=== PATIENT | male | born 1965 | race Caucasian/White ===

== ENCOUNTER 2022-01-16 12:55 | Emergency (ER) | payer MEDICARE, MEDICAID, SELFPAY ==
[2022-01-16 14:01] VITALS: BP 106/68; PULSE 74; RESP 18; TEMP 36.4; O2SAT 94
--- NOTE | 2022-01-23 18:08 | ED.SKABFB ---
HPI - Skin/Abscess/Foreign Bdy General Chief complaint: Skin/Abscess/Foreign Body Stated complaint: Feeding tube sight is red and possibly infected Time Seen by Provider: 01/16/22 14:11 History of Present Illness HPI narrative: 57-year-old man accompanied by his sister who has recently noticed that there is more erythema around his G-tube site. [facility] a [facility]. They have been cleansing daily and placing split gauze around the G-tube. No apparent complaints of pain. No purulent drainage. Sister's worried that he might be getting a skin infection. Related Data Home Medications Medication Instructions Recorded Confirmed acetaminophen 500 mg/15 mL oral mg 01/16/22 liquid (Mapap (acetaminophen)) carbamazepine 100 mg/5 mL oral mg 01/16/22 suspension cefuroxime axetil 500 mg tablet mg 01/16/22 cholecalciferol (vitamin D3) 10 01/16/22 mcg/mL (400 unit/mL) oral drops citalopram 10 mg/5 mL oral solution mg 01/16/22 ferrous sulfate 220 mg (44 mg mg 01/16/22 iron)/5 mL oral elixir fluticasone propionate 50 intranasal 01/16/22 mcg/actuation nasal spray,suspension lamotrigine 100 mg tablet mg 01/16/22 lansoprazole 30 mg delayed mg 01/16/22 release,disintegrating tablet loratadine 5 mg/5 mL oral solution 01/16/22 lorazepam 1 mg tablet mg 01/16/22 lorazepam 2 mg/mL oral concentrate mg 01/16/22 (Lorazepam Intensol) polyethylene glycol 3350 17 g 01/16/22 gram/dose oral powder (Gavilax) rufinamide 40 mg/mL oral suspension mg 01/16/22 senna leaf extract 176 mg/5 mL 01/16/22 oral syrup (senna) sodium chloride 1,000 mg soluble mg 01/16/22 tablet Allergies Allergy/AdvReac Type Severity Reaction Status Date / Time alendronate sodium Allergy Verified 01/16/22 13:57 erythromycin base Allergy Verified 01/16/22 13:57 Macrolide Antibiotics Allergy Verified 01/16/22 13:57 piperacillin [From Zosyn] Allergy Verified 01/16/22 13:57 tazobactam [From Zosyn] Allergy Verified 01/16/22 13:57 falbamate Allergy Uncoded 01/16/22 13:57 Review of Systems Status of ROS: Reports: unobtainable due to mental status PFSH PFSH Social History Smoking Status: Never smoker Do you use any of these nicotine containing products: None Second hand tobacco smoke exposure: No How often do you have a drink containing alcohol: never How often do you have six or more drinks on one occasion: Never AUDIT-C Alcohol total score: 0 Non-prescribed substance use: denies use service: No Exam Narrative: Exam Narrative: Well nourished. NAD. Skin is warm and dry. G-tube site does have mid 2 in patch of erythema with some subtle skin erosion. Minimal calor. No significant induration. Abdomen is soft and appears to be nontender to palpation. Normoactive bowel sounds. Extremities are well perfused. Is breathing easily. Const: Documenting provider has reviewed patient's vital signs: yes Course Vital Signs Vital signs: Initial Vital Signs Temperature 97.5 F L 01/16/22 14:01 Temperature Source Temporal Artery Scan 01/16/22 14:01 Pulse Rate 74 01/16/22 14:01 Respiratory Rate 18 01/16/22 14:01 Blood Pressure 106/68 01/16/22 14:01 Blood Pressure Mean 80 01/16/22 14:01 Blood Pressure Position Sitting 01/16/22 14:01 Pulse Oximetry 94 01/16/22 14:01 Oxygen Delivery Method 01/16/22 14:01 Vital Signs Temperature 97.5 F L 01/16/22 14:01 Pulse Rate 74 01/16/22 14:01 Respiratory Rate 18 01/16/22 14:01 Blood Pressure 106/68 01/16/22 14:01 Pulse Oximetry 94 01/16/22 14:01 Oxygen Delivery Method 01/16/22 14:01 Temperature 97.5 F L 01/16/22 14:01 Pulse Rate 74 01/16/22 14:01 Respiratory Rate 18 01/16/22 14:01 Blood Pressure 106/68 01/16/22 14:01 Pulse Oximetry 94 01/16/22 14:01 Oxygen Delivery Method 01/16/22 14:01 MDM - Skin/Abscess/Foreign Bdy MDM Narrative Medical decision making narrative: I did ask for consult from staff at our wound care clinic. They were gracious enough to offer recommendations. Delineated on discharge paperwork. I do not believe there is a cellulitis at this time. Handwritten prescriptions were necessary and provided. Medical Records Attestation: I reviewed the patient's medical records. Discharge Plan Discharge Clinical Impression: Irritation around percutaneous endoscopic gastrostomy (PEG) tube site Patient Disposition: Home w/ Parent or Adult Condition: Stable Additional Instructions: Use water and a gentle soap to cleanse daily -- soak gauze in this solution and place on stoma for 10 minutes then gently rub away, do not scrub hard. Do not have to remove all the prior dressing. Pat dry. Rub on [place] barrier cream. Then rub on [place] honey (or bacitracin cream as alternative). Then sprinkle on stoma powder followed by patting on [place] cream. Then sprinkle on another layer of stoma powder and cover with split gauze as you already have been doing. Re-evaluate in 10 days. Watch for marked increase in spreading redness, pain, purulent drainage, fever. Prescriptions: No Action loratadine 5 mg/5 mL solution Label Comments: GIVE 10ML VIA PEG TUBE ONCE DAILY citalopram 10 mg/5 mL solution Label Comments: ADMINISTER 10ML(20MG) ONCE A DAY INTO G-TUBE, NOT AT THE SAME TIME THE CARBAMAZEPINE SUSPENSION carbamazepine 100 mg/5 mL suspension Label Comments: ADMINISTER 200MG(10ML) PER G-TUBE IN MORNING, 200MG(10ML) AT NOON, 200MG(10ML) EVENING AND 400MG(20ML) AT BEDTIME cefuroxime axetil 500 mg tablet Label Comments: TAKE ONE TABLET (500MG) VIA G-TUBE TWICE A DAY WITH MEALS polyethylene glycol 3350 [Gavilax] 17 gram/dose powder acetaminophen [Mapap (acetaminophen)] 500 mg/15 mL liquid fluticasone propionate 50 mcg/actuation spray,suspension INTRANASAL Label Comments: INHALE 2 SPRAYS IN THE NOSTRIL(S) ONCE DAILY. lamotrigine 100 mg tablet Label Comments: CRUSH AND GIVE 1 TABLET VIA G-TUBE 3 TIMES DAILY (AM, NOON, AFTERNOON) AND 2 TABLETS IN THE EVENING lansoprazole 30 mg tablet,disintegrat, delay rel Label Comments: DISSOLVE 1 TABLET IN SMALL AMOUNT OF WATER AND GIVE VIA G-TUBE 30 MINUTES BEFORE MORNING MEAL AND 30 MINUTES BEFORE 5PM MEAL. sodium chloride 1,000 mg tablet,soluble Label Comments: TAKE 1 TABLET (1 G) VIA G-TUBE 3 TIMES DAILY cholecalciferol (vitamin D3) 10 mcg/mL (400 unit/mL) drops rufinamide 40 mg/mL suspension Label Comments: ADMINISTER 30 ML IN AM, 30 ML AT NOON, 30 ML IN EVENING AND 30 ML AT BEDTIME. ferrous sulfate 220 mg (44 mg iron)/5 mL elixir lorazepam 1 mg tablet Label Comments: TAKE DIRECTED PER SEIZURE PROTOCOL - CRUSH AND PLACE IN MOUTH lorazepam [Lorazepam Intensol] 2 mg/mL concentrate Label Comments: ADMINISTER 0.5 ML (1 MG) NEEDED FOR SEIZURE LASTING LONGER THAN 90 SECONDS OR FOR MORE THAN 3 SEIZURES IN LESS THAN 6 HOURS. senna leaf extract [senna] 176 mg/5 mL syrup Label Comments: ADMINISTER 5ML VIA G-TUBE ONCE DAILY IF NEEDED FOR CONSTIPATION (IF NO BOWEL MOVEMENT 3 DAYS) Follow Up/Referrals: Darryl Kenny MD [Primary Care Provider] - Stand Alone Forms: [facility] Info [facility]
== END 2022-01-16 15:53 | disposition home or self-care (01) ==
PROVIDERS: Emergency Provider Family Medicine; PCP Family Medicine
DX: K94.20 Gastrostomy complication, unspecified (principal)
CPT/HCPCS: 99283

== ENCOUNTER 2022-02-17 14:54 | Outpatient (CLI) | payer MEDICARE, MEDICAID, SELFPAY | END 2022-02-17 14:55 | disposition home or self-care (01) | PROVIDERS: PCP Family Medicine; Visit Provider Nurse Practitioner Family | DX: L24.B1 Irritant contact dermatitis related to digestive stoma or fistula (principal); Z93.1 Gastrostomy status; G40.812 Lennox-Gastaut syndrome, not intractable, without status epilepticus | CPT/HCPCS: 99214 ==

== ENCOUNTER 2022-03-03 14:02 | Outpatient (CLI) | payer MEDICARE, MEDICAID, SELFPAY | END 2022-03-03 14:03 | disposition home or self-care (01) | LOC: WOUND 14:02 | PROVIDERS: PCP Family Medicine; Visit Provider Nurse Practitioner Family | DX: L24.B1 Irritant contact dermatitis related to digestive stoma or fistula (principal); G40.812 Lennox-Gastaut syndrome, not intractable, without status epilepticus; Z93.1 Gastrostomy status; R10.9 Unspecified abdominal pain | CPT/HCPCS: 99213 ==

== ENCOUNTER 2022-03-14 11:05 | Outpatient (CLI) | payer MEDICARE, MEDICAID, SELFPAY ==
--- NOTE | 2022-03-14 11:00 | CRLHL7_ITS ---
For Patients: As a result of the Century Cures Act, medical imaging exams and procedure reports are released immediately into your electronic medical record. You may view this report before your referring provider. If you have questions, please contact your health care provider. Indication: abdominal pain, stoma site compromise, peristomal leakage Technique: Postcontrast CT abdomen and pelvis. 81 cc Isovue 370 intravenous contrast. 120 cc water/Gastrografin water-soluble contrast administered through the PEG tube. Please note that all CT scans at this facility use dose modulation, iterative reconstruction, and/or weight-based dosing when appropriate to reduce radiation dose to as low as reasonably achievable. Comparison: 02/27/2020 Findings: Chronic tree-in-bud opacities within the visualized lung bases representing sequela of chronic aspiration pneumonitis. Positive water-soluble contrast located within the stomach which was administered through the PEG tube. There is no extravasation of contrast. No free intraperitoneal air or subcutaneous air. No abscess. Positive contrast opacifies the stomach and extends to the GE junction where there is a hiatal hernia measuring 4 cm, unchanged. There are simple intrahepatic cysts measuring up to 2.5 cm. The pancreas is normal. Normal spleen. Adrenal glands normal. Kidneys within normal limits. Contrast extends into the duodenum and jejunum. No obstruction to the flow of contrast. The bladder appears similar with mild bladder wall thickening and mild trabeculation. Slight densities located dependently within the bladder. There are densities within a loop of bowel in the right lower quadrant representing sequela of prior administration of positive contrast. Moderate stool in the colon is present. Mild gaseous distention of transverse colon loops. No adenopathy. Mild chronic compression T11. Gallbladder normal. Impression: Intact PEG tube. No evidence of leakage, abscess or inflammatory change. No gastric outlet or small bowel obstruction. 4 cm hiatal hernia is again noted. Gaseous distention of the transverse colon with increased rectal stool suggesting fecal impaction resulting in adynamic ileus. Chronic aspiration pneumonitis within the visualized lungs. Stable intrahepatic simple cysts. Please note that all CT scans at this facility use dose modulation, iterative reconstruction, and/or weight-based dosing when appropriate to reduce radiation dose to as low as reasonably achievable. Dictated by Abhijeet Oliver MD @ 03/14/2022 12:56:34 PM (Electronically Signed)
== END 2022-03-14 11:06 | disposition home or self-care (01) ==
LOC: CT 11:06
PROVIDERS: PCP Family Medicine; Visit Provider Nurse Practitioner Family
DX: R10.9 Unspecified abdominal pain (principal); J69.0 Pneumonitis due to inhalation of food and vomit; K76.89 Other specified diseases of liver; K44.9 Diaphragmatic hernia without obstruction or gangrene
CPT/HCPCS: 74177; Q9963; Q9967

== ENCOUNTER 2022-03-17 10:40 | Emergency (ER) | payer MEDICARE, MEDICAID, SELFPAY ==
[2022-03-17 10:47] VITALS: BP 106/71; PULSE 77; RESP 20; TEMP 36.8; O2SAT 93; BMI 24.3
--- NOTE | 2022-03-17 11:17 | ED_ITS ---
HPI - General Adult General Chief complaint: Unspecified Complaint, Adult Stated complaint: feeding tube came out Time Seen by Provider: 03/17/22 11:09 Source: family Mode of arrival: wheelchair Limitations: language barrier History of Present Illness HPI narrative: 57-year-old male with a history of Aspiration pneumonia, cognitive dysfunction, constipation, dysphagia, GERD, hyperlipidemia, Marcos-Gastaut syndrome, osteoporosis, seizure disorder - with a Gtube chronically in place presents today for dislodgement of his G-tube. Family was able to give him his medications this morning and when they went back to check on him his G-tube was no longer in place. No other concerns. Related Data Home Medications Medication Instructions Recorded Confirmed acetaminophen 500 mg/15 mL oral mg 01/16/22 liquid (Mapap (acetaminophen)) carbamazepine 100 mg/5 mL oral mg 01/16/22 suspension cefuroxime axetil 500 mg tablet mg 01/16/22 cholecalciferol (vitamin D3) 10 01/16/22 mcg/mL (400 unit/mL) oral drops citalopram 10 mg/5 mL oral solution mg 01/16/22 ferrous sulfate 220 mg (44 mg mg 01/16/22 iron)/5 mL oral elixir fluticasone propionate 50 intranasal 01/16/22 mcg/actuation nasal spray,suspension lamotrigine 100 mg tablet mg 01/16/22 lansoprazole 30 mg delayed mg 01/16/22 release,disintegrating tablet loratadine 5 mg/5 mL oral solution 01/16/22 lorazepam 1 mg tablet mg 01/16/22 lorazepam 2 mg/mL oral concentrate mg 01/16/22 (Lorazepam Intensol) polyethylene glycol 3350 17 g 01/16/22 gram/dose oral powder (Gavilax) rufinamide 40 mg/mL oral suspension mg 01/16/22 senna leaf extract 176 mg/5 mL 01/16/22 oral syrup (senna) sodium chloride 1,000 mg soluble mg 01/16/22 tablet Allergies Allergy/AdvReac Type Severity Reaction Status Date / Time alendronate sodium Allergy Verified 01/16/22 13:57 erythromycin base Allergy Verified 01/16/22 13:57 Macrolide Antibiotics Allergy Verified 01/16/22 13:57 piperacillin [From Zosyn] Allergy Verified 01/16/22 13:57 tazobactam [From Zosyn] Allergy Verified 01/16/22 13:57 falbamate Allergy Uncoded 01/16/22 13:57 Review of Systems Status of ROS: Reports: unobtainable due to medical condition PFSH [facility] Social History Smoking Status: Never smoker Do you use any of these nicotine containing products: None Second hand tobacco smoke exposure: No How often do you have a drink containing alcohol: never How often do you have six or more drinks on one occasion: Never AUDIT-C Alcohol total score: 0 Non-prescribed substance use: denies use service: No Exam Narrative: Exam Narrative: Abdomen is soft and nondistended with normal bowel sounds. Ostomy is open with some clear drainage. Const: Vital Signs, click to edit/add: Vital Signs - 24 hr 03/17/22 10:47 Temperature 98.2 F Pulse Rate [Pulse Oximeter] 77 Respiratory Rate 20 Blood Pressure [Ri ght Upper Arm] 106/71 Pulse Oximetry 93 Oxygen Delivery Me thod Room Air Course Course Hospital Course: Surgery was consulted and they came and replaced the G-tube. Gastric contents in the new tube, tube flushed without difficulty. Vital Signs Vital signs: Initial Vital Signs Temperature 98.2 F 03/17/22 10:47 Temperature Source Oral 03/17/22 10:47 Pulse Rate 77 03/17/22 10:47 Pulse Rhythm 03/17/22 10:47 Respiratory Rate 20 03/17/22 10:47 Blood Pressure 106/71 03/17/22 10:47 Blood Pressure Mean 82 03/17/22 10:47 Blood Pressure Position Sitting 03/17/22 10:47 Pulse Oximetry 93 03/17/22 10:47 Oxygen Delivery Method 03/17/22 10:47 Vital Signs Temperature 98.2 F 03/17/22 10:47 Pulse Rate 77 03/17/22 10:47 Respiratory Rate 20 03/17/22 10:47 Blood Pressure 106/71 03/17/22 10:47 Pulse Oximetry 93 03/17/22 10:47 Oxygen Delivery Method 03/17/22 10:47 Temperature 98.2 F 03/17/22 10:47 Pulse Rate 77 03/17/22 10:47 Respiratory Rate 20 03/17/22 10:47 Blood Pressure 106/71 03/17/22 10:47 Pulse Oximetry 93 03/17/22 10:47 Oxygen Delivery Method 03/17/22 10:47 Medical Decision Making MDM Narrative Medical decision making narrative: Dislodged G-tube. Replaced per surgery. Discharge Plan Discharge Clinical Impression: Dislodged gastrostomy tube Patient Disposition: Home w/ Parent or Adult Condition: Improved Additional Instructions: Follow-up as needed. Return if there is any pain with feeding or concerning symptoms. Prescriptions: No Action loratadine 5 mg/5 mL solution Label Comments: GIVE 10ML VIA PEG TUBE ONCE DAILY citalopram 10 mg/5 mL solution Label Comments: ADMINISTER 10ML(20MG) ONCE A DAY INTO G-TUBE, NOT AT THE SAME TIME THE CARBAMAZEPINE SUSPENSION carbamazepine 100 mg/5 mL suspension Label Comments: ADMINISTER 200MG(10ML) PER G-TUBE IN MORNING, 200MG(10ML) AT NOON, 200MG(10ML) EVENING AND 400MG(20ML) AT BEDTIME cefuroxime axetil 500 mg tablet Label Comments: TAKE ONE TABLET (500MG) VIA G-TUBE TWICE A DAY WITH MEALS polyethylene glycol 3350 [Gavilax] 17 gram/dose powder acetaminophen [Mapap (acetaminophen)] 500 mg/15 mL liquid fluticasone propionate 50 mcg/actuation spray,suspension INTRANASAL Label Comments: INHALE 2 SPRAYS IN THE NOSTRIL(S) ONCE DAILY. lamotrigine 100 mg tablet Label Comments: CRUSH AND GIVE 1 TABLET VIA G-TUBE 3 TIMES DAILY (AM, NOON, AFTERNOON) AND 2 TABLETS IN THE EVENING lansoprazole 30 mg tablet,disintegrat, delay rel Label Comments: DISSOLVE 1 TABLET IN SMALL AMOUNT OF WATER AND GIVE VIA G-TUBE 30 MINUTES BEFORE MORNING MEAL AND 30 MINUTES BEFORE 5PM MEAL. sodium chloride 1,000 mg tablet,soluble Label Comments: TAKE 1 TABLET (1 G) VIA G-TUBE 3 TIMES DAILY cholecalciferol (vitamin D3) 10 mcg/mL (400 unit/mL) drops rufinamide 40 mg/mL suspension Label Comments: ADMINISTER 30 ML IN AM, 30 ML AT NOON, 30 ML IN EVENING AND 30 ML AT BEDTIME. ferrous sulfate 220 mg (44 mg iron)/5 mL elixir lorazepam 1 mg tablet Label Comments: TAKE DIRECTED PER SEIZURE PROTOCOL - CRUSH AND PLACE IN MOUTH lorazepam [Lorazepam Intensol] 2 mg/mL concentrate Label Comments: ADMINISTER 0.5 ML (1 MG) NEEDED FOR SEIZURE LASTING LONGER THAN 90 SECONDS OR FOR MORE THAN 3 SEIZURES IN LESS THAN 6 HOURS. senna leaf extract [senna] 176 mg/5 mL syrup Label Comments: ADMINISTER 5ML VIA G-TUBE ONCE DAILY IF NEEDED FOR CONSTIPATION (IF NO BOWEL MOVEMENT 3 DAYS) Follow Up/Referrals: Darryl Kenny MD [Primary Care Provider] - Stand Alone Forms: [employer] Info Instructions
--- NOTE | 2022-03-17 13:11 | P.GSCN_ITS ---
History of Present Illness Consult details Date Seen: 03/17/22 Consult date: 03/17/22 Narrative: 57-year-old male from [facility] was brought to the emergency room with dislodged G-tube. Patient is obtaining tube feeds and medications through a gastrostomy tube. Today in the morning after giving morning medications, the staff noted that the G-tube was laying on the side next to the patient. This happened around 10:00 a.m. in the morning. Patient was then brought to the emergency room. General surgery was consulted to help with G-tube placement. Patient's gastrostomy tube was placed a long time ago. He was recently seen in [facility] for leakage around the tube. The thought was to replace the tube with a new 1 in the near future. [facility] Medical History (Updated 03/17/22 @ 13:17 by Catherine Butler MD) Cognitive impairment History of gastrostomy tube placement Social History (Updated 03/17/22 @ 13:17 by Catherine Butler MD) Narrative: Lives at [facility]. Smoking Status: Never smoker Do you use any of these nicotine containing products: None Second hand tobacco smoke exposure: No How often do you have a drink containing alcohol: never How often do you have six or more drinks on one occasion: Never AUDIT-C Alcohol total score: 0 Non-prescribed substance use: denies use service: No Meds Home Medications and Allergies Home Medications Medication Instructions Recorded Confirmed Type acetaminophen 500 mg/15 mL oral mg 01/16/22 History liquid (Mapap (acetaminophen)) carbamazepine 100 mg/5 mL oral mg 01/16/22 History suspension cefuroxime axetil 500 mg tablet mg 01/16/22 History cholecalciferol (vitamin D3) 10 01/16/22 History mcg/mL (400 unit/mL) oral drops citalopram 10 mg/5 mL oral solution mg 01/16/22 History ferrous sulfate 220 mg (44 mg mg 01/16/22 History iron)/5 mL oral elixir fluticasone propionate 50 intranasal 01/16/22 History mcg/actuation nasal spray,suspension lamotrigine 100 mg tablet mg 01/16/22 History lansoprazole 30 mg delayed mg 01/16/22 History release,disintegrating tablet loratadine 5 mg/5 mL oral solution 01/16/22 History lorazepam 1 mg tablet mg 01/16/22 History lorazepam 2 mg/mL oral concentrate mg 01/16/22 History (Lorazepam Intensol) polyethylene glycol 3350 17 g 01/16/22 History gram/dose oral powder (Gavilax) rufinamide 40 mg/mL oral suspension mg 01/16/22 History senna leaf extract 176 mg/5 mL 01/16/22 History oral syrup (senna) sodium chloride 1,000 mg soluble mg 01/16/22 History tablet Allergies Allergy/AdvReac Type Severity Reaction Status Date / Time alendronate sodium Allergy Verified 01/16/22 13:57 erythromycin base Allergy Verified 01/16/22 13:57 Macrolide Antibiotics Allergy Verified 01/16/22 13:57 piperacillin [From Zosyn] Allergy Verified 01/16/22 13:57 tazobactam [From Zosyn] Allergy Verified 01/16/22 13:57 falbamate Allergy Uncoded 01/16/22 13:57 Exam Narrative: Exam Narrative: General appearance: Alert, cooperative, and in no distress Pulmonary: Chest symmetric, breathing nonlabored Gastrointestinal Abdominal: soft, not distended, in the left upper quadrant there is a retracted skin opening where the G-tube was previously. There is skin erythema around the opening concerning for chemical injury from gastric contents. Psychiatric: Alert, cooperative, the speech is difficult to understand 22 [place] gastrostomy tube placement The skin opening in the left upper quadrant of the abdomen was fairly small. I probed the tract with a Q-tip first and a 22 [place] gastrostomy tube was then placed into the abdomen. The balloon was inflated with 9 mL of sterile water. Gastric contents were noted in the GE tubing. The tubing was flushed with 50 mL of sterile water with no difficulties. Const: Vital Signs, click to edit/add: Vital Signs - 24 hr 03/17/22 10:47 Temperature 98.2 F Pulse Rate [Pulse Oximeter] 77 Respiratory Rate 20 Blood Pressure [Ri ght Upper Arm] 106/71 Pulse Oximetry 93 Oxygen Delivery Me thod Room Air Results Labs Labs: All other labs normal. Assessment and Plan Assessment and plan (1) Dislodged gastrostomy tube: Status: Acute Plan 57-year-old male with cognitive impairment presents with dislodged G-tube s/p placement of 22 [place] gastrostomy tube today. I discussed with the patient's caregiver (director of the [facility]) to watch for fevers and abdominal pain in the next 24-48 hours. That would be concerning for dislodged G-tube. Patient should follow-up with the Wound Clinic for placement of the tube with [place] tube. (We had limited supply of G tubes in stock and did not have MICy tubes).
== END 2022-03-17 13:17 | disposition home or self-care (01) ==
PROVIDERS: Emergency Provider Family Medicine; PCP Family Medicine
DX: T85.528A Displacement of other gastrointestinal prosthetic devices, implants and grafts, initial encounter (principal)
CPT/HCPCS: 99283; 99284

== ENCOUNTER 2022-05-19 13:26 | Outpatient (CLI) | payer MEDICARE, MEDICAID, SELFPAY | END 2022-05-19 13:27 | disposition home or self-care (01) | LOC: WOUND 13:27 | PROVIDERS: PCP Family Medicine; Visit Provider Nurse Practitioner Family | DX: Z93.1 Gastrostomy status (principal); Z74.1 Need for assistance with personal care | CPT/HCPCS: 99213 ==

== ENCOUNTER 2022-05-27 14:53 | Inpatient (IN) | payer MEDICARE, MEDICAID, SELFPAY ==
[2022-05-27] VITALS (23 sets, daily range): BP systolic 118–125; BP diastolic 67–76; PULSE 77–116; RESP 26–40; TEMP 36.7–37.5; O2SAT 90–98; BMI 24.6
--- NOTE | 2022-05-27 15:27 | CRLHL7_ITS ---
For Patients: As a result of the Cures Act, medical imaging exams and procedure reports are released immediately into your electronic medical record. You may view this report before your referring provider. If you have questions, please contact your health care provider. HISTORY: Aspiration. TECHNIQUE: One view of the chest. COMPARISON: 06/07/2021. FINDINGS: Moderate bordering on large left-sided pleural effusion with underlying left mid to lower lung zone atelectasis or infiltrate. No significant right-sided pleural effusion. No pneumothorax. Cardiac size is stable. IMPRESSION: Moderate bordering on large left-sided pleural effusion with underlying left lung atelectasis or infiltrate. Dictated by Wyatt Rodriges MD @ 05/27/2022 4:17:29 PM Dictated by: Wyatt Rodriges MD @ 05/27/2022 16:17:34 (Electronically Signed)
--- NOTE | 2022-05-27 15:31 | ED.GENADULT ---
HPI - General Adult General Time Seen by Provider: 15:31 Date Seen: 05/27/22 Chief complaint: Shortness of Breath/Dyspnea Stated complaint: Pneumonia, low O2, raised heartrate Time Seen by Provider: 05/27/22 14:57 Source: patient Mode of arrival: wheelchair Limitations: other History of Present Illness HPI narrative: Patient is a 57-year-old male who presents with his sister who is also his caregiver. He was diagnosed with aspiration pneumonia yesterday in the [facility] started on liquid clindamycin through his G-tube. 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 The patient was noted to have vomiting over the last several days and the sister is not convinced that he is able to keep the clindamycin in. He has an O2 sat in the upper 80s at home and it has been 93 year on room air he is not appear to have any pain, he has had some auditory wheezing. They did not do COVID testing yesterday in the clinic. They did do a chest x-ray. Patient continues to have some episodes of vomiting, and has seemed to have more wheezing today and with the concerning low O2 sat presented to the ER. They see the [facility] for primary care Related Data Home Medications Medication Instructions Recorded Confirmed acetaminophen 500 mg/15 mL oral mg 01/16/22 liquid (Mapap (acetaminophen)) carbamazepine 100 mg/5 mL oral mg 01/16/22 suspension cefuroxime axetil 500 mg tablet mg 01/16/22 cholecalciferol (vitamin D3) 10 01/16/22 mcg/mL (400 unit/mL) oral drops citalopram 10 mg/5 mL oral solution mg 01/16/22 ferrous sulfate 220 mg (44 mg mg 01/16/22 iron)/5 mL oral elixir fluticasone propionate 50 intranasal 01/16/22 mcg/actuation nasal spray,suspension lamotrigine 100 mg tablet mg 01/16/22 lansoprazole 30 mg delayed mg 01/16/22 release,disintegrating tablet loratadine 5 mg/5 mL oral solution 01/16/22 lorazepam 1 mg tablet mg 01/16/22 lorazepam 2 mg/mL oral concentrate mg 01/16/22 (Lorazepam Intensol) polyethylene glycol 3350 17 g 01/16/22 gram/dose oral powder (Gavilax) rufinamide 40 mg/mL oral suspension mg 01/16/22 senna leaf extract 176 mg/5 mL 01/16/22 oral syrup (senna) sodium chloride 1,000 mg soluble mg 01/16/22 tablet Allergies Allergy/AdvReac Type Severity Reaction Status Date / Time alendronate sodium Allergy Verified 01/16/22 13:57 erythromycin base Allergy Verified 01/16/22 13:57 felbamate Allergy Verified 05/27/22 15:33 Macrolide Antibiotics Allergy Verified 01/16/22 13:57 piperacillin [From Zosyn] Allergy Verified 01/16/22 13:57 tazobactam [From Zosyn] Allergy Verified 01/16/22 13:57 Review of Systems Narrative: Per the sister the patient is negative for cardiopulmonary GI neurologic skin other mentioned above PFSH PFS Medical History Cognitive impairment ?R41.89 - Other symptoms and signs involving cognitive functions and awareness (ICD-10) History of gastrostomy tube placement Social History Narrative: Lives at [facility]. Smoking Status: Never smoker Do you use any of these nicotine containing products: None Second hand tobacco smoke exposure: No How often do you have a drink containing alcohol: never How often do you have six or more drinks on one occasion: Never AUDIT-C Alcohol total score: 0 Non-prescribed substance use: denies use service: No Exam Narrative: Exam Narrative: Objective: Patient's vital signs show an elevated rest rate at 40, O2 sat 93%, was 88% at home. Alert Lung exam shows some diminished air exchange at the bases bilaterally Heart rhythm regular 2/6 systolic murmur Abdomen benign soft Extremities without significant edema good peripheral perfusion noted. Const: Vital Signs, click to edit/add: Vital Signs - 24 hr 05/27/22 15:10 05/27/22 17:01 05/27/22 17:10 Temperature 98.1 F Pulse Rate Pulse Rate [Right Pulse Oximeter] 116 H Respiratory Rate 40 H Blood Pressure Blood Pressure [Le ft Upper Arm] 125/75 Pulse Oximetry 93 96 96 Oxygen Delivery Me thod Room Air Nasal Cannula Oxygen Flow Rate 2 05/27/22 17:06 04/22/23 17:55 05/27/22 17:15 Temperature Pulse Rate 112 H 113 H Pulse Rate [Right Pulse Oximeter] Respiratory Rate Blood Pressure Blood Pressure [Le ft Upper Arm] Pulse Oximetry 95 94 Oxygen Delivery Me thod Nasal Cannula Oxygen Flow Rate 05/27/22 17:30 05/27/22 17:45 05/27/22 18:00 Temperature Pulse Rate 113 H 111 H 113 H Pulse Rate [Right Pulse Oximeter] Respiratory Rate Blood Pressure Blood Pressure [Le ft Upper Arm] Pulse Oximetry 95 94 93 Oxygen Delivery Me thod Oxygen Flow Rate 05/27/22 18:15 05/27/22 18:30 05/27/22 18:45 Temperature Pulse Rate 114 H 110 H 116 H Pulse Rate [Right Pulse Oximeter] Respiratory Rate Blood Pressure Blood Pressure [Le ft Upper Arm] Pulse Oximetry 93 94 91 Oxygen Delivery Me thod Oxygen Flow Rate 05/27/22 19:00 05/27/22 19:15 05/27/22 19:20 Temperature Pulse Rate 113 H 114 H 113 H Pulse Rate [Right Pulse Oximeter] Respiratory Rate Blood Pressure 121/76 Blood Pressure [Le ft Upper Arm] Pulse Oximetry 93 92 92 Oxygen Delivery Me thod Oxygen Flow Rate Course Vital Signs Vital signs: Initial Vital Signs Temperature 98.1 F 05/27/22 15:10 Temperature Source Temporal Artery Scan 05/27/22 15:10 Pulse Rate 116 H 05/27/22 15:10 Pulse Rhythm Regular 05/27/22 15:10 Respiratory Rate 40 H 05/27/22 15:10 Blood Pressure 125/75 05/27/22 15:10 Blood Pressure Mean 91 05/27/22 15:10 Blood Pressure Position Sitting 05/27/22 15:10 Pulse Oximetry 93 05/27/22 15:10 Oxygen Delivery Method Room Air 05/27/22 15:10 Vital Signs Temperature 98.1 F 05/27/22 15:10 Pulse Rate 116 H 05/27/22 15:10 Respiratory Rate 40 H 05/27/22 15:10 Blood Pressure 125/75 05/27/22 15:10 Pulse Oximetry 93 05/27/22 15:10 Oxygen Delivery Method Room Air 05/27/22 15:10 Temperature 98.1 F 05/27/22 15:10 Pulse Rate 113 H 05/27/22 19:20 Respiratory Rate 40 H 04/22/23 15:10 Blood Pressure 121/76 05/27/22 19:20 Pulse Oximetry 92 05/27/22 19:20 Oxygen Delivery Method Nasal Cannula 05/27/22 17:55 Oxygen Flow Rate 2 05/27/22 17:10 Medical Decision Making MDM Narrative Medical decision making narrative: 57-year-old male with cognitive impairment, Marcos-gastau syndrome, with cognitive impairment with probable aspiration pneumonia. With increased wheezing low O2 sat in the upper 80% range and increased respiratory rate. With the patient's vomiting certainly could be assume he is not getting all the clindamycin. Will recommend starting an IV will give him IV clindamycin, IV steroids, DuoNeb. Some IV fluid. Will check laboratory studies. Patient likely will need admission to the hospital for IV treatment of pneumonia with oximetry monitoring an assessment will notify hospitalist of findings and disposition. Addendum: The patient on his plain x-ray has a left pleural effusion possibly parapneumonic effusion. Patient will get a CT scan unenhanced of the chest. 4:52 p.m.: The patient has a CT scan of the chest that shows a large left pleural effusion, some compression left lower lobe in mid lung lobe. Might be right lower lobe pneumonia versus atelectasis as well. There is a nodule noted as well. Patient's white count is elevated 14,690. Patient is negative for COVID/influenza/RSV. Patient may need at some point drainage of the effusion with surgical consultation. At this point I think admission and IV antibiotics to be appropriate would give clindamycin may add ertapenem as well. Addendum 7:47 p.m. the patient had a thoracentesis with our general surgeon and felt much better, will be admitted to the hospital for antibiotic treatment and oxygenation and IV access. Lab Data Labs: Lab Results 05/27/22 05/27/22 05/27/22 Range/Units 15:38 16:22 17:45 WBC 14.69 H (4.50-11.00) K/uL RBC 3.46 L (4.30-5.90) m/uL Hgb 11.5 L (13.5-17.5) gm/dL Hct 35.1 L (37.0-53.0) % MCV 101 H (80-100) fL MCH 33 (26-34) pg MCHC 33 (32-36) gm/dL RDW Coeff of Johann 13.0 (11.5-15.5) % Plt Count 366 (140-440) K/uL Neut % (Auto) 79.4 H (42.0-72.0) % Lymph % (Auto) 4.6 L (20-44) % [place] % (Auto) 15.0 H (0.0-11.0) % Eos % (Auto) 0.0 (0.0-7.0) % Baso % (Auto) 0.5 (0.0-3.0) % Neut # (Auto) 11.70 H (1.7-7.0) K/uL Lymph # (Auto) 0.70 L (0.90-2.90) K/uL [place] # (Auto) 2.20 H (0.00-0.90) K/UL Eos # (Auto) 0.00 (0.00-0.50) K/uL Baso # (Auto) 0.10 (0.00-0.30) K/uL ABG pH 7.39 (7.35-7.45) ABG pCO2 45 (35-45) mmHG ABG pO2 25.0 L* (80-105) mmHG ABG HCO3 27 (21-28) mmol/L ABG Total CO2 25 (21-30) mmol/l ABG O2 Saturation 38 L (92-100) % ABG Base Excess 1.7 (-3.0-3.0) mmol/L Carboxyhemoglobin 1.4 (0.0-5.0) % Sodium 128 L (135-149) mmol/L Potassium 5.1 (3.6-5.1) mmol/L Chloride 97 (96-114) mmol/L Carbon Dioxide 24 (20-32) mmol/L BUN 15 (7-30) mg/dL Creatinine 0.3 L (0.5-1.5) mg/dL Estimated Creat Clear 259.67 Estimated GFR 138 ml/min Glucose 127 H (60-115) mg/dL Calcium 8.3 L (8.4-10.6) mg/dL Total Bilirubin 0.7 (0.1-1.5) mg/dL Direct Bilirubin 0.6 H (0.0-0.5) mg/dL AST 69 H (12-35) U/L ALT 53 H (4-50) U/L Alkaline Phosphatase 83 (40-150) U/L Troponin I < 0.01 L (0.01-0.04) ng/mL C-Reactive Protein 22.1 H (0.5-1.0) mg/dL NT-Pro-B Natriuret Pep 262 pg/mL Total Protein 7.4 (6.0-8.3) g/dL Albumin 3.7 (3.3-5.0) g/dL Amylase 62 (18-89) U/L SARS-CoV-2 (PCR) Negative SARS-CoV-2 (Negative) Influenza Type A (PCR) Negative PCR FLU A (Negative) Influenza Type B (PCR) Negative PCR FLU B (Negative) RSV (PCR) Negative PCR RSV (Negative) Discharge Plan Discharge Clinical Impression: Cognitive impairment, Marcos-Gastaut syndrome, Pneumonia, Pleural effusion on left Patient Disposition: Admitted As Inpatient
--- NOTE | 2022-05-27 15:45 | CRLHL7_ITS ---
For Patients: As a result of the Century Cures Act, medical imaging exams and procedure reports are released immediately into your electronic medical record. You may view this report before your referring provider. If you have questions, please contact your health care provider. INDICATION: Left pleural effusion TECHNIQUE: CT chest without contrast. COMPARISON: Chest x-ray earlier same day 05/27/2022 CT chest 05/14/2015 FINDINGS: Evaluation is somewhat limited due to respiratory motion as well as artifact from the abandoned left-sided cardiac device. The heart is normal in size. No suspicious mediastinal or hilar adenopathy. Moderate bilateral gynecomastia. There is slight left to right shift of the mediastinum due to a large left pleural effusion. There is complete compressive atelectasis of the left lower lobe. There is mild compressive atelectasis of the left upper lobe. There are interstitial and ground-glass opacity within the right lung base, which could represent pneumonia, underlying fibrotic change is also a possibility. Nodular ground-glass opacity within the medial right upper lobe measures 1.4 cm. Small hiatal hernia. Left hepatic cysts. Stable compression of the superior endplate of T11. Mild compression of superior endplate of T9 is new. IMPRESSION: 1. Large left pleural effusion which is resulting in complete compressive atelectasis of the left lower lobe and mild compressive atelectasis of the left upper lobe. There is also slight left to right shift of the mediastinum. 2. Evaluation of the lungs is limited due to respiratory motion, however there is interstitial and airspace opacity at the right lung base which may represent pneumonia, however underlying background fibrotic changes also a consideration. 3. Ground-glass nodular opacity measuring 1.4 cm within the medial right upper lobe, may also be infectious or inflammatory. Recommend follow-up in approximately 6 months. Dictated by Christi Smalls MD @ 05/27/2022 4:44:52 PM Please note that all CT scans at this facility use dose modulation, iterative reconstruction, and/or weight-based dosing when appropriate to reduce radiation dose to as low as reasonably achievable. Dictated by: Christi Smalls MD @ 05/27/2022 16:45:24 (Electronically Signed)
[2022-05-27] MEDS: IPRAT-ALBUT 0.5-2.5 MG/3 ML NEB 1 NEB IH (16:29)
[2022-05-27] MEDS: 0.9 % SODIUM CHLORIDE 500 ML 500 ML IV (16:29)
[2022-05-27 16:32] LABS: Basophils Percent Auto 0.5 % (0.0-3.0); Hematocrit 35.1 % (37.0-53.0); Hemoglobin* 11.5 gm/dL (13.5-17.5); Immature Granulocytes Pct Auto 0.5 %; Lymphocytes Percent Auto 4.6 % (20-44); Mean Corpuscular HGB Conc 33 gm/dL (32-36); Mean Corpuscular Hemoglobin 33 pg (26-34); Mean Corpuscular Volume 101 fL (80-100); Neutrophils Percent Auto 79.4 % (42.0-72.0); Platelet Count* 366 K/uL (140-440); Red Blood Count 3.46 m/uL (4.30-5.90); White Blood Count* 14.69 K/uL (4.50-11.00)
[2022-05-27] MEDS: ONDANSETRON 2 MG/ML inj 4 MG IVP (16:32)
[2022-05-27] MEDS: METHYLPREDNISOLONE SOD SUCC 62.5 MG/ML (125) 125 MG IVP (16:35)
[2022-05-27 16:37] LABS: PCR FLU A Negative PCR FLU A (Negative); PCR FLU B Negative PCR FLU B (Negative); PCR RSV Negative PCR RSV (Negative); SARS PCR* Negative SARS-CoV-2 (Negative)
[2022-05-27 16:39] LABS: Slide Review Reflex No
[2022-05-27 16:45] LABS: Albumin* 3.7 g/dL (3.3-5.0); Chloride* 97 mmol/L (96-114); Sodium* 128 mmol/L (135-149)
[2022-05-27 16:46] LABS: Potassium* 5.1 mmol/L (3.6-5.1)
[2022-05-27 16:47] LABS: Amylase* 62 U/L (18-89)
[2022-05-27 16:48] LABS: Alanine Aminotransferase* 53 U/L (4-50); Alkaline Phosphatase* 83 U/L (40-150); Aspartate Amino Transferase* 69 U/L (12-35); Bilirubin Direct* 0.6 mg/dL (0.0-0.5); Bilirubin Total* 0.7 mg/dL (0.1-1.5); Blood Urea Nitrogen* 15 mg/dL (7-30); Carbon Dioxide* 24 mmol/L (20-32); Creatinine* 0.3 mg/dL (0.5-1.5); Estimated Glomerular Filt Rate 138 ml/min; Glucose* 127 mg/dL (60-115); Total Protein* 7.4 g/dL (6.0-8.3)
[2022-05-27 16:49] LABS: Calcium* 8.3 mg/dL (8.4-10.6)
[2022-05-27 16:59] LABS: NT Pro B Type NatriureticPept* 262 pg/mL
[2022-05-27 17:05] LABS: C Reactive Protein* 22.1 mg/dL (0.5-1.0); Troponin I* < 0.01 ng/mL (0.01-0.04)
[2022-05-27] MEDS: ERTAPENEM 1 GM in 0.9 % SODIUM CHLORIDE Mini-bag 100 ML IVPB (17:34)
[2022-05-27 17:47] LABS: ABG PCO2 45 mmHG (35-45); Base Excess ABG 1.7 mmol/L (-3.0-3.0); Carboxyhemoglobin* 1.4 % (0.0-5.0); HCO3 ABG 27 mmol/L (21-28); Oxygen Saturation ABG 38 % (92-100); TCO2 ABG 25 mmol/l (21-30); pH ABG 7.39 (7.35-7.45)
--- NOTE | 2022-05-27 17:47 | CRLHL7_ITS ---
For Patients: As a result of the Century Cures Act, medical imaging exams and procedure reports are released immediately into your electronic medical record. You may view this report before your referring provider. If you have questions, please contact your health care provider. Indication: Post thoracentesis. Pleural effusion. Technique: Chest 1 view. Comparison: 05/27/2022. Findings/Impression: Cardiovascular and mediastinum: Heart size is within normal limits. Lungs and pleural space: Slightly improved but persistent large left side pleural effusion. Stable prominence of the central lung interstitium. No pneumothorax. Bones and soft tissues: No acute findings. Dictated by Feliciano Kay MD @ 05/27/2022 7:25:42 PM (Electronically Signed)
--- NOTE | 2022-05-27 19:06 | P.GSCN_ITS ---
History of Present Illness Consult details Date Seen: 05/27/22 Consult date: 05/27/22 Narrative: Patient is a 49-year-old male, with history of cerebral palsy and cognitive impairment, who presented to the emergency department with his sister for increasing shortness of breath. He was diagnosed through his primary care provider yesterday with aspiration pneumonia and started on liquid clindamycin through his G-tube. At home his oxygenation was in the upper 80s any peer to be more short of breath, prompting them to come in. On workup in the emergency department repeat chest x-ray did show a worsening left-sided pleural effusion. A CT chest was done, which again demonstrated a large pleural effusion with complete compressive atelectasis of the left lower lobe in mild compressive atelectasis of the left upper load. There is also slight [id number] shift of the mediastinum, although this can be seen on previous images. Review of Systems Status of ROS: Reports: 6 or more systems reviewed and unremarkable except as noted in History and below [facility] Medical History Cognitive impairment ?R41.89 - Other symptoms and signs involving cognitive functions and awareness (ICD-10) History of gastrostomy tube placement Social History Narrative: [facility]. Smoking Status: Never smoker Do you use any of these nicotine containing products: None Second hand tobacco smoke exposure: No How often do you have a drink containing alcohol: never How often do you have six or more drinks on one occasion: Never AUDIT-C Alcohol total score: 0 Non-prescribed substance use: denies use service: No Meds Home Medications and Allergies Home Medications Medication Instructions Recorded Confirmed Type acetaminophen 500 mg/15 mL oral mg 01/16/22 History liquid (Mapap (acetaminophen)) carbamazepine 100 mg/5 mL oral mg 01/16/22 History suspension cefuroxime axetil 500 mg tablet mg 01/16/22 History cholecalciferol (vitamin D3) 10 01/16/22 History mcg/mL (400 unit/mL) oral drops citalopram 10 mg/5 mL oral solution mg 01/16/22 History ferrous sulfate 220 mg (44 mg mg 01/16/22 History iron)/5 mL oral elixir fluticasone propionate 50 intranasal 01/16/22 History mcg/actuation nasal spray,suspension lamotrigine 100 mg tablet mg 01/16/22 History lansoprazole 30 mg delayed mg 01/16/22 History release,disintegrating tablet loratadine 5 mg/5 mL oral solution 01/16/22 History lorazepam 1 mg tablet mg 01/16/22 History lorazepam 2 mg/mL oral concentrate mg 01/16/22 History (Lorazepam Intensol) polyethylene glycol 3350 17 g 01/16/22 History gram/dose oral powder (Gavilax) rufinamide 40 mg/mL oral suspension mg 01/16/22 History senna leaf extract 176 mg/5 mL 01/16/22 History oral syrup (senna) sodium chloride 1,000 mg soluble mg 01/16/22 History tablet Allergies Allergy/AdvReac Type Severity Reaction Status Date / Time alendronate sodium Allergy Verified 01/16/22 13:57 erythromycin base Allergy Verified 01/16/22 13:57 felbamate Allergy Verified 05/27/22 15:33 Macrolide Antibiotics Allergy Verified 01/16/22 13:57 piperacillin [From Zosyn] Allergy Verified 01/16/22 13:57 tazobactam [From Zosyn] Allergy Verified 01/16/22 13:57 Exam Narrative: Exam Narrative: General: Alert and oriented, mild distress Respiratory: Tachypnea, use of accessory muscles and grunting. Maintained on nasal cannula. Decreased breath sounds throughout left side of chest CV: Mild tachycardia, regular rhythm Const: Vital Signs, click to edit/add: Vital Signs - 24 hr 05/27/22 15:10 05/27/22 17:01 05/27/22 17:10 Temperature 98.1 F Pulse Rate Pulse Rate [Right Pulse Oximeter] 116 H Respiratory Rate 40 H Blood Pressure [Le ft Upper Arm] 125/75 Pulse Oximetry 93 96 96 Oxygen Delivery Me thod Room Air Nasal Cannula Oxygen Flow Rate 2 05/27/22 17:06 05/27/22 17:55 05/27/22 17:15 Temperature Pulse Rate 112 H 113 H Pulse Rate [Right Pulse Oximeter] Respiratory Rate Blood Pressure [Le ft Upper Arm] Pulse Oximetry 95 94 Oxygen Delivery Me thod Nasal Cannula Oxygen Flow Rate 05/27/22 17:30 05/27/22 17:45 05/27/22 18:00 Temperature Pulse Rate 113 H 111 H 113 H Pulse Rate [Right Pulse Oximeter] Respiratory Rate Blood Pressure [Le ft Upper Arm] Pulse Oximetry 95 94 93 Oxygen Delivery Me thod Oxygen Flow Rate Results Labs Labs: Abnormal lab results 05/27/22 05/27/22 Range/Units 16:22 17:45 WBC 14.69 H (4.50-11.00) K/uL RBC 3.46 L (4.30-5.90) m/uL Hgb 11.5 L (13.5-17.5) gm/dL Hct 35.1 L (37.0-53.0) % MCV 101 H (80-100) fL Neut % (Auto) 79.4 H (42.0-72.0) % Lymph % (Auto) 4.6 L (20-44) % [place] % (Auto) 15.0 H (0.0-11.0) % Neut # (Auto) 11.70 H (1.7-7.0) K/uL Lymph # (Auto) 0.70 L (0.90-2.90) K/uL [place] # (Auto) 2.20 H (0.00-0.90) K/UL ABG pO2 25.0 L* (80-105) mmHG ABG O2 Saturation 38 L (92-100) % Sodium 128 L (135-149) mmol/L Creatinine 0.3 L (0.5-1.5) mg/dL Glucose 127 H (60-115) mg/dL Calcium 8.3 L (8.4-10.6) mg/dL Direct Bilirubin 0.6 H (0.0-0.5) mg/dL AST 69 H (12-35) U/L ALT 53 H (4-50) U/L Troponin I < 0.01 L (0.01-0.04) ng/mL C-Reactive Protein 22.1 H (0.5-1.0) mg/dL Diabetes panel 05/27/22 Range/Units 16:22 Sodium 128 L (135-149) mmol/L Potassium 5.1 (3.6-5.1) mmol/L Chloride 97 (96-114) mmol/L Carbon Dioxide 24 (20-32) mmol/L BUN 15 (7-30) mg/dL Creatinine 0.3 L (0.5-1.5) mg/dL Glucose 127 H (60-115) mg/dL Calcium 8.3 L (8.4-10.6) mg/dL AST 69 H (12-35) U/L ALT 53 H (4-50) U/L Alkaline Phosphatase 83 (40-150) U/L Total Protein 7.4 (6.0-8.3) g/dL Albumin 3.7 (3.3-5.0) g/dL Calcium panel 05/27/22 Range/Units 16:22 Calcium 8.3 L (8.4-10.6) mg/dL Albumin 3.7 (3.3-5.0) g/dL Pituitary panel 05/27/22 Range/Units 16:22 Sodium 128 L (135-149) mmol/L Potassium 5.1 (3.6-5.1) mmol/L Chloride 97 (96-114) mmol/L Carbon Dioxide 24 (20-32) mmol/L BUN 15 (7-30) mg/dL Creatinine 0.3 L (0.5-1.5) mg/dL Glucose 127 H (60-115) mg/dL Calcium 8.3 L (8.4-10.6) mg/dL Adrenal panel 05/27/22 Range/Units 16:22 Sodium 128 L (135-149) mmol/L Potassium 5.1 (3.6-5.1) mmol/L Chloride 97 (96-114) mmol/L Carbon Dioxide 24 (20-32) mmol/L BUN 15 (7-30) mg/dL Creatinine 0.3 L (0.5-1.5) mg/dL Glucose 127 H (60-115) mg/dL Calcium 8.3 L (8.4-10.6) mg/dL Total Bilirubin 0.7 (0.1-1.5) mg/dL AST 69 H (12-35) U/L ALT 53 H (4-50) U/L Alkaline Phosphatase 83 (40-150) U/L Total Protein 7.4 (6.0-8.3) g/dL Albumin 3.7 (3.3-5.0) g/dL All other labs normal. Imaging Chest x-ray: report reviewed and image reviewed CT scan - chest: report reviewed and image reviewed Assessment and Plan Assessment and plan (1) Pleural effusion on left: Status: Acute Plan Patient is a 57-year-old male with a new large left-sided pleural effusion, secondary to his aspiration pneumonia. Risks and benefits of thoracentesis at bedside were discussed at length with his sister, who is his guardian. Risks included, but were not limited to: Bleeding, infection, risk of damage surrounding structures, possible need for a chest tube, the possibility of needing transfer to a large hospital if a complication occurs and risk of recurrent accumulation of fluid. All questions and concerns were addressed with patient's guardian agreeing to proceed. Patient underwent the procedure with removal of 1150 mL fluid, it was not purulence in appearance. The fluid was sent for analysis, Gram stain and culture. Patient tolerated the procedure well without immediate complication. Postprocedure chest x-ray demonstrated no evidence of pneumothorax. General Surgery Procedures Thoracentesis Time Out Performed: Yes Imaging guidance used ?: Yes Indication: Pleural effusion Procedure: therapeutic thoracentesis and diagnostic thoracentesis Location: left Local anesthetic used: lidocaine Amount of anesthesia used (mL): 4 Bedside ultrasound used: yes, fluid confirmed and location marked Preparation: sterile prep and drape and 11 blade used to make pablito in skin Amount of fluid obtained (mL): 1,150 Fluid: other (Clear yellow with slight bilious tinged) Post Procedure Exam: awake, alert, normal BP, normal HR and other (Improved O2 on nasal cannula) Patient Tolerated Procedure: well Complications: none
--- NOTE | 2022-05-27 19:24 | ED.NURSE ---
Surgeon performed thoracentesis draining over 1 liter of fluid from left chest cavity. Patient had less grunting and shortness of breath afterward. Vitals are at baseline.
[2022-05-27 19:57] LABS: BF Clarity* Slightly Cloudy; BF Color Blood Tinged; BF Total Volume* 200; Body Fluid Total Protein* 4.5 gm/dL; Glucose Body Fluid* 119 mg/dL
[2022-05-27 19:58] LABS: Amylase Body Fluid* < 30 U/L; Cholesterol Body Fluid* 95 mg/dL; LDH Body Fluid* 471 U/L; pH Body Fluid* 8.5
[2022-05-27 20:18] LABS: Mononuclear WBC Body Fluid* 48 %; Polynuclear WBC Body Fluid* 52 %; RBC, Body Fluid* 15000 Cells/uL; WBC, Body Fluid* 3292 Cells/uL
--- NOTE | 2022-05-27 21:46 | PM.IMHP1 ---
Hospitalist- H&P: HPI History of Present Illness Time Seen by Provider: 20:00 Date Seen: 05/27/22 Chief complaint: Pneumonia, low O2, raised heartrate Narrative: Lew Vogt is a 57 year old man who presents accompanied by his guardian, his sister, for assessment of low oxygen saturations, rapid respirations. 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 He has a long standing history of recurrent aspiration pneumonia. Has the presence of a gastrostomy to which is utilized to administer his medications and for feeding. For the past 5-10 days he has had episodes of vomiting or regurgitation sometimes in association with administration of medications or feeding. His sister describes it as gagging and coughing and hacking. He was seen yesterday by his primary care physician and deemed to have aspiration pneumonia, including with assessment with a chest x-ray that was obtained. Was started on liquid clindamycin via his G-tube. There is no mention of fever, rigors, diaphoresis. On the other hand the patient's breathing was noticeably worse today such that he is tachypneic and hypoxic. Respiratory rates have ranged from 30-40 breaths per minute. Room air oxygen saturations have ranged from the mid 80s to 90 today. Usually his room air oxygen saturations are 90+. No recent exposure to COVID that his sister is aware of. No influenza or RSV either. No other illnesses that the sister knows of in the [facility] at [facility] where he resides. Review of Systems Status of ROS: Reports: 10 or more systems reviewed and unremarkable except as noted in History and below Narrative: Sisters concerned that something is wrong. He is breathing rapidly and he is hypoxic. Neither of these are usual. Additionally, patient states he is concerned about his heart. Last time he had the similar presentation he had a large right pleural effusion. This was in May of 2017. At that time he had a CT guided thoracentesis and chest tube placed on the right. That is also when he had his gastrostomy tube placed. Since then he has not had any recurrence of the pleural effusion. The present symptoms that he describes now to his sister are reminiscent of the symptoms he had in 2018. Dependent for most of his activities of daily living. Wheelchair bound. Uses incontinent products. Transferred with lift chair and whole year. Sleeps on hospital bed. Utilizes shower chair, gait belt, helmet, and other supportive efforts. All of his cares and medications are provided to him by his caregivers. Diet consists of enteral nutrition, iso-force 1.5, 250 mL containers, 1 container 4 times daily per gravity via G-tube. No recent trauma, injury, travel. No recent acute illness. [facility] Medical History (Updated 05/27/22 @ 22:22 by Kermit Vallejo MD) Anorexia ?R63.0 - Anorexia (ICD-10) Chronic constipation ?K59.09 - Other constipation (ICD-10) Chronic gastroesophageal reflux disease ?K21.9 - Gastro-esophageal reflux disease without esophagitis (ICD-10) Cognitive impairment ?R41.89 - Other symptoms and signs involving cognitive functions and awareness (ICD-10) Gastrostomy tube in place ?Z93.1 - Gastrostomy status (ICD-10) History of gastrostomy tube placement History of upper gastrointestinal bleeding ?Z87.19 - Personal history of other diseases of the digestive system (ICD-10) 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 - Marcos-Gastaut syndrome, not intractable, without status epilepticus (ICD-10) Osteoporosis ?M81.0 - Age-related osteoporosis without current pathological fracture (ICD-10) Recurrent aspiration pneumonia ?J69.0 - Pneumonitis due to inhalation of food and vomit (ICD-10) Seizure disorder ?G40.909 - Epilepsy, unspecified, not intractable, without status epilepticus (ICD-10) Sensorineural hearing loss (SNHL) of both ears ?H90.3 - Sensorineural hearing loss, bilateral (ICD-10) Spastic cerebral palsy ?G80.1 - Spastic diplegic cerebral palsy (ICD-10) 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 His sister is his guardian. Smoking Status: Never smoker Do you use any of these nicotine containing products: None Second hand tobacco smoke exposure: No How often do you have a drink containing alcohol: never How often do you have six or more drinks on one occasion: Never AUDIT-C Alcohol total score: 0 Non-prescribed substance use: denies use service: No Meds Home Medications and Allergies Home Medications Medication Instructions Recorded Confirmed Type acetaminophen 500 mg/15 mL oral mg 01/16/22 History liquid (Mapap (acetaminophen)) carbamazepine 100 mg/5 mL oral mg 01/16/22 History suspension cefuroxime axetil 500 mg tablet mg 01/16/22 History cholecalciferol (vitamin D3) 10 01/16/22 History mcg/mL (400 unit/mL) oral drops citalopram 10 mg/5 mL oral solution mg 01/16/22 History ferrous sulfate 220 mg (44 mg mg 01/16/22 History iron)/5 mL oral elixir fluticasone propionate 50 intranasal 01/16/22 History mcg/actuation nasal spray,suspension lamotrigine 100 mg tablet mg 01/16/22 History lansoprazole 30 mg delayed mg 01/16/22 History release,disintegrating tablet loratadine 5 mg/5 mL oral solution 01/16/22 History lorazepam 1 mg tablet mg 01/16/22 History lorazepam 2 mg/mL oral concentrate mg 01/16/22 History (Lorazepam Intensol) polyethylene glycol 3350 17 g 01/16/22 History gram/dose oral powder (Gavilax) rufinamide 40 mg/mL oral suspension mg 01/16/22 History senna leaf extract 176 mg/5 mL 01/16/22 History oral syrup (senna) sodium chloride 1,000 mg soluble mg 01/16/22 History tablet Allergies Allergy/AdvReac Type Severity Reaction Status Date / Time alendronate sodium Allergy Verified 01/16/22 13:57 erythromycin base Allergy Verified 01/16/22 13:57 felbamate Allergy Verified 05/27/22 15:33 Macrolide Antibiotics Allergy Verified 01/16/22 13:57 piperacillin [From Zosyn] Allergy Verified 01/16/22 13:57 tazobactam [From Zosyn] Allergy Verified 01/16/22 13:57 Exam Narrative: Exam Narrative: When I 1st assessed the patient he is in obvious respiratory distress. He is tachypneic with resting respirations of 40 and room air oxygen saturation around 90%. He is grunting. Using accessory muscles of respiration. Heart rate is 110's to 120, sinus tachycardia. Needs to sit up in order to breathe. Only able to speak 1 word at a time due to dyspnea. I reviewed the patient's condition with the patient, his sister, and Dr. Tres Butcher, emergency department physician. Given the patient's large left pleural effusion and his current respiratory status, I recommend urgent consultation with our general surgeon for a diagnostic and therapeutic needle thoracentesis. This is undertaken successfully per our general surgeon, Dr. Fouzia Street. Subsequent to the patient's successful ultrasound-guided left needle thoracentesis, the patient's respiratory rate improves to 28-30, saturation in mid 90s, and heart rate is down to 100, much improved. He appears much more comfortable. Grunting is much less. Able to speak in sentences now without having to stop to breathe after ever single word. Alert and oriented to self and sister. Friendly. Not very talkative. External auditory canals are clear, tympanic membranes are normal. Midline nasal septum. Dentition in fair repair. Dry buccal mucosa. Neck is supple. Midline trachea. No adenopathy. He has decreased breath sounds in the left lung with transmitted rhonchi and scattered wheezing. Rales in the right base. No CVA tenderness. Regular heart rate, tachycardic. No murmur. Abdomen with active bowel sounds. G-tube in place. G-tube insertion site clean and dry. Abdomen is soft. Moves all 4 extremities. Trace edema pretibially bilaterally. Palpable pulses upper and lower extremities. Const: Vital Signs, click to edit/add: Vital Signs - 24 hr 05/27/22 15:10 05/27/22 17:01 05/27/22 17:10 Temperature 98.1 F Pulse Rate Pulse Rate [Right Pulse Oximeter] 116 H Respiratory Rate 40 H Blood Pressure Blood Pressure [Le ft Upper Arm] 125/75 Pulse Oximetry 93 96 96 Oxygen Delivery Me thod Room Air Nasal Cannula Oxygen Flow Rate 2 05/27/22 17:06 05/27/22 17:55 05/27/22 17:15 Temperature Pulse Rate 112 H 113 H Pulse Rate [Right Pulse Oximeter] Respiratory Rate Blood Pressure Blood Pressure [Le ft Upper Arm] Pulse Oximetry 95 94 Oxygen Delivery Me thod Nasal Cannula Oxygen Flow Rate 05/27/22 17:30 05/27/22 17:45 05/27/22 18:00 Temperature Pulse Rate 113 H 111 H 113 H Pulse Rate [Right Pulse Oximeter] Respiratory Rate Blood Pressure Blood Pressure [Le ft Upper Arm] Pulse Oximetry 95 94 93 Oxygen Delivery Me thod Oxygen Flow Rate 05/27/22 18:15 05/27/22 18:30 05/27/22 18:45 Temperature Pulse Rate 114 H 110 H 116 H Pulse Rate [Right Pulse Oximeter] Respiratory Rate Blood Pressure Blood Pressure [Le ft Upper Arm] Pulse Oximetry 93 94 91 Oxygen Delivery Me thod Oxygen Flow Rate 05/27/22 19:00 05/27/22 19:15 05/27/22 19:20 Temperature Pulse Rate 113 H 114 H 113 H Pulse Rate [Right Pulse Oximeter] Respiratory Rate Blood Pressure 121/76 Blood Pressure [Le ft Upper Arm] Pulse Oximetry 93 92 92 Oxygen Delivery Me thod Oxygen Flow Rate 05/27/22 19:21 05/27/22 19:30 05/27/22 19:45 Temperature Pulse Rate 114 H 112 H 105 H Pulse Rate [Right Pulse Oximeter] Respiratory Rate Blood Pressure Blood Pressure [Le ft Upper Arm] Pulse Oximetry 93 94 93 Oxygen Delivery Me thod Oxygen Flow Rate 05/27/22 20:00 05/27/22 20:15 05/27/22 20:30 Temperature Pulse Rate 106 H 99 101 H Pulse Rate [Right Pulse Oximeter] Respiratory Rate Blood Pressure Blood Pressure [Le ft Upper Arm] Pulse Oximetry 93 94 94 Oxygen Delivery Me thod Oxygen Flow Rate Documenting provider has reviewed patient's vital signs: yes Hospitalist - H&P: Result Labs Labs: Short CBC 05/27/22 Range/Units 16:22 WBC 14.69 H (4.50-11.00) K/uL Hgb 11.5 L (13.5-17.5) gm/dL Hct 35.1 L (37.0-53.0) % Plt Count 366 (140-440) K/uL BMP 05/27/22 16:22 Sodium 128 L Potassium 5.1 Chloride 97 Carbon Dioxide 24 BUN 15 Creatinine 0.3 L Glucose 127 H Calcium 8.3 L Cardiac Enzymes 05/27/22 Range/Units 16:22 Troponin I < 0.01 L (0.01-0.04) ng/mL Liver Function 05/27/22 Range/Units 16:22 Total Bilirubin 0.7 (0.1-1.5) mg/dL Direct Bilirubin 0.6 H (0.0-0.5) mg/dL AST 69 H (12-35) U/L ALT 53 H (4-50) U/L Alkaline Phosphatase 83 (40-150) U/L Albumin 3.7 (3.3-5.0) g/dL Imaging Chest x-ray: Attestation: I have reviewed the pertinent imaging results. Radiologist's impression: Large left pleural effusion with right-sided infiltrate verses fibrosis. Post thoracentesis x-ray demonstrates no pneumothorax with reduction of large left pleural effusion. CT scan - chest: Attestation: I have reviewed the pertinent imaging results. Radiologist's impression: 1. Large left pleural effusion which is resulting in complete compressive atelectasis of the left lower lobe and mild compressive atelectasis of the left upper lobe. There is also slight left to right shift of the mediastinum. 2. Evaluation of the lungs is limited due to respiratory motion, however there is interstitial and airspace opacity at the right lung base which may represent pneumonia, however underlying background fibrotic changes also a consideration. 3. Ground-glass nodular opacity measuring 1.4 cm within the medial right upper lobe, may also be infectious or inflammatory. Recommend follow-up in approximately 6 months. Assessment and Plan Assessment and plan (1) Acute and chronic respiratory failure: Status: Acute (2) Aspiration pneumonia: Status: Acute (3) Pleural effusion on left: Problem comment: Etiology not yet determined. Consider parapneumonic effusion, cardiac, other etiology. Status: Acute (4) Chronic gastroesophageal reflux disease: Status: Acute (5) History of gastrostomy tube placement: Status: Acute (6) Cognitive impairment: Problem comment: Moderate intellectual disabilities and totally dependent for all support Status: Acute (7) Crawford-Gastaut syndrome: Status: Acute (8) Seizure disorder: Status: Acute (9) Wheelchair dependent: Status: Acute Plan 1. Reviewed with patient and his sister, his guardian. Recommended admission to the hospital. They are agreeable. 2. Status post diagnostic and therapeutic ultrasound-guided left pleural fluid needle thoracentesis. Await results. 3. Treat the aspiration pneumonia with clindamycin IV for now. 4. Will need to initiate a probiotic. Will ask pharmacy to do so tomorrow morning. 5. Need to further consider why he has been having gagging and regurgitation and possibly aspirating this. Consider worsening of gastroesophageal reflux disease, displaced feeding tube, malfunctioning feeding tube, distal bowel obstruction. Will order a CT scan of the abdomen and pelvis for tomorrow to make some anatomical assessment of this. Consider functional assessment as well with fluoroscopic assessment of the feeding tube. Consider esophagogastroduodenoscopy. 6. I had a robin discussion with his sister, who again it rates desire for DNR DNI resuscitation status. On the other hand, she wants to do what we can do to help her brother be comfortable and happy, thus she desires to proceed with some of these assessments on individualized basis at this time. 7. Pharmacy to assist with review of his usual medications. 8. social human services assistants to assist with discharge disposition planning. 9. Will ask our dietitian to make review his feeding needs and make certain we are meeting his feeding and hydration requirements. 10. Monitor his labs. 11. Patient and sister are agreeable to above stated plans and recommendations.
[2022-05-27] MEDS: ACETAMINOPHEN 160 MG/5 ML CUP 1000 MG PO (22:45)
[2022-05-28 02:36] VITALS: BP 101/63; RESP 26; TEMP 36.8; O2SAT 93
[2022-05-28 06:19] LABS: HCO3 VBG 36 mmol/L (21-28); Lactate* 0.8 mmol/L (0.5-1.9); PCO2 VBG 58 mmHG (40-50); PO2 VBG 66.8 mmHG (25-47); pH VBG 7.403 (7.32-7.43)
[2022-05-28 06:20] LABS: Basophils Absolute Auto 0.04 K/uL (0.00-0.30); Basophils Percent Auto 0.4 % (0.0-3.0); Hematocrit 28.8 % (37.0-53.0); Hemoglobin* 9.5 gm/dL (13.5-17.5); Immature Granulocytes Abs Auto 0.07 K/uL (0.00-0.30); Immature Granulocytes Pct Auto 0.7 %; Lymphocytes Percent Auto 11.4 % (20-44); Mean Corpuscular HGB Conc 33 gm/dL (32-36); Mean Corpuscular Hemoglobin 33 pg (26-34); Mean Corpuscular Volume 101 fL (80-100); Monocytes Percent Auto 17.5 % (0.0-11.0); Neutrophils Absolute Auto 7.15 K/uL (1.7-7.0); Platelet Count* 490 K/uL (140-440); Red Blood Count 2.85 m/uL (4.30-5.90)
[2022-05-28 06:24] LABS: Slide Review Reflex No
[2022-05-28 06:44] LABS: Albumin* 2.9 g/dL (3.3-5.0); Chloride* 96 mmol/L (96-114)
[2022-05-28 06:45] LABS: Potassium* 3.9 mmol/L (3.6-5.1); Sodium* 129 mmol/L (135-149)
[2022-05-28 06:47] LABS: Alanine Aminotransferase* 51 U/L (4-50); Alkaline Phosphatase* 77 U/L (40-150); Aspartate Amino Transferase* 42 U/L (12-35); Bilirubin Direct* 0.2 mg/dL (0.0-0.5); Bilirubin Total* 0.2 mg/dL (0.1-1.5); Blood Urea Nitrogen* 9 mg/dL (7-30); Carbon Dioxide* 28 mmol/L (20-32); Creatinine* 0.3 mg/dL (0.5-1.5); Estimated Glomerular Filt Rate 138 ml/min; Total Protein* 5.9 g/dL (6.0-8.3)
[2022-05-28 06:48] LABS: Calcium* 7.9 mg/dL (8.4-10.6); Glucose* 92 mg/dL (60-115); Magnesium* 2.3 mg/dL (1.5-2.6); Phosphorus* 4.1 mg/dL (2.5-4.5)
[2022-05-28 07:04] LABS: Procalcitonin* 0.12 ng/mL (<0.50)
[2022-05-28 07:12] LABS: C Reactive Protein* 19.9 mg/dL (0.5-1.0); NT Pro B Type NatriureticPept* 162 pg/mL; Troponin I* < 0.01 ng/mL (0.01-0.04)
[2022-05-28 07:14] VITALS: BP 92/55; PULSE 87; RESP 26; TEMP 36; O2SAT 94
--- NOTE | 2022-05-28 07:14 | CRLHL7_ITS ---
For Patients: As a result of the Century Cures Act, medical imaging exams and procedure reports are released immediately into your electronic medical record. You may view this report before your referring provider. If you have questions, please contact your health care provider. INDICATION: Follow-up effusion COMPARISON: May 27, 2022 TECHNIQUE: Single-view study FINDINGS: TUBES AND LINES: The generator of a presumed pacemaker is seen on the left but it is not appear to be associated with any electrodes. HEART AND MEDIASTINUM: The heart size is normal. The mediastinal contour appears normal for patient age. LUNGS AND PLEURAL SPACES: Moderate to large left effusion similar to the prior study. Associated airspace disease/volume loss on the left and right basilar airspace disease.Overall, similar to the prior study. OSSEOUS STRUCTURES: Age-appropriate appearance. No acute focal finding. IMPRESSION: Moderately large left effusion unchanged Dictated by Rafael Ellsworth MD @ 05/28/2022 7:59:54 AM (Electronically Signed)
[2022-05-28 07:15] VITALS: PULSE 87; RESP 26; O2SAT 95
[2022-05-28] MEDS: carBAMazepine 200 MG TABLET PO (07:42)
--- NOTE | 2022-05-28 07:51 | PC.NURSE ---
Pt is alert and oriented x3.? Afebrile. Pt denies pain, chest pain, and N/V. Pt is unable to rate pain but is able to state that he has pain and where the pain is, in back and hand, pain managed with PRN Tylenol. Pt?s base lung sounds are slightly diminished with expiratory rhonchi. Pt has SOB at rest and with exertion. Pt?s G-tube is patent and intact. Pt is tolerating?tube feedings, and up A2 with pivot to commode. Pt did not void overnight and had not voided in the emergency room prior, bladder scan was done, 630 ml was scanned, pt was asked to void, pt said no, straight cath was performed, 800 ml came out. Pt slept throughout most of night.?
--- NOTE | 2022-05-28 09:00 | CRLHL7_ITS ---
For Patients: As a result of the Century Cures Act, medical imaging exams and procedure reports are released immediately into your electronic medical record. You may view this report before your referring provider. If you have questions, please contact your health care provider. INDICATION: Vomiting and aspiration with tube feeds. COMPARISON: Portions which chest CT from May 27, 2022 and abdomen and pelvis study from March 14 2022. TECHNIQUE: CT examination of the abdomen and pelvis was performed without intravenous contrast. Thin section axial images were obtained from the lung bases through the pubic symphysis. Oral contrast was administered. This is stated to be Gastrografin administered via the G-tube. Please note that all CT scans at this facility use dose modulation, iterative reconstruction, and/or weight-based dosing when appropriate to reduce radiation dose to as low as reasonably achievable. FINDINGS: LUNG BASES: Bibasilar airspace disease. Large left effusion. Hyperdense material in the left lung consistent with aspirated material. Part of this was present March 14, 2022. The current finding is similar to the amount of contrast present May 27, 2022 which predated the current Gastrografin administration. Heart size normal and the lung bases. Hiatal hernia and active reflux during the course of the study LIVER/BILIARY SYSTEM:Poorly evaluated without contrast and due to motion. Hepatic cysts. No other obvious abnormality. No biliary ductal dilatation.Correlate evaluated gallbladder ADRENALS: Normal non-contrast appearance KIDNEYS, URETERS and BLADDER:No evidence of obstructive uropathy. SPLEEN:Normal non-contrast appearance. PANCREAS: Normal non-contrast appearance. RETROPERITONEUM and MESENTERY: There is no mass, adenopathy or aortic aneurysm. Atherosclerotic vascular calcification GASTROINTESTINAL SYSTEM: A gastrostomy tube is noted. There is contrast within the stomach which appears to have readily passed into the small bowel. However, there are obvious findings of reflux and hiatal hernia. PELVIS: No mass, adenopathy or free fluid. OSSEOUS STRUCTURES and ABDOMINAL WALL: There is an age-appropriate appearance of the osseous structures.No significant abdominal wall defect. OTHER: No free fluid or free air. IMPRESSION: 1. There is aspirated radiodense material within the left lower lobe. This is similar to the May 27, 2022 study showing that the material in the left lung was not due to today`s Gastrografin administration into the G-tube 2. Significant left effusion. Left lower lobe volume loss associated with the effusion and the aspiration. 3. Oral contrast was given via the gastrostomy tube which readily passes into the small bowel. However, there is also a hiatal hernia with clearly visible signs of reflux. 4. Consider revising the feeding tube to terminate post pyloric 5. Other incidental findings as discussed above Please note that all CT scans at this facility use dose modulation, iterative reconstruction, and/or weight-based dosing when appropriate to reduce radiation dose to as low as reasonably achievable. Dictated by Rafael Ellsworth MD @ 05/28/2022 10:12:43 AM (Electronically Signed)
[2022-05-28] MEDS: 0.9 % SODIUM CHLORIDE 500 ML 500 ML IV (09:30)
[2022-05-28] MEDS: FLUTICASONE PROPIONATE NASAL 2 SPRAY NOSTRIL-B (09:54)
[2022-05-28] MEDS: lamoTRIgine 100 MG TABLET G-TUBE ×2 (09:54→12:35)
[2022-05-28] MEDS: SODIUM CHLORIDE 0.9 % (FLUSH) 10 ML SYRINGE 5 ML IVF (09:55)
--- NOTE | 2022-05-28 10:18 | REH.PT ---
Orders received, Per RN pt is not appropriate for PT eval today. PT to follow up when pt is appropriate.
--- NOTE | 2022-05-28 11:08 | PM.IMPN1 ---
Progress Note: A&P Assessment and plan (1) Acute respiratory failure with hypoxia: Problem details: -respiratory rate 26, blood pressure 101/63. 3 L nasal cannula -likely from aspiration pneumonia related to a hiatal hernia found on CT this morning. Status: Acute (2) Aspiration pneumonia: Problem details: -left-sided large pleural effusion, IV clindamycin Status: Acute (3) Pleural effusion on left: Problem details: Likely parapneumonic from aspiration Status: Acute (4) Chronic gastroesophageal reflux disease: Problem details: Worsening recently with hiatal hernia Status: Acute (5) History of gastrostomy tube placement: Problem details: GJ tube had been placed several years surgically, replaced with a Kolton button secondary to chronic clogging Status: Acute (6) Cognitive impairment: Problem details: Moderate intellectual disabilities and totally dependent for all support Status: Acute (7) [place]-Gastaut syndrome: Problem details: Complex seizure history requiring multiple medications dosed throughout the day. Status: Acute (8) Wheelchair dependent: Status: Acute Subjective Date Seen: 05/28/22 Interval history: Daily Progress Note - Hospital Medicine Day #: 2 Day 2. Of antibiotics. 05/27 he received IV ertapenem 1 g x 1 dose. We then started clindamycin 600 mg IV, this has been given 3x CC: aspiration pneumonia; hiatal hernia; acute hypoxic respiratory failure OVERNIGHT UPDATES FROM STAFF & MED, LAB, IMAGING UPDATES Overnight Lew has remained quiet, stable. His oxygen requirement is up to 3 L by nasal cannula and his respiratory rate and accessory muscle use continued to slowly worsen. His blood pressures have been soft since midnight. Ranging 90s systolic over 101 systolic to 60s diastolic. Chest x-ray shows this morning a similar appearing large left pleural effusion that was only subtly improved with over 1100 mL of fluid removed via thoracentesis last night in the ED. CT abdomen pelvis this morning shows a large hiatal hernia with refluxing obvious. Objective: Sleeping. Arousable. Vitals: see above Lungs: Minimal air movement in the left lung. Mild rhonchi on the right. Cardiac: S1S2. Disposition/Potential discharge - Likely to return to previous living situation. Total time is 35 minutes with greater than 50% spent in counseling and coordination of care. Exam Const: Vital Signs, click to edit/add: Vital Signs - 24 hr 05/27/22 15:10 05/27/22 17:01 05/27/22 17:10 Temperature 98.1 F Pulse Rate Pulse Rate [Right Pulse Oximeter] 116 H Respiratory Rate 40 H Blood Pressure Blood Pressure [Le ft Arm] Blood Pressure [Le ft Upper Arm] 125/75 Pulse Oximetry 93 96 96 Oxygen Delivery Me thod Room Air Nasal Cannula Oxygen Flow Rate 2 05/27/22 17:06 05/27/22 17:55 05/27/22 17:15 Temperature Pulse Rate 112 H 113 H Pulse Rate [Right Pulse Oximeter] Respiratory Rate Blood Pressure Blood Pressure [Le ft Arm] Blood Pressure [Le ft Upper Arm] Pulse Oximetry 95 94 Oxygen Delivery Me thod Nasal Cannula Oxygen Flow Rate 05/27/22 17:30 05/27/22 17:45 05/27/22 18:00 Temperature Pulse Rate 113 H 111 H 113 H Pulse Rate [Right Pulse Oximeter] Respiratory Rate Blood Pressure Blood Pressure [Le ft Arm] Blood Pressure [Le ft Upper Arm] Pulse Oximetry 95 94 93 Oxygen Delivery Me thod Oxygen Flow Rate 05/27/22 18:15 05/27/22 18:30 05/27/22 18:45 Temperature Pulse Rate 114 H 110 H 116 H Pulse Rate [Right Pulse Oximeter] Respiratory Rate Blood Pressure Blood Pressure [Le ft Arm] Blood Pressure [Le ft Upper Arm] Pulse Oximetry 93 94 91 Oxygen Delivery Me thod Oxygen Flow Rate 05/27/22 19:00 05/27/22 19:15 05/27/22 19:20 Temperature Pulse Rate 113 H 114 H 113 H Pulse Rate [Right Pulse Oximeter] Respiratory Rate Blood Pressure 121/76 Blood Pressure [Le ft Arm] Blood Pressure [Le ft Upper Arm] Pulse Oximetry 93 92 92 Oxygen Delivery Me thod Oxygen Flow Rate 05/27/22 19:21 05/27/22 19:30 05/27/22 19:45 Temperature Pulse Rate 114 H 112 H 105 H Pulse Rate [Right Pulse Oximeter] Respiratory Rate Blood Pressure Blood Pressure [Le ft Arm] Blood Pressure [Le ft Upper Arm] Pulse Oximetry 93 94 93 Oxygen Delivery Me thod Oxygen Flow Rate 05/27/22 20:00 05/27/22 20:15 05/27/22 20:30 Temperature Pulse Rate 106 H 99 101 H Pulse Rate [Right Pulse Oximeter] Respiratory Rate Blood Pressure Blood Pressure [Le ft Arm] Blood Pressure [Le ft Upper Arm] Pulse Oximetry 93 94 94 Oxygen Delivery Me thod Oxygen Flow Rate 05/27/22 21:15 05/27/22 21:15 05/27/22 21:40 Temperature 99.5 F Pulse Rate Pulse Rate [Right Pulse Oximeter] Respiratory Rate 28 H 26 H Blood Pressure Blood Pressure [Le ft Arm] Blood Pressure [Le ft Upper Arm] Pulse Oximetry 90 96 98 Oxygen Delivery Me thod Room Air Nasal Cannula Oxygen Flow Rate 2 05/27/22 23:00 05/27/22 23:00 05/27/22 23:00 Temperature 99.5 F Pulse Rate Pulse Rate [Right Pulse Oximeter] Respiratory Rate 26 H 26 H 26 H Blood Pressure Blood Pressure [Le ft Arm] 118/67 Blood Pressure [Le ft Upper Arm] Pulse Oximetry 98 97 Oxygen Delivery Me thod Nasal Cannula Nasal Cannula Oxygen Flow Rate 2 2 05/27/22 21:40 05/28/22 02:36 Temperature 98.2 F Pulse Rate 77 Pulse Rate [Right Pulse Oximeter] Respiratory Rate 26 H Blood Pressure Blood Pressure [Le ft Arm] 101/63 Blood Pressure [Le ft Upper Arm] Pulse Oximetry 93 Oxygen Delivery Me thod Nasal Cannula Oxygen Flow Rate 3 Labs Labs: Laboratory Results - last 24 hr 05/27/22 05/27/22 05/27/22 15:38 16:22 17:45 WBC 14.69 H RBC 3.46 L Hgb 11.5 L Hct 35.1 L MCV 101 H MCH 33 MCHC 33 RDW Coeff of Johann 13.0 Plt Count 366 Neut % (Auto) 79.4 H Lymph % (Auto) 4.6 L [place] % (Auto) 15.0 H Eos % (Auto) 0.0 Baso % (Auto) 0.5 Neut # (Auto) 11.70 H Lymph # (Auto) 0.70 L [place] # (Auto) 2.20 H Eos # (Auto) 0.00 Baso # (Auto) 0.10 ABG pH 7.39 ABG pCO2 45 ABG pO2 25.0 L* ABG HCO3 27 ABG Total CO2 25 ABG O2 Saturation 38 L ABG Base Excess 1.7 VBG pH VBG pCO2 VBG pO2 VBG HCO3 Carboxyhemoglobin 1.4 Sodium 128 L Potassium 5.1 Chloride 97 Carbon Dioxide 24 BUN 15 Creatinine 0.3 L Estimated Creat Clear 259.67 Estimated GFR 138 Glucose 127 H Lactate Calcium 8.3 L Phosphorus Magnesium Total Bilirubin 0.7 Direct Bilirubin 0.6 H AST 69 H ALT 53 H Alkaline Phosphatase 83 Troponin I < 0.01 L C-Reactive Protein 22.1 H NT-Pro-B Natriuret Pep 262 Total Protein 7.4 Albumin 3.7 Amylase 62 Procalcitonin Fluid Volume Fluid Color Fluid Appearance Fluid pH Fluid WBC Fluid RBC Fluid Polynuclear WBCs Fluid Mononuclear WBCs Fluid Glucose Fluid Total Protein Fluid LDH Fluid Amylase Fluid Cholesterol SARS-CoV-2 (PCR) Negative SARS-CoV-2 Influenza Type A (PCR) Negative PCR FLU A Influenza Type B (PCR) Negative PCR FLU B RSV (PCR) Negative PCR RSV 05/27/22 05/28/22 19:05 05:37 WBC 10.20 RBC 2.85 L Hgb 9.5 L Hct 28.8 L MCV 101 H MCH 33 MCHC 33 RDW Coeff of Johann 13.0 Plt Count 490 H Neut % (Auto) 70.0 Lymph % (Auto) 11.4 L [place] % (Auto) 17.5 H Eos % (Auto) 0.0 Baso % (Auto) 0.4 Neut # (Auto) 7.15 H Lymph # (Auto) 1.20 [place] # (Auto) 1.80 H Eos # (Auto) 0.00 Baso # (Auto) 0.04 ABG pH ABG pCO2 ABG pO2 ABG HCO3 ABG Total CO2 ABG O2 Saturation ABG Base Excess VBG pH 7.403 VBG pCO2 58 H VBG pO2 66.8 H VBG HCO3 36 H Carboxyhemoglobin Sodium 129 L Potassium 3.9 Chloride 96 Carbon Dioxide 28 BUN 9 Creatinine 0.3 L Estimated Creat Clear 259.67 Estimated GFR 138 Glucose 92 Lactate 0.8 Calcium 7.9 L Phosphorus 4.1 Magnesium 2.3 Total Bilirubin 0.2 Direct Bilirubin 0.2 AST 42 H ALT 51 H Alkaline Phosphatase 77 Troponin I < 0.01 L C-Reactive Protein 19.9 H NT-Pro-B Natriuret Pep 162 Total Protein 5.9 L Albumin 2.9 L Amylase Procalcitonin 0.12 Fluid Volume 200 Fluid Color Blood Tinged A Fluid Appearance Slightly Cloudy A Fluid pH 8.5 Fluid WBC 3292 Fluid RBC 15071 Fluid Polynuclear WBCs 52 Fluid Mononuclear WBCs 48 Fluid Glucose 119 Fluid Total Protein 4.5 Fluid LDH 471 Fluid Amylase < 30 Fluid Cholesterol 95 SARS-CoV-2 (PCR) Influenza Type A (PCR) Influenza Type B (PCR) RSV (PCR)
[2022-05-28 11:39] VITALS: BP 105/66; PULSE 96; RESP 26; TEMP 36.8; O2SAT 97
--- NOTE | 2022-05-28 14:18 | PM.DS1 ---
DS: Providers Provider Date Seen: 05/28/22 Date of admission: 05/27/22 21:40 Primary care physician: Darryl Kenny MD Admitting Clinician: Kermit Vallejo MD Consults: 05/27/22 21:40 Consult to Nutrition [CONS] Routine Comment: Reason for consult:: Miscellaneous Consult to Respiratory Therapy [CONS] Routine Comment: Reason(s) for RT Consult:: Consult Consult to Industrial Spraypainter [CONS] Routine Comment: Reason for Consult:: Discharge Planning Needs Attending Physician on discharge: Kermit Vallejo MD Date of Discharge: 05/28/22 DS: Diagnosis Discharge Diagnosis (1) Acute respiratory failure with hypoxia: Status: Acute Problem details: -respiratory rate 26, blood pressure 101/63. 3 L nasal cannula -likely from aspiration pneumonia related to a hiatal hernia found on CT this morning. (2) Wheelchair dependent: Status: Acute (3) Aspiration pneumonia: Status: Acute Problem details: -left-sided large pleural effusion, IV clindamycin (4) [place]-Gastaut syndrome: Status: Acute Problem details: Complex seizure history requiring multiple medications dosed throughout the day. (5) Pleural effusion on left: Status: Acute Problem details: Likely parapneumonic from aspiration (6) History of gastrostomy tube placement: Status: Acute Problem details: GJ tube had been placed several years surgically, replaced with a Kolton button secondary to chronic clogging (7) Cognitive impairment: Status: Acute Problem details: Moderate intellectual disabilities and totally dependent for all support DS: Summary Hospital Course Hospital Course: HOSPITALIST TRANSFER SUMMARY ATTENDING PHYSICIAN: Delisa Aguayo MD REASON FOR TRANSFER GI and Pulmonary Services needed BRIEF HOSPITAL COURSE: Braxton was here for approximately 20 hours. While he was stable throughout his stay he did show increasing respiratory effort this afternoon and he soft blood pressures. I repeated a chest x-ray which showed continued left large pleural effusion. CT abdomen pelvis ordered this morning by my partner showed that his Kolton button was functioning appropriately but there was a large hiatal hernia with obvious reflux happening during the exam. I discussed the case with our general surgeon. We felt the best course of action was to transfer him to a tertiary care center given his multiple needs. I spoke with [facility] Saldivar and he felt the pulmonary service and GI service as well as the Neurology service given his longstanding epilepsy would be happy to take him and optimize his care which may include a smaller catheter chest tube, pleurodesis and/or extension of his button to a GJ feeding tube. He left by non emergent transfer to [facility] on the afternoon of 05/28/2022 SERVICES NOT AVAILABLE HERE THAT THIS PATIENT NEEDS: Pulmonary, GI, neurology, potentially IR ACCEPTING PHYSICIAN/SERVICE/LOCATION: [facility] MEDICATIONS AT TIME OF TRANSFER: See Mar DRIPS/LINES: IV fluids, IV clindamycin VITAL SIGN, MEDICATION, LAB/MICRO, IMAGING SUMMARY (full details available in account tabs or by records request) See note from earlier this morning REVIEW OF SYSTEMS Unchanged. PHYSICAL EXAM: CONSTITUTIONAL: VITAL SIGNS: see record. Exam unchanged from earlier with notable exceptions: DISPOSITION: Transfer to [facility] Time spent on discharge >30 minutes. This includes speaking with accepting physician; family/patient and coordinating meds/drips for transfer Status at Discharge Functional status at discharge: wheelchair bound Overall status at discharge: patient is back to baseline Time Spent with Patient Time attestation: Total time spent providing and/or coordinating discharge services: Exam Const: Vital Signs, click to edit/add: Vital Signs - 24 hr 05/27/22 15:10 05/27/22 17:01 05/27/22 17:10 Temperature 98.1 F Pulse Rate Pulse Rate [Apical ] Pulse Rate [Right Pulse Oximeter] 116 H Respiratory Rate 40 H Blood Pressure Blood Pressure [Le ft Arm] Blood Pressure [Le ft Upper Arm] 125/75 Pulse Oximetry 93 96 96 Oxygen Delivery Me thod Room Air Nasal Cannula Oxygen Flow Rate 2 05/27/22 17:06 05/27/22 17:55 05/27/22 17:15 Temperature Pulse Rate 112 H 113 H Pulse Rate [Apical ] Pulse Rate [Right Pulse Oximeter] Respiratory Rate Blood Pressure Blood Pressure [Le ft Arm] Blood Pressure [Le ft Upper Arm] Pulse Oximetry 95 94 Oxygen Delivery Me thod Nasal Cannula Oxygen Flow Rate 05/27/22 17:30 05/27/22 17:45 05/27/22 18:00 Temperature Pulse Rate 113 H 111 H 113 H Pulse Rate [Apical ] Pulse Rate [Right Pulse Oximeter] Respiratory Rate Blood Pressure Blood Pressure [Le ft Arm] Blood Pressure [Le ft Upper Arm] Pulse Oximetry 95 94 93 Oxygen Delivery Me thod Oxygen Flow Rate 05/27/22 18:15 05/27/22 18:30 05/27/22 18:45 Temperature Pulse Rate 114 H 110 H 116 H Pulse Rate [Apical ] Pulse Rate [Right Pulse Oximeter] Respiratory Rate Blood Pressure Blood Pressure [Le ft Arm] Blood Pressure [Le ft Upper Arm] Pulse Oximetry 93 94 91 Oxygen Delivery Me thod Oxygen Flow Rate 05/27/22 19:00 05/27/22 19:15 05/27/22 19:20 Temperature Pulse Rate 113 H 114 H 113 H Pulse Rate [Apical ] Pulse Rate [Right Pulse Oximeter] Respiratory Rate Blood Pressure 121/76 Blood Pressure [Le ft Arm] Blood Pressure [Le ft Upper Arm] Pulse Oximetry 93 92 92 Oxygen Delivery Me thod Oxygen Flow Rate 05/27/22 19:21 05/27/22 19:30 05/27/22 19:45 Temperature Pulse Rate 114 H 112 H 105 H Pulse Rate [Apical ] Pulse Rate [Right Pulse Oximeter] Respiratory Rate Blood Pressure Blood Pressure [Le ft Arm] Blood Pressure [Le ft Upper Arm] Pulse Oximetry 93 94 93 Oxygen Delivery Me thod Oxygen Flow Rate 05/27/22 20:00 05/27/22 20:15 05/27/22 20:30 Temperature Pulse Rate 106 H 99 101 H Pulse Rate [Apical ] Pulse Rate [Right Pulse Oximeter] Respiratory Rate Blood Pressure Blood Pressure [Le ft Arm] Blood Pressure [Le ft Upper Arm] Pulse Oximetry 93 94 94 Oxygen Delivery Me thod Oxygen Flow Rate 05/27/22 21:15 05/27/22 21:15 05/27/22 21:40 Temperature 99.5 F Pulse Rate Pulse Rate [Apical ] Pulse Rate [Right Pulse Oximeter] Respiratory Rate 28 H 26 H Blood Pressure Blood Pressure [Le ft Arm] Blood Pressure [Le ft Upper Arm] Pulse Oximetry 90 96 98 Oxygen Delivery Me thod Room Air Nasal Cannula Oxygen Flow Rate 2 05/27/22 23:00 05/27/22 23:00 05/27/22 23:00 Temperature 99.5 F Pulse Rate Pulse Rate [Apical ] Pulse Rate [Right Pulse Oximeter] Respiratory Rate 26 H 26 H 26 H Blood Pressure Blood Pressure [Le ft Arm] 118/67 Blood Pressure [Le ft Upper Arm] Pulse Oximetry 98 97 Oxygen Delivery Me thod Nasal Cannula Nasal Cannula Oxygen Flow Rate 2 2 05/27/22 21:40 05/28/22 02:36 05/28/22 07:14 Temperature 98.2 F 96.8 F L Pulse Rate 77 Pulse Rate [Apical ] 87 Pulse Rate [Right Pulse Oximeter] Respiratory Rate 26 H 26 H Blood Pressure Blood Pressure [Le ft Arm] 101/63 92/55 L Blood Pressure [Le ft Upper Arm] Pulse Oximetry 93 94 Oxygen Delivery Me thod Nasal Cannula Nasal Cannula Oxygen Flow Rate 3 3 05/28/22 11:39 Temperature 98.3 F Pulse Rate Pulse Rate [Apical ] 96 Pulse Rate [Right Pulse Oximeter] Respiratory Rate 26 H Blood Pressure Blood Pressure [Le ft Arm] 105/66 Blood Pressure [Le ft Upper Arm] Pulse Oximetry 97 Oxygen Delivery Me thod Nasal Cannula Oxygen Flow Rate 2 DS: Data Data Completed and Pending Labs on day of discharge: Labs from last 24 hours 05/28/22 05/27/22 05/27/22 05:37 19:05 17:45 WBC 10.20 RBC 2.85 L Hgb 9.5 L Hct 28.8 L MCV 101 H MCH 33 MCHC 33 RDW Coeff of Johann 13.0 Plt Count 490 H Neut % (Auto) 70.0 Lymph % (Auto) 11.4 L [place] % (Auto) 17.5 H Eos % (Auto) 0.0 Baso % (Auto) 0.4 Neut # (Auto) 7.15 H Lymph # (Auto) 1.20 [place] # (Auto) 1.80 H Eos # (Auto) 0.00 Baso # (Auto) 0.04 ABG pH 7.39 ABG pCO2 45 ABG pO2 25.0 L* ABG HCO3 27 ABG Total CO2 25 ABG O2 Saturation 38 L ABG Base Excess 1.7 VBG pH 7.403 VBG pCO2 58 H VBG pO2 66.8 H VBG HCO3 36 H Carboxyhemoglobin 1.4 Sodium 129 L Potassium 3.9 Chloride 96 Carbon Dioxide 28 BUN 9 Creatinine 0.3 L Estimated Creat Clear 259.67 Estimated GFR 138 Glucose 92 Lactate 0.8 Calcium 7.9 L Phosphorus 4.1 Magnesium 2.3 Total Bilirubin 0.2 Direct Bilirubin 0.2 AST 42 H ALT 51 H Alkaline Phosphatase 77 Troponin I < 0.01 L C-Reactive Protein 19.9 H NT-Pro-B Natriuret Pep 162 Total Protein 5.9 L Albumin 2.9 L Amylase Procalcitonin 0.12 Fluid Volume 200 Fluid Color Blood Tinged A Fluid Appearance Slightly Cloudy A Fluid pH 8.5 Fluid WBC 3292 Fluid RBC 76676 Fluid Polynuclear WBCs 52 Fluid Mononuclear WBCs 48 Fluid Glucose 119 Fluid Total Protein 4.5 Fluid LDH 471 Fluid Amylase < 30 Fluid Cholesterol 95 SARS-CoV-2 (PCR) Influenza Type A (PCR) Influenza Type B (PCR) RSV (PCR) Cytology Interpretat Pending 05/27/22 05/27/22 16:22 15:38 WBC 14.69 H RBC 3.46 L Hgb 11.5 L Hct 35.1 L MCV 101 H MCH 33 MCHC 33 RDW Coeff of Johann 13.0 Plt Count 366 Neut % (Auto) 79.4 H Lymph % (Auto) 4.6 L [place] % (Auto) 15.0 H Eos % (Auto) 0.0 Baso % (Auto) 0.5 Neut # (Auto) 11.70 H Lymph # (Auto) 0.70 L [place] # (Auto) 2.20 H Eos # (Auto) 0.00 Baso # (Auto) 0.10 ABG pH ABG pCO2 ABG pO2 ABG HCO3 ABG Total CO2 ABG O2 Saturation ABG Base Excess VBG pH VBG pCO2 VBG pO2 VBG HCO3 Carboxyhemoglobin Sodium 128 L Potassium 5.1 Chloride 97 Carbon Dioxide 24 BUN 15 Creatinine 0.3 L Estimated Creat Clear 259.67 Estimated GFR 138 Glucose 127 H Lactate Calcium 8.3 L Phosphorus Magnesium Total Bilirubin 0.7 Direct Bilirubin 0.6 H AST 69 H ALT 53 H Alkaline Phosphatase 83 Troponin I < 0.01 L C-Reactive Protein 22.1 H NT-Pro-B Natriuret Pep 262 Total Protein 7.4 Albumin 3.7 Amylase 62 Procalcitonin Fluid Volume Fluid Color Fluid Appearance Fluid pH Fluid WBC Fluid RBC Fluid Polynuclear WBCs Fluid Mononuclear WBCs Fluid Glucose Fluid Total Protein Fluid LDH Fluid Amylase Fluid Cholesterol SARS-CoV-2 (PCR) Negative SARS-CoV-2 Influenza Type A (PCR) Negative PCR FLU A Influenza Type B (PCR) Negative PCR FLU B RSV (PCR) Negative PCR RSV Cytology Interpretat Discharge Plan Discharge Disposition: [facility] Date of Admission: 05/27/22 21:40 Attending Physician on Admission: Kermit Vallejo Primary Care Provider: Kenny,Darryl L Discharge Medications: No Action loratadine 5 mg/5 mL solution 10 ml feeding tube HS Patient Comments: GIVE 10ML VIA PEG TUBE ONCE DAILY citalopram 10 mg/5 mL solution 20 mg feeding tube DAILY Patient Comments: ADMINISTER 10ML(20MG) ONCE A DAY INTO G-TUBE, NOT AT THE SAME TIME THE CARBAMAZEPINE SUSPENSION carbamazepine 100 mg/5 mL suspension 200 - 400 mg feeding tube QID Patient Comments: ADMINISTER 200MG(10ML) PER G-TUBE IN MORNING, 200MG(10ML) AT NOON, 200MG(10ML) EVENING AND 400MG(20ML) AT BEDTIME polyethylene glycol 3350 [Gavilax] 17 gram/dose powder 17 g feeding tube DAILY PRN acetaminophen [Mapap (acetaminophen)] 500 mg/15 mL liquid 1,000 mg feeding tube Q6H PRN fluticasone propionate 50 mcg/actuation spray,suspension 2 spray INTRANASAL DAILY Patient Comments: INHALE 2 SPRAYS IN THE NOSTRIL(S) ONCE DAILY. lamotrigine 100 mg tablet 100 - 200 mg feeding tube QID Patient Comments: CRUSH AND GIVE 1 TABLET VIA G-TUBE 3 TIMES DAILY (AM, NOON, AFTERNOON) AND 2 TABLETS IN THE EVENING lansoprazole 30 mg tablet,disintegrat, delay rel 30 mg feeding tube BID@0 Patient Comments: DISSOLVE 1 TABLET IN SMALL AMOUNT OF WATER AND GIVE VIA G-TUBE 30 MINUTES BEFORE MORNING MEAL AND 30 MINUTES BEFORE 5PM MEAL. sodium chloride 1,000 mg tablet,soluble 1,000 mg feeding tube TID Patient Comments: TAKE 1 TABLET (1 G) VIA G-TUBE 3 TIMES DAILY cholecalciferol (vitamin D3) 10 mcg/mL (400 unit/mL) drops 50 mcg feeding tube DAILY@1729 rufinamide 40 mg/mL suspension 1,200 mg feeding tube QID Patient Comments: ADMINISTER 30 ML IN AM, 30 ML AT NOON, 30 ML IN EVENING AND 30 ML AT BEDTIME. ferrous sulfate 220 mg (44 mg iron)/5 mL elixir 220 mg feeding tube DAILY@1729 lorazepam 1 mg tablet 1 mg buccal PRN Patient Comments: TAKE DIRECTED PER SEIZURE PROTOCOL - CRUSH AND PLACE IN MOUTH lorazepam [Lorazepam Intensol] 2 mg/mL concentrate 1 mg buccal PRN Patient Comments: ADMINISTER 0.5 ML (1 MG) NEEDED FOR SEIZURE LASTING LONGER THAN 90 SECONDS OR FOR MORE THAN 3 SEIZURES IN LESS THAN 6 HOURS. clindamycin palmitate HCl [Clindamycin Pediatric] 75 mg/5 mL recon soln 20 ml feeding tube 3XD Follow Up Appointments: [facility] [Outside] (Patient transfer to the [facility]) Darryl Kenny MD [Primary Care Provider] - Hospital Course: HOSPITALIST TRANSFER SUMMARY ATTENDING PHYSICIAN: Delisa Aguayo MD REASON FOR TRANSFER GI and Pulmonary Services needed BRIEF HOSPITAL COURSE: Braxton was here for approximately 20 hours. While he was stable throughout his stay he did show increasing respiratory effort this afternoon and he soft blood pressures. I repeated a chest x-ray which showed continued left large pleural effusion. CT abdomen pelvis ordered this morning by my partner showed that his Kolton button was functioning appropriately but there was a large hiatal hernia with obvious reflux happening during the exam. I discussed the case with our general surgeon. We felt the best course of action was to transfer him to a tertiary care center given his multiple needs. I spoke with [facility] PAT Saldivar and he felt the pulmonary service and GI service as well as the Neurology service given his longstanding epilepsy would be happy to take him and optimize his care which may include a smaller catheter chest tube, pleurodesis and/or extension of his button to a GJ feeding tube. He left by non emergent transfer to [facility], on the afternoon of 05/28/2022 SERVICES NOT AVAILABLE HERE THAT THIS PATIENT NEEDS: Pulmonary, GI, neurology, potentially IR ACCEPTING PHYSICIAN/SERVICE/LOCATION: [facility] MEDICATIONS AT TIME OF TRANSFER: See Mar DRIPS/LINES: IV fluids, IV clindamycin VITAL SIGN, MEDICATION, LAB/MICRO, IMAGING SUMMARY (full details available in account tabs or by records request) See note from earlier this morning REVIEW OF SYSTEMS Unchanged. PHYSICAL EXAM: CONSTITUTIONAL: VITAL SIGNS: see record. Exam unchanged from earlier with notable exceptions: DISPOSITION: Transfer to [facility] Time spent on discharge >30 minutes. This includes speaking with accepting physician; family/patient and coordinating meds/drips for transfer Oxygen: Yes Oxygen Delivery Method: Nasal Cannula Oxygen Flow Rate: 3L Urinary Catheter: Yes
--- NOTE | 2022-05-28 14:42 | PC.NURSE ---
BLOOD PRESSURE 92/55 THIS AM AND MD UPDATED. BOLUS ORDERED TO BE ADMINISTERED. SL IN RIGHT THUMB INFILTRATED AND TOOK MULTIPLE ATTEMPTS FOR NEW SALINE LOCK PLACEMENT. #22 PLACED TO LEFT WRIST. BOLUS ADMINISTERED AND RECHECK OF BP 100'S/70'S. HEART RATE 80'S AND REGULAR. RR 26. MD INSTRUCTED TO HOLD G-TUBE FEEDINGS BUT OKAYED FOR SEIZURE MEDS TO BE ADMINISTERED SCHEDULED PER G-TUBE. SWENSON PLACED. PATIENT T&R IN BED. BANDAID TO LEFT BACK FROM THORACENTESIS AND CDI. PATIENT REMAINS ON 2L O2 PER NC AND SATS 94-96%. PATIENT DENIES PAIN. REPORT GIVEN TO RN AT [facility] AND PATIENT TRANSFERRED [facility]. PATIENT'S SISTER HIMANSHU TOOK PATIENT'S WHEELCHAIR, BELONGINGS AND MEDS FROM [facility] TO [facility].
== END 2022-05-28 13:55 | disposition short-term general hospital (02) | DRG 177 ==
LOC: ED 17:06 → MEDSURG 20:53
PROVIDERS: Surgery; Admitting Provider Internal Medicine; Emergency Provider Family Medicine; PCP Family Medicine; Visit Provider Internal Medicine
DX: J69.0 Pneumonitis due to inhalation of food and vomit (principal); J96.01 Acute respiratory failure with hypoxia; G40.812 Lennox-Gastaut syndrome, not intractable, without status epilepticus; J91.8 Pleural effusion in other conditions classified elsewhere; G80.1 Spastic diplegic cerebral palsy; Z93.1 Gastrostomy status; F71 Moderate intellectual disabilities; K21.9 Gastro-esophageal reflux disease without esophagitis; Z99.3 Dependence on wheelchair; K44.9 Diaphragmatic hernia without obstruction or gangrene
CPT/HCPCS: 32555; 36415; 36600; 51702; 51798; 71045; 71250; 74176; 80048; 80076; 82150; 82803; 82945; 83605; 83615; 83735; 83880; 83986; 84100; 84145; 84157; 84311; 84484; 85025; 86140; 87015; 87070; 87102; 87116; 87205; 87631; 88112; 88305; 89051; 94640; 94761; 99284; 99285; A9270; J1335; J2405; J2930; J7120; S0077

== ENCOUNTER 2022-05-28 13:43 | Outpatient (CLI) | payer MEDICARE, MEDICAID, SELFPAY | END 2022-05-28 13:44 | disposition home or self-care (01) | LOC: AMB 05-31 10:59 | PROVIDERS: PCP Family Medicine; Visit Provider Family Medicine | DX: J69.0 Pneumonitis due to inhalation of food and vomit (principal) | CPT/HCPCS: A0425; A0426; A0428 ==

== ENCOUNTER 2022-06-04 20:04 | Emergency (ER) | payer MEDICARE, MEDICAID, SELFPAY ==
[2022-06-04] VITALS (16 sets, daily range): BP systolic 112–135; BP diastolic 61–76; PULSE 82–91; RESP 16; TEMP 35.9; O2SAT 96–99; BMI 23.6
--- NOTE | 2022-06-04 20:47 | ED_ITS ---
HPI - General Adult General Chief complaint: Hypotension Stated complaint: Low BP measurements were 82/79 and 57/58 Time Seen by Provider: 06/04/22 20:46 History of Present Illness HPI narrative: Patient is a resident at [facility] who comes to the ER today with c /o weakness with transferring ( pivot/stand) and was lowered to the ground with staff/ family present. Patient was noted to have lower BP's (82/ 75, 79/58) after this episode and was brought to the ER to be checked out. Patient was discharged from [facility] on Sunday for pleural effusion requiring drainage, aspiration pnx, and placement of a new GJ tube. Patient has been on augmentin and has c/o diarrhea. 57-year-old man presenting to the emergency department accompanied by his sister who is a primary caregiver. Is reportedly at baseline behaving normally and seems to indicate he feels well. Complicating history is as noted above. Sister is very much involved and believes that they are meeting their fluid intake requirements in this new feeding schedule. Sister thinks his mouth is dry but otherwise doing well. Has been having diarrhea since hospitalization and on Augmentin. No apparent complaints of pain. There was no seizure-like event as indicated above. His legs just seem to give out from under him when he was being helped from the toilet having had a bowel movement for my understanding. No fever. No increased shortness of breath. Related Data Home Medications Medication Instructions Recorded Confirmed acetaminophen 500 mg/15 mL oral 1,000 mg feeding tube Q6H PRN 01/16/22 05/28/22 liquid (Mapap (acetaminophen)) carbamazepine 100 mg/5 mL oral 200 - 400 mg feeding tube QID 01/16/22 05/28/22 suspension cholecalciferol (vitamin D3) 10 50 mcg feeding tube DAILY@1730 01/16/22 05/28/22 mcg/mL (400 unit/mL) oral drops citalopram 10 mg/5 mL oral solution 20 mg feeding tube DAILY 01/16/22 05/28/22 ferrous sulfate 220 mg (44 mg 220 mg feeding tube DAILY@1730 01/16/22 05/28/22 iron)/5 mL oral elixir fluticasone propionate 50 2 spray intranasal DAILY 01/16/22 05/28/22 mcg/actuation nasal spray,suspension lamotrigine 100 mg tablet 100 - 200 mg feeding tube QID 01/16/22 05/28/22 lansoprazole 30 mg delayed 30 mg feeding tube BID@07,1630 01/16/22 05/28/22 release,disintegrating tablet loratadine 5 mg/5 mL oral solution 10 ml feeding tube HS 01/16/22 05/28/22 lorazepam 1 mg tablet 1 mg buccal PRN 01/16/22 05/28/22 lorazepam 2 mg/mL oral concentrate 1 mg buccal PRN 01/16/22 05/28/22 (Lorazepam Intensol) polyethylene glycol 3350 17 17 g feeding tube DAILY PRN 01/16/22 05/28/22 gram/dose oral powder (Gavilax) rufinamide 40 mg/mL oral suspension 1,200 mg feeding tube QID 01/16/22 05/28/22 sodium chloride 1,000 mg soluble 1,000 mg feeding tube TID 01/16/22 05/28/22 tablet clindamycin palmitate HCl 75 mg/5 20 ml feeding tube 3XD 05/28/22 05/28/22 mL oral solution (Clindamycin Pediatric) Allergies Allergy/AdvReac Type Severity Reaction Status Date / Time alendronate sodium Allergy Verified 01/16/22 13:57 erythromycin base Allergy Verified 01/16/22 13:57 felbamate Allergy Verified 05/27/22 15:33 Macrolide Antibiotics Allergy Verified 01/16/22 13:57 piperacillin [From Zosyn] Allergy Verified 01/16/22 13:57 tazobactam [From Zosyn] Allergy Verified 01/16/22 13:57 Review of Systems Status of ROS: Reports: 6 or more systems reviewed and unremarkable except as noted in History and below [facility] Medical History Anorexia ?R63.0 - Anorexia (ICD-10) Chronic constipation ?K59.09 - Other constipation (ICD-10) Chronic gastroesophageal reflux disease ?K21.9 - Gastro-esophageal reflux disease without esophagitis (ICD-10) Cognitive impairment ?R41.89 - Other symptoms and signs involving cognitive functions and awareness (ICD-10) Gastrostomy tube in place ?Z93.1 - Gastrostomy status (ICD-10) History of gastrostomy tube placement History of upper gastrointestinal bleeding ?Z87.19 - Personal history of other diseases of the digestive system (ICD-10) 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 - Winchester-Gastaut syndrome, not intractable, without status epilepticus (ICD-10) Osteoporosis ?M81.0 - Age-related osteoporosis without current pathological fracture (ICD- 10) Recurrent aspiration pneumonia ?J69.0 - Pneumonitis due to inhalation of food and vomit (ICD-10) Seizure disorder ?G40.909 - Epilepsy, unspecified, not intractable, without status epilepticus (ICD-10) Sensorineural hearing loss (SNHL) of both ears ?H90.3 - Sensorineural hearing loss, bilateral (ICD-10) 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 His sister is his guardian. Smoking Status: Never smoker Do you use any of these nicotine containing products: None Second hand tobacco smoke exposure: No How often do you have a drink containing alcohol: never How often do you have six or more drinks on one occasion: Never AUDIT-C Alcohol total score: 0 Non-prescribed substance use: denies use Caffeine: No service: No Exam Narrative: Exam Narrative: Appears of good energy. Breathing easily. Skin is warm and dry. No evidence of trauma. Head is atraumatic. Neck is supple. Oropharynx is moist. Lips are maybe a little dry. Lungs with crepitus most notable in the right lung lower and little bit in the base of the left. No wheeze. Good air movement. Is not tachypneic nor labored in breathing. Abdomen is protuberant soft and nontender. GJ tube in place in the upper abdomen do trace inflammation but nothing cellulitic surrounding. Normoactive bowel sounds. Extremities are well perfused. No edema. Cranial nerves 2-12 to be intact. Does have limited contracted movement of his hands. Gestures in attempted conversation. Vocalizes but difficult to understand. Const: Vital Signs, click to edit/add: Vital Signs - 24 hr 06/04/22 20:18 06/04/22 20:21 06/04/22 20:22 Temperature 96.6 F L Pulse Rate 85 88 Pulse Rate [Left P ulse Oximeter] 86 Respiratory Rate 16 Blood Pressure 119/69 Blood Pressure [Ri ght Upper Arm] 135/72 Pulse Oximetry 97 97 98 Oxygen Delivery Me thod Room Air 06/04/22 20:30 06/04/22 20:31 06/04/22 20:32 Temperature Pulse Rate 84 83 83 Pulse Rate [Left P ulse Oximeter] Respiratory Rate Blood Pressure 116/68 Blood Pressure [Ri ght Upper Arm] Pulse Oximetry 96 96 96 Oxygen Delivery Me thod 06/04/22 20:45 06/04/22 21:02 06/04/22 21:32 Temperature Pulse Rate 82 Pulse Rate [Left P ulse Oximeter] Respiratory Rate Blood Pressure 123/66 129/76 Blood Pressure [Ri ght Upper Arm] Pulse Oximetry 96 Oxygen Delivery Me thod 06/04/22 21:59 06/04/22 22:00 06/04/22 22:02 Temperature Pulse Rate 82 86 85 Pulse Rate [Left P ulse Oximeter] Respiratory Rate Blood Pressure 116/61 Blood Pressure [Ri ght Upper Arm] Pulse Oximetry 96 99 97 Oxygen Delivery Me thod 06/04/22 22:15 06/04/22 22:30 06/04/22 22:31 Temperature Pulse Rate 91 90 89 Pulse Rate [Left P ulse Oximeter] Respiratory Rate Blood Pressure 112/62 Blood Pressure [Ri ght Upper Arm] Pulse Oximetry 97 99 96 Oxygen Delivery Me thod 06/04/22 22:45 Temperature Pulse Rate 88 Pulse Rate [Left P ulse Oximeter] Respiratory Rate Blood Pressure Blood Pressure [Ri ght Upper Arm] Pulse Oximetry 96 Oxygen Delivery Me thod Course Vital Signs Vital signs: Initial Vital Signs Temperature 96.6 F L 06/04/22 20:18 Temperature Source Temporal Artery Scan 06/04/22 20:18 Pulse Rate 86 06/04/22 20:18 Pulse Rhythm Regular 06/04/22 20:18 Respiratory Rate 16 06/04/22 20:18 Blood Pressure 135/72 06/04/22 20:18 Blood Pressure Mean 93 06/04/22 20:18 Blood Pressure Position Semi-Fowlers 06/04/22 20:18 Pulse Oximetry 97 06/04/22 20:18 Oxygen Delivery Method Room Air 06/04/22 20:18 Vital Signs Temperature 96.6 F L 06/04/22 20:18 Pulse Rate 86 06/04/22 20:18 Respiratory Rate 16 06/04/22 20:18 Blood Pressure 135/72 06/04/22 20:18 Pulse Oximetry 97 06/04/22 20:18 Oxygen Delivery Method Room Air 06/04/22 20:18 Temperature 96.6 F L 06/04/22 20:18 Pulse Rate 88 06/04/22 22:45 Respiratory Rate 16 06/04/22 20:18 Blood Pressure 112/62 06/04/22 22:31 Pulse Oximetry 96 06/04/22 22:45 Oxygen Delivery Method Room Air 06/04/22 20:18 Medical Decision Making MDM Narrative Medical decision making narrative: Does seem to be of good energy here. I suspect more of an orthostatic or vasovagal event given circumstances. Sister suspects that nothing more significant going on. She thinks he is at baseline and well generally. Arrhythmia suppose is possibility as well. Nothing else of persistence seems apparent. We decided to do some screening labs does to verify compare with recent labs. I reviewed records from [place]. White count is normal. CRP is mildly elevated 2.9 though it thing not unexpected given recent events. EKG as noted below. Monitored in the ER without event. See patient discharge plan Lab Data Lab results reviewed: Yes I reviewed the patient's lab results Labs: Lab Results 06/04/22 Range/Units 21:55 WBC 9.80 (4.50-11.00) K/uL RBC 3.24 L (4.30-5.90) m/uL Hgb 10.6 L (13.5-17.5) gm/dL Hct 32.4 L (37.0-53.0) % MCV 100 (80-100) fL MCH 33 (26-34) pg MCHC 33 (32-36) gm/dL RDW Coeff of Johann 13.6 (11.5-15.5) % Plt Count 526 H (140-440) K/uL Neut % (Auto) 82.1 H (42.0-72.0) % Lymph % (Auto) 8.1 L (20-44) % [place] % (Auto) 7.1 (0.0-11.0) % Eos % (Auto) 0.0 (0.0-7.0) % Baso % (Auto) 0.7 (0.0-3.0) % Neut # (Auto) 8.00 H (1.7-7.0) K/uL Lymph # (Auto) 0.80 L (0.90-2.90) K/uL [place] # (Auto) 0.70 (0.00-0.90) K/UL Eos # (Auto) 0.00 (0.00-0.50) K/uL Baso # (Auto) 0.07 (0.00-0.30) K/uL C-Reactive Protein 2.9 H (0.5-1.0) mg/dL ECG Data Attestation: I personally reviewed and interpreted this ECG as follows: (Normal sinus rhythm rate 80 without ischemic changes. Generally low amplitude. Baseline irritability) Discharge Plan Discharge Clinical Impression: Transient hypotension Patient Disposition: Home w/ Parent or Adult Condition: Stable Additional Instructions: I think what may have occurred here was more of an orthostatic hypotension or vasovagal event. I do not see any evidence of arrhythmia. Your white count and inflammatory markers are improved. Take care to remain well hydrated in this transition to different feedings. Follow-up next week in clinic as planned rechecking labs at that time. Prescriptions: No Action loratadine 5 mg/5 mL solution 10 ml feeding tube HS Patient Comments: GIVE 10ML VIA PEG TUBE ONCE DAILY citalopram 10 mg/5 mL solution 20 mg feeding tube DAILY Patient Comments: ADMINISTER 10ML(20MG) ONCE A DAY INTO G-TUBE, NOT AT THE SAME TIME THE CARBAMAZEPINE SUSPENSION carbamazepine 100 mg/5 mL suspension 200 - 400 mg feeding tube QID Patient Comments: ADMINISTER 200MG(10ML) PER G-TUBE IN MORNING, 200MG(10ML) AT NOON, 200MG(10ML) EVENING AND 400MG(20ML) AT BEDTIME polyethylene glycol 3350 [Gavilax] 17 gram/dose powder 17 g feeding tube DAILY PRN acetaminophen [Mapap (acetaminophen)] 500 mg/15 mL liquid 1,000 mg feeding tube Q6H PRN fluticasone propionate 50 mcg/actuation spray,suspension 2 spray INTRANASAL DAILY Patient Comments: INHALE 2 SPRAYS IN THE NOSTRIL(S) ONCE DAILY. lamotrigine 100 mg tablet 100 - 200 mg feeding tube QID Patient Comments: CRUSH AND GIVE 1 TABLET VIA G-TUBE 3 TIMES DAILY (AM, NOON, AFTERNOON) AND 2 TABLETS IN THE EVENING lansoprazole 30 mg tablet,disintegrat, delay rel 30 mg feeding tube BID@07,1630 Patient Comments: DISSOLVE 1 TABLET IN SMALL AMOUNT OF WATER AND GIVE VIA G-TUBE 30 MINUTES BEFORE MORNING MEAL AND 30 MINUTES BEFORE 5PM MEAL. sodium chloride 1,000 mg tablet,soluble 1,000 mg feeding tube TID Patient Comments: TAKE 1 TABLET (1 G) VIA G-TUBE 3 TIMES DAILY cholecalciferol (vitamin D3) 10 mcg/mL (400 unit/mL) drops 50 mcg feeding tube DAILY@1730 rufinamide 40 mg/mL suspension 1,200 mg feeding tube QID Patient Comments: ADMINISTER 30 ML IN AM, 30 ML AT NOON, 30 ML IN EVENING AND 30 ML AT BEDTIME. ferrous sulfate 220 mg (44 mg iron)/5 mL elixir 220 mg feeding tube DAILY@1730 lorazepam 1 mg tablet 1 mg buccal PRN Patient Comments: TAKE DIRECTED PER SEIZURE PROTOCOL - CRUSH AND PLACE IN MOUTH lorazepam [Lorazepam Intensol] 2 mg/mL concentrate 1 mg buccal PRN Patient Comments: ADMINISTER 0.5 ML (1 MG) NEEDED FOR SEIZURE LASTING LONGER THAN 90 SECONDS OR FOR MORE THAN 3 SEIZURES IN LESS THAN 6 HOURS. clindamycin palmitate HCl [Clindamycin Pediatric] 75 mg/5 mL recon soln 20 ml feeding tube 3XD Follow Up/Referrals: Darryl Kenny MD [Primary Care Provider] - Stand Alone Forms: [employer] Info Instructions
--- NOTE | 2022-06-04 21:20 | ED.NURSE ---
EKG completed. Lab in to draw patient. Sister administering home medications.
[2022-06-04 22:03] LABS: Basophils Absolute Auto 0.07 K/uL (0.00-0.30); Basophils Percent Auto 0.7 % (0.0-3.0); Hematocrit 32.4 % (37.0-53.0); Hemoglobin* 10.6 gm/dL (13.5-17.5); Lymphocytes Percent Auto 8.1 % (20-44); Mean Corpuscular HGB Conc 33 gm/dL (32-36); Mean Corpuscular Hemoglobin 33 pg (26-34); Mean Corpuscular Volume 100 fL (80-100); Monocytes Percent Auto 7.1 % (0.0-11.0); Neutrophils Percent Auto 82.1 % (42.0-72.0); Platelet Count* 526 K/uL (140-440); RDW Coefficient of Variation % 13.6 % (11.5-15.5); Red Blood Count 3.24 m/uL (4.30-5.90)
[2022-06-04 22:04] LABS: Slide Review Reflex No
[2022-06-04 22:23] LABS: C Reactive Protein* 2.9 mg/dL (0.5-1.0)
== END 2022-06-04 22:58 | disposition home or self-care (01) ==
PROVIDERS: Emergency Provider Family Medicine; PCP Family Medicine
DX: I95.89 Other hypotension (principal)
CPT/HCPCS: 36415; 85025; 86140; 93005; 99284

== ENCOUNTER 2023-01-09 14:00 | Outpatient (RCR) | payer MEDICARE, MEDICAID, SELFPAY ==
--- NOTE | 2023-01-01 15:48 | URNOTE ---
No prior auth required for [facility] ([id number]). Pt has medicare primary and services are based on medical necessity and follow medicare guidelines.
[2023-01-02 10:57] VITALS: BP 101/58; PULSE 75; RESP 16; TEMP 36.4; O2SAT 96
[2023-01-02] MEDS: ferumoxytoL 510 MG in 0.9 % SODIUM CHLORIDE 250 ml 250 ML 1068 MG IVPB (11:30)
[2023-01-02] MEDS: 0.9 % SODIUM CHLORIDE 250 ml IV (12:43)
[2023-01-09 14:21] VITALS: BP 113/66; PULSE 79; RESP 16; TEMP 36.2; O2SAT 98
[2023-01-09] MEDS: ferumoxytoL 510 MG in 0.9 % SODIUM CHLORIDE 250 ml 250 ML 1068 MG IVPB (14:45)
[2023-01-09] MEDS: 0.9 % SODIUM CHLORIDE 250 ml IV (14:45)
[2023-01-09] MEDS: SODIUM CHLORIDE 0.9 % (FLUSH) 10 ML SYRINGE IVF (14:46)
== END 2023-07-01 23:59 | disposition home or self-care (01) ==
LOC: CCIC 14:00
PROVIDERS: PCP Family Medicine; Referring Provider Family Medicine; Visit Provider Clinical Nurse Specialist
DX: K22.10 Ulcer of esophagus without bleeding (principal); D50.0 Iron deficiency anemia secondary to blood loss (chronic)
CPT/HCPCS: 96365; J7050; Q0138

== ENCOUNTER 2023-02-21 17:01 | Emergency (ER) | payer MEDICARE, MEDICAID, SELFPAY ==
[2023-02-21] VITALS (40 sets, daily range): BP systolic 95–121; BP diastolic 49–77; PULSE 79–98; RESP 16; TEMP 36.6–37.1; O2SAT 84–100; BMI 22.9
--- NOTE | 2023-02-21 17:23 | ED.GENADULT ---
HPI - General Adult General Chief complaint: Unspecified Complaint, Adult Stated complaint: hemoglobin low Time Seen by Provider: 02/21/23 17:05 History of Present Illness HPI narrative: Patient was seen at [facility] clinic for lab check following two separate iron infusions due to low ferratin levels . His hgb there was 6.2 and he was sent to ED for further management 58-year-old man presenting to the emergency department concern of anemia. Anemia been present for quite some time. Sister who is primary care provider accompanies him here. Has received 2 iron infusions last of which was 01/09/2023 and following up in clinic today to recheck hemoglobin. Paperwork provided shows a hemoglobin of 10, 5 months ago and then today at 6.2. Called by primary care provider and instructed to present to the emergency department. Sister notes him to be otherwise asymptomatic. Last time he was very anemic he was just really lethargic apparently. She believes he has received transfusion in the past. Source of anemia this suspected to be some degree of chronic gastritis or esophagitis. Was scoped last year. History also of hiatal hernia. He has chronically dark stools. 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 To see Gastroenterology locally Dr. Morales in 1 week. Last admitted to this facility with acute respiratory failure with pneumonia. Most recently seen by myself with transient hypotension Related Data Home Medications Medication Instructions Recorded Confirmed acetaminophen 500 mg/15 mL oral 1,000 mg feeding tube Q6H PRN 01/16/22 01/02/23 liquid (Mapap (acetaminophen)) carbamazepine 100 mg/5 mL oral 200 - 400 mg feeding tube QID 01/16/22 01/02/23 suspension cholecalciferol (vitamin D3) 10 50 mcg feeding tube DAILY@1730 01/16/22 01/02/23 mcg/mL (400 unit/mL) oral drops citalopram 10 mg/5 mL oral solution 20 mg feeding tube DAILY 01/16/22 01/02/23 ferrous sulfate 220 mg (44 mg 220 mg feeding tube DAILY@1730 01/16/22 01/02/23 iron)/5 mL oral elixir fluticasone propionate 50 2 spray intranasal DAILY 01/16/22 01/02/23 mcg/actuation nasal spray,suspension lamotrigine 100 mg tablet 100 - 200 mg feeding tube QID 01/16/22 01/02/23 loratadine 5 mg/5 mL oral solution 10 ml feeding tube HS 01/16/22 01/02/23 lorazepam 2 mg/mL oral concentrate 1 mg buccal PRN 01/16/22 01/02/23 (Lorazepam Intensol) polyethylene glycol 3350 17 17 g feeding tube DAILY PRN 01/16/22 01/02/23 gram/dose oral powder (Gavilax) rufinamide 40 mg/mL oral suspension 1,200 mg feeding tube QID 01/16/22 01/02/23 sodium chloride 1,000 mg soluble 1,000 mg feeding tube BID 01/16/22 01/02/23 tablet clindamycin palmitate HCl 75 mg/5 20 ml feeding tube 3XD 05/28/22 01/02/23 mL oral solution (Clindamycin Pediatric) First Omeprazole 2mg/ml 150 mL 10 ml PO BID #150 mL 01/02/23 01/02/23 suspension famotidine 40 mg/5 mL (8 mg/mL) 2.5 ml BID 02/21/23 oral suspension Allergies Allergy/AdvReac Type Severity Reaction Status Date / Time alendronate sodium Allergy Verified 01/02/23 11:37 erythromycin base Allergy Verified 01/02/23 11:37 felbamate Allergy Verified 01/02/23 11:37 Macrolide Antibiotics Allergy Verified 01/02/23 11:37 piperacillin [From Zosyn] Allergy Verified 01/02/23 11:37 tazobactam [From Zosyn] Allergy Verified 01/02/23 11:37 Review of Systems Status of ROS: Reports: unobtainable due to medical condition (Questions mostly directed to sister. 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R63.0 - Anorexia (ICD-10) Chronic gastroesophageal reflux disease ?K21.9 - Gastro-esophageal reflux disease without esophagitis (ICD-10) Osteoporosis ?M81.0 - Age-related osteoporosis without current pathological fracture (ICD-10) Seizure disorder ?G40.909 - Epilepsy, unspecified, not intractable, without status epilepticus (ICD-10) 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 His sister is his guardian. Smoking Status: Never smoker Do you use any of these nicotine containing products: None Second hand tobacco smoke exposure: No How often do you have a drink containing alcohol: never How often do you have six or more drinks on one occasion: Never AUDIT-C Alcohol total score: 0 Non-prescribed substance use: denies use Caffeine: No service: No Exam Narrative: Exam Narrative: Pleasant. NAD. Breathing easily. Skin looks generally sallow but sister says this is chronic. Mucous membranes are clearly quite pale. Oropharynx is moist. He introduces himself in a halting manner. Some degree of contractures evident consistent with cerebral palsy diagnosis. Lungs auscultation challenged by discoordinated respiratory effort but appears to have some bibasilar crepitus. Heart in regular rate and rhythm. Abdomen is soft appears to be nontender. G-tube in place. Sisters preparing feeding. There are no inflammatory changes appreciated. Well-perfused peripherally. Fully alert I think. Distracted by television otherwise. Const: Vital Signs, click to edit/add: Vital Signs - 24 hr 02/21/23 17:18 02/21/23 18:34 02/21/23 18:35 Temperature 97.8 F Pulse Rate 83 88 Pulse Rate [Pulse Oximeter] 79 Respiratory Rate 16 Blood Pressure 110/57 L Blood Pressure [Ri ght Upper Arm] 120/57 L Pulse Oximetry 100 99 98 Oxygen Delivery Me thod Room Air Documenting provider has reviewed patient's vital signs: yes Course Vital Signs Vital signs: Initial Vital Signs Temperature 97.8 F 02/21/23 17:18 Temperature Source Temporal Artery Scan 02/21/23 17:18 Pulse Rate 79 02/21/23 17:18 Respiratory Rate 16 02/21/23 17:18 Blood Pressure 120/57 L 02/21/23 17:18 Blood Pressure Mean 78 02/21/23 17:18 Pulse Oximetry 100 02/21/23 17:18 Oxygen Delivery Method Room Air 02/21/23 17:18 Vital Signs Temperature 97.8 F 02/21/23 17:18 Pulse Rate 79 02/21/23 17:18 Respiratory Rate 16 02/21/23 17:18 Blood Pressure 120/57 L 02/21/23 17:18 Pulse Oximetry 100 02/21/23 17:18 Oxygen Delivery Method Room Air 02/21/23 17:18 Temperature 98.8 F 02/21/23 22:27 Pulse Rate 97 02/21/23 22:32 Respiratory Rate 16 02/21/23 22:27 Blood Pressure 121/57 L 02/21/23 22:32 Pulse Oximetry 95 02/21/23 22:32 Oxygen Delivery Method Room Air 02/21/23 17:18 Medical Decision Making MDM Narrative Medical decision making narrative: There is no beta blockade or CCB in medication list. This would appear to be anemia of longstanding duration. Will recheck. Anticipating type and cross for 2 units. I do not believe there are any more beds in this facility. May have to stay in the emergency department for transfusions. Continue to monitor closely on cardiac surgeon and oximetry. Labs are reviewed. Confirmed hemoglobin is quite low at 5.7. Ordered for 2 units. O-positive. Was able to reside in the emergency department monitored over the course of these 2 units infuse. On another reassessment appears to have tolerated all this well. Did receive G-tube feeding during time in the ER. Has close follow-up with Gastroenterology. Lab Data Lab results reviewed: Yes I reviewed the patient's lab results Labs: Lab Results 02/21/23 02/21/23 02/21/23 Range/Units 18:14 18:14 18:14 WBC 4.92 (4.50-11.00) K/uL RBC 2.09 L (4.30-5.90) m/uL Hgb 5.7 L* (13.5-17.5) gm/dL Hct 20.4 L (37.0-53.0) % MCV 98 (80-100) fL MCH 27 (26-34) pg MCHC 28 L (32-36) gm/dL RDW Coeff of Johann 20.1 H (11.5-15.5) % Plt Count 454 H (140-440) K/uL Neut % (Auto) 55.7 (42.0-72.0) % Lymph % (Auto) 29.7 (20-44) % [place] % (Auto) 13.4 H (0.0-11.0) % Eos % (Auto) 0.0 (0.0-7.0) % Baso % (Auto) 1.2 (0.0-3.0) % Neut # (Auto) 2.74 (1.7-7.0) K/uL Lymph # (Auto) 1.46 (0.90-2.90) K/uL [place] # (Auto) 0.70 (0.00-0.90) K/UL Eos # (Auto) 0.00 (0.00-0.50) K/uL Baso # (Auto) 0.06 (0.00-0.30) K/uL Abs Immat Gran (auto) 0.00 (0.00-0.30) K/uL Imm/Tot Granulo (auto) 0.0 % Diff Slide Review Acceptable Review (Acceptable) INR 0.93 (0.91-1.10) APTT 36 H (23-33) Seconds Sodium 131 L (135-149) mmol/L Potassium 4.0 (3.6-5.1) mmol/L Chloride 98 (96-114) mmol/L Carbon Dioxide 27 (20-32) mmol/L Anion Gap 6 L (7-15) mEq/L BUN 14 (7-30) mg/dL Creatinine 0.4 L (0.5-1.5) mg/dL Estimated Creat Clear 185.91 Estimated GFR 126 ml/min Glucose 103 (60-115) mg/dL Calcium 8.3 L (8.4-10.6) mg/dL Total Bilirubin < 0.1 L Cancelled (0.1-1.5) mg/dL Direct Bilirubin 0.0 Cancelled (0.0-0.5) mg/dL AST 22 (12-35) U/L ALT (4-50) U/L Alkaline Phosphatase (40-150) U/L Total Protein (6.0-8.3) g/dL Albumin (3.3-5.0) g/dL Blood Type Antibody Screen Crossmatch (AHG) 02/21/23 02/21/23 02/21/23 Range/Units 18:14 18:14 18:14 WBC (4.50-11.00) K/uL RBC (4.30-5.90) m/uL Hgb (13.5-17.5) gm/dL Hct (37.0-53.0) % MCV (80-100) fL MCH (26-34) pg MCHC (32-36) gm/dL RDW Coeff of Johann (11.5-15.5) % Plt Count (140-440) K/uL Neut % (Auto) (42.0-72.0) % Lymph % (Auto) (20-44) % [place] % (Auto) (0.0-11.0) % Eos % (Auto) (0.0-7.0) % Baso % (Auto) (0.0-3.0) % Neut # (Auto) (1.7-7.0) K/uL Lymph # (Auto) (0.90-2.90) K/uL [place] # (Auto) (0.00-0.90) K/UL Eos # (Auto) (0.00-0.50) K/uL Baso # (Auto) (0.00-0.30) K/uL Abs Immat Gran (auto) (0.00-0.30) K/uL Imm/Tot Granulo (auto) % Diff Slide Review (Acceptable) INR (0.91-1.10) APTT (23-33) Seconds Sodium (135-149) mmol/L Potassium (3.6-5.1) mmol/L Chloride (96-114) mmol/L Carbon Dioxide (20-32) mmol/L Anion Gap (7-15) mEq/L BUN (7-30) mg/dL Creatinine (0.5-1.5) mg/dL Estimated Creat Clear Estimated GFR ml/min Glucose (60-115) mg/dL Calcium (8.4-10.6) mg/dL Total Bilirubin (0.1-1.5) mg/dL Direct Bilirubin (0.0-0.5) mg/dL AST Cancelled (12-35) U/L ALT 17 Cancelled (4-50) U/L Alkaline Phosphatase 112 Cancelled (40-150) U/L Total Protein 6.9 (6.0-8.3) g/dL Albumin (3.3-5.0) g/dL Blood Type Antibody Screen Crossmatch (AHG) 02/21/23 02/21/23 Range/Units 18:14 18:14 WBC (4.50-11.00) K/uL RBC (4.30-5.90) m/uL Hgb (13.5-17.5) gm/dL Hct (37.0-53.0) % MCV (80-100) fL MCH (26-34) pg MCHC (32-36) gm/dL RDW Coeff of Johann (11.5-15.5) % Plt Count (140-440) K/uL Neut % (Auto) (42.0-72.0) % Lymph % (Auto) (20-44) % [place] % (Auto) (0.0-11.0) % Eos % (Auto) (0.0-7.0) % Baso % (Auto) (0.0-3.0) % Neut # (Auto) (1.7-7.0) K/uL Lymph # (Auto) (0.90-2.90) K/uL [place] # (Auto) (0.00-0.90) K/UL Eos # (Auto) (0.00-0.50) K/uL Baso # (Auto) (0.00-0.30) K/uL Abs Immat Gran (auto) (0.00-0.30) K/uL Imm/Tot Granulo (auto) % Diff Slide Review (Acceptable) INR (0.91-1.10) APTT (23-33) Seconds Sodium (135-149) mmol/L Potassium (3.6-5.1) mmol/L Chloride (96-114) mmol/L Carbon Dioxide (20-32) mmol/L Anion Gap (7-15) mEq/L BUN (7-30) mg/dL Creatinine (0.5-1.5) mg/dL Estimated Creat Clear Estimated GFR ml/min Glucose (60-115) mg/dL Calcium (8.4-10.6) mg/dL Total Bilirubin (0.1-1.5) mg/dL Direct Bilirubin (0.0-0.5) mg/dL AST (12-35) U/L ALT (4-50) U/L Alkaline Phosphatase (40-150) U/L Total Protein Cancelled (6.0-8.3) g/dL Albumin 3.8 Cancelled (3.3-5.0) g/dL Blood Type O Positive Antibody Screen NEGATIVE Crossmatch (AHG) See Detail Discharge Plan Discharge Clinical Impression: GI bleed, Anemia Patient Disposition: Home w/ Parent or Adult Condition: Stable Additional Instructions: As long as no significant bleeding, worsening lightheadedness, increasing shortness of breath or fever, I would follow-up at your appointment middle of next week to recheck hemoglobin/hematocrit. Prescriptions: No Action famotidine 40 mg/5 mL (8 mg/mL) suspension 2.5 ml BID loratadine 5 mg/5 mL solution 10 ml feeding tube HS Patient Comments: GIVE 10ML VIA PEG TUBE ONCE DAILY citalopram 10 mg/5 mL solution 20 mg feeding tube DAILY Patient Comments: ADMINISTER 10ML(20MG) ONCE A DAY INTO G-TUBE, NOT AT THE SAME TIME THE CARBAMAZEPINE SUSPENSION carbamazepine 100 mg/5 mL suspension 200 - 400 mg feeding tube QID Patient Comments: ADMINISTER 200MG(10ML) PER G-TUBE IN MORNING, 200MG(10ML) AT NOON, 200MG(10ML) EVENING AND 400MG(20ML) AT BEDTIME polyethylene glycol 3350 [Gavilax] 17 gram/dose powder 17 g feeding tube DAILY PRN acetaminophen [Mapap (acetaminophen)] 500 mg/15 mL liquid 1,000 mg feeding tube Q6H PRN fluticasone propionate 50 mcg/actuation spray,suspension 2 spray INTRANASAL DAILY Patient Comments: INHALE 2 SPRAYS IN THE NOSTRIL(S) ONCE DAILY. lamotrigine 100 mg tablet 100 - 200 mg feeding tube QID Patient Comments: CRUSH AND GIVE 1 TABLET VIA G-TUBE 3 TIMES DAILY (AM, NOON, AFTERNOON) AND 2 TABLETS IN THE EVENING sodium chloride 1,000 mg tablet,soluble 1,000 mg feeding tube BID Patient Comments: TAKE 1 TABLET (1 G) VIA G-TUBE 3 TIMES DAILY cholecalciferol (vitamin D3) 10 mcg/mL (400 unit/mL) drops 50 mcg feeding tube DAILY@1730 rufinamide 40 mg/mL suspension 1,200 mg feeding tube QID Patient Comments: ADMINISTER 30 ML IN AM, 30 ML AT NOON, 30 ML IN EVENING AND 30 ML AT BEDTIME. ferrous sulfate 220 mg (44 mg iron)/5 mL elixir 220 mg feeding tube DAILY@1730 lorazepam [Lorazepam Intensol] 2 mg/mL concentrate 1 mg buccal PRN Patient Comments: ADMINISTER 0.5 ML (1 MG) NEEDED FOR SEIZURE LASTING LONGER THAN 90 SECONDS OR FOR MORE THAN 3 SEIZURES IN LESS THAN 6 HOURS. clindamycin palmitate HCl [Clindamycin Pediatric] 75 mg/5 mL recon soln 20 ml feeding tube 3XD First Omeprazole 2mg/ml 150 mL suspension 10 ml PO BID Qty: 150 Follow Up/Referrals: Darryl Kenny MD [Primary Care Provider] - Stand Alone Forms: [facility] Info Instructions
--- OUTSIDE RECORDS SUMMARY | 2023-02-21 17:48 | XMS_ITS | Encounter Summary ---
Author Name Unknown Organization [facility] Address [address] [place] [id number] Care Team Providers Care Pot Room Supervisor Name Role Phone None Reported, Pcp Primary Care Provider Unavail able Reason for Referral * Outpatient (Routine) - Authorized Specialty Diagnoses / Procedures Referred By Contac t Referred To Contact Radiology Diagnoses Dietary Counseling And Surveillance For Enteral Nutrition Procedures IR Gastrojejunal Tube Exchange Floyd Robert APRN, C.NKamar., M.S. [address] [place] [phone] [facility] Referral ID Status Reason Start Date Expiration Date V isits Requested Visits Authorized [id number] Authorized 02/20/2023 02/20/2024 1 1 C IRON WORKER * Outpatient (Routine) - Authorized Specialty Diagnoses / Procedures Referred By Parvin t Referred To Contact Endocrinology Diagnoses Dietary Counseling And Surveillance For Enteral Nutrition Floyd Robert APRN, C.NJoseP., M.S. [address] [place] [phone] [facility] Referral ID Status Reason Start Date Expiration Date V isits Requested Visits Authorized [id number] Authorized 02/20/2023 02/20/2024 1 1 Scheduling Instructions Triage only--no HEN appts needed C IRON WORKER Encounter Details Date Type Department Care Team (Late st Contact Info) Description 02/19/2023 Orders Only Division of Endocrinology in [place], [place] [address] [place] [phone] Emerald Escobar RBonnie [address] [place] [phone] Dietary Counseling And Surveillance For Enteral Nutrition (Primary Dx) Social History Tobacco Use Types Packs/Day Years Used Date Smoking Tobacco: Never Smokeless Tobacco: Never Alcohol Use Standard Drinks/Week Comments Never 0 (1 standard drink = 0.6 oz pur e alcohol) Overall Financial Resource Strain (CARDIA) Answe r Date Recorded How hard is it for you to pa y for the very basics like food, housing, medical care, and heating? Not hard at all 10/11/2022 Exercise Vital Sign Answer Date Recorde d On average, how many days pe r week do you engage in moderate to strenuous exercise (like a brisk walk)? 0 days 10/11/2022 On average, how many minutes do you engage in exercise at this level? 0 min 10/11/2022 Hunger Vital Sign Answer Date Recorded Within the past 12 months, y ou worried that your food would run out before you got the money to buy more. Never true 10/12/19 Within the past 12 months, t he food you bought just didn't last and you didn't have money to get more. Never true 10/11/2022 PRAPARE - Transportation Answer Date Re corded In the past 12 months, has l ack of transportation kept you from medical appointments or from getting medications? No 07/2022 In the past 12 months, has l ack of transportation kept you from meetings, work, or from getting things needed for daily living? No 10/11/2022 Nutrition Answer Date Recorded Nutrition: EVOO Fat Source Unknown 10/11 On average, how many serving s of fruits and vegetables do you eat per day (serving size is equal to 1 cup or approximately the size of a tennis ball)? 0-2 10/11/2022 Dental Answer Date Recorded Dental: Regular Dentist Yes 10/12/19 Employment Answer Date Recorded Employment status Permanently disabled Housing Stability Answer Date Recorded What is your living situation today? [facility] live 10/11/2022 Sex and Gender Information Value Date Recorded Sex Assigned at Male 10/09/2022 11:47 PM CDT Gender Identity Male 10/09/2022 11:47 PM CDT Sexual Orientation Straight 10/09/2022 11 :47 PM CDT documented as of this encounter Plan of Treatment Upcoming Encounters Date Type Department Care Team (Late st Contact Info) Description 03/01/2023 11:15 AM C IRON WORKER Appointment Department of Radiology in [place], [place] [address] [place] [phone] Floyd Robert, EMMANUEL, C.N.P., M.S. [address] [place] [phone] Scheduled Orders Name Type Priority Associated Diagnoses Orde r Schedule IR Gastrojejunal Tube Exchange Imaging RAD - Routine (most inpatients and all outpatients) Dietary Counseling And Surveillance For Enteral Nutrition Expected: 02/19/2023 (Approximate), Expires: 05/20/2024 Scheduled Referrals Name Type Priority Associated Diagnoses Orde r Schedule Endocrinology - Home enteral medical nutrition therapy consult (clinic) Outpatient Referral Routine Dietary Counseling And Surveillance For Enteral Nutrition Expected: 02/19/2023 (Approximate), Expires: 05/20/2024 documented as of this encounter Visit Diagnoses Diagnosis Dietary Counseling And Surveillance For Enteral Nutrition- Primary documented in this encounter Care Teams Pot Room Supervisor Relationship Specialty Start Date End Date None Reported, Pcp PCP - General Family Medicine 05/28/22 documented as of this encounter
--- OUTSIDE RECORDS SUMMARY | 2023-02-21 17:48 | XMS_ITS | Encounter Summary ---
Author Name Unknown Organization [facility] Address [address] [place] [id number] Care Team Providers Care Consultant Intern Name Role Phone None Reported, Pcp Primary Care Provider Unavail able Reason for Referral * Outpatient (Routine) - Closed Specialty Diagnoses / Procedures Referred By Parvin bishop Referred To Contact Radiology Diagnoses Dietary Counseling And Surveillance For Enteral Nutrition Procedures IR Gastrojejunal Tube Exchange Kat Colbert APRN, C.N.P. [address] [place] [phone] [facility] Referral ID Status Reason Start Date Expiration Date Visits Re quested Visits Authorized [id number] Closed 09/26/2022 09/26/2023 1 1 Reason for Visit * Outpatient (Routine) - Closed Specialty Diagnoses / Procedures Referred By Parvin bishop Referred To Contact Radiology Diagnoses Dietary Counseling And Surveillance For Enteral Nutrition Procedures IR Gastrojejunal Tube Exchange Kat Colbert APRN, C.N.P. [address] [place] [phone] [facility] Referral ID Status Reason Start Date Expiration Date Visits Re quested Visits Authorized [id number] Closed 09/26/2022 09/26/2023 1 1 Encounter Details Date Type Department Care Team (Late st Contact Info) Description 10/13/2022 9:34 AM CDT - 10/13/2022 11:16 AM CDT Hospital Encounter Department of Radiology in [place], [place] [address] [place] [phone] Kat Colbert APRN, C.N.P. 200 [place] [phone] Rasta Wynn M.D. 200 [place] [phone] Manuel De Jesus M.D. 200 [place] [phone] Dietary Counseling And Surveillance For Enteral Nutrition Discharge Disposition: Home or Self Care Social History Tobacco Use Types Packs/Day Years [...] money to buy more. Never true 10/12/19 23 Within the past 12 months, t he [...] Answer Date Recorded Employment status Permanently disabled 3 Housing Stability Answer Date Recorded What is your living situation today? I have a [facility] place to live 10/11/2022 Sex and Gender Information Value Date Recorded Sex Assigned at Male 10/09/2022 11:47 PM CDT Gender Identity Male 10/09/2022 11:47 PM CDT Sexual Orientation Straight 10/09/2022 11 :47 PM CDT documented as of this encounter Last Filed Vital Signs Vital Sign Reading Time Taken Comments Blood Pressure 107/54 10/13/2022 11:08 AM CDT Pulse 77 10/13/2022 11:08 AM CDT Temperature 36.5 ??C (97.7 ??F) 10/13/2022 11:08 AM C DT Respiratory Rate 16 10/13/2022 11:08 AM CDT Oxygen Saturation 99% 10/13/2022 11:08 AM CDT Inhaled Oxygen Concentration - - Weight - - Height - - Body Mass Index - - documented in this encounter Medications at Time of Discharge Medication Sig Dispensed Refills Start Date End Date acetaminophen (TYLENOL) 500 mg/15 mL liquid Administer 1,000 mg via gastric tube every 6 (six) hours as needed for pain. 0 bisacodyL (DULCOLAX) 10 mg suppository Insert 10 mg into the rectum daily as needed for constipation (give weekly as needed for constipation). 0 carBAMazepine (TEGretol) 200 mg/10 mL suspension Administer 200-400 mg via gastric tube 4 (four) times a day. Administer 200 mg (10 mL) via gastric tube in the morning (07:30), noon, evening (17:00). Take 400 mg (20 mL) at bedtime (20:30). 0 12/15/2019 cholecalciferol (VITAMIN D3) 10 mcg/mL (400 Unit/mL) drops Administer 5 mL via gastric tube daily. 0 05/12/2022 citalopram (CeleXA) 10 mg/5 mL solution Administer 20 mg via gastric tube daily. 10 mL (20 mg) 0 ferrous sulfate 220 mg (44 mg iron)/5 mL solution Administer 5 mL via gastric tube daily with dinner. 17:00 0 01/16/2022 fluticasone propionate (FLONASE) 50 mcg/actuation nasal spray Administer 2 sprays into each nostril daily. 0 hydrocortisone (PROCTOCORT) 1 % rectal cream Insert 1 Application into the rectum 2 (two) times a day as needed (swelling or bleeding of external hermorrhoid). 0 lamoTRIgine (LaMICtaL) 100 mg tablet Administer 100-200 mg via gastric tube 4 (four) times a day. Take 100 mg (1 tablet) by gastric tube in the AM (08:00), noon, and at dinner (17:00). Take 200 mg (2 tablets) at bedtime (21:00). 0 05/28/2017 loperamide (IMODIUM A-D) 2 mg capsule Take 1 capsule (2 mg total) by mouth 4 (four) times a day as needed for diarrhea. 20 capsule 0 06/02/2022 loratadine (CLARITIN) 5 mg/5 mL solution Administer 10 mL via gastric tube daily. 0 01/03/2022 LORazepam (ATIVAN) 2 mg/mL concentrated solution Apply 1 mg to cheek as needed for seizures (for seizures lasting mor gonzalo 90 seconds or for more than 3 seizures in 6 hours). Follow Seizure Plan of Care 0 polyethylene glycol (MIRALAX) 17 gram powder packet Take 17 g by mouth 3 (three) times a week. May give additional doses as needed for constipation. Dissolve each 17 g dose in 240 mLs (8 ounces) of beverage. 0 05/29/2022 pseudoephedrine (SUDAFED) 60 mg tablet Administer 60 mg via gastric tube every 6 (six) hours as needed for congestion. Crush and mix with water 0 rufinamide (BANZEL) 40 mg/mL suspension Administer 1,200 mg via gastric tube 4 (four) times a day. Administer 30 ml in AM, 30 ml at noon, 30 ml in evening and 30 ml at bedtime (08:00, noon, 17:00, 21:00). 0 09/16/2021 sennosides 8.8 mg/5 mL syrup Administer 5 mL via gastric tube daily as needed (if no BM for 3 days for constipation). 0 sodium chloride 1 gram tablet Administer 1 g via gastric tube 3 (three) times a day. 0 02/07/2022 terbinafine (LamISIL) 1 % cream Apply 1 Application topically daily as needed. Apply to reddened skin around stoma after cleansing. 0 documented as of this encounter Procedure Notes * Manuel De Jesus M.D. - 10/13/2022 11:06 AM CDT POST-PROCEDURE NOTE PATIENT DISPOSITION Dismiss patient. POST-PROCEDURE DIAGNOSIS GJ tube exchange PROCEDURE PERFORMED AND DESCRIPTION: Exchange of a 22 Norwegian percutaneous gastrojejunostomy tube. The tube is ready for use. Exchange tube in 3-5 months. Contact the [facility] clinic at [phone] to schedule the tube exchange ENTERAL TUBE ENCOUNTER Exchange: ON cycle (within prescribed time-frame, e.g. 3-6 months) REASON FOR ENCOUNTER Routine TUBE TYPE Gastrojejunostomy TUBE BRAND ENFit LOW PROFILE Yes SIZE OF TUBE 22 Fr PATIENT PRESENTING LOCATION Outpatient PROCEDURE DETAILS See Radiology Report. SPECIMENS REMOVED None FINDINGS As expected. PRIMARY PROCEDURALIST Mary Wynn mD ASSISTANTS Abimael De Jesus MD COMPLICATION None. IMPLANTS None ANESTHESIA None FLUIDS See MAR. ESTIMATED BLOOD LOSS None. CURRENT MEDICATIONS No medication changes. FOLLOW-UP LETTER Not applicable. MAY RETURN TO WORK As tolerated. PATIENT INSTRUCTIONS Patient may be dismissed from the radiology department when dismissal criteria met. documented in this encounter Plan of Treatment Upcoming Encounters Date Type Department Care Team (Late st Contact Info) Description 03/01/2023 11:15 AM LEAF STICKER Appointment Department of Radiology in [place], [place] [address] [place] [phone] Floyd Robert APRN, C.N.P., M.S. [address] [place] [phone] documented as of this encounter Procedures Procedure Name Priority Date/Time Associated Diagnosis Comments IR GASTROJEJUNAL TUBE EXCHANGE RAD - Routine (most inpatients and all outpatients) 10/13/2022 10:56 AM CDT Dietary Counseling And Surveillance For Enteral Nutrition GLUCOSE POCT, B Routine 10/13/2022 10:18 AM CDT documented in this encounter Results * IR Gastrojejunal Tube Exchange (10/13/2022 10:56 AM CDT) Anatomical Region Laterality Modality Abdomen, Vascular Interventi onal RST LOS, Vascular Interventional ARZ LOS, Vascular Interventional FLA LOS N/A X-Ray Angiography 10/13/2022 10:5 8 AM CDT Impressions 10/13/2022 2:27 PM CDT Exchange of a 22 Norwegian low profile percutaneous gastrojejunostomy tube. Stomal length increased to 2.7 cm, which seems to fit better. The tube is ready for use. Exchange tube in 3-5 months. Contact the HEN clinic at [phone] to schedule the tube exchange. 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 Currently, the patient has a 22 Norwegian by 2.3 x 45 cm low profile GJ tube. Concern from HEN service that stomal length is too short. Request for increasing the stomal length. Encounter Type: ??Exchange. Encounter Timing: ??On cycle. Encounter Reason: ??Routine. Suspected Cause of Occlusion: ??NA. Presenting Location: ??Outpatient. TECHNIQUE: ??The patient was positioned supine on the fluoroscopy table. The patient and gastrojejunostomy tube were prepared and draped in the usual sterile fashion. Intelligence Operations Specialist image demonstrates a percutaneous gastrojejunostomy tube. Contrast injection through the jejunal and gastric ports demonstrated satisfactory position within the jejunum. The tube was exchanged over a wire for a new gastrojejunostomy tube (specifications below). Final contrast injection through the tube confirmed satisfactory function and position. A total of 10 cc of dilute contrast was administered into the retention balloon. No immediate complication. Tube Type: ??Gastrojejunostomy. Tube Brand: ??ENFit. Tube Size: ??22 Norwegian. Low Profile: ??Yes. Tube Length: Stomal 2.7 cm; Total 45 cm. PREPROCEDURE: ??Patient seen and evaluated. Allergies, pertinent medications, and history reviewed. Discussed risks, benefits, alternatives for procedure, and obtained informed consent. Patient understands information and questions answered. Immediately prior to starting the procedure, in the presence of the assisting personnel, procedural pause was conducted to verify correct patient identity and verification of procedure to be performed, and as applicable, correct side and site, correct patient position, availability of implants, special equipment, or special requirements, and all image and specimen identification data. The roles and responsibilities of care team members, residents, and fellows were discussed. Procedure Note Rasta Wynn M.D. - 10/13/2022 EXAM: IR GASTROJEJUNAL TUBE EXCHANGE CLINICAL HISTORY: 57 y.o.male with a medical history of intellectualdisability, cerebral palsy, and Marcos-Gastaut syndrome with severe epilepsy status post vagal nervestimulator present here for a GJ tube exchange. Currently, the patient has a 22 Norwegian by 2.3 x 45 cmlow profile GJ tube. Concern from HEN service that stomal length is too short. Request forincreasing the stomal length. Encounter Type: Exchange. Encounter Timing: On cycle. Encounter Reason: Routine. Suspected Cause of Occlusion: NA. Presenting Location: Outpatient. TECHNIQUE: The patient was positioned supine on the fluoroscopy table.The patient and gastrojejunostomy tube were prepared and draped in the usual sterilefashion. Intelligence Operations Specialist image demonstrates a percutaneous gastrojejunostomy tube. Contrast injectionthrough the jejunal and gastric ports demonstrated satisfactory position within the jejunum. Thetube was exchanged over a wire for a new gastrojejunostomy tube (specifications below). Finalcontrast injection through the tube confirmed satisfactory function and position. A total of 10 cc of dilute contrast was administered into the retentionballoon. No immediate complication. Tube Type: Gastrojejunostomy. Tube Brand: ENFit. Tube Size: 22 Norwegian. Low Profile: Yes. Tube Length: Stomal 2.7 cm; Total 45 cm. PREPROCEDURE: Patient seen and evaluated. Allergies, pertinentmedications, and history reviewed. Discussed risks, benefits, alternatives for procedure, and obtainedinformed consent. Patient understands information and questions answered. Immediately prior tostarting the procedure, in the presence of the assisting personnel, procedural pause was conducted toverify correct patient identity and verification of procedure to be performed, and as applicable,correct side and site, correct patient position, availability of implants, special equipment, orspecial requirements, and all image and specimen identification data. The roles and responsibilitiesof care team members, residents, and fellows were discussed. IMPRESSION: Exchange of a 22 Norwegian low profile percutaneous gastrojejunostomy tube.Stomal length increased to 2.7 cm, which seems to fit better. The tube is ready for use.Exchange tube in 3-5 months. Contact the [facility] at [phone] to schedule the tubeexchange. EP Soren Motta APRNNDaniel IMG IR PROCEDURES * Glucose, POCT (10/13/2022 10:18 AM CDT) Glucose, POCT, B 95 70 - 140 mg/dL 10/13/2022 10:30 AM CDT PCLX Blood 10/13/2022 10:1 8 AM CDT 10/13/2022 10:30 AM CDT Unknown Provider LAB POCT ORDERABLES- MANUAL POC [facility] [address] [place] [address], [facility] PCLX [facility] POC [address] [place] [address] documented in this encounter Visit Diagnoses Diagnosis Dietary Counseling And Surveillance For Enteral Nutrition documented in this encounter Administered Medications Inactive Administered Medications - up to 3 most recent administrations Medication Order MAR Action Action Date Dose Rate Site iohexoL 300 mg iodine/mL solution (OMNIPAQUE) As needed, Starting on Sun10/13/22 at 1056, Intra-Op Given 10/13/2022 10:56 AM CDT 30 mL sodium chloride 0.9 % injection 3 mL 3 mL, intravenous, As needed, line care, Starting on Sun10/13/22 at 0950, Pre-Op, Prior to and following infusion and between multiple consecutive infusions documented in this encounter Active and Recently Administered Medications Times are shown in CDT. PRN Medication Order 10/11/2022 10/12/2022 10/13/2022 iohexoL 300 mg iodine/mL solution (OMNIPAQUE) (COMPLETED) As needed, Starting on Sun10/13/22 at 1056, Intra-Op 1056 (Given - Provid er: Rasta Wynn M.D.) sodium chloride 0.9 % injection 3 mL 3 mL, intravenous, As needed, line care, Starting on Sun10/13/22 at 0950, Pre-Op, Prior to and following infusion and between multiple consecutive infusions documented in this encounter Care Teams Consultant Intern Relationship Specialty Start Date End Date None Reported, Pcp PCP - General Family Medicine 05/28/22 documented as of this encounter
--- OUTSIDE RECORDS SUMMARY | 2023-02-21 17:48 | XMS_ITS | Encounter Summary ---
Author Name Unknown Organization [facility] Address [address] [place] [address] Care Team Providers Care Ship Scraper Name Role Phone None Reported, Pcp Primary Care Provider Unavail able Encounter Details Date Type Department Care Team (Latest Contact Info) Description 02/19/2023 Clinical Communication Division of Endocrinology in [place], [place] [address] [place] [phone] Provider, Unknown Social History Tobacco Use Types Packs/Day Years [...] your living situation today? I have a [facility] place to live 10/11/2022 Sex and Gender Information Value Date Recorded Sex Assigned at Male 10/09/2022 11:47 PM CDT Gender Identity Male 10/09/2022 11:47 PM CDT Sexual Orientation Straight 10/09/2022 11 :47 PM CDT documented as of this encounter Plan of Treatment Upcoming Encounters Date Type Department Care Team (Late st Contact Info) Description 03/01/2023 11:15 AM GAS METER CHECKER Appointment Department of Radiology in [place], [place] [address] [place] [phone] Floyd Robert, EMMANUEL, C.N.P., M.S. [address] [place] [phone] documented as of this encounter Visit Diagnoses Not on filedocumented in this encounter Care Teams Ship Scraper Relationship Specialty Start Date End Date None Reported, Pcp PCP - General Family Medicine 05/28/22 documented as of this encounter
--- OUTSIDE RECORDS SUMMARY | 2023-02-21 17:48 | XMS_ITS | Encounter Summary ---
Author Name Unknown Organization [facility] Address [address] [place] [address] Care Team Providers Care Accounting Administrator Name Role Phone None Reported, Pcp Primary Care Provider Unavail able Reason for Visit * Reason Comments Scheduling Encounter Details Date Type Department Care Team (Late st Contact Info) Description 02/20/2023 Documentation Division of General Internal Medicine in [place], [place] [address] [place] [phone] Emerald Escobar, RJoseN. [address] [place] [phone] Scheduling Social History Tobacco Use Types Packs/Day Years [...] your [facility] situation today? [facility] 10/11/2022 Sex and Gender Information Value Date Recorded Sex Assigned at Male 10/09/2022 11:47 PM CDT Gender Identity Male 10/09/2022 11:47 PM CDT Sexual Orientation Straight 10/09/2022 11 :47 PM CDT documented as of this encounter Progress Notes * Emerald Escobar, R.N. - 02/20/2023 10:54 AM CST Order in for GJ tube replacement in IR. Patient has a history of intellectual disability, cerebral palsy, [place]-Gastaut syndrome with severe epilepsy, prior right-sided loculated empyema requiring chest tube in the setting of aspiration status post G tube (2017), gastroesophageal reflux with priorsevere reflux esophagitis, hiatal hernia, osteoporosis. He currently has a 8270-22-2.3 GJ tube lastreplaced in IR on 10/13/2022. Procedure and sedation per IR, procedure should be scheduled at [facility] as he has a special order tube.Patient is not currently on any anticoagulants. No HEN appointments needed at this time. Last HEN annual appointments done October 2022. Requesting next available appointment. *Per IR supply his replacement GJ low profile tube (8270-22-2.3) is on the shelf with his name on it. ING PROGRAM CHAIR documented in this encounter Plan of Treatment Upcoming Encounters Date Type Department Care Team (Late st Contact Info) Description 03/01/2023 11:15 AM NURSING PROGRAM CHAIR Appointment Department of Radiology in [place], [place] [address] [place] [phone] Floyd Robert, EMMANUEL, C.N.P., M.S. [address] [place] [phone] documented as of this encounter Visit Diagnoses Not on filedocumented in this encounter Care Teams Accounting Administrator Relationship Specialty Start Date End Date None Reported, Pcp PCP - General Family Medicine 05/28/22 documented as of this encounter
--- OUTSIDE RECORDS SUMMARY | 2023-02-21 17:48 | XMS_ITS ---
Author Name Unknown Organization [facility] Address [address] [place] [address] Care Team Providers Care Sweatband Decorating Machine Operator Name Role Phone Unavailable Unavailable Unavailable Surgery Details Not on file Complications Check Surgery Details section. Procedure Estimated Blood Loss Check Surgery Details section. Procedure Findings Check Surgery Details section. Procedure Specimens Taken Check Surgery Details section.
--- OUTSIDE RECORDS SUMMARY | 2023-02-21 17:48 | XMS_ITS | Encounter Summary ---
Author Name Unknown Organization [facility] Address [address] [place] [phone] Care Team Providers Care Binding Cutter Synthetic Cloth Name Role Phone None Reported, Pcp Primary Care Provider Unavail able Reason for Visit * Outpatient (Routine) - Closed Specialty Diagnoses / Procedures Referred By Parvin t Referred To Contact Endocrinology Diagnoses Dietary Counseling And Surveillance For Enteral Nutrition Kat Colbert APRN, C.N.P. [address] [place] [phone] [facility] Referral ID Status Reason Start Date Expiration Date Visits Re quested Visits Authorized [id number] Closed 09/26/2022 09/26/2023 1 1 Encounter Details Date Type Department Care Team (Latest Contact Info) Description 10/12/2022 2:00 PM CDT Comprehensive Visit Division of Endocrinology in [place], [place] [address] [place] [phone] Kat Colbert APRN, C.N.P. [address] [place] [phone] Floyd Robert APRN, C.N.P., M.S. 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 I have a [facility] place to live 10/11/2022 Sex and Gender Information Value Date Recorded Sex Assigned at Male 10/09/2022 11:47 PM CDT Gender Identity Male 10/09/2022 11:47 PM CDT Sexual Orientation Straight 10/09/2022 11 :47 PM CDT documented as of this encounter Consult Notes * Floyd Robert APRN, C.N.P., M.S. - 10/12/2022 2:00 PM CDT SUBJECTIVE REFERRAL: Kat Clobert APRN, C.N.P. CHIEF COMPLAINT / REASON FOR VISIT Establish care in [facility] HISTORY OF PRESENT ILLNESS Mr. Lew Vogt is a 57 y.o. 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 Use hospitalized in May 2022 at [facility] for aspiration pneumonia with a large left peripneumonic pleural effusion which was treated andafter consultation with the inpatient nutrition team his gastrostomy tube was exchanged for gastro jejunostomy tube in the setting of significant aspiration risk. Mr. Vogt presents with his sister who is his legal guardian. Manisha provides today's history given Braxton's cognitive status. Currently, Manisha reports that he is living at a correction. The routine is administration of tube feeds via pump into the jejunal port. Throughout the day they administer medications via gastric port. They also administer medications with a small amount of formula as his medications required jennifer taken with food. They administer several syringes of water given his medication burden. Most of h is medications are liquid although there is 1 tablet which is a seizure medication. They have not had any issues with tube clogging at this time. However, she is concerned with his cough and reflux while using the gastric port for medications, some formula, and water. Currently no concerns with his bowels. He is having a soft bowel movement on a regular basis, typically daily. Hydration does not seem to be concerned. He has a history of urinary retention. No concerns with urinary infection or other concerning lower urinary tract symptoms. She does note that he has chronically low sodium which is primary care provider monitors. Oral intake is very limited. They do not encouraged oral intake but if he requests it they will lethim have a few bites. At most he might have a bite of food a few times per month. He currently has a low-profile 22 Guyanese 2.3 cm gastro jejunostomy tube. After meeting with the Home Enteral Nutrition nurse there was some concern that this might be a little bit tight. She notes that they cleaned it with a few different topical cleansers per her local wound clinic. Refer to documentation by [facility] dietitian and [facility] nurse for further detail and specifics regarding current hydration, nutritional intake, weight trends, and feeding tube. The pertinent tests and imaging were reviewed. OBJECTIVE PHYSICAL EXAMINATION General: In no acute distress. Accompanied by sister. Skin: Warm and dry. ENT: Moist mucous membranes. Abdomen: Soft, non-distended. Gastrojejunostomy tube site with small amount of circumferential erythema likely related to pressure, low-profile tube does appear snug and is in a skin fold, no evidence of infection, no evidence of granulation tissue. Extremities: Bilateral lower extremities without edema. Musculoskeletal: Significantly diminished strength bilateral upper and lower extremities. No overt temporal, clavicular, and scapular muscle wasting appreciated. Minimal body muscle mass and appropriate body fat mass. Mental: Alert. Able to verbalize hello and goodbye. 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 Vogt and his sister present for evaluation of enteral nutrition regimen and feeding tube assessment. After hospitalization at [facility] in May 2022, Mr. oVgt's sister notes difficulty with finding someone to manage his feeding tube and enteral nutrition. She is hopeful to transition back to local providers in the [facility] system in the future if possible. For now, we will provide recommendations and support for enteral nutrition supplies and feeding tube. Nutritionally, Mr. Vogt weight trends have been a little bit all over the place. We are questioning some of the accuracy of his previous weights. There is no way to weigh him at home due to his limited mobility. On exam, he does have diminished overall muscle mass but ample body fat mass. Overall he does appear well hydrated and well nourished. His overall lean body mass is low given nonweightbearing status. I would agree with Home Enteral Nutrition dietitian with the goal of weight maintenance at this time. Given his significant aspiration risk, I would agree with transition of all medications, hydration,and nutrition to be administered via jejunal port if possible. I did review with his sister that itmay be appropriate to administer his PPI and iron supplement via gastric port due to optimal absorption. I encouraged her to reach out to his neurologist regarding any adjustments that would be needed to his seizure medications with transition from gastric jejunal administration. We will also have our pharmacist review medication list and provide recommendations for gastric versus jejunal administration. On exam today, his low-profile tube does appear tight. This is a 2.3 cm stoma length. I would like the IR team to measure his stoma tomorrow with his tube replacement and would recommend at least a 2.5 cm stoma length. While lying flat the feeding tube appears to fit nicely however when sitting in his chair (which he does most of the day) it appears tight thus we would want a little bit of a longer tube. His sister's in agreement with this. Reviewed that we would want to see him annually for updating his enteral orders and for [id number] visits. If they establish care locally that would be certainly appropriate. We would be happy to see him sooner if questions or concerns arise. I personally spent a total of 30 minutes in [id number] and face to face time performing a review of the record, visit with the patient, and coordination of care as described above. documented in this encounter Plan of Treatment Upcoming Encounters Date Type Department Care Team (Late st Contact Info) Description 03/01/2023 11:15 AM CHECKROOM ATTENDANT Appointment Department of Radiology in [place], [place] [address] [place] [phone] Floyd Robert APRN, C.N.P., M.S. [address] [place] [phone] documented as of this encounter Visit Diagnoses Diagnosis Dietary Counseling And Surveillance For Enteral Nutrition- Primary Gastrojejunostomy Percutaneous Status Post Dysphagia Hernia Hiatal [place] Gastaut Syndrome Not Intractable Without Status Epilepticus (HCC) Osteoporosis documented in this encounter Care Teams Binding Cutter Synthetic Cloth Relationship Specialty Start Date End Date None Reported, Pcp PCP - General Family Medicine 05/28/22 documented as of this encounter
--- OUTSIDE RECORDS SUMMARY | 2023-02-21 17:48 | XMS_ITS | Clinical Summary ---
Author Name Unknown Organization [facility] Address [address] [place] [address] Care Team Providers Care Hat Band Attacher Name Role Phone None Reported, Pcp Primary Care Provider Unavail able Source Comments Patient records contain information from all sites at [facility]. For routine questions regarding patient records, call [phone] during business hours, M-F 8:00 AM - 5:00 PM Central Time. Record requests for emergency care only can be directed to [phone] at any time.[facility] Allergies Active Allergy Reactions Criticality Noted Date Comments Alendronic Acid Other (see comments) 06/08/2008 PN: LW Reaction: intolerant of taking correctly Intolerant of taking correctly PN: LW Reaction: intolerant of taking correctly Felbamate Rash Low 03/20/2007 PN: LW Reaction: Rash, Generalized PN: LW Reaction: Rash, Generalized Macrolide Antibiotics Other (see comments) 09/2003 PN: Unknown PN: Unknown Piperacillin-Tazobacta m Rash 07/27/2016 Has been receiving it since 05/13/17 without any reaction noted as of 05/15/17. Medications Medication Sig Dispensed Refills Start Date End Date Status carBAMazepine (TEGretol) 200 mg/10 mL suspension Administer 200-400 mg via gastric tube 4 (four) times a day. Administer 200 mg (10 mL) via gastric tube in the morning (07:30), noon, evening (17:00). Take 400 mg (20 mL) at bedtime (20:30). 0 12/15/2019 Active rufinamide (BANZEL) 40 mg/mL suspension Administer 1,200 mg via gastric tube 4 (four) times a day. Administer 30 ml in AM, 30 ml at noon, 30 ml in evening and 30 ml at bedtime (08:00, noon, 17:00, 21:00). 0 09/16/2021 Active lamoTRIgine (LaMICtaL) 100 mg tablet Administer 100-200 mg via gastric tube 4 (four) times a day. Take 100 mg (1 tablet) by gastric tube in the AM (08:00), noon, and at dinner (17:00). Take 200 mg (2 tablets) at bedtime (21:00). 0 05/28/2017 Active sodium chloride 1 gram tablet Administer 1 g via gastric tube 3 (three) times a day. 0 02/07/2022 Active cholecalciferol (VITAMIN D3) 10 mcg/mL (400 Unit/mL) drops Administer 5 mL via gastric tube daily. 0 05/12/2022 Active ferrous sulfate 220 mg (44 mg iron)/5 mL solution Administer 5 mL via gastric tube daily with dinner. 17:00 0 01/16/2022 Active loratadine (CLARITIN) 5 mg/5 mL solution Administer 10 mL via gastric tube daily. 0 01/03/2022 Active fluticasone propionate (FLONASE) 50 mcg/actuation nasal spray Administer 2 sprays into each nostril daily. 0 Active acetaminophen (TYLENOL) 500 mg/15 mL liquid Administer 1,000 mg via gastric tube every 6 (six) hours as needed for pain. 0 Active polyethylene glycol (MIRALAX) 17 gram powder packet Take 17 g by mouth 3 (three) times a week. May give additional doses as needed for constipation. Dissolve each 17 g dose in 240 mLs (8 ounces) of beverage. 0 05/29/2022 Active citalopram (CeleXA) 10 mg/5 mL solution Administer 20 mg via gastric tube daily. 10 mL (20 mg) 0 Active terbinafine (LamISIL) 1 % cream Apply 1 Application topically daily as needed. Apply to reddened skin around stoma after cleansing. 0 Active LORazepam (ATIVAN) 2 mg/mL concentrated solution Apply 1 mg to cheek as needed for seizures (for seizures lasting mor gonzalo 90 seconds or for more than 3 seizures in 6 hours). Follow Seizure Plan of Care 0 Active sennosides 8.8 mg/5 mL syrup Administer 5 mL via gastric tube daily as needed (if no BM for 3 days for constipation). 0 Active pseudoephedrine (SUDAFED) 60 mg tablet Administer 60 mg via gastric tube every 6 (six) hours as needed for congestion. Crush and mix with water 0 Active bisacodyL (DULCOLAX) 10 mg suppository Insert 10 mg into the rectum daily as needed for constipation (give weekly as needed for constipation). 0 Active hydrocortisone (PROCTOCORT) 1 % rectal cream Insert 1 Application into the rectum 2 (two) times a day as needed (swelling or bleeding of external hermorrhoid). 0 Active loperamide (IMODIUM A-D) 2 mg capsule Take 1 capsule (2 mg total) by mouth 4 (four) times a day as needed for diarrhea. 20 capsule 0 06/02/2022 Active Active Problems Problem Noted Date Diagnosed Date Gastrojejunostomy Percutaneous Status Post 10/12 Dietary Counseling And Surveillance For Enteral Nutrition 10/12/2022 Dysphagia 10/12/2022 Hernia Hiatal 10/12/2022 [place] Gastaut Syndrome Not Intractable Without Status Epilepticus 10/12/2022 Osteoporosis 10/12/2022 Effusion Pleural 05/28/2022 Encounters Date Type Department Care Team Description 02/20/2023 Documentation Division of General Internal Medicine in [place], [place] [address] [place] [phone] Emerald Escobar, R.N. Scheduling 02/19/2023 Orders Only Division of Endocrinology in [place], [place] [address] [place] [phone] Emerald Escobar, R.N. Dietary Counseling And Surveillance For Enteral Nutrition (Primary Dx) 02/19/2023 Clinical Communication Division of Endocrinology in [place], [place] [address] [place] [address] Provider, Unknown from Last 3 Months Social History Tobacco Use Types Packs/Day Years Used Date Smoking Tobacco: Never Smokeless Tobacco: Never Tobacco Cessation:Counseling Given: Not Answered Alcohol Use Standard Drinks/Week Comments Never 0 [...] your living situation today? I have a [facility] place to live 10/11/2022 Sex and Gender Information Value Date Recorded Sex Assigned at Male 10/09/2022 11:47 PM CDT Gender Identity Male 10/09/2022 11:47 PM CDT Sexual Orientation Straight 10/09/2022 11 :47 PM CDT Last Filed Vital Signs Vital Sign Reading Time Taken Comments Blood Pressure 107/54 10/13/2022 11:08 AM CDT Pulse 77 10/13/2022 11:08 AM CDT Temperature 36.5 ??C (97.7 ??F) 10/13/2022 1 1:08 AM CDT Respiratory Rate 16 10/13/2022 11:0 8 AM CDT Oxygen Saturation 99% 10/13/2022 11: 08 AM CDT Inhaled Oxygen Concentration - - Weight 64.4 kg (141 lb 15.6 oz) 023 10:05 AM CDT Height 172.7 cm (5' 7.99) 05/29/2022 1:00 PM CD T Body Mass Index 21.59 05/29/2022 1:00 PM CDT Plan of Treatment Upcoming Encounters Date Type Department Care Team (Late st Contact Info) Description 03/01/2023 11:15 AM RELISH MAKER Appointment Department of Radiology in [place], [place] [address] [place] [phone] Floyd Robert APRN, C.N.P., M.S. [address] [place] [phone] Health Maintenance Due Date Last Done Comments CT Colonography 1964 Cologuard 1965 Colonoscopy 1965 Colorectal Cancer Screening 1964 FIT 1964 Hepatitis B Vaccines (1 of 3 - 3-dose series) 1964 Hepatitis C Screening 1965 Visit: Medicare Annual Wellness 1964 Zoster Vaccines (1 of 2) 02/02/2014 Depression Screening (Annual PHQ-2) 02/05/2023 DTaP,Tdap,and Td Vaccines (8 - Td or Tdap) 06/22/2023 06/21/2013, 02/12/2012, 01/14/2004, Additional history exists Lipid (Cholesterol) Screening 04/07/2025 04/07/2020, 03/08/2018 Fasting Glucose for Diabetes Screening 10/13/2025 10/13/2022, 07/31/2022, 06/01/2022, Additional history exists Pneumococcal vaccine (0-64 years) Aged Out 03/13/2008, 03/13/2008 No longer eligibl e based on patient's age to complete this topic COVID-19 Vaccine Completed 12/07/2022, , 06/22/2021, Additional history exists Influenza Vaccine Completed 12/07/2022, , 12/17/2020, Additional history exists Medical Devices Implanted Type Area Traffic Sign Erection Supervisor Device Identifier Shelf Expiration Date Model / Serial / Lot Vagal Nerve Stimulator Vagal Nerve Stimulator Chest Wall Advance Directives For more information, please contact: [phone] Latest Code Status on File Code Status Date Activated Date Inactivated Comments DNR/DNI 05/28/2022 3:36 PM 06/02/2022 6:54 PM Care Teams Hat Band Attacher Relationship Specialty Start Date End Date None Reported, Pcp PCP - General Family Medicine 05/28/22
--- OUTSIDE RECORDS SUMMARY | 2023-02-21 17:48 | XMS_ITS | Encounter Summary ---
Author Name Unknown Organization [facility] Address [address] [place] [address] Care Team Providers Care Assistant Art Director Name Role Phone None Reported, Pcp Primary Care Provider Unavail able Reason for Visit * Outpatient (Routine) - Closed Specialty Diagnoses / Procedures Referred By Parvin t Referred To Contact Endocrinology Diagnoses Dietary Counseling And Surveillance For Enteral Nutrition Kat Colbert APRN, C.N.P. [address] [place] [phone] [facility] Referral ID Status Reason Start Date Expiration Date Visits Re quested Visits Authorized [id number] Closed 09/26/2022 09/26/2023 1 1 Encounter Details Date Type Department Care Team (Latest Contact Info) Description 10/13/2022 8:00 AM CDT Comprehensive Visit Division of Endocrinology in [place], [place] [address] [place] [phone] Kat Colbert APRN, C.N.P. [address] [place] [phone] Canceled (Clinic: Earlier Appointment) Social History Tobacco Use Types Packs/Day Years [...] your living situation today? I have a [facility] place to live 10/11/2022 Sex and Gender Information Value Date Recorded Sex Assigned at Male 10/09/2022 11:47 PM CDT Gender Identity Male 10/09/2022 11:47 PM CDT Sexual Orientation Straight 10/09/2022 11 :47 PM CDT documented as of this encounter Plan of Treatment Upcoming Encounters Date Type Department Care Team (Late st Contact Info) Description 03/01/2023 11:15 AM CLEANING LABORER Appointment Department of Radiology in [place], [place] [address] [place] [phone] Floyd Robert APRN, C.N.P., M.S. [address] [place] [address] documented as of this encounter Visit Diagnoses Not on filedocumented in this encounter Care Teams Assistant Art Director Relationship Specialty Start Date End Date None Reported, Pcp PCP - General Family Medicine 05/28/22 documented as of this encounter
--- OUTSIDE RECORDS SUMMARY | 2023-02-21 17:48 | XMS_ITS | Encounter Summary ---
Author Name Unknown Organization [facility] Address [address] [place] [address] Care Team Providers Care Log Yard Derrick Operator Name Role Phone None Reported, Pcp Primary Care Provider Unavail able Encounter Details Date Type Department Care Team (Late st Contact Info) Description 10/13/2022 Abstract [place], [place] [address] [place] [phone] Provider, Historical Social History Tobacco Use Types Packs/Day Years [...] your living situation today? I have a [facility] place to live 10/11/2022 Sex and Gender Information Value Date Recorded Sex Assigned at Male 10/09/2022 11:47 PM CDT Gender Identity Male 10/09/2022 11:47 PM CDT Sexual Orientation Straight 10/09/2022 11 :47 PM CDT documented as of this encounter Plan of Treatment Upcoming Encounters Date Type Department Care Team (Late st Contact Info) Description 03/01/2023 11:15 AM SENIOR WEB SERVICES DEVELOPER Appointment Department of Radiology in [place] [id number] [place] [phone] Floyd Robert, EMMANUEL, C.N.P., M.S. [address] [place] [address] documented as of this encounter Visit Diagnoses Not on filedocumented in this encounter Care Teams Log Yard Derrick Operator Relationship Specialty Start Date End Date None Reported, Pcp PCP - General Family Medicine 05/28/22 documented as of this encounter
--- OUTSIDE RECORDS SUMMARY | 2023-02-21 17:48 | XMS_ITS | Encounter Summary ---
Author Name Unknown Organization [facility] Address [address] [place] [address] Care Team Providers Care Theology Teacher Name Role Phone None Reported, Pcp Primary Care Provider Unavail able Encounter Details Date Type Department Care Team (Late st Contact Info) Description 10/13/2022 Documentation Division of General Internal Medicine in [place], [place] [address] [place] [phone] Irais Muniz, Pharm.D., R.Ph. Social History Tobacco Use Types Packs/Day Years [...] your living situation today? I have a [facility] place to live 10/11/2022 Sex and Gender Information Value Date Recorded Sex Assigned at Male 10/09/2022 11:47 PM CDT Gender Identity Male 10/09/2022 11:47 PM CDT Sexual Orientation Straight 10/09/2022 11 :47 PM CDT documented as of this encounter Progress Notes * Irais Muniz, Kira.D., R.Ph. - 10/13/2022 1:59 PM CDT At the request of Home Enteral Nutrition, I reviewed Mr. Vogt's outpatient medication list for interactions and issues related to jejunal administration. Current Outpatient Medications Medication Sig Recommendation acetaminophen (TYLENOL) 500 mg/15 mL liquid Administer 1,000 mg via gastric tube every 6 (six) hours as needed for pain. Ok for jejunal administration. bisacodyL (DULCOLAX) 10 mg suppository Insert 10 mg into the rectum daily as needed for constipation (give weekly as needed for constipation). Not for tube administration. carBAMazepine (TEGretol) 200 mg/10 mL suspension Administer 200-400 mg via gastric tube 4 (four) times a day. Administer 200 mg (10 mL) via gastric tube in the morning (07:30), noon, evening (17:00).Take 400 mg (20 mL) at bedtime (20:30). Ok for jejunal administration, however increased monitoringwould be recommended with this change. cholecalciferol (VITAMIN D3) 10 mcg/mL (400 Unit/mL) drops Administer 5 mL via gastric tube daily. Ok for jejunal administration. citalopram (CeleXA) 10 mg/5 mL solution Administer 20 mg via gastric tube daily. 10 mL (20 mg) Ok for jejunal administration. ferrous sulfate 220 mg (44 mg iron)/5 mL solution Administer 5 mL via gastric tube daily with dinner. 17:00 Ok for jejunal administration, however bioavailability may be reduced. fluticasone propionate (FLONASE) 50 mcg/actuation nasal spray Administer 2 sprays into each nostrildaily. Not for tube administration. hydrocortisone (PROCTOCORT) 1 % rectal cream Insert 1 Application into the rectum 2 (two) times a day as needed (swelling or bleeding of external hermorrhoid). Not for tube administration. lamoTRIgine (LaMICtaL) 100 mg tablet Administer 100-200 mg via gastric tube 4 (four) times a day. Take 100 mg (1 tablet) by gastric tube in the AM (08:00), noon, and at dinner (17:00). Take 200 mg (2tablets) at bedtime (21:00). Ok to crush. loperamide (IMODIUM A-D) 2 mg capsule Take 1 capsule (2 mg total) by mouth 4 (four) times a day as needed for diarrhea. Ok for jejunal administration. loratadine (CLARITIN) 5 mg/5 mL solution Administer 10 mL via gastric tube daily. Ok for jejunal administration. LORazepam (ATIVAN) 2 mg/mL concentrated solution Apply 1 mg to cheek as needed for seizures (for seizures lasting mor gonzalo 90 seconds or for more than 3 seizures in 6 hours). Follow Seizure Plan of Care Not for tube administration. polyethylene glycol (MIRALAX) 17 gram powder packet Take 17 g by mouth 3 (three) times a week. May give additional doses as needed for constipation. Dissolve each 17 g dose in 240 mLs (8 ounces) of beverage. Ok for tube administration when mixed asdirected. pseudoephedrine (SUDAFED) 60 mg tablet Administer 60 mg via gastric tube every 6 (six) hours as needed for congestion. Crush and mix with water Ok to crush. rufinamide (BANZEL) 40 mg/mL suspension Administer 1,200 mg via gastric tube 4 (four) times a day. Administer 30 ml in AM, 30 ml at noon, 30 ml in evening and 30 ml at bedtime (08:00, noon, 17:00, 21:00). Ok for tube administration though the effect of jejunal administration is unclear. sennosides 8.8 mg/5 mL syrup Administer 5 mL via gastric tube daily as needed (if no BM for 3 days for constipation). Ok for tube administration. sodium chloride 1 gram tablet Administer 1 g via gastric tube 3 (three) times a day. Ok to crush. terbinafine (LamISIL) 1 % cream Apply 1 Application topically daily as needed. Apply to reddened skin around stoma after cleansing. Not for tube administration. In most cases, direct data on medication administration via feeding tubes is not available. Therefore recommendations in many cases, for example ok to crush are provided based on general principlesof administering medications via feeding tube. Because bioavailability may vary with oral and feeding tube administration, close monitoring of drug effects and/or levels is necessary with a change inroute of administration such as this. documented in this encounter Plan of Treatment Upcoming Encounters Date Type Department Care Team (Late st Contact Info) Description 03/01/2023 11:15 AM BRANCH SERVICE SPECIALIST Appointment Department of Radiology in [place] [id number] [place] [phone] Floyd Robert, EMMANUEL, C.N.P., M.S. [address] [place] [phone] documented as of this encounter Visit Diagnoses Not on filedocumented in this encounter Care Teams Theology Teacher Relationship Specialty Start Date End Date None Reported, Pcp PCP - General Family Medicine 05/28/22 documented as of this encounter
--- OUTSIDE RECORDS SUMMARY | 2023-02-21 17:48 | XMS_ITS | Encounter Summary ---
Author Name Unknown Organization [facility] Address [address] [place] [address] Care Team Providers Care Internet Media Planner Name Role Phone None Reported, Pcp Primary Care Provider Unavail able Reason for Visit * Reason Onset Date Comments Feeding Tube 11/20/2022 [facility] En[facility]al Order Form Encounter Details Date Type Department Care Team (Latest Contact Info) Description 11/20/2022 Clinical Communication Division of Endocrinology in [place], [place] [address] [place] [phone] Floyd Robert APRN, C.N.P., M.S. [address] [place] [phone] Feeding Tube ([facility] Enteral Order Form) Social History Tobacco Use Types Packs/Day Years [...] your living situation today? I have a [facility] place to live 10/11/2022 Sex and Gender Information Value Date Recorded Sex Assigned at Male 10/09/2022 11:47 PM CDT Gender Identity Male 10/09/2022 11:47 PM CDT Sexual Orientation Straight 10/09/2022 11 :47 PM CDT documented as of this encounter Plan of Treatment Upcoming Encounters Date Type Department Care Team (Late st Contact Info) Description 03/01/2023 11:15 AM MULTI CRAFT MAINTENANCE TECHNICIAN Appointment Department of Radiology in [place], [place] [address] [place] [phone] Floyd Robert, EMMANUEL, C.N.P., M.S. [address] [place] [phone] documented as of this encounter Visit Diagnoses Not on filedocumented in this encounter Care Teams Internet Media Planner Relationship Specialty Start Date End Date None Reported, Pcp PCP - General Family Medicine 05/28/22 documented as of this encounter
--- OUTSIDE RECORDS SUMMARY | 2023-02-21 17:48 | XMS_ITS | Referral Summary ---
Author Name Unknown Organization [facility] Address [address] [place] [address] Care Team Providers Care Seed Analyst Name Role Phone None Reported, Pcp Primary Care Provider Unavail able Source Comments Patient records contain information from all sites at [facility]. For routine questions regarding patient records, call [phone] during business hours, M-F 8:00 AM - 5:00 PM Central Time. Record requests for emergency care only can be directed to [phone] at any time.[facility] Encounters Date Type Department Care Team Description 02/20/2023 Documentation Division of General Internal Medicine in [place], [place] [address] [place] [phone] Emerald Escobar, R.N. Scheduling 02/19/2023 Orders Only Division of Endocrinology in [place], [place] [address] [place] [phone] Emerald Escobar, R.N. 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 I have a [facility] place to live 10/11/2022 Sex and [...] st Contact Info) Description 03/01/2023 11:15 AM COMPENSATION ASSOCIATE Appointment Department of Radiology in [place], [place] [address] [place] [phone] Floyd Robert APRN, C.N.P., M.S. [address] [place] [phone] Medical Devices Implanted Type Area Insights Analyst Device Identifier Shelf Expiration Date Model / Serial / Lot Vagal Nerve Stimulator Vagal Nerve Stimulator Chest Wall Advance Directives For more information, please contact: [phone] Latest Code Status on File Code Status Date Activated Date Inactivated Comments DNR/DNI 05/28/2022 3:36 PM 06/02/2022 6:54 PM Care Teams Seed Analyst Relationship Specialty Start Date End Date None Reported, Pcp PCP - General Family Medicine 05/28/22
--- OUTSIDE RECORDS SUMMARY | 2023-02-21 17:49 | XMS_ITS | Encounter Summary ---
Author Name Unknown Organization [facility] Address [address] [place] [phone] Care Team Providers Care Machine Molder Squeeze Name Role Phone None Reported, Pcp Primary Care Provider Unavail able Reason for Visit * Outpatient (Routine) - Closed Specialty Diagnoses / Procedures Referred By Parvin t Referred To Contact Nutrition Diagnoses Dietary Counseling And Surveillance For Enteral Nutrition Kat Colbert APRN, C.N.P. [address] [place] [phone] [facility] Referral ID Status Reason Start Date Expiration Date Visits Re quested Visits Authorized [id number] Closed 09/26/2022 09/26/2023 1 1 Encounter Details Date Type Department Care Team (Latest Contact Info) Description 10/12/2022 9:00 AM CDT Clinical Support Department of Nutrition and Diabetes Education in [place], [place] [address] [place] [phone] Kat Colbert APRN, C.N.P. [address] [place] [phone] Key Olsen, ARINAN, LD [address] [place] [phone] Gastrostomy Status (HCC) (Primary Dx); Dietary Counseling And Surveillance For Enteral Nutrition; Dysphagia; Pneumonitis Due To Inhalation Of Food And Vomit (HCC); Gastrojejunostomy Percutaneous Status Post Social History Tobacco Use Types Packs/Day Years [...] your living situation today? I have a [facility] place to live 10/11/2022 Sex and Gender Information Value Date Recorded Sex Assigned at Male 10/09/2022 11:47 PM CDT Gender Identity Male 10/09/2022 11:47 PM CDT Sexual Orientation Straight 10/09/2022 11 :47 PM CDT documented as of this encounter Patient Instructions * Patient Instructions* Key Olsen RDN, LD - 10/12/2022 9:00 AM CDT Continue 4 cans Nutren 1.5 but give all via j-port at 100ml/hr. Give all medications and water flushes via j-port, except Omeprazole to minimize volume in stomach.Water flush volume to remain the same. Weight goal is 60-65kg (132-143 pounds), formula may need to be changed if outside this range. 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 Now has been fed jejunally since 05/2022. Met with patient and sister Cheyenne (his guardian) . ASSESSMENT Relevant Social and Family History Lives at [facility] . At night he has non-medical staff on so feedings are done during day. Pertinent Labs H/o hyponatremia Nutrition Focused Physical Findings No physical signs of malnutrition. Mouth/Espohagus/Throat: coughs, drools Nausea/Vomiting: none Bowels: no longer needs MiraLAX with jejunal feeding, having soft BM on his own Stoma Status: HEN RN to see Hydration: fair, difficult to assess as he holds his bladder and don't want to add extra water due to hyponatremia Tube Information 22 [place] Gastrostomy-jejunostomy tube placed 05/31/22 (had g-tube in the past and was changed to GJdue to aspiration pneumonia) -history of TGJ previously but due to issues with the tube clogging they converted to a G-tube. Food/Nutrient Related History Oral: if he asks they do not deny him oral intake but he may eat a scoop of mashed potatoes or 1 bite of cake 1 time per month. Enteral: 4 Nutren 1.5 daily, 3 cans Nutren 1.5 at 100ml/hr via j-port during the day. 1 can given via g-port 60ml 4 times daily with meds. He also gets 840ml water flushes with meds via g-port. Weight History 01/24/19 67.7 kg 08/13/20 68.8 kg -formula was decreased at this time due to weight gain up to 74.5 kg 05/30/22: 73.4 kg-this may not have been accurate 09/2022: 66 kg stated 10/12/22: 64.4 kg-BMI: 21.8 kg Ht Readings from Last 1 Encounters: 05/29/22 172.7 cm Patient has adequate adipose tissue but weight seems to be slowly trending down. Estimation of Nutritional Needs Calorie: 1420 calories/day ([place] Basal) Protein: 60-70 grams Fluid: 1932mL Assessment Summary At this time I think his calorie intake is appropriate but I don't want him losing much more. I also don't want him to gain unneeded weight. As we age calorie needs decrease and he is not active. Of more importance I am worried about all of the fluid he is still getting into his g-port. Ideally allformula, water and meds (except for GERD) would be given via j-port to minimize aspiration risk. Sister does state he coughs more with meds and water via g-port. NUTRITION DIAGNOSIS Inadequate oral intake (NI-2.1) related to dysphagia as evidenced by need for enteral feeding. Nutrition Prescription/Recommendation Formula Type: Nutren 1.5 Administration Method: Continuous pump Infusion Schedule: 100ml/hr x 10 hours during day Water Flushes: continue 840ml daily but his estimated needs are an additional 1140ml/day. I don't want to increase the water given he is not showing signs of dehydration and has h/o hyponatremia and gets 2-3g sodium tables daily Additional Multivitamin: not needed if getting 4 cans At goal, this will provide a total of: 1500 calories/day, 68 g protein/day, and 1000 mL of fluid/day Water flushes will provide extra fluid. Oral Program For therapeutic purposes only INTERVENTION Reviewed intake, weight goals and formula. Also reviewed use of g-port vs j-port. Care Coordination Authorization on file to speak with DME/Infusion Company: yes DME/Infusion Company that will provide needed supplies for home: [employer], , . Orders in 1 month. Will send renewal once he sees our [facility]. Indication for Ongoing Enteral Nutrition dysphagia Anticipated duration of tube feedings is 12 months. This is the sole source of nutrition. Rationale for pump: jejunal tube MONITORING AND EVALUATION Nutrition parameter to monitor: Weight Desired Outcome: maintain 60-65kg (132-143 pounds) Patient Goal(s): 1. All formula, water and meds (except for GERD) via j-port Follow-up Plan Sister prefers to set up follow-up and tube changes at [facility] as his neurology care is there. I did explain that our team would need to see yearly to order tube exchanges and review enteral orders. She plans to establish other care before this would be needed. Time spent with patient (minutes): 60 documented in this encounter Plan of Treatment Upcoming Encounters Date Type Department Care Team (Late st Contact Info) Description 03/01/2023 11:15 AM SMOKE EATER Appointment Department of Radiology in [place], [place] [address] [place] [phone] Floyd Robert, EMMANUEL, C.N.P., M.S. [address] [place] [phone] documented as of this encounter Visit Diagnoses Diagnosis Gastrostomy Status (HCC)- Primary Dietary Counseling And Surveillance For Enteral Nutrition Dysphagia Pneumonitis Due To Inhalation Of Food And Vomit (HCC) Gastrojejunostomy Percutaneous Status Post documented in this encounter Care Teams Machine Molder Squeeze Relationship Specialty Start Date End Date None Reported, Pcp PCP - General Family Medicine 05/28/22 documented as of this encounter
--- OUTSIDE RECORDS SUMMARY | 2023-02-21 17:49 | XMS_ITS | Encounter Summary ---
Author Name Unknown Organization [facility] Address [address] [place] [id number] Care Team Providers Care Systems Project Manager Name Role Phone None Reported, Pcp Primary Care Provider Unavail able Encounter Details Date Type Department Care Team (Latest Contact Info) Description 05/28/2022 3:30 PM CDT - 06/02/2022 4:43 PM CDT Hospital Encounter [facility], [facility], Sixth Floor [address] [place] [phone] Jf Arredondo M.D. [address] [place] [phone] Umang Gibson M.D. [address] [place] [phone] Jonnathan Roger Jr., M.D. [address] [place] [address] [phone] Effusion Pleural (Primary Dx); Gastrostomy Status (HCC); Dysphagia; Pneumonitis Due To Inhalation Of Food And Vomit (HCC) Discharge Disposition: Home or Self Care Social History Tobacco Use Types Packs/Day Years Used Date Smoking Tobacco: Never Smokeless Tobacco: Never Alcohol Use Standard Drinks/Week Comments Never 0 (1 standard drink = 0.6 oz pur e alcohol) Nutrition Answer Date Recorded Nutrition: EVOO Fat Source Unknown 05/28 Nutrition: Servings of Fruits/Vegetables per Day Not on file 05/28/2022 Dental Answer Date Recorded Dental: Regular Dentist Unknown 05/29/19 Sex and Gender Information Value Date Recorded Sex Assigned at Male 10/09/2022 11:47 PM CDT Gender Identity Male 10/09/2022 11:47 PM CDT Sexual Orientation Straight 10/09/2022 11 :47 PM CDT documented as of this encounter Last Filed Vital Signs Vital Sign Reading Time Taken Comments Blood Pressure 119/53 06/02/2022 12:46 PM CDT Pulse 83 06/02/2022 12:46 PM CDT Temperature 37.3 ??C (99.1 ??F) 06/02/2022 1 2:46 PM CDT Respiratory Rate 18 06/02/2022 12:4 6 PM CDT Oxygen Saturation 95% 06/02/2022 12: 46 PM CDT Inhaled Oxygen Concentration - - Weight 73.4 kg (161 lb 13.1 oz) 05/30/2022 8:00 PM CDT Height 172.7 cm (5' 7.99) 05/29/2022 1:00 PM CD T Body Mass Index 24.61 05/29/2022 1:00 PM CDT documented in this encounter Discharge Summaries * Salina Sanchez M.D. - 06/02/2022 11:43 AM CDT DISCHARGE SUMMARY BRIEF OVERVIEW Hospital: [facility] Discharge Provider: Umang Gibson M.D. Primary Team: [facility] Pulmonary Medicine [facility] Primary Care Providers: None Reported, Pcp (General) No address on file Primary Care Provider Phone Number: None Primary Care Provider Fax Number: None Admission Date: 05/28/2022 Discharge Date: 06/02/2022 PRINCIPAL DIAGNOSIS Effusion Pleural SECONDARY DIAGNOSES Principal Problem: Effusion Pleural Resolved Problems: * No resolved hospital problems. * DISCHARGE DISPOSITION Home or Self Care [1] ACTIVE ISSUES REQUIRING FOLLOW UP For patient: - Complete a total of 2 week course of antibiotic. Start Augmentin (10 ml twice daily) tomorrow through 06/11/2022 - Recommended replacement for feeding tube with internal balloon is every 3-5 months. Contact the [facility] clinic at [phone] to schedule the tube exchange - Continue other home medications as prescribed NUTRITION Follow-up with PCP or current provider who manages tube feeds for local nutrition/dietitian referral or coordination of care with the [facility] nutrition providers. Oral diet: No oral intake. Tube feeds as sole source of nutrition. Feeding tube information: Transgastric Jejunal 22 [facility] GJ (Transgastric Jejunal) *Do Not Rotate* 2.3cm stomal length. 45 cm tube length Who placed the tube: [facility] Date of tube placement: May 31, 2022 To maintain enteral access the patient's feeding tube should be replaced at regular intervals. Tube feeding program: Formula: Nutren 1.5 Chase (Nestle), Substitute Formula: Osmolite 1.5 (Jones) Feeding method: Continuous pump controlled Feeding schedule/goal: Continuous - goal rate 40 mL/hour over 24 hours. (4 cans per day Water flushes: 120 mL 8 times per day As you tolerate it, transition to a condensed feeding program to allow freedom from the pump. If intolerance develops, resume the last tolerated rate. All rates provide your goal formula volume. Step 1: 50 mL/hr x 20 hours Step 2: 65 mL/hr x 16 hours Step 3: 70 mL/hr x 14.5 Step 4: 80 mL/hr x 12 hours Step 5: 100 mL/hr x 10 hours Vitamin/mineral supplementation: Formula at goal volume provides 100% or greater of Recommended Daily Intake for vitamins and minerals. Additional supplementation not needed. This program provides 1500 calories and 68 grams protein per day. Monitor your weight 1-2 time(s) per week. Anthropometrics: Weight: 73.4 kg Height: 172.7 cm ELW: 70 Kg BMI (Calculated): 24.6 kg/m?? Estimated Needs: Total Calorie Needs: 3373-2796 calories/day Method to Estimate Energy Needs: Ojeda-Benton (Basal to Basal + 10%) Weight Used for Equation Calculations: 44.8 kg (previous estimated weight) Total Protein Needs: 45 - 67 grams/day Method to Estimate Protein Needs (g/kg): 1 - 1.5 gm/kg Weight Used to Calculate Protein Needs (Kg): 44.8 kg Your Durable Medical Equipment (DME)/Infusion company for tube feeding supplies is: [employer]. Please contact this DME with questions about delivery or re- ordering your supplies and formula. Updated orders were sent to the DME. OUTPATIENT FOLLOW UP Scheduled Appointments 06/04/2022 7:00 AM [facility] Rad[facility] For appointment details refer to your Patient Appointment Guide. TEST RESULTS PENDING AT DISCHARGE Pending Labs None DETAILS OF HOSPITAL STAY REASON FOR ADMISSION Effusion Pleural HOSPITAL COURSE Lew Vogt is a 57 y.o. 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 Braxton was transferred from an outside hospital on 05/29/22 with aspiration pneumonia with a large left sided parapneumonic pleural effusion. He initially presented with approximately 1-2 weeks of intermittent gagging, vomiting, and coughing sometimes after administration of medications or feeding. Zully developed a cough and increased work of breathing with grunting respirations. He was found to have hypoxia with a dense left lower lobe infiltrate concerning for aspiration pneumonia and a moderate left pleural effusion. At the outside hospital, he was treated with intravenous clindamycin, steroids, and DuoNebs. He underwent thoracentesis (05/26/22) with 1150 mL yellow cloudy fluid removed that was neutrophil predominant and exudative by LDH and protein criteria. Subsequent to thoracentesis, his respiratory effort improved and he appeared more comfortable. The following day however, his chest X-ray showed reaccumulation of his effusion and his symptoms had accordingly increased. While inpatient, he underwent a CT abdomen pelvis with enteric contrast via PEG which confirmed appropriateplacement. He did have a large hiatal hernia and obvious reflux of contrast material. Ultimately the decision was made to transfer him to [facility] for further evaluation and management of his recurrent pleural effusion. Upon arrival to [facility], he was afebrile, hemodynamically stable, but with tachypnea and grunting respirations. He required 2 L/min supplemental oxygen. He was started on ceftriaxone and metronidazole for empiric coverage. A pleural catheter was placed (05/27/22); repeat pleural fluid analysis was again consistent with a neutrophil-predominant, exudative effusion with reassuring pH. Gram stain negative and bacterial cultures remained negative to date. He required instillation of intrapleural thrombolytics to break up loculations and facilitate drainage. His respiratory effort improved significantly with drainage of his effusion and treatment of pneumonia. He did not supplemental oxygen at discharge. His chest tube was removed on 06/01. To prevent recurrent aspiration, our inpatient nutrition support colleagues evaluated his enteral feeding device. It was recommended that he undergo upgrade of her percutaneous gastrostomy to alow profile transgastric jejunostomy tube, which he underwent successfully on 05/31. He was reinitiated on tube feeds. He is discharged in stable conditon back to his long-term on 06/02. He will complete 2 week total course of antibiotic with Augmentin. CONSULTS ORDERED DURING THIS ADMISSION IP CONSULT TO INTERVENTIONAL PULMONOLOGY IP CONSULT TO NUTRITION SUPPORT IP CONSULT TO HOME ENTERAL SERVICE IP CONSULT TO DIETITIAN IP CONSULT TO CARE MANAGEMENT IP CONSULT TO DIETITIAN IP CONSULT TO CARE MANAGEMENT CONDITION AT DISCHARGE stable Discharge instructions were provided to the patient and caregiver(s). Total time spent in discharge services today: 40 minutes. Associated attestation - Umang Gibson M.D. - 06/02/2022 9:03 PM CDT I saw the patient on the day of discharge and agree with the discharge plans and disposition. documented in this encounter Discharge Instructions * Discharge Instructions* Mariela Borrero - 05/29/2022 7:14 AM CDT You were discharged from the [facility] Pulmonary Medicine Hospital Service. Please identify this service name if you call with questions after hospitalization. * Discharge Instr - Diet* Zainab Serrano RDN, LD - 05/31/2022 2:04 PM CDT NUTRITION Oral diet: No oral intake. Tube feeds as sole source of nutrition. Feeding tube information: Transgastric Jejunal 22 [place] [facility] GJ (Transgastric Jejunal) *Do Not Rotate* 2.3cm stomal length. 45Cm tube length Who placed the tube: [facility] Date of tube placement: May 31, 2022 To maintain enteral access the patient's feeding tube should be replaced at regular intervals. Recommended replacement for feeding tube with internal balloon is every 3-5 months. Tube feeding program: Formula: Nutren 1.5 Chase (Nestle), Substitute Formula: Osmolite 1.5 (Jones) Feeding method: Continuous pump controlled Feeding schedule/goal: Continuous - goal rate 40 mL/hour over 24 hours. (4 cans per day Water flushes: 120 mL 8 times per day As you tolerate it, transition to a condensed feeding program to allow freedom from the pump. If intolerance develops, resume the last tolerated rate. All rates provide your goal formula volume. Step 1: 50 mL/hr x 20 hours Step 2: 65 mL/hr x 16 hours Step 3: 70 mL/hr x 14.5 Step 4: 80 mL/hr x 12 hours Step 5: 100 mL/hr x 10 hours Vitamin/mineral supplementation: Formula at goal volume provides 100% or greater of Recommended Daily Intake for vitamins and minerals. Additional supplementation not needed. This program provides 1500 calories and 68 grams protein per day. Monitor your weight 1-2 time(s) per week. Anthropometrics: Weight: 73.4 kg Height: 172.7 cm ELW: 70 Kg BMI (Calculated): 24.6 kg/m?? Estimated Needs: Total Calorie Needs: 8981-4422 calories/day Method to Estimate Energy Needs: Ojeda-Benton (Basal to Basal + 10%) Weight Used for Equation Calculations: 44.8 kg (previous estimated weight) Total Protein Needs: 45 - 67 grams/day Method to Estimate Protein Needs (g/kg): 1 - 1.5 gm/kg Weight Used to Calculate Protein Needs (Kg): 44.8 kg Your Durable Medical Equipment (DME)/Infusion company for tube feeding supplies is: [employer]. Please contact this DME with questions about delivery or re- ordering your supplies and formula. * Attachments The following attachments cannot be sent through Care Everywhere. * Amoxicillin/Clavulanate Potassium (By mouth) ([place]izen [place]) * Loperamide (By mouth) ([place]izen [place]) documented in this encounter Medications at Time [...] reddened skin around stoma after cleansing. 0 amoxicillin-pot clavulanate (AUGMENTIN) 400-57 mg/5 mL suspension Administer 10 mL (800 mg total) via gastric tube every 12 (twelve) hours for 10 days. Shake Well. 200 mL 0 06/02/2022 06/12/2022 lansoprazole (PREVACID SOLUTAB) 30 mg disintegrating tablet 30 mg 2 (two) times a day before breakfast and dinner. Dissolve 1 tablet in small amount of water and give via G-tube 30 minutes before morning and evening meal (07:00, 17:00) 0 01/10/2019 10/12/2022 documented as of this encounter Progress Notes * Guillermina Snow, RJoseN. - 06/02/2022 1:13 PM CDT SUBJECTIVE Referral Data photo lab manager following for discharge planning needs. family declined additional resources. Anticipated Needs Functional Status: Other (comment) (patient is a total assist at his long-term) Assistive Devices: Wheelchair - power Anticipated Modifications to the Patient's Home: None Transportation Needs: Support from family, Facility van Does the patient need discharge transport arranged?: No Phone Number for Ride/Caregiver: sister Marissa to transport back to long-term Anticipated Discharge Destination: Home or Self Care ([facility]) OBJECTIVE Patient is hospitalized on [address] in room 250. ASSESSMENT / PLAN Assessment The Person(s) Present During Interview: guardiLivier appear to have insight into the patient'sneeds at this time and are planning appropriately for discharge needs. They report agreement with the below plan with no further questions at this time. photo lab manager received confirmation from Bandar at [facility] ([phone] ext [phone]) that tube feeding pump and supplies will be delivered to patient's home today 06/02 between 3:00 PM-4:00 PM. This information was relayed to patient's sister Manisha. She will provide the Lew transport home today. Plan 1) Destination: [facility] Facility: [facility] Attn:Jared Contact: Jared Sierrazhen Patient was receiving the following care: Nurse administer meds Patient can return on weekend. Patient needs to be back by 10pm . Additional equipment needed for return: No Patient cannot return if NA. COVID screening needed before patient can return: no Return transportation to be provided by family. NURSING to arrange transportation and transport oxygen if needed. Was patient receiving other services (ie: home health, infusions, oxygen, etc): No How was the patient's facility stay being paid for? Insurance Any concerns with payment? No Return transportation to be provided by family. NURSING to arrange transportation and transport oxygen if needed. Manisha will provide return transportation NURSING: - Call report on morning of dismissal. - Complete documentation in the Discharge Navigator including Nursing Report Info and Facility/NextLevel of Care Info - Send copy of After Visit Summary with patient at discharge. PRIMARY SERVICE: - Provide written prescriptions for all narcotics. CASE MANAGEMENT: -Reviewed patient's insurance coverage for the services noted above. The Guardian Manisha appear(s) to have an understanding of this. -Will continue to follow and assist if needs arise. 2) This patient will need the following equipment: nutrition supplies Durable Medical Equipment - Admitted Since 05/28/2022 Service Provider Selected Services Address Phone Fax Patient Preferred [facility] Durable Medical Equipment [phone], [facility] [phone] -- Contact: Intake NURSING: - Fax prescription and After Visit Summary to DME provider. Has been faxed - Coordinate with DME provider for delivery, education and/or management of DME. PRIMARY SERVICE: - Complete and sign prescription at least 24 hours prior to dismissal. - Provide letter of medical necessity if needed. - Document that the need for the DME recommended was discussed with the patient/family, as well as the reason for the DME in the AVS. CASE MANAGEMENT: -Will continue to follow for ongoing discharge planning needs. Guillermina Snow R.N. 06/02/2022 * Salina Sanchez M.D. - 06/02/2022 11:38 AM CDT [facility] Pulmonary Medicine [facility] PROGRESS NOTE SUBJECTIVE - Afebrile, hemodynamically stable - initially going to discharge tomorrow but waiting for home enteral nutrition equipment delivery I have reviewed the current medication list. OBJECTIVE VITAL SIGNS Temperature: [36.1 ??C-37.2 ??C] 37.2 ??C Resp Rate: [18-20] 18 Blood Pressure: (93-122)/(47-65) 117/54 SpO2: [95 %-100 %] 97 % Flow Rate (L/min): [0 L/min] 0 L/min Pulse Rate: [76-86] 76 PHYSICAL EXAM General: Resting on bed; does not appear to be in pain MSK: Thoracic kyphosis Neurologic: Alert. Spastic dysarthria. Follows simple commands, answer simple questions, and short phrases. Cardiovascular: Warm and well-perfused. Normal rate, regular rhythm. Respiratory: Respiration even and non-labored. On RA Abdominal: Abdomen is soft, non-distended, and non-tender. Psychiatric: Grossly normal thought process and content. DIAGNOSTICS I have personally reviewed the laboratory data and imaging since admission, and in/outs for past 72hours. Outside thoracentesis (05/26/22): 1150 mL fluid removed that was clear yellow. 15,000 RBCs, 3,292 WBCs, 52% PMNs, glucose 119 mg/dL, total protein 4.5 g/dL, LDH 471 U/L, amylase < 30 U/L, cholesterol 95 mg/dL. Pleural fluid studies prior to pleural catheter placement (05/29/22): Grossly bloody, pH 7.42, negative gram stain, pending culture*, TNC 2178, neutrophils 58%, lymphocytes 30%, 12% monocytes, LDH 319, protein 4.3, triglycerides 32, glucose 85 ASSESSMENT / PLAN Mr. Vogt is a 57 y.o. male with intellectual disability, cerebral palsy, Marcos-Gastaut syndrome with severe epilepsy despite prior corpus callosum section and vagal nerve stimulator placement, prior right-sided loculated empyema requiring chest tube in the setting of aspiration status post G tube (2017), gastroesophageal reflux with prior severe reflux esophagitis, hiatal hernia, osteoporosis. His respiratory effort improved significantly with drainage of his effusion and treatment of pneumonia. He did not supplemental oxygen at discharge. His chest tube was removed on 06/01. Patient was anticipated to discharge yesterday but unfortunately home enteral nutrition could not be arranged in time. As such, anticipate discharge when HEN is set up. # Acute hypoxia # Suspected aspiration pneumonia # Large left uncomplicated parapneumonic pleural effusion - recurrent despite thoracentesis at OSH (05/26/22) # Prior right-sided loculated empyema requiring chest tube (2017) - Antimicrobial therapy (no recent hospitalizations or antibiotics): - Status post brief treatment with clindamycin and ertapenem at OSH - Continue Ceftriaxone 2 g IV and metronidazole - duration TBD pending pleural fluid studies - Reviewed antibiotic selection for seizure threshold lowering - Pleural effusion - Status post thoracentesis at OSH (05/26/22) 1150 cc fluid removed, neutrophil predominant and exudative by LDH and protein criteria. - Pleural catheter (05/27/22) and removal (06/01/2022): Brisk output noted immediately after placement. Repeat pleural fluid analysis with neutrophil- predominant, exudative fluid with reassuring pH. Gram stain negative and bacterial cultures in process. - Supplemental oxygen PRN # Intellectual disability # Cerebral palsy - At baseline he uses a wheelchair for mobility and is dependent in most of his activities of dailyliving. He is transferred with a lift chair and Ilene. He sleeps on a hospital bed. He uses incontinence products. All of his cares and medications are provided to him by his caregivers. - He is able to answer simple questions and articulate some needs, although it is sometimes difficult for the unfamiliar listener to understand his speech due to spastic dysarthria. His sister rafi if he is in pain he will say ow and usually indicate the issue. 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 - Followed closely by local neurologist in [place] - Seizure precautions in place - Continue home antiepileptic regimen - baseline trough levels obtained per neurology recommendations - Carbamazepine 200 mg at 730, 1130, 1700 - Carbamazepine 400 mg at 2030 - Lamotrigine 100 mg at 800, 1200, 1730 - Lamotrigine 200 mg at 2100 - Rufinamide 1,200 mg at 800, 1200, 1730, and 2100 - If seizure lasting less than 90 seconds - No lorazepam needed; it is common for him to have a few minor < 90 second seizures per day - If seizure lasting 90 seconds up to 5 minutes - Notify service - Administer home lorazepam 1 mg concentrated solution buccal or lorazepam 1 mg IV - If seizure lasting > 5 minutes OR home rescue medication does not abort seizure - Call PORTFOLIO ARCHITECT and STAT neurology consult - Implement status epilepticus protocol including Lorazepam 4 mg IV STAT for 1 dose. If no responsein 5 minutes, give a second dose up to total dose of 0.1 mg/kg (maximum total dose 8 mg) as needed # Chronic aspiration # Status post gastrostomy tube # Gastroesophageal reflux with prior severe reflux esophagitis # Hiatal hernia # Alfredo reflux of enteral contrast on outside study - Evaluated by nutrition support team; recommended upgrade of current gastrostomy tube to a low profile transgastric jejunostomy tube with IR - NPO until tube upgrade with IV fluids PRN - If he requests honey thickened liquid, which he rarely does, would engage speech pathology first - Continue home lansoprazole 30 mg BID # Hyponatremia - chronic - Admit sodium 130 mmol/L, baseline upper 120s-low 130s mmol/L # Anemia - macrocytic - Admit hemoglobin 9.6 g/dL (05/29/22) - had been 12.3 g/dL at OSH (05/26/22) - No apparent bleeding signs aside from some blood via pleural catheter - Folate, ferritin, B12 adequate # Osteoporosis - Continue home vitamin D # Chronic constipation - Continue home Miralax 17 g TIW Diet: NPO Tubes/lines: PIV VTE prophylaxis: enoxaparin Disposition: TBD - anticipate return to long-term Surrogate Decision Maker: Manisha herrera Stable to discharge criteria (not met): Vital signs, Tests/procedures/consults, and Acute care monitoring needs Plan discussed with [facility] Plant Operations Coordinator, Umang Mcdaniel M.D., who was present during payton portions of the evaluation today. [place] page [place] [facility] [place] [phone] with any questions. * Rebeca Vegas M.D. - 06/01/2022 8:51 PM CDT [facility] Progress Note Patient was anticipated to discharge today but unfortunately home enteral nutrition could not be arranged in time. As such, anticipate discharge tomorrow. He remains afebrile, hemodynamically stable, and saturating well on room air. ASSESSMENT / PLAN Mr. Vogt is a 57 y.o. 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 Admitted 05/29/22 with aspiration pneumonia with a large pleural effusion concerning for empyema. A pleural catheter was placed 05/28/22 and removed on 05/07, and he is on intravenous antibiotics. # Acute hypoxia # Suspected aspiration pneumonia # Large left uncomplicated parapneumonic pleural effusion - recurrent despite thoracentesis at OSH (05/26/22) # Prior right-sided loculated empyema requiring chest tube (2017) - Antimicrobial therapy (no recent hospitalizations or antibiotics): - Status post brief treatment with clindamycin and ertapenem at OSH - Continue Ceftriaxone 2 g IV and metronidazole. At discharge, start Augmentin (10 ml twice daily) through 06/11/2022 - Reviewed antibiotic selection for seizure threshold lowering - Pleural effusion - Status post thoracentesis at OSH (05/26/22): 1150 cc fluid removed, neutrophil predominant and exudative by LDH and protein criteria. - Pleural catheter (05/27/22): Brisk output noted immediately after placement. Repeat pleural fluid analysis with neutrophil-predominant, exudative fluid with reassuring pH. Gram stain negative and bacterial cultures in process. - Instillation of intrapleural lytics (05/29/22) for loculations seen on ultrasound - Chest tube removed 06/01 - Supplemental oxygen PRN # Intellectual disability # Cerebral palsy - At baseline he uses a wheelchair for mobility and is dependent in most of his activities of dailyliving. He is transferred with a lift chair and Ilene. He sleeps on a hospital bed. He uses incontinence products. All of his cares and medications are provided to him by his caregivers. - He is able to answer simple questions and articulate some needs, although it is sometimes difficult for the unfamiliar listener to understand his speech due to spastic dysarthria. His sister statesthat if he is in pain he will say ow and usually indicate the issue. 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 - Followed closely by local neurologist in [place] - Seizure precautions in place - Continue home antiepileptic regimen - baseline trough levels obtained per neurology recommendations - Carbamazepine 200 mg at 730, 1130, 1700 - Carbamazepine 400 mg at 2030 - Lamotrigine 100 mg at 800, 1200, 1730 - Lamotrigine 200 mg at 2100 - Rufinamide 1,200 mg at 800, 1200, 1730, and 2100 - If seizure lasting less than 90 seconds - No lorazepam needed; it is common for him to have a few minor < 90 second seizures per day - If seizure lasting 90 seconds up to 5 minutes - Notify service - Administer home lorazepam 1 mg concentrated solution buccal or lorazepam 1 mg IV - If seizure lasting > 5 minutes OR home rescue medication does not abort seizure - Call PORTFOLIO ARCHITECT and STAT neurology consult - Implement status epilepticus protocol including Lorazepam 4 mg IV STAT for 1 dose. If no responsein 5 minutes, give a second dose up to total dose of 0.1 mg/kg (maximum total dose 8 mg) as needed # Chronic aspiration # Status post gastrostomy tube # Gastroesophageal reflux with prior severe reflux esophagitis # Hiatal hernia # Alfredo reflux of enteral contrast on outside study - To prevent recurrent aspiration, our inpatient nutrition support colleagues evaluated his enteralfeeding device. It was recommended that he undergo upgrade of her percutaneous gastrostomy to alow profile transgastric jejunostomy tube, which he underwent successfully on 05/31. He was reinitiated on tube feeds. - Continue home lansoprazole 30 mg BID # Hyponatremia - chronic - Admit sodium 130 mmol/L, baseline upper 120s-low 130s mmol/L # Anemia - macrocytic - Admit hemoglobin 9.6 g/dL (05/29/22) - had been 12.3 g/dL at OSH (05/26/22) - No apparent bleeding signs aside from some blood via pleural catheter - Folate, ferritin, B12 adequate # Osteoporosis - Continue home vitamin D # Chronic constipation - Continue home Miralax 17 g TIW Diet: NPO, tube feeds Tubes/lines: PIV VTE prophylaxis: enoxaparin Disposition: Discharge tomorrow - anticipate return to long-term Surrogate Decision Maker: Manisha herrera Stable to discharge criteria (not met): Receipt of home enteral nutrition supplies * Deedee Pierre M.D. - 06/01/2022 1:22 PM CDT IP PROGRESS NOTE PATIENT SUMMARY: 57 year old male with cerebral palsy, epilepsy, and PEG tube dependence admitted for further evaluation of a large hiatal hernia near his PEG tube site and aspiration pneumonia with left pleural effusion. He underwent outside thoracentesis on 05/27 (1L was removed - 15 000 RBC, 52% neutrophils, glucose 119, total protein 4.5, LDH 471, amylase < 30, cholesterol 95). We placed a left 14 Fr pigtail catheter on 05/28 with initial studies c/w neutrophilic exudate - TNC 2178 58% neutrophils, LDH 319, protein 4.2, TG 32, glucose 85, pH 7.42, gram stain and cx neg. INTERVAL EVENTS: on room air, well appearing. 130cc output in the last 24 hours. LIMITED LUNG ULTRASOUND: trace left pleural effusion. No septations. Images in QREADS. ASSESSMENT: #1 Aspiration pneumonia w complicated left parapneumonic effusion #2 S/P 14 Fr locking loop pigtail 05/28 for #1 #3 S/P 2 doses lytics 05/29-05/30 PLAN: chest tube removed at bedside. No pleural clinic follow-up necessary. Noted plans for discharge today. Deedee Pierre M.D. Pulmonary Critical Care Fellow Associated attestation - Cristopher Moreno M.D. - 06/01/2022 2:18 PM CDT I have independently interviewed and examined Mr. Vogt . I have reviewed available objective studies and consultations. I discussed the plan of care with primary service, and have reviewed and agree with the findings, assessment, and plan as outlined in the note of Dr. Pierre of the Interventional Pulmonary service dated 01 June 2022. Over the last 24 hours output from the left thoracostomy tube has decreased to less than 100 cc when flushing is considered. The patient is oxygenating 98% on room air. Chest x-ray demonstrates little change and does suggest a small residual left pleural effusion. Pleural fluid studies from the 28 of May demonstrated normal glucose and pH with negative cytology and negative Gram stain and cultures. I performed bedside thoracic ultrasound. This demonstrates just a tiny residual left pleural effusion. The effusion is free-flowing. Thoracostomy tube flushes easily. Images have been captured storedand downloaded to [facility]. We have removed the left thoracostomy tube at the bedside. Tubes Left 14 [place] Islander locking loop thoracostomy tube (01 June 2022) I/R/P #1 Left uncomplicated parapneumonic effusion: Output from the thoracostomy tube now has drifted to less than 100 cc in 24 hour period. The patient did receive 2 doses of intrapleural thrombolysis andwith that we have been able to near completely evacuate the left pleural space. Pleural fluid chemistries are largely unconcerning and culture and Gram stain have not demonstrated growth. The left thoracostomy tube has been removed at the bedside. We will sign off[place] [phone] if we can be of additional assistance. #2 Aspiration pneumonitis #3 History of seizure disorder with cognitive delay and recurrent episodes of emesis * Guillermina Snow, Kimberly. - 06/01/2022 12:27 PM CDT SUBJECTIVE Referral Data photo lab manager following for discharge planning needs. family declined additional resources. Anticipated Needs Functional Status: Other (comment) (patient is a total assist at his long-term) Assistive Devices: Wheelchair - power Anticipated Modifications to the Patient's Home: None Transportation Needs: Support from family, Facility van Does the patient need discharge transport arranged?: No Phone Number for Ride/Caregiver: sister Marissa to transport back to long-term Anticipated Discharge Destination: Home or Self Care ([facility]) OBJECTIVE Patient is hospitalized on [address] in room 250. ASSESSMENT / PLAN Assessment The Person(s) Present During Interview: guardianChristine appear to have insight into the patient'sneeds at this time and are planning appropriately for discharge needs. They report agreement with the below plan with no further questions at this time. Plan 1) [facility]Jared Contact: Jared Angel Patient was receiving the following care: Nurse administer meds Patient can return on weekend. Patient needs to be back by 10pm . Additional equipment needed for return: No Patient cannot return if NA. COVID screening needed before patient can return: no Return transportation to be provided by family. NURSING to arrange transportation and transport oxygen if needed. Was patient receiving other services (ie: home health, infusions, oxygen, etc): No How was the patient's facility stay being paid for? Insurance Any concerns with payment? No Return transportation to be provided by family. NURSING to arrange transportation and transport oxygen if needed. Manisha will provide return transportation NURSING: - Call report on morning of dismissal. - Complete documentation in the Discharge Navigator including Nursing Report Info and Facility/NextLevel of Care Info - Send copy of After Visit Summary with patient at discharge. PRIMARY SERVICE: - Provide written prescriptions for all narcotics. CASE MANAGEMENT: -Reviewed patient's insurance coverage for the services noted above. The Guardian Manisha appear(s) to have an understanding of this. -Will continue to follow and assist if needs arise. 2) This patient will need the following equipment: nutrition supplies Durable Medical Equipment - Admitted Since 05/28/2022 Service Provider Selected Services Address Phone Fax Patient Preferred [employer] [facility] [id number] [id number] -- Contact: Intake NURSING: - Fax prescription and After Visit Summary to DME provider. - Coordinate with DME provider for delivery, education and/or management of DME. PRIMARY SERVICE: - Complete and sign prescription at least 24 hours prior to dismissal. - Provide letter of medical necessity if needed. - Document that the need for the DME recommended was discussed with the patient/family, as well as the reason for the DME in the AVS. CASE MANAGEMENT: -Will continue to follow for ongoing discharge planning needs. Guillermina Snow R.N. 06/01/2022 * Antonia Carreon Pharm.D., R.Ph. 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 Pleural effusion now resolved on imaging, monitoring CT output to remove. Was on clindamycin at OSH, switched to ceftriaxone and metronidazole here on05/28. Planning 2 weeks of treatment. 05/26 pleural fluid culture NGTD Epilepsy: Continues carbamazepine, lamotrigine, rufinamide. All trough levels WNL: 05/30 carbamazepine total level 5.4 mcg/mL (within goal); rufinamide 30.8 mcg/mL (high end of goal 5-30) and lamotrigine level 4.8 mcg/mL (within goal). FEN: NSS consulted, s/p G-J tube exchange. Tube feeds resumed 05/31. Antonia Carreon Pharm.D., R.Ph. [phone] * Deedee Pierre M.D. - 05/31/2022 6:07 PM CDT IP PROGRESS NOTE PATIENT SUMMARY: 57 year old male with cerebral palsy, epilepsy, and PEG tube dependence admitted for further evaluation of a large hiatal hernia near his PEG tube site and aspiration pneumonia with left pleural effusion. He underwent outside thoracentesis on 05/27 (1L was removed - 15 000 RBC, 52% neutrophils, glucose 119, total protein 4.5, LDH 471, amylase < 30, cholesterol 95). We placed a left 14 Fr pigtail catheter on 05/28 with initial studies c/w neutrophilic exudate - TNC 2178 58% neutrophils, LDH 319, protein 4.2, TG 32, glucose 85, pH 7.42, gram stain and cx neg. INTERVAL EVENTS: on room air and breathing looks comfortable. CXR much improved with resolution of left pleural effusion. 1400cc output in the last 24 hours. Tube did not flush easily but resistance was able to be overcome. Seen after his PEG tube exchange. LIMITED LUNG ULTRASOUND: trace left pleural effusion. No septations. Images in QREADS. ASSESSMENT: #1 Aspiration pneumonia w complicated left parapneumonic effusion #2 S/P 14 Fr locking loop pigtail 05/28 for #1 #3 S/P 2 doses lytics 05/29-05/30 PLAN: Clinically improving after pigtail placement, continues on CTX and metronidazole. He has responded nicely to lytics and there is no significant residual effusion seen on ultrasound today. No further doses of lytics indicated. We anticipate pulling the pigtail when outputs are <100 cc over 24 hours (excluding flushes). Continue suction -20 at the atrium, daily AM CXR, and flushing with 10cc sterile saline TID. We will continue [place]. [place] [phone] for further questions. Patient seen and discussed with Dr. Moreno. Deedee Pierre M.D. Pulmonary Critical Care Fellow * Cristopher Moreno M.D. - 05/31/2022 6:05 PM CDT I have independently interviewed and examined Mr. Vogt . I have reviewed available objective studies consultations. I discussed this plan of care with the primary service as well as with Dr. Pierre of the Interventional Pulmonary service. Please refer to her note from today for additional details. Yesterday it seemed that the left thoracostomy tube was blocked. With flushing we were able to overcome that and there was 1400 cc of record output last 24 hours. Chest x-ray also demonstrates near complete evacuation of the left pleural effusion. White blood cell count is 10.6 and now normalized. The patient is oxygenating 92% on room air. He remains on ceftriaxone and metronidazole. Pleural fluid cultures from the 28 of May have not demonstrated growth. I performed bedside thoracic ultrasound. This demonstrates just a tiny residual left free-flowing pleural effusion. The thoracostomy tube does flush with some resistance however that is easily overcome. Images have been captured stored and downloaded to [facility]. Tubes Left 14 [place] Island[place] locking loop thoracostomy tube (28 May 2022) I/R/P #1 Left uncomplicated parapneumonic effusion: With flushing we have been able to reestablish patency to the left thoracostomy tube and is now draining freely. Ultrasound suggest that we have completely evacuated the left pleural space and that is supported by chest x-ray findings. Given the volume of output from the thoracostomy tube in last 24 hours we are unable to remove the thoracostomy tube today however I would keep it to suction at -20 cm water and 3 times daily with sterile saline. We will plan to remove the thoracostomy tube once output is less than 100 cc in a 24 hour period. The patient has received 2 doses of intrapleural thrombolysis with DNase and I do not believe that additional intrapleural thrombolysis is needed. We will continue to follow. #2 Aspiration pneumonitis #3 History of seizure disorder with cognitive delay and recurrent episodes of emesis * Kenia Cardenas, YELENA, LD - 05/31/2022 1:59 PM CDT Nutrition Support Service Patient evaluated by Nutrition Support Service with Dr. Rafael Bertrand Nutrition Support Service consulted for complex nutrition management. Tube exchanged today for TGJ and plan to start enteral feeds. SUBJECTIVE Mr. Vogt is a 57 y.o. 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 gastroesophageal reflux with prior severe reflux esophagitis, hiatal hernia, osteoporosis. G-tube for aspiration since [id number]. Current Nutrition (since admission): NPO so far this admission. Discussed the feeding differences with family when converting back to a post-pyloric tube. Nutrition history: history of TGJ previously but due to issues with the tube clogging they converted to a G-tube. Feeds were going well until the past few weeks when the patient was having emesis. Pthistorically has had issues with urinary retention so family has been increasing fluids and feel the 1200 ml/day has been going well. DME is [facility]. Tube feeds are the patients sole source of nutrition. Enteral Nutrition Prior to Admit Formula: Nutren 1.5 Tube patency flush: Other (Comment) Enteral Access: 20French 2.3cm KOLTON G-Tube, replaced 05/15 by local MD Method of Administration: Intermittent Feeding Schedule: 250 QID Free water: 120ml before and after feeds (8 flushes/day) 30ml with meds (4x/day) total of 1200mL/day Enteral Nutrition Provides: 1500 calories, 68g protein. Other (Comment): Tube feeding regimen decreased to 4 cans a few months ago as patient was gaining weight OBJECTIVE Current nutrition orders: Current Diet No oral nutrition, no tube feeding starting at 05/28 1728 Nutrition Focused Physical Assessment and Malnutrition Assessment Average estimated Intake: No Change Weight Loss: No Change (per family report) Body Fat: Normal Muscle Mass: Normal ANTHROPOMETRICS: Height: 172.7 cm Admission Weight: 73.4 kg (05/28/2022) Current Weight: 73.4 kg Ola Body Weight (Calculated) : 68.1 kg BMI (Calculated): 24.6 kg/m?? Weight change since admission: 0 kg Wt Hx: 03/31/22 73.5 kg (162 lb 12.8 oz) -weighed on wheelchair, wheelchair wt 28.7 kg (corrected wt of 44.8 kg 09/16/21 74.4 kg (164 lb) 08/13/20 68.8 kg (151 lb 9.6 oz) 01/24/19 67.7 kg (149 lb 4.8 oz) 05/10/18 67.7 kg (149 lb 4.8 oz) ESTIMATED NEEDS: Total Calorie Needs: 9629-3490 calories/day Method to Estimate Energy Needs: Ojeda-Benton (Basal to Basal + 10%) Weight Used for Equation Calculations: 44.8 kg (previous estimated weight) Total Protein Needs: 45 - 67 grams/day Method to Estimate Protein Needs (g/kg): 1 - 1.5 gm/kg Weight Used to Calculate Protein Needs (Kg): 44.8 kg NUTRITION DIAGNOSIS: Altered GI function related to hiatal hernia as evidenced by need for modification in tube feeding support regimen NUTRITION PLAN/MONITORING/EVALUATION: Interventions: Enteral nutrition, Collaboration and referral of nutrition care Monitoring: Enteral, Fluid Balance, Pertinent Labs, Nausea/Vomiting/Diarrhea ASSESSMENT / PLAN Patient meets ASPEN/AND criteria for No data recorded RECOMMENDATIONS: Tube feeding recommendations: Nutren 1.5, start at 20 mL/hr and advance 10 mL q 12 hours to goal of 40 mL/hr continuous. Free water flushes 120 ml 8 x per day (this is the patients home regimen) Provides 1440 kcal, 65 g protein, and meets 96% of the Reference Daily Intake of vitamins and minerals per day. 3. HEN updated tube feeding supplies. Nutrition Support Service ([facility]) will continue to follow. Page [phone] with questions. * Guillermina Snow, R.N. - 05/31/2022 10:03 AM CDT SUBJECTIVE Referral Data photo lab manager following for discharge planning. Guardian Manisha declined additional resources. Anticipated Needs Functional Status: Other (comment) (patient is a total assist at his long-term) Assistive Devices: Wheelchair - power Anticipated Modifications to the Patient's Home: None Transportation Needs: Support from family, Facility van Does the patient need discharge transport arranged?: No Phone Number for Ride/Caregiver: sister Marissa to transport back to long-term Anticipated Discharge Destination: Home or Self Care ([facility]) OBJECTIVE Patient is hospitalized on [address] in room 250. ASSESSMENT / PLAN Assessment The Person(s) Present During Interview: guardiQianaristine appear to have insight into the patient'sneeds at this time and are planning appropriately for discharge needs. They report agreement with the below plan with no further questions at this time. Plan Destination: [facility] Facility: [facility] Attn:Jared Contact: Jared Angel Patient was receiving the following care: Nurse administer meds Patient can return on weekend. Patient needs to be back by 10pm . Additional equipment needed for return: No Patient cannot return if NA. COVID screening needed before patient can return: no Return transportation to be provided by family. NURSING to arrange transportation and transport oxygen if needed. Was patient receiving other services (ie: home health, infusions, oxygen, etc): No How was the patient's facility stay being paid for? Insurance Any concerns with payment? No Return transportation to be provided by family. NURSING to arrange transportation and transport oxygen if needed. Manisha will provide return transportation NURSING: - Call report on morning of dismissal. - Complete documentation in the Discharge Navigator including Nursing Report Info and Facility/NextLevel of Care Info - Send copy of After Visit Summary with patient at discharge. PRIMARY SERVICE: - Provide written prescriptions for all narcotics. CASE MANAGEMENT: -Reviewed patient's insurance coverage for the services noted above. The Guardian Manisha appear(s) to have an understanding of this. -Will continue to follow and assist if needs arise. Guillermina Snow R.N. 05/31/2022 * Latoya Crane M.D. - 05/31/2022 6:57 AM CDT [facility] PROGRESS NOTE SUBJECTIVE - Afebrile, hemodynamically stable - Breathing more comfortably - Weaned to room air 05/29 - Chest tube with 1.4 mL output on -20 suction - Responds no when asked about pain, sister has not noted any signs of distress I have reviewed the current medication list. OBJECTIVE VITAL SIGNS Temperature: [36.4 ??C-36.7 ??C] 36.4 ??C Resp Rate: [15-24] 18 Blood Pressure: (94-126)/(46-63) 115/54 SpO2: [93 %-100 %] 97 % Flow Rate (L/min): [0 L/min] 0 L/min Weight: [73.4 kg] 73.4 kg BMI (Calculated): [24.6 kg/m??] 24.6 kg/m?? Pulse Rate: [72-98] 81 PHYSICAL EXAM General: Resting on bed; does not appear to be in pain MSK: Thoracic kyphosis Neurologic: Alert. Spastic dysarthria. Follows simple commands, answer simple questions, and short phrases. Bilateral spasticity L > R Cardiovascular: Warm and well-perfused. Normal rate, regular rhythm. No significant lower extremityedema. Respiratory: Pleural catheter in place Abdominal: Abdomen is soft, non-distended, and non-tender. No guarding, rebound, or rigidity. Normal bowel sounds. Psychiatric: Grossly normal thought process and content. DIAGNOSTICS I have personally reviewed the laboratory data and imaging since admission, and in/outs for past 72hours. Outside thoracentesis (05/26/22): 1150 mL fluid removed that was clear yellow. 15,000 RBCs, 3,292 WBCs, 52% PMNs, glucose 119 mg/dL, total protein 4.5 g/dL, LDH 471 U/L, amylase < 30 U/L, cholesterol 95 mg/dL. Pleural fluid studies prior to pleural catheter placement (05/29/22): Grossly bloody, pH 7.42, negative gram stain, pending culture*, TNC 2178, neutrophils 58%, lymphocytes 30%, 12% monocytes, LDH 319, protein 4.3, triglycerides 32, glucose 85 ASSESSMENT / PLAN Mr. Vogt is a 57 y.o. 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 Admitted 05/29/22 with aspiration pneumonia with a large pleural effusion concerning for empyema. A pleural catheter was placed 05/28/22 and he is on intravenous antibiotics. # Acute hypoxia # Suspected aspiration pneumonia # Large left uncomplicated parapneumonic pleural effusion - recurrent despite thoracentesis at OSH (05/26/22) # Prior right-sided loculated empyema requiring chest tube (2018) - Antimicrobial therapy (no recent hospitalizations or antibiotics): - Status post brief treatment with clindamycin and ertapenem at OSH - Continue Ceftriaxone 2 g IV and metronidazole - duration TBD pending pleural fluid studies - Reviewed antibiotic selection for seizure threshold lowering - Pleural effusion - Status post thoracentesis at OSH (05/26/22): 1150 cc fluid removed, neutrophil predominant and exudative by LDH and protein criteria. - Pleural catheter (05/27/22): Brisk output noted immediately after placement. Repeat pleural fluid analysis with neutrophil-predominant, exudative fluid with reassuring pH. Gram stain negative and bacterial cultures in process. - Instillation of intrapleural lytics (05/29/22) for loculations seen on ultrasound - Maintain catheter on -20 cm H2O suction, flush with 10 cc TID, and obtain daily CXR - Supplemental oxygen PRN # Intellectual disability # Cerebral palsy - At baseline he uses a wheelchair for mobility and is dependent in most of his activities of dailyliving. He is transferred with a lift chair and Ilene. He sleeps on a hospital bed. He uses incontinence products. All of his cares and medications are provided to him by his caregivers. - He is able to answer simple questions and articulate some needs, although it is sometimes difficult for the unfamiliar listener to understand his speech due to spastic dysarthria. His sister statesthat if he is in pain he will say ow and usually indicate the issue. 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 - Followed closely by local neurologist in [place] - Seizure precautions in place - Continue home antiepileptic regimen - baseline trough levels obtained per neurology recommendations - Carbamazepine 200 mg at 730, 1130, 1700 - Carbamazepine 400 mg at 2030 - Lamotrigine 100 mg at 800, 1200, 1730 - Lamotrigine 200 mg at 2100 - Rufinamide 1,200 mg at 800, 1200, 1730, and 2100 - If seizure lasting less than 90 seconds - No lorazepam needed; it is common for him to have a few minor < 90 second seizures per day - If seizure lasting 90 seconds up to 5 minutes - Notify service - Administer home lorazepam 1 mg concentrated solution buccal or lorazepam 1 mg IV - If seizure lasting > 5 minutes OR home rescue medication does not abort seizure - Call PORTFOLIO ARCHITECT and STAT neurology consult - Implement status epilepticus protocol including Lorazepam 4 mg IV STAT for 1 dose. If no responsein 5 minutes, give a second dose up to total dose of 0.1 mg/kg (maximum total dose 8 mg) as needed # Chronic aspiration # Status post gastrostomy tube # Gastroesophageal reflux with prior severe reflux esophagitis # Hiatal hernia # Alfredo reflux of enteral contrast on outside study - Evaluated by nutrition support team; recommended upgrade of current gastrostomy tube to a low profile transgastric jejunostomy tube with IR - NPO until tube upgrade with IV fluids PRN - If he requests honey thickened liquid, which he rarely does, would engage speech pathology first - Continue home lansoprazole 30 mg BID # Hyponatremia - chronic - Admit sodium 130 mmol/L, baseline upper 120s-low 130s mmol/L # Anemia - macrocytic - Admit hemoglobin 9.6 g/dL (05/29/22) - had been 12.3 g/dL at OSH (05/26/22) - No apparent bleeding signs aside from some blood via pleural catheter - Folate, ferritin, B12 adequate # Osteoporosis - Continue home vitamin D # Chronic constipation - Continue home Miralax 17 g TIW Diet: NPO Tubes/lines: PIV VTE prophylaxis: enoxaparin Disposition: TBD - anticipate return to long-term Surrogate Decision Maker: Manisha herrera Stable to discharge criteria (not met): Vital signs, Tests/procedures/consults, and Acute care monitoring needs Plan discussed with [facility] Plant Operations Coordinator, Umang Mcdaniel M.D., who was present during payton portions of the evaluation today. Please page [place] [facility] [place] [phone] with any questions. Associated attestation - Umang Gibson M.D. - 05/31/2022 7:12 PM CDT He is admitted with aspiration pneumonia with large left sided parapneumonic effusion. He has chestdrain in place and has received two doses of intraplerual DNAase/thrombolytic. There has been substantial improvement in the parapneumonic effusion over the last day with CXR this morning suggesting near complete evacuation of the pleural space and we appreciate the assistance of our IP colleagues in his care. Today, we will are planning to exchange his percutaneous feeding tube to a low profile transgastricjejunostomy tube. We have discussed interventions to reduce his tendency to aspiratate to reduce risk of future pneumonia episodes. The rest per Dr. rCane. This is a supervisory note for Dr. Crane. I have discussed the case with her and I agree with her history, physical exam, assessment, and plan as documented in her note of today's date. I have also personally interviewed and examined the patient today. Umang Gibson M.D. ([id number]) * Abby Perez M.D. - 05/30/2022 12:36 PM CDT Images from the original note were not included. IP PROGRESS NOTE PATIENT SUMMARY: 57 year old male with cerebral palsy, epilepsy, and PEG tube dependence admitted for further evaluation of a large hiatal hernia near his PEG tube site and aspiration pneumonia with left pleural effusion. He underwent outside thoracentesis on 05/27 (1L was removed - 15 000 RBC, 52% neutrophils, glucose 119, total protein 4.5, LDH 471, amylase < 30, cholesterol 95). We placed a left 14 Fr pigtail catheter on 05/28 with 970cc serous fluid out immediately w initial gram stain being negative. INTERVAL EVENTS: Patient is doing well this morning. He denies any pain from the chest tube site. At bedside the pigtail flushed easily and we removed about 110cc of serosanguinous output. LIMITED LUNG ULTRASOUND: moderate left pleural effusion without septations. Images in QREADS. ASSESSMENT: Aspiration pneumonitis c/b left parapneumonic effusion s/p 14 Fr locking loop pigtail 05/28 Hx of seizure disorder Hx of recurrent emesis w/aspiration It's likely that the fluid we are seeing is stemming from the lytics we administered yesterday and we should see improvement if not resolution of the pleural effusion tomorrow. At this point, we do not think lytics are warranted given that we no longer see the septations we saw yesterday and the character of the fluid is simple. PLAN: - Please continue leaving pigtail to -20 suction - Please flush pigtail with 10 cc of sterile saline TID - Please obtain CXR in the morning We will continue to follow. [place] [phone] for further questions. Patient seen and discussed with Dr. Moreno. Abby Mckenzie M.D. Pulmonary Critical Care Fellow * Cristopher Moreno M.D. - 05/30/2022 12:20 PM CDT I have independently interviewed and examined Mr. Vogt . I reviewed available objective studiesconsultations. I discussed this plan of care with the primary service as well as with Dr. Blank Mckenzie of the Interventional Pulmonary service. Please refer to her note from today for additional details. As of this morning Mr. Vogt is receiving his 2nd of 2 doses of intrapleural thrombolysis. Chestx-ray demonstrates increase in left pleural effusion however that is in the setting of thrombolytics dwelling in the pleural space and that may well explain the radiographic finding. He remains on ceftriaxone and metronidazole and there is 230 cc of record output from his left thoracostomy tube in last 24 hours. White blood cell count is stable at 12.5. Hemoglobin is 11.2 up from 9.6 yesterday however down slightly from 12.3 the day prior. Output from the thoracostomy tube is serosanguineous and not frankly bloody. The patient is oxygenating 93% on room air. Pleural fluid studies are pertinent for a pH 7.42 and a glucose of 85.. Pleural fluid Gram stain is negative and cultures have not demonstrated growth. I performed bedside thoracic ultrasound. This demonstrates an increase in the left pleural effusionthat is now at least moderate in size although the previously identified septations have been completely evacuated. At the bedside we are able to easily flush the thoracostomy tube and have further evacuated approximately 100 cc of serosanguineous fluid just with piston syringe. I suspect the findings on chest x-ray and ultrasound reflect the indwelling character of the intrapleural thrombolysis.Images have been captured stored and downloaded to [facility]. Tubes Left 14 [place] locking loop thoracostomy tube (28 May 2022) I/R/P #1 Left uncomplicated parapneumonic effusion: By chest x-ray and ultrasound there is increased effusion today however both studies were performed with the thoracostomy tube clamped and intrapleural thrombolysis indwelling. The thoracostomy tube clearly is functioning well and I would keep the thoracostomy tube to -20 cm water pressure and continue to flush 3 times daily with sterile saline. I do not believe based on my ultrasound findings that additional intrapleural thrombolysis is necessary. We will plan to keep the left thoracostomy tube in place until output is less than 100 cc in 24 hourperiod. We will continue to follow. #2 Aspiration pneumonitis #3 History of seizure disorder with cognitive delay and recurrent episodes of emesis * Antonia Carreon PharmLedy, R.Ph. - 05/30/2022 9:11 AM CDT Pharmacist Progress Note Reason for admission: dyspnea PMH: intellectual disability, cerebral palsy, Marcos-Gastaut syndrome with severe epilepsy, prior right-sided loculated empyema requiring chest tube in the setting of recurrent aspiration now s/p G-tube (2017), GERD, hiatal hernia, osteoporosis OBJECTIVE Home medications per [facility] - from long-term Held: bisacodyl, hydrocortisone rectal cream, pseudoephedrine PRN, senna, terbinafine VTE Prophylaxis: Lovenox ASSESSMENT / PLAN Pleural effusion, aspiration: S/p thoracentesis 05/26 prior to admission; pigtail cathter placed by IP on 05/26 and received 2 doses of lytic therapy. Was on clindamycin at OSH, switched to ceftriaxoneand metronidazole here on 05/28. 05/26 pleural fluid culture NGTD Epilepsy: Continues carbamazepine, lamotrigine, rufinamide. Neurology recommended checking trough levels: 05/30 carbamazepine total trough level 5.4 (within goal); rufinamide and lamotrigine levels pending. FEN: NPO and holding tube feeds for now due to aspiration concerns. NSS consulted and recommended G-J tube exchange. Antonia Carreon Pharm.D., R.Ph. [phone] * Latoya Crane M.D. - 05/30/2022 6:54 AM CDT [facility] PROGRESS NOTE SUBJECTIVE - Afebrile, hemodynamically stable - Breathing more comfortably through still tachypneic - Weaned to room air 05/29 - Chest tube with 230 mL output on -20 suction; received intrapleural lytics yesterday due to septations on ultrasound - Responds no when asked about pain, sister has not noted any signs of distress I have reviewed the current medication list. OBJECTIVE VITAL SIGNS Temperature: [36.2 ??C-37.3 ??C] 37.3 ??C Heart Rate: [73] 73 Resp Rate: [14-22] 16 Blood Pressure: (102-142)/(51-69) 142/69 SpO2: [93 %-96 %] 93 % Flow Rate (L/min): [0 L/min] 0 L/min Height: [172.7 cm] 172.7 cm Pulse Rate: [75-99] 99 PHYSICAL EXAM General: Resting on bed; does not appear to be in pain MSK: Thoracic kyphosis Neurologic: Alert. Spastic dysarthria. Follows simple commands, answer simple questions, and short phrases. Bilateral spasticity L > R Cardiovascular: Warm and well-perfused. Normal rate, regular rhythm. No significant lower extremityedema. Respiratory: Pleural catheter in place Abdominal: Abdomen is soft, non-distended, and non-tender. No guarding, rebound, or rigidity. Normal bowel sounds. Psychiatric: Grossly normal thought process and content. DIAGNOSTICS I have personally reviewed the laboratory data and imaging since admission, and in/outs for past 72hours. Outside thoracentesis (05/26/22): 1150 mL fluid removed that was clear yellow. 15,000 RBCs, 3,292 WBCs, 52% PMNs, glucose 119 mg/dL, total protein 4.5 g/dL, LDH 471 U/L, amylase < 30 U/L, cholesterol 95 mg/dL. Pleural fluid studies prior to pleural catheter placement (05/29/22): Grossly bloody, pH 7.42, negative gram stain, pending culture*, TNC 2178, neutrophils 58%, lymphocytes 30%, 12% monocytes, LDH 319, protein 4.3, triglycerides 32, glucose 85 ASSESSMENT / PLAN Mr. Vogt is a 57 y.o. male with intellectual disability, cerebral palsy, Marcos-Gastaut syndrome with severe epilepsy despite prior corpus callosum section and vagal nerve stimulator placement, prior right-sided loculated empyema requiring chest tube in the setting of aspiration status post G tube (2018), gastroesophageal reflux with prior severe reflux esophagitis, hiatal hernia, osteoporosis. Admitted 05/29/22 with aspiration pneumonia with a large pleural effusion concerning for empyema. A pleural catheter was placed 05/28/22 and he is on intravenous antibiotics. # Acute hypoxia # Suspected aspiration pneumonia # Left pleural effusion - large, exudative, parapneumonic - recurrent despite thoracentesis at OSH (05/26/22) # Prior right-sided loculated empyema requiring chest tube (2018) - Antimicrobial therapy (no recent hospitalizations or antibiotics): - Status post brief treatment with clindamycin and ertapenem at OSH - Continue Ceftriaxone 2 g IV and metronidazole - duration TBD pending pleural fluid studies - Reviewed antibiotic selection for seizure threshold lowering - Pleural effusion - Status post thoracentesis at OSH (05/26/22): 1150 cc fluid removed, neutrophil predominant and exudative by LDH and protein criteria. - Pleural catheter (05/27/22): Brisk output noted immediately after placement. Repeat pleural fluid analysis with neutrophil-predominant, exudative fluid with reassuring pH. Gram stain negative and bacterial cultures in process. - Instillation of intrapleural lytics (05/29/22) for loculations seen on ultrasound - Maintain catheter on -20 cm H2O suction, flush with 10 cc TID, and obtain daily CXR - Supplemental oxygen PRN # Intellectual disability # Cerebral palsy - At baseline he uses a wheelchair for mobility and is dependent in most of his activities of dailyliving. He is transferred with a lift chair and Ilene. He sleeps on a hospital bed. He uses incontinence products. All of his cares and medications are provided to him by his caregivers. - He is able to answer simple questions and articulate some needs, although it is sometimes difficult for the unfamiliar listener to understand his speech due to spastic dysarthria. His sister statesthat if he is in pain he will say ow and usually indicate the issue. # Marcos-Gastaut syndrome with severe epilepsy - Followed closely by local neurologist in [place] - Seizure precautions in place - Continue home antiepileptic regimen - baseline trough levels obtained per neurology recommendations - Carbamazepine 200 mg at 730, 1130, 1700 - Carbamazepine 400 mg at 2030 - Lamotrigine 100 mg at 800, 1200, 1730 - Lamotrigine 200 mg at 2100 - Rufinamide 1,200 mg at 800, 1200, 1730, and 2100 - If seizure lasting less than 90 seconds - No lorazepam needed; it is common for him to have a few minor < 90 second seizures per day - If seizure lasting 90 seconds up to 5 minutes - Notify service - Administer home lorazepam 1 mg concentrated solution buccal or lorazepam 1 mg IV - If seizure lasting > 5 minutes OR home rescue medication does not abort seizure - Call PORTFOLIO ARCHITECT and STAT neurology consult - Implement status epilepticus protocol including Lorazepam 4 mg IV STAT for 1 dose. If no responsein 5 minutes, give a second dose up to total dose of 0.1 mg/kg (maximum total dose 8 mg) as needed # Chronic aspiration # Status post gastrostomy tube # Gastroesophageal reflux with prior severe reflux esophagitis # Hiatal hernia # Alfredo reflux of enteral contrast on outside study - Evaluated by nutrition support team; recommended upgrade of current gastrostomy tube to a low profile transgastric jejunostomy tube with IR - NPO until tube upgrade with IV fluids PRN - If he requests honey thickened liquid, which he rarely does, would engage speech pathology first - Continue home lansoprazole 30 mg BID # Hyponatremia - chronic - Admit sodium 130 mmol/L, baseline upper 120s-low 130s mmol/L # Anemia - macrocytic - Admit hemoglobin 9.6 g/dL (05/29/22) - had been 12.3 g/dL at OSH (05/26/22) - No apparent bleeding signs - Folate and ferritin wnl - Follow up pernicious anemia cascade # Osteoporosis - Continue home vitamin D # Chronic constipation - Continue home Miralax 17 g TIW Diet: NPO Tubes/lines: PIV VTE prophylaxis: enoxaparin Disposition: TBD - anticipate return to long-term Surrogate Decision Maker: Manisha herrera Stable to discharge criteria (not met): Vital signs, Tests/procedures/consults, and Acute care monitoring needs Plan discussed with [facility] Plant Operations Coordinator, Umang Mcdaniel M.D., who was present during payton portions of the evaluation today. Please page [place] [facility] [place] [phone] with any questions. Associated attestation - Umang Gibson M.D. - 05/30/2022 7:47 PM CDT Today is hospital day #2. We are continuing antibacterial and chest drain evacuation of left pleural space. We appreciate the assistance of our interventional pleural and neurology and nutrition colleagues in his care. The rest per Dr. Crane. This is a supervisory note for Dr. Crane. I have discussed the case with her and I agree with her history, physical exam, assessment, and plan as documented in her note of today's date. I have also personally interviewed and examined the patient today. Umang Gibson M.D. ([id number]) * Kenia Cardenas, YELENA, LD - 05/29/2022 3:46 PM CDT Nutrition Support Service Patient evaluated by Nutrition Support Service with Dr. Rafael Bertrand Nutrition Support Service consulted for complex nutrition management. SUBJECTIVE Mr. Vogt is a 57 y.o. 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 gastroesophageal reflux with prior severe reflux esophagitis, hiatal hernia, osteoporosis. G-tube for aspiration since [id number]. Current Nutrition (since admission): NPO so far this admission. Discussed the feeding differences with family when converting back to a post-pyloric tube. Nutrition history: history of TGJ previously but due to issues with the tube clogging they converted to a G-tube. Feeds were going well until the past few weeks when the patient was having emesis. Pthistorically has had issues with urinary retention so family has been increasing fluids and feel the 1200 ml/day has been going well. DME is [facility] care. Tube feeds are the patients sole source of nutrition. Enteral Nutrition Prior to Admit Formula: Nutren 1.5 Tube patency flush: Other (Comment) Enteral Access: 20French 2.3cm KOLTON G-Tube, replaced 05/15 by local MD Method of Administration: Intermittent Feeding Schedule: 250 QID Free water: 120ml before and after feeds (8 flushes/day) 30ml with meds (4x/day) total of 1200mL/day Enteral Nutrition Provides: 1500 calories, 68g protein. Other (Comment): Tube feeding regimen decreased to 4 cans a few months ago as patient was gaining weight OBJECTIVE Current nutrition orders: Current Diet No oral nutrition, no tube feeding starting at 05/28 1728 Nutrition Focused Physical Assessment and Malnutrition Assessment Average estimated Intake: No Change Weight Loss: No Change (per family report) Body Fat: Normal Muscle Mass: Normal ANTHROPOMETRICS: Height: 172.7 cm (05/28/2022) Current Weight: Ola Body Weight (Calculated) : 68.1 kg Wt Hx: 03/31/22 73.5 kg (162 lb 12.8 oz) -weighed on wheelchair, wheelchair wt 28.7 kg (corrected wt of 44.8 kg 09/16/21 74.4 kg (164 lb) 08/13/20 68.8 kg (151 lb 9.6 oz) 01/24/19 67.7 kg (149 lb 4.8 oz) 05/10/18 67.7 kg (149 lb 4.8 oz) ESTIMATED NEEDS: Total Calorie Needs: 2211-6999 calories/day Method to Estimate Energy Needs: [place]jeda-B[place] (Basal to Basal + 10%) Weight Used for Equation Calculations: 44.8 kg (previous estimated weight) Total Protein Needs: 45 - 67 grams/day Method to Estimate Protein Needs (g/kg): 1 - 1.5 gm/kg Weight Used to Calculate Protein Needs (Kg): 44.8 kg NUTRITION DIAGNOSIS: Altered GI function related to hiatal hernia as evidenced by need for modification in tube feeding support regimen NUTRITION PLAN/MONITORING/EVALUATION: Interventions: Enteral nutrition, Collaboration and referral of nutrition care Monitoring: Enteral, Fluid Balance, Pertinent Labs, Nausea/Vomiting/Diarrhea ASSESSMENT / PLAN Patient meets ASPEN/AND criteria for No data recorded RECOMMENDATIONS: Please see Dr. Bertrand's note for final recommendations and plan of care. Tube feeding recommendations: Nutren 1.5, start at 20 mL/hr and advance 10 mL q 8 hours to goal of 40 mL/hr continuous. Free water flushes 120 ml 8 x per day Provides 1440 kcal, 65 g protein, and meets 96% of the Reference Daily Intake of vitamins and minerals per day. 3. HEN consulted for updated tube feeding supplies. Nutrition Support Service ([facility]) will continue to follow. Page [phone] with questions. * Amaury Velazquez M.D., M.S. - 05/29/2022 11:52 AM CDT Neurology [facility] note This is a [facility] neurology consult note. The patient was not see in person or examined by me. Historywas obtained through chart review and speaking with the primary service. Briefly, Mr. Gonzales is a 57-year-old M with PMHx significant for Marcos- Gastaut syndrome with severe epilepsy s/p corpus callosum resection and vagal nerve stimulator who is on numerous seizure medications. I did not see the patient in person given that there is no emergencies in the primary service wanted to touch base regarding patient's seizure action plan and antibiotic regimen in the setting of aspiration pneumonia. Review our colleague, Dr. Butterfield's note and agree with her seizure action plan - listed below foryour convenience: - Continue home antiseizure medication regimen - Carbamazepine 200 mg at 730, 1130, 1700 - Carbamazepine 400 mg at 2030 - Lamotrigine 100 mg at 800, 1200, 1730 - Lamotrigine 200 mg at 2100 - Rufinamide 1,200 mg at 800, 1200, 1730, and 2100 - If seizure lasting less than 90 seconds - No lorazepam needed; it is common for him to have a few minor < 90 second seizures per day - If seizure lasting 90 seconds up to 5 minutes - Notify service - Administer home lorazepam 1 mg concentrated solution buccal or lorazepam 1 mg IV - If seizure lasting > 5 minutes or if seizures are not aborted despite giving rescue: - Call PORTFOLIO ARCHITECT and STAT neurology consult - Implement status epilepticus protocol including Lorazepam 4 mg IV STAT for 1 dose. If no responsein 5 minutes, give a second dose up to total dose of 0.1 mg/kg (maximum total dose 8 mg) as needed At this time seizures are likely provoked in the setting of recent aspiration PNA. Recommendations: - Would recommend obtaining baseline ASM trough levels (to be collected 30 minutes prior to dosing for her ASMs. - If concerned for prolonged seizures, follow seizure action plan above and notify us. This case was discussed with Dr. Naranjo. Please page [phone] with any questions regarding our recommendations. Amaury Velazquez M.D. Neurology Resident PGY-4 [facility] * Deedee Pierre M.D. - 05/29/2022 11:26 AM CDT IP PROGRESS NOTE PATIENT SUMMARY: 57 year old male with cerebral palsy, epilepsy, and PEG tube dependence admitted for further evaluation of a large hiatal hernia near his PEG tube site and aspiration pneumonia with left pleural effusion. He underwent outside thoracentesis on 05/27 (1L was removed - 15 000 RBC, 52% neutrophils, glucose 119, total protein 4.5, LDH 471, amylase < 30, cholesterol 95). We placed a left 14 Fr pigtail catheter on 05/28 with 970cc serous fluid out immediately w initial gram stain being negative. INTERVAL EVENTS: states he feels better and that his breathing is better. Pigtail had some resistance with flushing which we were able to overcome. It was also kinked where a second flexitrak was attached. We removed this and the kink resolved. CXR shows improved aeration in LLL. Remains on ceftriaxone and metronidazole. LIMITED LUNG ULTRASOUND: moderate residual left pleural effusion with septations. Images in QREADS. ASSESSMENT: #1 Aspiration pneumonia complicated by left parapneumonic effusion #2 S/P 14 Fr locking loop pigtail 05/28 for #1 PLAN: Clinically improving after pigtail placement. We ordered 2 doses of lytics today to fully evacuate the residual loculated pleural effusion. Please continue leaving pigtail to -20 suction between lytic administration and order daily AM CXR. Antibiotics per primary team. We will continue to follow[place] [phone] for further questions. Patient seen and discussed with Dr. Moreno. Deedee Pierre M.D. Pulmonary Critical Care Fellow Associated attestation - Cristopher Moreno M.D. - 05/29/2022 3:43 PM CDT I have independently interviewed and examined Mr. Vogt . I have reviewed available objective studies and consultations. I discussed the plan of care with the primary service, and have reviewed and agree with the findings, assessment, and plan as outlined in the note of Dr. Pierre of the Interventional Pulmonary service dated 29 May 2022. Briefly Mr. Vogt is a 57-year-old male hospital day 1 who comes to us from a long-term. He is a history of a seizure disorder with concomitant cognitive delay and recurrent episodes of emesis. He is admitted with aspiration pneumonitis and left parapneumonic pleural effusion that appears uncomplicated with a pH 7.42 and a glucose of 85. LDH is 319 with a total protein of 4.3 and triglycerides are 32. G stain is negative and cultures have not demonstrated growth. The patient has been started on ceftriaxone and metronidazole. Of a left 14 [place] locking loop thoracostomy tube yesterday with 970 cc of output. He is feeling much improved today. Chest x-ray suggests redistribution rather than resolution of the left effusion. I performed bedside thoracic ultrasound. This continues to demonstrate a left moderate pleural effusion with a few thin septations. The thoracostomy tube flushes with difficulty and it does not appear that has been flushed by nursing staff. Images have been captured stored and downloaded to [facility]. Tubes Left 14 [place] locking loop thoracostomy tube (28 May 2022) I/R/P #1 Left uncomplicated parapneumonic effusion: By ultrasound there is at least moderate persistent pleural effusion on the left in part possibly related to lack of adequate flushing. The thoracostomy tube does flush with difficulty however we have been able to reestablish patency. By ultrasound however I do appreciate a few thin septations today and so we will initiate intrapleural thrombolysis with 2 doses administered. I believe that will be sufficient to optimally evacuate the left pleural space. In the meantime please keep the thoracostomy tube to -20 cm water pressure and flush per protocol. We will continue to follow. #2 Aspiration pneumonitis #3 History of seizure disorder with cognitive delay and recurrent episodes of emesis * Antonia Carreon Pharm.D., R.Ph. - 05/29/2022 10:49 AM CDT Images from the original note were not included. Admission Medication History Note Adherence issues: Unable to assess Medication list source: Outside facility faxed medication list - from [facility] in [place], [place] Prior to Admission Medications Med List Status: Pharmacy Complete Set By: Antonia Carreon Pharm.D., R.Ph. at 05/29/2022 10:49 AM Taking? Last Dose Informant Start Date End Date LT acetaminophen (TYLENOL) 500 mg/15 mL liquid -- -- -- -- Administer 1,000 mg via gastric tube every 6 (six) hours as needed for pain. bisacodyL (DULCOLAX) 10 mg suppository -- -- -- -- Insert 10 mg into the rectum daily as needed for constipation (give weekly as needed for constipation). carBAMazepine (TEGretol) 200 mg/10 mL suspension -- -- 12/15/19 -- Administer 200-400 mg via gastric tube 4 (four) times a day. Administer 200 mg (10 mL) via gastric tube in the morning (07:30), noon, evening (17:00). Take 400 mg (20 mL) at bedtime (20:30). cholecalciferol (VITAMIN D3) 10 mcg/mL (400 Unit/mL) drops -- -- 05/12/22 -- Administer 5 mL via gastric tube daily. citalopram (CeleXA) 10 mg/5 mL solution -- -- -- -- Administer 20 mg via gastric tube daily. 10 mL (20 mg) ferrous sulfate 220 mg (44 mg iron)/5 mL solution -- -- 01/16/22 -- Administer 5 mL via gastric tube daily with dinner. 17:00 fluticasone propionate (FLONASE) 50 mcg/actuation nasal spray -- -- -- -- Administer 2 sprays into each nostril daily. hydrocortisone (PROCTOCORT) 1 % rectal cream -- -- -- -- Insert 1 Application into the rectum 2 (two) times a day as needed (swelling or bleeding of external hermorrhoid). lamoTRIgine (LaMICtaL) 100 mg tablet -- -- 05/28/17 -- Administer 100-200 mg via gastric tube 4 (four) times a day. Take 100 mg (1 tablet) by gastric tubein the AM (08:00), noon, and at dinner (17:00). Take 200 mg (2 tablets) at bedtime (21:00). lansoprazole (PREVACID SOLUTAB) 30 mg disintegrating tablet -- -- 01/10/19 -- 30 mg 2 (two) times a day before breakfast and dinner. Dissolve 1 tablet in small amount of water and give via G-tube 30 minutes before morning and evening meal (07:00, 17:00) loratadine (CLARITIN) 5 mg/5 mL solution -- -- 01/03/22 -- Administer 10 mL via gastric tube daily. LORazepam (ATIVAN) 2 mg/mL concentrated solution -- -- -- -- Apply 1 mg to cheek as needed for seizures (for seizures lasting mor gonzalo 90 seconds or for more than 3 seizures in 6 hours). Follow Seizure Plan of Care polyethylene glycol (MIRALAX) 17 gram powder packet -- -- 05/29/22 -- Take 17 g by mouth 3 (three) times a week. May give additional doses as needed for constipation. Dissolve each 17 g dose in 240 mLs (8 ounces) of beverage. pseudoephedrine (SUDAFED) 60 mg tablet -- -- -- -- Administer 60 mg via gastric tube every 6 (six) hours as needed for congestion. Crush and mix with water rufinamide (BANZEL) 40 mg/mL suspension -- -- 09/16/21 -- Administer 1,200 mg via gastric tube 4 (four) times a day. Administer 30 ml in AM, 30 ml at noon, 30 ml in evening and 30 ml at bedtime (08:00, noon, 17:00, 21:00). sennosides 8.8 mg/5 mL syrup -- -- -- -- Administer 5 mL via gastric tube daily as needed (if no BM for 3 days for constipation). sodium chloride 1 gram tablet -- -- 02/07/22 -- Administer 1 g via gastric tube 3 (three) times a day. terbinafine (LamISIL) 1 % cream -- -- -- -- Apply 1 Application topically daily as needed. Apply to reddened skin around stoma after cleansing. * Antonia Carreon PharmLedy, R.Ph. 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 Was on clindamycin at OSH, switched to ceftriaxone and metronidazole here on 05/28. 05/26 pleural fluid culture pending. Epilepsy: Continues carbamazepine, lamotrigine, rufinamide. FEN: NPO and holding tube feeds for now due to aspiration concerns. NSS consulted. Antonia Carreon Pharm.D., R.Ph. [phone] * Latoya Crane M.D. - 05/29/2022 6:59 AM CDT [facility] PROGRESS NOTE SUBJECTIVE - Afebrile, hemodynamically stable - Requiring supplemental O2 at 2 L/min - Chest tube with 970 mL output on -20 suction - Responds no when asked about pain, sister has not noted any signs of distress - Breathing more comfortably I have reviewed the current medication list. OBJECTIVE VITAL SIGNS Temperature: [36.3 ??C-37.3 ??C] 36.6 ??C Resp Rate: [16-24] 16 Blood Pressure: (90-110)/(50-69) 97/53 SpO2: [92 %-97 %] 96 % Flow Rate (L/min): [1 L/min-2 L/min] 1 L/min Pulse Rate: [72-104] 83 PHYSICAL EXAM General: Resting on bed; does not appear to be in pain MSK: Thoracic kyphosis Neurologic: Alert. Spastic dysarthria. Follows simple commands, answer simple questions, and short phrases. Bilateral spasticity L > R Cardiovascular: Warm and well-perfused. Normal rate, regular rhythm. No significant lower extremityedema. Respiratory: Pleural catheter in place Abdominal: Abdomen is soft, non-distended, and non-tender. No guarding, rebound, or rigidity. Normal bowel sounds. Psychiatric: Grossly normal thought process and content. DIAGNOSTICS I have personally reviewed the laboratory data and imaging since admission, and in/outs for past 72hours. Outside thoracentesis (05/26/22): 1150 mL fluid removed that was clear yellow. 15,000 RBCs, 3,292 WBCs, 52% PMNs, glucose 119 mg/dL, total protein 4.5 g/dL, LDH 471 U/L, amylase < 30 U/L, cholesterol 95 mg/dL. Pleural fluid studies prior to pleural catheter placement (05/29/22): Grossly bloody, pH 7.42, negative gram stain, pending culture*, TNC 2178, neutrophils 58%, lymphocytes 30%, 12% monocytes, LDH 319, protein 4.3, triglycerides 32, glucose 85 ASSESSMENT / PLAN Mr. Vogt is a 57 y.o. male with intellectual disability, cerebral palsy, [place]-Gastaut syndrome with severe epilepsy despite prior corpus callosum section and vagal nerve stimulator placement, prior right-sided loculated empyema requiring chest tube in the setting of aspiration status post G tube (2018), gastroesophageal reflux with prior severe reflux esophagitis, hiatal hernia, osteoporosis. Admitted 05/29/22 with aspiration pneumonia with a large pleural effusion concerning for empyema. A pleural catheter was placed 05/28/22 and he is on intravenous antibiotics. # Acute hypoxia # Suspected aspiration pneumonia # Left pleural effusion - moderate-large, recurrent despite thoracentesis at OSH (05/26/22) - exudative, suspect parapneumonic vs empyema # Prior right-sided loculated empyema requiring chest tube (2018) - Antimicrobial therapy (no recent hospitalizations or antibiotics): - Status post brief treatment with clindamycin and ertapenem at OSH - Continue Ceftriaxone 2 g IV and metronidazole - duration TBD pending pleural fluid studies - Reviewed antibiotic selection for seizure threshold lowering - Pleural effusion - Status post thoracentesis at OSH (05/26/22): 1150 cc fluid removed, neutrophil predominant and exudative by LDH and protein criteria. - Pleural catheter (05/27/22): Brisk output noted immediately after placement. Repeat pleural fluid analysis with neutrophil-predominant, exudative fluid with reassuring pH. Gram stain negative and bacterial cultures in process. - Plan for lytics today to evacuate residual loculated effusion - Maintain catheter on -20 cm H2O suction between lytic administration, flush with 10 cc TID, and obtain daily CXR - Supplemental oxygen PRN # Intellectual disability # Cerebral palsy - At baseline he uses a wheelchair for mobility and is dependent in most of his activities of dailyliving. He is transferred with a lift chair and Ilene. He sleeps on a hospital bed. He uses incontinence products. All of his cares and medications are provided to him by his caregivers. - He is able to answer simple questions and articulate some needs, although it is sometimes difficult for the unfamiliar listener to understand his speech due to spastic dysarthria. His sister statesthat if he is in pain he will say ow and usually indicate the issue. 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 - Followed closely by local neurologist in [place] - Seizure precautions in place - Continue home antiepileptic regimen - Carbamazepine 200 mg at 730, 1130, 1700 - Carbamazepine 400 mg at 2030 - Lamotrigine 100 mg at 800, 1200, 1730 - Lamotrigine 200 mg at 2100 - Rufinamide 1,200 mg at 800, 1200, 1730, and 2100 - If seizure lasting less than 90 seconds - No lorazepam needed; it is common for him to have a few minor < 90 second seizures per day - If seizure lasting 90 seconds up to 5 minutes - Notify service - Administer home lorazepam 1 mg concentrated solution buccal or lorazepam 1 mg IV - If seizure lasting > 5 minutes OR home rescue medication does not abort seizure - Call PORTFOLIO ARCHITECT and STAT neurology consult - Implement status epilepticus protocol including Lorazepam 4 mg IV STAT for 1 dose. If no responsein 5 minutes, give a second dose up to total dose of 0.1 mg/kg (maximum total dose 8 mg) as needed # Chronic aspiration # Status post gastrostomy tube # Gastroesophageal reflux with prior severe reflux esophagitis # Hiatal hernia # Alfredo reflux of enteral contrast on outside study - He will be NPO as we gather more information - intravenous fluids as needed - If he requests honey thickened liquid, which he rarely does, would engage speech pathology first - Will hold on tube feeds tonight - Will engage our nutrition support team to help us understand if there are further modifications which can be made to his enteral nutrition delivery to prevent recurrent aspiration - Continue home lansoprazole 30 mg BID # Hyponatremia - chronic - Admit sodium 130 mmol/L, baseline upper 120s-low 130s mmol/L # Anemia - macrocytic - Admit hemoglobin 9.6 g/dL (05/29/22) - had been 12.3 g/dL at OSH (05/26/22) - No apparent bleeding signs - Obtain B12, folate, iron studies # Osteoporosis - Continue home vitamin D # Chronic constipation - Continue home Miralax 17 g TIW Diet: NPO Tubes/lines: PIV VTE prophylaxis: enoxaparin Disposition: TBD - anticipate return to long-term Surrogate Decision Maker: Manisha herrera Stable to discharge criteria (not met): Vital signs, Tests/procedures/consults, and Acute care monitoring needs Plan discussed with [facility] Plant Operations Coordinator, Umang Mcdaniel M.D., who was present during payton portions of the evaluation today. [place] page [place] [facility] [place] [phone] with any questions. Associated attestation - Umang Gibson M.D. - 05/29/2022 8:19 PM CDT He is transferred from outside hospital for management aspiration pneumonia and large left-sided parapneumonic effusion for which he now has pigtail chest drain in place. Pleural fluid studies show pH of 7.42 and are exudative. The patient is receiving antibacterials for suspected pneumonia and there has been no microbial growth from pleural fluid culture at this time. The patient is breathing more comfortably and demonstrates substantial subjective improvement with placement of chest drain and antibacterial treatment of infection. He will likely require at least several more days of hospitalization to evacuate the pleural effusion and he will not be ready for discharge until the chest drain can be removed. We discussed with the patient's caregiver at bedside. He has longstanding history of epilepsy and she describes variable frequency of seizures that can occur several times per day at worse. We will discuss with our Neurology colleagues and define an action plan for seizures may occur during this hos pitalization. We will discuss with our nutrition colleagues whether any alterations and tube feeding program or to repositioning may help reduce risk of future and further aspiration. The rest per Dr. Crane. This is a supervisory note for Dr. Crane. I have discussed the case with her and I agree with her history, physical exam, assessment, and plan as documented in her note of today's date. I have also personally interviewed and examined the patient today. Umang Gibson M.D. ([id number]) * Osiel Butterfield M.D., Ph.D. - 05/28/2022 7:30 PM CDT Marya note I was called by the primary service regarding seizure action plan for Lew Vogt who is a 57-year-old M with PMHx significant for Marcos-Gastaut syndrome with severe epilepsy s/p corpuscallosum resection and vagal nerve stimulator who is on numerous seizure medications. I did not seethe patient in person given that there is no emergencies in the primary service wanted to touch base regarding patient's seizure action plan and antibiotic regimen in the setting of aspiration pneumonia. Primary service informed me that they were able to confirm patient's current seizure medications with the caregiver. The following action plan as detailed below per their chart review: - Continue home antiepileptic regimen - Carbamazepine 200 mg at 730, 1130, 1700 - Carbamazepine 400 mg at 2030 - Lamotrigine 100 mg at 800, 1200, 1730 - Lamotrigine 200 mg at 2100 - Rufinamide 1,200 mg at 800, 1200, 1730, and 2100 - If seizure lasting less than 90 seconds - No lorazepam needed; it is common for him to have a few minor < 90 second seizures per day - If seizure lasting 90 seconds up to 5 minutes - Notify service - Administer home lorazepam 1 mg concentrated solution buccal or lorazepam 1 mg IV - If seizure lasting > 5 minutes or if seizures are not aborted despite giving rescue: - Call PORTFOLIO ARCHITECT and STAT neurology consult - Implement status epilepticus protocol including Lorazepam 4 mg IV STAT for 1 dose. If no responsein 5 minutes, give a second dose up to total dose of 0.1 mg/kg (maximum total dose 8 mg) as needed In addition, patient is currently on ceftriaxone due to aspiration pneumonia. In reviewing up-to-date, it mentions that ceftriaxone has a < 1% chance of increasing the seizure threshold. ThereforeI did discuss this case with pharmacy who recommended that as long as the primary service avoids carbapenems, Zosyn, and cefepime which have a drastic effect on increasing the seizure threshold. Theymentioned that ceftriaxone can be continued safely without need to change to a different antibioticagent. At this time, there is no concerns for breakthrough seizures. However, patients with underlying epilepsy disorder are at increased likelihood of developing breakthrough seizures when there are dealing with infection. Therefore, I did recommend that the primary service consult are nonemergent general neurology service in order to assist in developing a game plan in the event the patient were to develop breakthrough seizures. Dr. Osiel Butterfield M.D., Ph.D. Neurology Resident Physician, PGY-4 05/28/22 documented in this encounter H&P Notes * Latoya Crane M.D. - 05/28/2022 3:04 PM CDT [facility] Admission Note SUBJECTIVE CHIEF COMPLAINT Dyspnea HISTORY OF PRESENT ILLNESS Mr. Lew Vogt is a 57 y.o. male with intellectual disability, cerebral palsy, Marcos-Gastaut syndrome with severe epilepsy despite prior corpus callosum section and vagal nerve stimulator placement, prior right-sided loculated empyema requiring chest tube in the setting of aspirationstatus post G tube (2018), gastroesophageal reflux with prior severe reflux esophagitis, hiatal hernia, osteoporosis. Mr. Gonzales has intellectual disability. He lives at [facility] in [place], [place], a [facility] that provides housing and respite services to people with developmental and intellectual disabilities. At baseline he uses a wheelchair for mobility and is dependent in most of his activities ofdaily living. He is transferred with a lift chair and Ilene. He sleeps on a hospital bed. He uses in continence products. All of his cares and medications are provided to him by his caregivers. He mostly takes nothing by mouth, occasionally honey thickened liquid if he asks for this. For enteral nutrition, he utilizes [employer] 1.5, 250 mL containers, 1 container 4 times daily per gravity via G-tube. His sister, Manisha, is his primary decision maker. Over the past 1-2 weeks, he's had intermittent gagging, vomiting, and coughing sometimes after administration of medications or feeding. He then developed a cough and increased work of breathing withgrunting respirations. He initially presented to his family medicine physician on 05/26/22, her chest x-ray showed a left lower lobe density with a moderate left pleural effusion. He was ultimately diagnosed with aspiration pneumonia and started on liquid clindamycin via his G- tube. His sister was concerned that his liquid clindamycin was not being adequately absorbed due to vomiting. He was brought to [facility] on 05/27/22. Upon arrival, he was afebrile, mildly tachycardic, normotensive, and hypoxic requiring 2 L/min supplemental oxygen. Physical exam was notable for wheezing and tachypnea. Laboratory work was notable for markedly elevated CRP 22.1 mg/dL, hemoglobin 11.5 g/L, leukocytosis 14K, hyponatremia 128 mmol/L, creatinine 0.3 mg/dL, mildly elevated AST 69, mildly elevatedALT 53, total bilirubin 0.7. Negative COVID/influenza/RSV. Chest X-ray showed a left pleural effusion. CT chest showed a large left pleural effusion with left lower lobe atelectasis. There were also interstitial and ground glass opacities in the right lung base and a nodular opacity measuring 1.4 cm in the medial right upper lobe He was administered intravenous clindamycin, steroids, and DuoNebs. He underwent thoracentesis [id number] mL fluid removed that was clear yellow. Pleural fluid studies with 15,000 RBCs, 3,292 WBCs, 52% PMNs, glucose 119 mg/dL, total protein 4.5 g/dL, LDH 471 U/L, amylase < 30 U/L, cholesterol 95 mg/dL. Subsequent to thoracentesis, his respiratory effort improved and he appeared more comfortable. The following day however, his chest X-ray showed reaccumulation of his effusion and his symptoms had accordingly increased. While inpatient, he underwent a CT abdomen pelvis with enteric contrast via PEG which confirmed appropriate placement. He did have a large hiatal hernia and obvious reflux of contrast material. Ultimately the decision was made to transfer him to [facility] for further evaluation and management of his recurrent pleural effusion. Upon arrival, he has tachypnea and grunting respirations. He is currently utilizing 2 L/min of supplemental oxygen. He is able to answer simple questions and able to articulate some needs to his sister although it is difficult for the unfamiliar listener to understand his speech due to spastic dysarthria. His sister states that if he is in pain he will say ow and usually indicate the issue. His sister recalls that he had a similar presentation in 2018, when he had an aspiration pneumonia with a large pleural effusion which required drainage. She says this is when his feeding tube was placed. Regarding his seizure history, he has both tonic seizures where his body stiffens and his curls (usually lasting < 30 seconds) and tonic-clonic seizures where he convulses (usually lasting > 30seconds). She says his more minor seizures can happen a few times per day and his more serious seizures can happen a couple times per week (last around 3 days ago). For more prolonged seizures, buccal lorazepam is utilized. She provides a medication list which was reconciled here. She affirms DNR/DNI status. At his long-term, they are instructed that if he has a seizure his airway can be cleaned and opened but no CPR is to be attempted. Social history: He is a lifelong non-smoker, does not drink alcohol, and does not use other substances. Current Outpatient Medications on File Prior to Encounter: carBAMazepine (TEGretol) 200 mg/10 mL suspension, Administer 200-400 mg via gastric tube 4 (four) times a day. Administer 200 mg (10 mL) via gastric tube in the morning, noon, evening. Take 400 mg (20 mL) at bedtime. cholecalciferol (VITAMIN D3) 10 mcg/mL (400 Unit/mL) drops, Administer 5 mL via gastric tube daily. ferrous sulfate 220 mg (44 mg iron)/5 mL solution, lamoTRIgine (LaMICtaL) 100 mg tablet, Administer 100-200 mg via gastric tube 4 (four) times a day. Take 100 mg (1 tablet) by gastric tube in the AM, noon, and at dinner. Take 200 mg (2 tablets) at bedtime. lansoprazole (PREVACID SOLUTAB) 30 mg disintegrating tablet, 30 mg 2 (two) times a day. Dissolve 1 tablet in small amount of water and give via G-tube 30 minutes before morning and evening meal loratadine (CLARITIN) 5 mg/5 mL solution, Administer 10 mL via gastric tube daily. rufinamide (BANZEL) 40 mg/mL suspension, Administer 30 ml in AM, 30 ml at noon, 30 ml in evening and 30 ml at bedtime. sodium chloride 1 gram tablet, Administer 1 g via gastric tube 3 (three) times a day. acetaminophen (TYLENOL) 500 mg/15 mL liquid, Administer 1,000 mg via gastric tube every 6 (six) hours. citalopram (CeleXA) 20 mg tablet, Take 20 mg by mouth daily. fluticasone propionate (FLONASE) 50 mcg/actuation nasal spray, Administer 2 sprays into each nostril daily. [START ON 05/29/2022] polyethylene glycol (MIRALAX) 17 gram powder packet, Take 17 g by mouth 3 (three) times a week. Dissolve each 17 g dose in 240 mLs (8 ounces) of beverage. OBJECTIVE VITAL SIGNS Temperature: [36.8 ??C] 36.8 ??C Resp Rate: [20-24] 20 Blood Pressure: (107-110)/(66-69) 110/66 SpO2: [96 %-97 %] 97 % Flow Rate (L/min): [2 L/min] 2 L/min Pulse Rate: [97-104] 97 PHYSICAL EXAM General: Resting on bed; does not appear to be in pain MSK: Thoracic kyphosis Neurologic: Alert. Spastic dysarthria. Follows simple commands, answer simple questions, and short phrases. Bilateral spasticity L > R Cardiovascular: Warm and well-perfused. Normal rate, regular rhythm. No significant lower extremityedema. Respiratory: Tachypnea, grunting Abdominal: Abdomen is soft, non-distended, and non-tender. No guarding, rebound, or rigidity. Normal bowel sounds. Psychiatric: Grossly normal thought process and content. DIAGNOSTICS I have reviewed the pertinent diagnostics from admission. ASSESSMENT / PLAN # Acute hypoxia # Suspected aspiration pneumonia # Left pleural effusion - moderate-large, recurrent despite thoracentesis at OSH (05/26/22) - exudative, suspect parapneumonic vs empyema # Prior right-sided loculated empyema requiring chest tube (2018) - Antimicrobial therapy (no recent hospitalizations or antibiotics): - Status post brief treatment with clindamycin and ertapenem at OSH - Initiate Ceftriaxone 2 g IV and metronidazole - duration TBD pending pleural fluid studies - Reviewed antibiotic selection for seizure threshold lowering - Will engage interventional pulmonology today to collect repeat pleural fluid studies and cultures - Supplemental oxygen PRN # Intellectual disability # Cerebral palsy - At baseline he uses a wheelchair for mobility and is dependent in most of his activities of dailyliving. He is transferred with a lift chair and Ilene. He sleeps on a hospital bed. He uses incontinence products. All of his cares and medications are provided to him by his caregivers. # Marcos-Gastaut syndrome with severe epilepsy - Followed closely by local neurologist in [place] - Seizure precautions in place - Continue home antiepileptic regimen - Carbamazepine 200 mg at 730, 1130, 1700 - Carbamazepine 400 mg at 2030 - Lamotrigine 100 mg at 800, 1200, 1730 - Lamotrigine 200 mg at 2100 - Rufinamide 1,200 mg at 800, 1200, 1730, and 2100 - If seizure lasting less than 90 seconds - No lorazepam needed; it is common for him to have a few minor < 90 second seizures per day - If seizure lasting 90 seconds up to 5 minutes - Notify service - Administer home lorazepam 1 mg concentrated solution buccal or lorazepam 1 mg IV - If seizure lasting > 5 minutes OR home rescue medication does not abort seizure - Call [facility]CH[facility] and STAT neurology consult - Implement status epilepticus protocol including Lorazepam 4 mg IV STAT for 1 dose. If no responsein 5 minutes, give a second dose up to total dose of 0.1 mg/kg (maximum total dose 8 mg) as needed # Chronic aspiration # Status post gastrostomy tube # Gastroesophageal reflux with prior severe reflux esophagitis # Hiatal hernia # Alfredo reflux of enteral contrast on outside study - He will be NPO tonight as we gather more information - If he requests honey thickened liquid, which he rarely does, would engage speech pathology first - Will hold on tube feeds tonight - Will engage our nutrition support team to help us understand if there are further modifications which can be made to his enteral nutrition delivery to prevent recurrent aspiration - Continue home lansoprazole 30 mg BID # Hyponatremia - chronic - Admit sodium 130 mmol/L, baseline upper 120s-low 130s mmol/L # Osteoporosis - Continue home vitamin D # Chronic constipation - Continue home Miralax 17 g TID Diet: NPO Tubes/lines: PIV VTE prophylaxis: enoxaparin Code status: DNR/DNI Surrogate Decision Maker: Manisha herrera Disposition: TBD - anticipate return to long-term Associated attestation - Jonnathan Roger Jr., M.D. - 05/28/2022 8:08 PM CDT I saw and evaluated the patient, participating in the payton portions of the service. I reviewed Dr. Latoya Crane's note and I agree with her findings and plan. He is a 57-year-old male intellectual disability admitted for aspiration pneumonia the large pleural effusion concerning for empyema. Plan for thoracentesis or tube placement and IV antibiotics. documented in this encounter Procedure Notes * Deedee Pierre M.D. - 05/28/2022 5:29 PM CDTAssociated Order(s): Pleural Drains Post-Procedure Diagnose(s): Effusion Pleural Pleural Drains Performed by: Deedee Pierre M.D. Authorized by: Tonya Platt M.D. PROCEDURE DETAILS Needle decompression: no Placement location: left posterior Intercostal space: 6th Tube type: pigtail Insertion of wire with dilators: yes Tube size (Fr): 14 Locking loop: yes Tube connected to drainage device at: -20 suction Drainage characteristics: serous Ultrasound image guidance used to localize target, identify at risk structures, and dynamically used to direct therapy to the target. Image(s) acquired and saved. CONSENT Consent obtained: written (Risks, benefits and alternatives were discussed and a written Informed Consent was obtained. Please see Informed Consent form for further details.) UNIVERSAL PROTOCOL All relevant documentation and testing were reviewed and available. All required blood products, implants, devices and or special equipment were made available as applicable. Pre-procedure verification was conducted and the correct site was marked if required. A fire risk assessment was done as applicable. The procedural time-out to verify correct patient, correct side/site, and procedure was conducted prior to performing the procedure and confirmed in a procedural pause. PRE-PROCEDURE DETAILS Indications: empyema Appropriate hand hygiene, gown, cap, mask, protective eyewear, sterile gloves, skin preparation, sterile drape, and strict aseptic technique were utilized as applicable for the procedure. Site preparation: chlorhexidine SEDATION / ANESTHESIA Anesthesia method: local infiltration Local infiltrate type: lidocaine POST-PROCEDURE DETAILS Post-insertion x-ray performed: yes X-ray findings: pending Procedure successful: yes Complications: no apparent complications ATTESTATION STATEMENT A resident or fellow participated in the procedure, and the x ray consultant was present for the entire procedure. Associated attestation - Tonya Platt M.D. - 05/29/2022 8:43 AM CDT I was present for the entirety of the procedure. documented in this encounter Consult Notes * Mary Lance M.S., RDN, LD - 06/01/2022 4:43 PM CDTAssociated Order(s): IP CONSULT TO HOME ENTERAL SERVICE Received consult for Home Enteral Nutrition supply arrangements. Reviewed patient's medical record. Please see nutrition assessment and tube feeding recommendationsfrom the Nutrition Support Service Team in their note dated 06/01/22. Reason for tube feeding: aspiration pneumonia, dysphagia. Tube information: Converted from G-tube to 22 [place] Islander Gastrostomy-jejunostomy tube placed 05/31/22. Intervention Care Coordination In collaboration with the Nutrition Support Service Team who provided Patient and Patient's sister gathered information as patient has been using [facility] and his primary care provider has been writing his enteral nutrition orders. Home enteral nutrition updated his orders as he now transitioned to jejunal feedings and will need a feeding pump. Called and spoke with Estela at [facility], they received the updated orders. They are looking into pump delivery, HEN team waiting for a call back. Authorization on file to speak with DME/Infusion Company: yes Obtained patient's DME preference and sent referral. Details of supplies ordered: see Chart Review, Other Orders, DME Adult Enteral Nutrition. These orders are pended and need to be signed by primary service prior to dismissal in order for the DME supply company to deliver supplies. DME that will provide home enteral supplies: [facility], , . Follow-up Plan Hospital RD discussed with family if patient would like to follow up with HEN the visit would need to be in person in [place]. At this time family/patient will be following up with local provider. * Rj Villareal RLiliane. - 05/30/2022 12:46 PM CDT Discharge Planning Assessment SUBJECTIVE Assessment Information Referral Source: Early Screen for Discharge Planning Referral Name: ESDP score 10 Referral Reason: Discharge Planning Primary Language: Citizen Of [place] Maintenance Planning Clerk Services Used: No Person(s) present during interview: Person(s) Present During Interview: patient and sibling sister and guardian Manisha History of Present Illness #1 Effusion Pleural Social History Patient is a resident of a long-term with his sister as his guardian. Finance/Insurance Primary insurance: MEDICARE A AND B Secondary insurance: [place] MEDICAID Does the patient have any financial concerns? no benefits: No Advance Directives Legal Decision Maker: Guardian Advance Directives Status: None on file OBJECTIVE Baseline Functional Status Baseline Activities of Daily Living Mobility: Total assist, Wheelchair dependent Dressing: Dependent Feeding: Dependent Grooming: Dependent Toileting: Dependent Behavior: Pleasant, Oriented Communication: Talks Shopping: Dependent Transportation: Facility van Medication Management: Dependent Housekeeping: Dependent Meal Prep: Dependent Managing Finances: Dependent Assistive Devices: Wheelchair - power Baseline Services/Resources Primary care clinic and provider: Pcp None Reported Additional Resources: none Anticipated Needs Functional Status: Other (comment) (patient is a total assist at his long-term) Assistive Devices: Wheelchair - power Anticipated Modifications to the Patient's Home: None Transportation Needs: Support from family, Facility van Does the patient need discharge transport arranged?: No Phone Number for Ride/Caregiver: sister Marissa to transport back to long-term Anticipated Discharge Destination: Home or Self Care ([facility]) ASSESSMENT / PLAN Assessment: The stitcher set up operator automatic met with Lew Vogt to discuss his current hospitalization and home going needs. The patient was accompanied by sister, Manisha who is his guardian . The patient was an unreliable historian and therefore the stitcher set up operator automatic discussed patient's history, current hos pitalization, and discharge planning needs with his sister Manisha. Braxton was able to answer questions with the majority of the questions being answered by Manisha. Braxton is from a long-term in [place]. Both sisters Manisha and Arlene live in [place] also and oversee Braxton's care in the long-term.Braxton receives total care from his caregivers/staff. The role of stitcher set up operator automatic was reviewed.The patient's guardian reviewed his prior level of care and support system. The patient receives support from his sisters whom both live in [place]. . The patient's guardian described his living environment as a long-term . Housekeeping, grocery shopping, meal prep, and other household responsibilities have previously been completed by patient's caregiver(s). stitcher set up operator automatic discussed the patient's potential needs at dismissal based on their home setting, previous needs and responsibilities, homebound status, and relevant assessments with the patient's guardian. The patient will be safe and supported to return to a long-term when medically ready. Support will be provided by staff and family members. The patient's guardian demonstrated understanding when discussing his home going plans and anticipated needs. At this time, the care team has not identified any skilled post-hospital discharge care needs that require the assistance of the Care Management Team. After reviewing the patient's chart and meeting with the patient's guardian, the stitcher set up operator automatic deemed the LACE+/readmission questions were not necessary. The patient's guardian reports understanding that he will dismiss from the hospital when medically stable. Pending hospital course and medical readiness, no barriers to dismissal have been identifiedat this time. Plan: The patient's guardian agrees with the following plan. Patient's anticipated discharge disposition is: home to his long-term . Transportation upon dismissal will be provided by family--Manisha will transport patient back to his long-term upon discharge . [facility] in [place], [place] Director: Jared Angel [phone] stitcher set up operator automatic recommended nothing at this time. stitcher set up operator automatic provided information regarding the dismissal process. stitcher set up operator automatic placed or requested the following hospital-based consult orders and/or referrals: None. stitcher set up operator automatic will continue to assess for homegoing needs with the interdisciplinary team. stitcher set up operator automatic encouraged the patient to reach out with any questions/concerns. Signed by: Rj Villareal R.N. 05/30/2022 * Rafael Bertrand M.D. - 05/29/2022 2:58 PM CDTAssociated Order(s): Nutrition support service consult ([facility]) Nutrition Support Service Consultation REFERRAL: Nutrition support service consult ([facility]) Referring Provider: Latoya Crane M.D. SUBJECTIVE CHIEF COMPLAINT/REASON FOR VISIT Lew Vogt is a 57 y.o. male who Nutrition Support Service ([facility]) is asked to seen in consultation for gastrostomy tube exchange HISTORY OF PRESENT ILLNESS Patient resides in a long-term in [facility]. History from medical records and his sister Manisha who is primary decision maker for patient and present today. History of cerebral palsy, decrease cognitive function, severe epilepsy, and history of aspiration status post G-tube placement 2018 in the setting of GERD and hiatal hernia. Over the past several weeks he is had coughing with intermittent gagging and vomiting after administration of medications ortube feeding. 05/26 chest x-ray identified left lower lobe infiltrate. Patient diagnosed with aspiration pneumonia and initiated antibiotics and oxygen therapy for hypoxemia. During his [place] hospital stay CT abdomen/pelvis with contrast via the gastrostomy tube identified large hiatal hernia with reflux of contrast. Significant PMH: Large hiatal hernia, GERD, past history of aspiration pneumonia. Weight History: 60.5 kg 05/29/2022 72.6 kg 05/27/2022 74.4 kg 09/16/2021 Nutrition Needs: Based upon height of 172.3 cm and weight 65.8 kg, ideal body weight is 69.5 and estimated basal calorie needs 1440 calories. The following portions of the patient's history were also reviewed and updated as appropriate: allergies, current medications, family history, medical history, social history, surgical history, and problem list. BP 110/57 (BP Location: Left arm;Upper, Patient Position: Semi-recumbent) Pulse 75 Temp 36.2 ??C (Oral) Resp 16 Ht 172.7 cm SpO2 96% Results from last 7 days Lab Units 05/29/22 0011 SODIUM mmol/L 133* CHLORIDE mmol/L 98 CREATININE mg/dL 0.50* ESTIMATED GFR EGFR mL/min/BSA >90 BUN mg/dL 11 GLUCOSE S mg/dL 103 CALCIUM mg/dL 7.9* ALBUMIN g/dL 2.8* BILIRUBIN TOTAL mg/dL <0.2 ALK PHOS U/L 76 ALT U/L 45 AST U/L 29 PHYSICAL EXAM General: Lying sitting forward in bed Eyes: Nonicteric ENT: No thrush. Nasal cannula for O2 delivery Lungs: Nonlabored breathing Abdomen: Left upper quadrant gastrostomy tube site adjacent to lower ribcage. Mild erythema around the site. Gastrostomy 20 [place] Island[place] size tube fits loosely. Increased adiposity but noncushingoid. Nondistended, nontender, and without hepatosplenomegaly Musculoskeletal: Decreased muscle mass to the extremities. Patient has a stooped posture leaning tothe right while lying in bed. Extremities: Contracture deformities of the hands and wrists. No peripheral edema Skin: Noncushingoid Neuro-psych: Limited cognitive ability due to cerebral palsy. ASSESSMENT / PLAN I reviewed the patient's notes, clinical status, nutrition program and lab data. Would recommend the followin. Agree with exchange of gastrostomy tube to a low-profile transgastric jejunostomy tube in intervention Radiology. 2. Continuation of same tube feeding. NSS RD to follow with goal tube feeding recommendations. #1 Effusion Pleural Thank you for the consultation. Please page service [facility] [phone] with questions. * Rafael Bertrand M.D. - 05/29/2022 2:23 PM CDT Nutrition Support Service Consultation REFERRAL: Consults SUBJECTIVE CHIEF COMPLAINT/REASON FOR VISIT Lew Vogt is a 57 y.o. male who Nutrition Support Service ([facility]) is asked to seen in consultation for percutaneous gastrostomy for long-term tube feeding. HISTORY OF PRESENT ILLNESS History is from medical records and patient's sister Manisha present today. History of [place]-Gastaut syndrome, cerebral palsy, decrease cognitive ability, and severe epilepsy. He has been receiving nutrition through gastrostomy low profile tube (G-tube placed 2017). Historyof GERD and large hiatal hernia. Over the past few weeks he has had difficulty with coughing and vomiting after administration of medication through the feeding tube. Local chest x-ray 05/26 reported left lower lobe consolidation with left-sided effusion. Admission diagnosis that of aspiration pneumonia with left pleural effusion with acute hypoxia. Significant PMH: GERD, hiatal hernia, chronic reflux esophagitis with aspiration pneumonia. Weight History: 60.5 kg 05/29/2022 72.6 kg 05/27/2022 74.4 kg 09/16/2021 Nutrition Needs: BMI (Calculated) Calculated Energy Needs Using Equations Height: 172.7 cm (05/29/22 1300) The following portions of the patient's history were also reviewed and updated as appropriate: allergies, current medications, family history, medical history, social history, surgical history, and problem list. BP 110/57 (BP Location: Left arm;Upper, Patient Position: Semi-recumbent) Pulse 75 Temp 36.2 ??C (Oral) Resp 16 Ht 172.7 cm SpO2 96% Results from last 7 days Lab Units 05/29/22 0011 SODIUM mmol/L 133* CHLORIDE mmol/L 98 CREATININE mg/dL 0.50* ESTIMATED GFR EGFR mL/min/BSA >90 BUN mg/dL 11 GLUCOSE S mg/dL 103 CALCIUM mg/dL 7.9* ALBUMIN g/dL 2.8* BILIRUBIN TOTAL mg/dL <0.2 ALK PHOS U/L 76 ALT U/L 45 AST U/L 29 PHYSICAL EXAM General: Awakens sitting leaning forward in bed Eyes: Nonicteric ENT: No thrush. Nasal cannula for oxygen Lungs: Nonlabored breathing Abdomen: Left upper quadrant gastrostomy tube with mild erythema. Tube fits loosely. Abdomen nondistended, non tender and without palpable hepatosplenomegaly Musculoskeletal: Decreased muscle mass in upper extremities and apparent decrease in lower extremities. Extremities: Contraction deformities to fingers and risks of both hands. Skin: Noncushingoid Neuro-psych: Converses only minimally due to history of cerebral palsy. ASSESSMENT / PLAN I reviewed the patient's notes, clinical status, nutrition program and lab data. Would recommend the followin. Would agree with exchange of his current gastrostomy tube to a low profile transgastric jejunostomy tube in intervention Radiology. 2. No change to tube feeding. NSS will follow with you. #1 Effusion Pleural Thank you for the consultation. Please page service [facility] [phone] with questions. * Deedee Pierre M.D. - 05/28/2022 6:39 PM CDTAssociated Order(s): IP CONSULT TO INTERVENTIONAL PULMONOLOGY IP CONSULT NOTE CC: left pleural effusion HPI: 57 year old male with developmental delay, cerebral palsy, epilepsy, PEG tube dependent admitted for further evaluation of a large hiatal hernia near his PEG tube site and aspiration pneumonia with left pleural effusion. Patient was unable to provide history. His sister, is his guardian and told us that roughly 2 weeks ago he developed persistent vomiting and more recently trouble breathing.This prompted outpatient evaluation with a chest x-ray which showed a very large pleural effusion, left lower lobe atelectasis and ground-glass opacities consistent with pneumonia. He reportedly underwent thoracentesis 05/27 and 700 cc were removed, unfortunately I do not see results of this testing. Initial white blood cell count was 12 and he is afebrile. No Known Allergies Current Facility-Administered Medications Medication Dose Route Frequency Provider Last Rate Last Admin carBAMazepine suspension 200 mg (TEGretol) 200 mg gastric tube TID Latoya Crane M.D. And carBAMazepine suspension 400 mg (TEGretol) 400 mg gastric tube Daily Latoya Crane M.D. cholecalciferol 10 mcg/mL (400 Unit/mL) drops 50 mcg (VITAMIN D3) 50 mcg gastric tube Daily Latoya Crane M.D. [START ON 05/29/2022] citalopram solution 20 mg (CeleXA) 20 mg gastric tube Daily Latoya Crane M.D. ferrous sulfate 220 mg (44 mg iron)/5 mL elixir 44 mg of iron 44 mg of iron gastric tube Daily Latoya Crane M.D. [START ON 05/29/2022] fluticasone propionate 50 mcg/actuation nasal spray 2 spray (FLONASE) 2 spray each nostril Daily Latoya Crane M.D. lamoTRIgine tablet 100 mg (LaMICtaL) 100 mg gastric tube TID Latoya Crane M.D. And lamoTRIgine tablet 200 mg (LaMICtaL) 200 mg gastric tube Daily Latoya Crane M.D. lansoprazole suspension 30 mg (PREVACID) 30 mg gastric tube BID Latoya Crane M.D. lidocaine 1 % intrapleural solution 100 mg (XYLOCAINE) 100 mg intrapleural Q6H PRN Deedee Pierre M.D. loratadine solution 10 mg (CLARITIN) 10 mg gastric tube Daily Latoya Crane M.D. LORazepam concentrated solution 1 mg (ATIVAN) 1 mg buccal PRN Latoya Crane M.D. Or LORazepam injection 1 mg (ATIVAN) 1 mg intravenous PRN Latoya Crane M.D. [START ON 05/29/2022] polyethylene glycol powder packet 17 g (MIRALAX) 17 g gastric tube Once per day on Sun Latoya Crane M.D. rufinamide suspension 1,200 mg (BANZEL) 1,200 mg gastric tube 4x Daily Latoya Crane M.D. sodium chloride 0.9 % injection 10 mL 10 mL intravenous PRN Latoya Crane M.D. sodium chloride 0.9 % injection 3 mL 3 mL intravenous PRN Latoya Crane M.D. sodium chloride 0.9 % injection 3 mL 3 mL intravenous Q12H [facility] Latoya Crane M.D. sodium chloride tablet 1 g 1 g gastric tube TID Latoya Crane M.D. History reviewed. No pertinent past medical history. No past surgical history on file. No family history on file. LIMITED LUNG ULTRASOUND: large simple appearing left pleural effusion. No significant septations orloculations. Images in QREADS. ASSESSMENT: #1 Aspiration pneumonia complicated by left parapneumonic effusion #2 S/P 14 Fr locking loop pigtail 05/28 #3 Large hiatal hernia #4 Developmental delay He tolerated a bedside pigtail catheter placement pleural space. Fluid was serosanguineous. InitialpH is 7.45 with the remainder of his pleural studies pending. He has not yet been started on antibiotics. The degree of atelectasis on his left side is pleural effusion as well as his large hiatal hernia. PLAN: Please start this patient on antibiotics. Leave chest tube on -20 suction, flush with 10cc sterile saline TID, and order daily AM CXR. No plans for lytics tonight. We will continue to follow. Please page service pager [phone] for further questions. Deedee Pierre M.D. Pulmonary Critical Care Fellow Associated attestation - Tonya Platt M.D. - 05/28/2022 11:55 PM CDT I have independently interviewed and examined the patient. I have reviewed available objective studies and consultations. I discussed the plan of care, reviewed and agree with the findings, assessment, and plan as outlined in Dr. Deedee Jacobsen's note from today. ASSESSMENT / PLAN: #1 Left parapneumonic effusion status post thoracentesis on 05/27/22 and 14 Fr pigtail catheter placement on 05/28/22 #2 Left lower lobe pneumonia (likely aspiration-related) #3 Large hiatal hernia #4 Intellectual disability #5 [place]-Gastaut syndrome with severe epilepsy #6 Chronic nutritional support via PEG tube Mr. Gonzales is a 57 year old man who resides in a long-term in the setting of an intellectual disability, cerebral palsy, and severe epilepsy. History was provided by the patient's sister Manisha(goes by Tigre), who is extremely in tune with his complex medical history and recent medical cares. He has been struggling with vomiting and coughing after medication/tube feed administration over the past couple of weeks. Local evaluation demonstrated a left lower lobe consolidation and moderate left-sided effusion on CXR from 05/26 (though this film is not available for review). This prompted acourse of liquid clindamycin via his PEG tube though it is unclear how well this has been absorbed in light of recent vomiting. He presented to his local hospital yesterday and was found to be in respiratory distress. He underwent left-sided thoracentesis with 1150 cc fluid removal (fluid describedas slightly cloudy at the outside lab). The fluid was neutrophil predominant and exudative by LDH and protein criteria. pH was 8.5. Unclear whether Gram stain/bacterial cultures were sent per review of records in Media tab (no pleural fluid results in Care Everywhere either). He appeared more comfortable after the thoracentesis though unfortunately developed a worsening respiratory status severalhours later with periodic grunting noted. He was transferred to [place] for ongoing care. Bedside ultrasound showed a moderate-large, simple-appearing left-sided pleural effusion. We offered pigtail catheter placement given that he experienced such transient relief with thoracentesis alone. A 14 Fr pigtail catheter was placed at bedside and secured at 18 cm. Follow-up CXR shows that theradiopaque marker is superimposed over the chest wall (all side holes appear to be in pleural space) and partial evacuation of the left pleural effusion. Repeat pleural fluid analysis again shows neutrophil-predominant, exudative fluid with reassuring pH. Gram stain is negative and bacterial cultures are in process. We agree with the current antimicrobial plan (ceftriaxone and metronidazole). Will hold off on lytic administration given simple-appearing effusion and brisk chest tube output noted immediately afterplacement. Please maintain catheter on -20 cm H2O suction, flush with 10 cc TID, and obtain daily CXR. We will continue to follow. documented in this encounter Nursing Notes * Becky Bonner R.N. - 06/02/2022 4:43 PM CDT Shift Goals: Identify possible barriers to meeting goals/advancing plan of care: patient condition End of Shift Summary: Pt AVS went over with family. Pt UCO'd around 1600, IV removed around 1620. Pt off unit around 1645, nurse escorted pt to family and car. * Camila Jaimes R.N. - 06/01/2022 9:21 AM CDT Feeding Tube Site Care Indication for Consult: Initial post-replacement site check Tube Type and size: KOLTON low profile Transgastric jejunal ([facility] [employer] ([facility])) Size: 22 [place], 2.3 cm stoma length and 45 cm jejunal length. Connector Type: Small bore (ENFit) Date of tube replacement: 05/31/2022 Replaced by: Interventional Radiology Skin integrity at tube site: dry, intact, mild redness around the entire insertion site but the skin is intact. The tube sits in a abdominal fold. Pain at tube site: Denied pain at the tube site. Disc position: Disc was at desired distance from skin and did not need to be adjusted. (approximately 1/2 inch offskin and no pressure alfred from underside of disc) Final Tube marking visible at top of disc (face plate): This is a low profile tube, the stoma length is 2.3 cm Tube Rotation: Tube was not rotated due to tube type. This tube is not to be rotated. Tube insertion site was assessed and there was a small amount of juan colored drainage at the site. Gauze was present under the skin disc. The site was cleaned with soap and water and was left open toair. No bleeding or drainage was noted as site care was completed. A Flexi-Trak was placed to secure the low profile extension tubing to his abdomen. No hypergranulation tissue noted. Yeast not present. Recommendations: Site care to be completed per enteral feeding tube exit site care procedure. Leave insertion site open to air. Secure tube to abdomen with a tube montero (Flexi-Trak or other). Do not rotate tube. * Camila Jaimes R.N. - 05/29/2022 12:59 PM CDT REASON FOR VISIT Mr. Vogt was seen by the Nutrition Support RN today for a nursing assessment following a Nutrition Support Service consult for consideration of changing his KOLTON low profile G-Tube to a low profile TGJ Tube. Formal recommendations for enteric tube placement will be made following assessment by the Nutrition Support Service team and approval by the x ray consultant. OBJECTIVE The indication for tube placement is Neurologic disorder: Cerebral palsy and Other: Dysphagia with recurrent aspirations pneumonias. ASSESSMENT Is there any pertinent cardiovascular history? None Is there any pertinent GI medical history? GERD, Prior gastrostomy tube, and Hiatal hernia. Is there any pertinent GI/abdominal surgical history? PEG tube/G tube Is there a concern for altered cognition? yes Is there any pertinent neuro/musculoskeletal history? Cerebral palsy Is there any history of a GUN PROFILER Shunt? No Is there any history of head and neck surgery? no Does the patient have any restrictive movement of the head/neck? General limited mobility of head/neck Does the patient have a history of Obstructive Sleep Apnea (NAEEM)? no Does the patient have any supplemental oxygen needs? no Is the patient currently receiving radiation treatments? no Other pertinent medical history: none Is the patient currently ? Patient is male Does the patient have any current GI issues? None Does the patient have any skin issues? Drains/tubes Anesthesia considerations are: Aspiration risk Does the patient requires positive pressure support? no Positioning considerations are: None What is the status of patient's oral cavity? Clean, no debris If thrush present has treatment been started? N/A Medications: Is the patient on an anticoagulant/antiplatelet therapy? Yes; Name of medication: Lovenox 40 mg SQ daily. Decisions regarding if medication needs to be held for the procedure will be made by the primary service and in collaboration with the procedural area, if applicable. Pertinent lab values: Lab Results Component Value Date INR 1.1 01/05/2019 PT 14.4 (H) 01/05/2019 Lab Results Component Value Date PLT 515 (H) 05/29/2022 Lab Results Component Value Date WBC 11.0 (H) 05/29/2022 PLAN The patient will be assessed by the Nutrition Support Service for enteric tube placement recommendations. See Dr. Bertrand's note for final recommendations. * Camila Jaimes R.N. - 05/29/2022 12:49 PM CDT Feeding Tube Site Care Indication for Consult: Feeding tube site check Tube Type and size: Kolton Low Profile G-Tube. Size: 20 [place], 2.3 cm length Connector Type: Small bore (ENFit) Date of tube replacement: 05/15/2022 (His sister said he's has a abdominal feeding tube since 2015 or 2016.) Replaced by: his primary care doctor at [facility] Skin integrity at tube site: dry, intact, redness around the insertion site but no open skin noted.This tube is in a abdominal fold and hard to keep dry. Pain at tube site: No complaints of pain were noted as the site was assessed. Disc position: Disc was at desired distance from skin and did not need to be adjusted. (approximately 1/2 inch offskin and no pressure alfred from underside of disc) Final Tube marking visible at top of disc (face plate): 2.3 cm length of the low profile KOLTON. Tube Rotation: Tube was rotated one full turn. Tube insertion site was assessed and there was no amount of any drainage at the site. Gauze was notpresent under the skin disc. and was left open to air. No bleeding or drainage was noted as the site was assessed. No type of tube montero was in place as this is a low profile tube. No hypergranulation tissue noted. Yeast not present. Recommendations: Site care to be completed per enteral feeding tube exit site care procedure. Leave insertion site open to air. Rotate tube one full turn once per day. documented in this encounter Miscellaneous Notes * Hospital Course - Salina Sanchez M.D. - 05/30/2022 12:52 PM CDT Lew Vogt is a 57 y.o. 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 Braxton was transferred from an outside hospital on 05/29/22 with aspiration pneumonia with a large left sided parapneumonic pleural effusion. He initially presented with approximately 1-2 weeks of intermittent gagging, vomiting, and coughing sometimes after administration of medications or feeding. Zully developed a cough and increased work of breathing with grunting respirations. He was found to have hypoxia with a dense left lower lobe infiltrate concerning for aspiration pneumonia and a moderate left pleural effusion. At the outside hospital, he was treated with intravenous clindamycin, steroids, and DuoNebs. He underwent thoracentesis (05/26/22) with 1150 mL yellow cloudy fluid removed that was neutrophil predominant and exudative by LDH and protein criteria. Subsequent to thoracentesis, his respiratory effort improved and he appeared more comfortable. The following day however, his chest X-ray showed reaccumulation of his effusion and his symptoms had accordingly increased. While inpatient, he underwent a CT abdomen pelvis with enteric contrast via PEG which confirmed appropriateplacement. He did have a large hiatal hernia and obvious reflux of contrast material. Ultimately the decision was made to transfer him to [facility] for further evaluation and management of his recurrent pleural effusion. Upon arrival to [facility], he was afebrile, hemodynamically stable, but with tachypnea and grunting respirations. He required 2 L/min supplemental oxygen. He was started on ceftriaxone and metronidazole for empiric coverage. A pleural catheter was placed (05/27/22); repeat pleural fluid analysis was again consistent with a neutrophil-predominant, exudative effusion with reassuring pH. Gram stain negative and bacterial cultures remained negative to date. He required instillation of intrapleural thrombolytics to break up loculations and facilitate drainage. His respiratory effort improved significantly with drainage of his effusion and treatment of pneumonia. He did not supplemental oxygen at discharge. His chest tube was removed on 06/01. To prevent recurrent aspiration, our inpatient nutrition support colleagues evaluated his enteral feeding device. It was recommended that he undergo upgrade of her percutaneous gastrostomy to alow profile transgastric jejunostomy tube, which he underwent successfully on 05/31. He was reinitiated on tube feeds. He is discharged in stable conditon back to his long-term on 06/02. He will complete 2 week total course of antibiotic with Augmentin. documented in this encounter Plan of Treatment Upcoming Encounters Date Type Department Care Team (Late st Contact Info) Description 03/01/2023 11:15 AM TAX ADVISOR Appointment Department of Radiology in [place], [place] [address] [place] [address] Floyd Robert APRN C.N.P., M.S. [address] [place] [address] documented as of this encounter Procedures Procedure Name Priority Date/Time Associated Diagnosis Comments DX CHEST PORTABLE 1 VIEW RAD - Routine (most inpatients and all outpatients) 06/02/2022 7:52 AM CDT DX CHEST PORTABLE 1 VIEW RAD - Routine (most inpatients and all outpatients) 06/01/2022 8:34 AM CDT CBC WITH DIFFERENTIAL, B Routine 06/01/2022 8:14 AM CDT PHOSPHORUS (INORGANIC), S Routine 06/01/2022 8:14 AM CDT MAGNESIUM, S Routine 06/01/2022 8:14 AM CDT BASIC METABOLIC PANEL, S/P Routine 06/01/2022 8:14 AM CDT ADULT OXYGEN THERAPY Routine 06/01/2022 8:01 AM CDT ADULT OXYGEN THERAPY Routine 05/31/2022 8:01 PM CDT C. DIFFICILE TOXIN PCR, F Routine 05/31/2022 1:50 PM CDT IR GASTRO TO GASTROJEJUNAL TUBE CONVERSION RAD - Routine (most inpatients and all outpatients) 05/31/2022 1:05 PM CDT ADULT OXYGEN THERAPY Routine 05/31/2022 8:01 AM CDT DX CHEST PORTABLE 1 VIEW RAD - Routine (most inpatients and all outpatients) 05/31/2022 7:23 AM CDT CBC WITH DIFFERENTIAL, B Routine 05/31/2022 6:48 AM CDT BASIC METABOLIC PANEL, S/P Routine 05/31/2022 6:48 AM CDT ADULT OXYGEN THERAPY Routine 05/30/2022 8:01 PM CDT ADULT OXYGEN THERAPY Routine 05/30/2022 8:01 AM CDT DX CHEST PORTABLE 1 VIEW RAD - Routine (most inpatients and all outpatients) 05/30/2022 7:34 AM CDT RUFINAMIDE, S Timed 05/30/2022 6:22 AM CDT LAMOTRIGINE LEVEL, S Timed 05/30/2022 6:22 AM CDT CARBAMAZEPINE LEVEL, TOT, S Timed 05/30/2022 6:22 AM CDT PERNICIOUS ANEMIA CASCADE, S Routine 05/30/2022 1:52 AM CDT CBC WITH DIFFERENTIAL, B Routine 05/30/2022 1:52 AM CDT FOLATE, S Routine 05/30/2022 1:52 AM CDT FERRITIN, S Routine 05/30/2022 1:52 AM CDT BASIC METABOLIC PANEL, S/P Routine 05/30/2022 1:52 AM CDT ADULT OXYGEN THERAPY Routine 05/29/2022 8:01 PM CDT ADULT OXYGEN THERAPY Routine 05/29/2022 8:01 AM CDT DX CHEST PORTABLE 1 VIEW RAD - Routine (most inpatients and all outpatients) 05/29/2022 7:51 AM CDT HEPATIC FUNCTION PANEL, S Routine 05/29/2022 12:11 AM CDT CBC WITH DIFFERENTIAL, B Routine 05/29/2022 12:11 AM CDT BASIC METABOLIC PANEL, S/P Routine 05/29/2022 12:11 AM CDT ADULT OXYGEN THERAPY Routine 05/28/2022 8:01 PM CDT DX CHEST PORTABLE 1 VIEW RAD - Routine (most inpatients and all outpatients) 05/28/2022 5:43 PM CDT NH PLEURA DRAIN PERC W IMG GUID Routine 05/28/2022 5:29 PM CDT Effusion Pleural CYTOLOGY NON-CHIEF ENGINEER RESEARCH Routine 05/28/2022 5:23 PM CDT PROTEIN, TOTAL, BF Routine 05/28/2022 5: 23 PM CDT BACTERIAL CULTURE, AEROBIC + SUSC Routine 05/28/2022 5:23 PM CDT CELL COUNT AND DIFFERENTIAL, BF Routine 05/28/2022 5:23 PM CDT TRIGLYCERIDES, BF Routine 05/28/2022 5:2 3 PM CDT PH, PLEURAL FLUID Routine 05/28/2022 5:2 3 PM CDT GRAM STAIN Routine 05/28/2022 5:23 PM CDT LACTATE DEHYDROGENASE (LD), BF Routine 05/28/2022 5:23 PM CDT GLUCOSE, BODY FLUID Routine 05/28/2022 5 :23 PM CDT DX CHEST PORTABLE 1 VIEW RAD - Routine (most inpatients and all outpatients) 05/28/2022 4:11 PM CDT ADULT OXYGEN THERAPY Routine 05/28/2022 3:36 PM CDT documented in this encounter Results * DX Chest Portable 1 View (06/02/2022 7:52 AM CDT) Anatomical Region Laterality Modality Chest, Thoracic RST LOS, Tho racic ARZ LOS, Thoracic FLA LOS N/A Digital Radiography 06/02/2022 8:09 AM CDT Impressions 06/02/2022 8:25 AM CDT There is interval removal of the left costophrenic pigtail catheter. Vagal nerve stimulator. Normal heart size and mediastinal contour. Unchanged diffuse interstitial changes with bibasilar airspace opacity and evidence of retained contrast in the lung bases versus dendritic calcification of chronic aspiration. Narrative 06/02/2022 8:25 AM CDT EXAM: ??DX CHEST PORTABLE 1 VIEW Procedure Note Lily Maria M.D. - 06/02/2022 EXAM: DX CHEST PORTABLE 1 VIEW IMPRESSION: There is interval removal of the left costophrenic pigtail catheter. Vagalnerve stimulator. Normal heart size and mediastinal contour. Unchanged diffuseinterstitial changes with bibasilar airspace opacity and evidence of retained contrast in the lungbases versus dendritic calcification of chronic aspiration. Latoya Crane M.D. IMG DIAGNOSTIC [facility] GING PROCEDURES * DX Chest Portable 1 View (06/01/2022 8:34 AM CDT) Anatomical Region Laterality Modality Chest, Thoracic RST LOS, Tho racic ARZ LOS, Thoracic FLA LOS N/A Digital Radiography 06/01/2022 8:36 AM CDT Impressions 06/01/2022 8:52 AM CDT Stable positioning of the left basilar chest tube. Small residual left pleural effusion. Calcifications in both lower lobes. Stable cardiomediastinal silhouette. Left chest wall stimulator device. Narrative 06/01/2022 8:52 AM CDT EXAM: ??DX CHEST PORTABLE 1 VIEW Procedure Note Brennen Live D.O. - 06/01/2022 EXAM: DX CHEST PORTABLE 1 VIEW IMPRESSION: Stable positioning of the left basilar chest tube. Small residual leftpleural effusion. Calcifications in both lower lobes. Stable cardiomediastinalsilhouette. Left chest wall stimulator device. Latoya Crane M.D. IMG DIAGNOSTIC [facility] PROCEDURES * (ABNORMAL) Basic Metabolic Panel (06/01/2022 8:14 AM CDT) Pathologist [facility] Potassium, S 3.6 3.6 - 5.2 mmol/L 06/01/2022 9:28 AM CDT DTL Sodium, S 142 135 - 145 mmol/L 06/01/2022 9:28 AM CDT DTL Chloride, S 106 98 - 107 mmol/L 06/01/2022 9:28 AM CDT DTL Bicarbonate, S 23 22 - 29 mmol/L 06/01/2022 9:28 AM CDT DTL Anion Gap 13 7 - 15 06/01/2022 9:28 AM CDT DTL BUN (Blood Urea Nitrogen), S 15 8 - 24 mg/dL 06/01/2022 9:28 AM CDT DTL Creatinine 0.43(L) 0.74 - 1.35 mg/dL 06/01/2022 9:28 AM CDT DTL Estimated GFR (eGFR) >90 >=60 mL/min/BSA 06/01/2022 9:28 AM CDT DTL Comment: Estimated GFR calculated using the 2020 CKD_EPI creatinine equation. Calcium, Total, S 7.5(L) 8.6 - 10.0 mg/dL 06/01/2022 9:28 AM CDT DTL Glucose, S 95 70 - 140 mg/dL 06/01/2022 9:28 AM CDT DTL Blood (Blood, Venous) 06/01/2022 8:14 AM CDT 06/01/2022 8:58 AM CDT Latoya Crane M.D. LAB BLOOD ADD-ON [facility] [address] [place] [address], [facility] DTL [facility] [address] [place] [address] * (ABNORMAL) CBC with Differential, Blood (06/01/2022 8:14 AM CDT) Hemoglobin 10.8(L) 13.2 - 16.6 g/dL 06/01/2022 9:01 AM CDT DTL Hematocrit 34.5(L) 38.3 - 48.6 % 06/01/2022 9:01 AM CDT DTL Erythrocytes 3.35(L) 4.35 - 5.65 x10(12)/L 06/01/2022 9:01 AM CDT DTL MCV 103.0(H) 78.2 - 97.9 fL 06/01/2022 9:01 AM CDT DTL RBC Distrib Width 14.1 11.8 - 14.5 % 06/01/2022 9:01 AM CDT DTL Platelet Count 553(H) 135 - 317 x10(9)/L 06/01/2022 9:01 AM CDT DTL Leukocytes 10.1(H) 3.4 - 9.6 x10(9)/L 06/01/2022 9:01 AM CDT DTL Neutrophils 8.00(H) 1.56 - 6.45 x10(9)/L 06/01/2022 9:01 AM CDT DTL Lymphocytes 1.07 0.95 - 3.07 x10(9)/L 06/01/2022 9:01 AM CDT DTL Monocytes 0.97(H) 0.26 - 0.81 x10(9)/L 06/01/2022 9:01 AM CDT DTL Eosinophils <0.03 0.03 - 0.48 x10(9)/L 06/01/2022 9:01 AM CDT DTL Basophils 0.08 0.01 - 0.08 x10(9)/L 06/01/2022 9:01 AM CDT DTL Blood (Blood, Venous) 06/01/2022 8:14 AM CDT 06/01/2022 8:39 AM CDT Latoya Crane M.D. LAB BLOOD ADD-ON [facility] [address] [place], [place] [id number] [place] [address] [address] [place] [address] * Phosphorus Inorganic (06/01/2022 8:14 AM CDT) Pathologist [facility] Phosphorus (Inorganic), S 2.5 2.5 - 4.5 mg/dL 06/01/2022 9:28 AM CDT DTL Blood (Blood, Venous) 06/01/2022 8:14 AM CDT 06/01/2022 8:58 AM CDT Latoya Crane M.D. LAB BLOOD ADD-ON [facility] [address] [place], [place] [id number] [place] [address] [address] [place] [address] * Magnesium (06/01/2022 8:14 AM CDT) Pathologist [facility] Magnesium, S 2.2 1.7 - 2.3 mg/dL 06/01/2022 9:28 AM CDT DTL Blood (Blood, Venous) 06/01/2022 8:14 AM CDT 06/01/2022 8:58 AM CDT Latoya Crane M.D. LAB BLOOD ADD-ON [facility] [address] [place], [place] [phone] [place] [address] [address] [place] [address] * Clostridioides (Clostridium) difficile Toxin, Molecular Detection, PCR, Feces (05/31/2022 1:50 PM CDT) Pathologist [facility] C. difficile Toxin, F Negative Negative 05/31/2022 3:33 PM CDT DTL Stool (Stool) 05/31/2022 1:5 0 PM CDT 05/31/2022 2:23 PM CDT Latoya Crane M.D. LAB MICROBIOLOGY - GENERAL ORDERABLES [facility] [address] [place] [address], [facility] [address] [place] [address] * IR Gastro To Gastrojejunal Tube Conversion (05/31/2022 1:05 PM CDT) Anatomical Region Laterality Modality Abdomen, Vascular Interventi onal RST LOS, Vascular Interventional ARZ LOS, Vascular Interventional FLA LOS N/A X-Ray Angiography 05/31/2022 1:27 PM CDT Impressions 05/31/2022 1:31 PM CDT Exchange for a 22 [place] Islander percutaneous gastrojejunostomy tube. The tube is ready for use. Exchange tube in 3-5 months. Contact the [facility] at [phone] to schedule the tube exchange. NR Narrative 05/31/2022 1:31 PM CDT EXAM: ??IR GASTRO TO GASTROJEJUNAL TUBE CONVERSION CLINICAL HISTORY: ??Request for conversion of the gastrostomy tube to a gastrojejunostomy tube in the setting of aspiration pneumonitis. Encounter Type: ??Exchange. Encounter Timing: ??Off cycle. Encounter Reason: ??Post-pyloric feeding Suspected Cause of Occlusion: ??N/A. Presenting Location: ??Outpatient. TECHNIQUE: ??The patient was positioned supine on the fluoroscopy table. The patient and gastrojejunostomy tube were prepared and draped in the usual sterile fashion. Converting Operator image demonstrates a percutaneous gastrostomy tube. Contrast injection through the gastric port demonstrated satisfactory position. A guidewire and catheter were advanced through the duodenum into the proximal jejunum and position was confirmed with limited contrast injection. The tube was exchanged over a wire for a new gastrojejunostomy tube (specifications below). Final contrast injection through the tube confirmed satisfactory function and position. A total of 7 cc of dilute contrast was administered into the retention balloon. No immediate complication. Tube Type: ??Gastrojejunostomy. Tube Brand: ??ENFit. Tube Size: ??22 [place]er. Low Profile: ??Yes. Tube Length: Stomal 2.3 cm; Total 45 cm. PREPROCEDURE: ??Patient seen [...] residents, and fellows were discussed. Procedure Note George Mendiola M.D. - 05/31/2022 EXAM: IR GASTRO TO GASTROJEJUNAL TUBE CONVERSION CLINICAL HISTORY: Request for conversion of the gastrostomy tube to agastrojejunostomy tube in the setting of aspiration pneumonitis. Encounter Type: Exchange. Encounter Timing: Off cycle. Encounter Reason: Post-pyloric feeding Suspected Cause of Occlusion: N/A. Presenting Location: Outpatient. TECHNIQUE: The patient was positioned supine on the fluoroscopy table.The patient and gastrojejunostomy tube were prepared and draped in the usual sterilefashion. Converting Operator image demonstrates a percutaneous gastrostomy tube. Contrast injection throughthe gastric port demonstrated satisfactory position. A guidewire and catheter were advancedthrough the duodenum into the proximal jejunum and position was confirmed with limited contrastinjection. The tube was exchanged over a wire for a new gastrojejunostomy tube (specificationsbelow). Final contrast injection through the tube confirmed satisfactory function and position. A total of 7 cc of dilute contrast was administered into the retentionballoon. No immediate complication. Tube Type: Gastrojejunostomy. Tube Brand: ENFit. Tube Size: 22 [place]. Low Profile: Yes. Tube Length: Stomal 2.3 cm; Total 45 cm. PREPROCEDURE: Patient seen [...] residents, and fellows were discussed. IMPRESSION: Exchange for a 22 [place] percutaneous gastrojejunostomy tube. The tube isready for use. Exchange tube in 3-5 months. Contact the [facility] at [phone] schedule the tube exchange. NR Latoya Crane M.D. IMG IR PROCEDURES * DX Chest Portable 1 View (05/31/2022 7:23 AM CDT) Anatomical Region Laterality Modality Chest, Thoracic RST LOS, Tho racic ARZ LOS, Thoracic FLA LOS N/A Digital Radiography 05/31/2022 7:36 AM CDT Impressions 05/31/2022 7:38 AM CDT Since 05/30/2022, interval decrease size resolution of the left pleural effusion. Left pleural pigtail catheter in place. Basilar predominant reticular opacities with hyperdense material in both lungs as seen on the prior chest CT. Stimulator device left chest wall. Narrative 05/31/2022 7:38 AM CDT EXAM: ??DX CHEST PORTABLE 1 VIEW Procedure Note Rafael Rico M.D. - 05/31/2022 EXAM: DX CHEST PORTABLE 1 VIEW IMPRESSION: Since 05/30/2022, interval decrease size resolution of the left pleuraleffusion. Left pleural pigtail catheter in place. Basilar predominant reticular opacitieswith hyperdense material in both lungs as seen on the prior chest CT. Stimulator device left chestwall. Latoya MEIG DIAGNOSTIC [facility] PROCEDURES * (ABNORMAL) Basic Metabolic Panel (05/31/2022 6:48 AM CDT) Potassium, S 3.9 3.6 - 5.2 mmol/L 05/31/2022 9:39 AM CDT DTL Sodium, S 141 135 - 145 mmol/L 05/31/2022 9:39 AM CDT DTL Chloride, S 105 98 - 107 mmol/L 05/31/2022 9:39 AM CDT DTL Bicarbonate, S 23 22 - 29 mmol/L 05/31/2022 9:39 AM CDT DTL Anion Gap 13 7 - 15 05/31/2022 9:39 AM CDT DTL BUN (Blood Urea Nitrogen), S 14 8 - 24 mg/dL 05/31/2022 9:39 AM CDT DTL Creatinine 0.51(L) 0.74 - 1.35 mg/dL 05/31/2022 9:39 AM CDT DTL Estimated GFR (eGFR) >90 >=60 mL/min/BSA 05/31/2022 9:39 AM CDT DTL Comment: Estimated GFR calculated using the 2020 CKD_EPI creatinine equation. Calcium, Total, S 7.6(L) 8.6 - 10.0 mg/dL 05/31/2022 9:39 AM CDT DTL Glucose, S 94 70 - 140 mg/dL 05/31/2022 9:39 AM CDT DTL Blood (Blood, Venous) 05/31/2022 6:48 AM CDT 05/31/2022 7:28 AM CDT Latoya Crane M.D. LAB BLOOD ADD-ON [facility] [address] [address], [facility] [address] [address] * (ABNORMAL) CBC with Differential, Blood (05/31/2022 6:48 AM CDT) Hemoglobin 11.2(L) 13.2 - 16.6 g/dL 05/31/2022 7:19 AM CDT DTL Hematocrit 34.7(L) 38.3 - 48.6 % 05/31/2022 7:19 AM CDT DTL Erythrocytes 3.40(L) 4.35 - 5.65 x10(12)/L 05/31/2022 7:19 AM CDT DTL MCV 102.1(H) 78.2 - 97.9 fL 05/31/2022 7:19 AM CDT DTL RBC Distrib Width 13.6 11.8 - 14.5 % 05/31/2022 7:19 AM CDT DTL Platelet Count 597(H) 135 - 317 x10(9)/L 05/31/2022 7:19 AM CDT DTL Leukocytes 10.6(H) 3.4 - 9.6 x10(9)/L 05/31/2022 7:19 AM CDT DTL Neutrophils 8.24(H) 1.56 - 6.45 x10(9)/L 05/31/2022 7:19 AM CDT DTL Lymphocytes 1.17 0.95 - 3.07 x10(9)/L 05/31/2022 7:19 AM CDT DTL Monocytes 1.15(H) 0.26 - 0.81 x10(9)/L 05/31/2022 7:19 AM CDT DTL Eosinophils <0.03 0.03 - 0.48 x10(9)/L 05/31/2022 7:19 AM CDT DTL Basophils 0.07 0.01 - 0.08 x10(9)/L 05/31/2022 7:19 AM CDT DTL Blood (Blood, Venous) 05/31/2022 6:48 AM CDT 05/31/2022 7:12 AM CDT Latoya Crane M.D. [place] [address], [facility] [address] [place] [address] * DX Chest Portable 1 View (05/30/2022 7:34 AM CDT) Anatomical Region Laterality Modality Chest, Thoracic RST LOS, Tho racic ARZ LOS, Thoracic FLA LOS N/A Digital Radiography 05/30/2022 7:36 AM CDT Impressions 05/30/2022 7:38 AM CDT Left pleural pigtail catheter. Moderate left pleural effusion has increased in size since yesterday. Atelectasis left base. Stable reticular opacities in the right lower lung which are likely due to fibrosis and atelectasis. Pulmonary vascular congestion. Low lung volumes. Neuro stimulator. Narrative 05/30/2022 7:38 AM CDT EXAM: ??DX CHEST PORTABLE 1 VIEW Procedure Note Nitesh Chavez M.D. - 05/30/2022 EXAM: DX CHEST PORTABLE 1 VIEW IMPRESSION: Left pleural pigtail catheter. Moderate left pleural effusion hasincreased in size since yesterday. Atelectasis left base. Stable reticular opacities in theright lower lung which are likely due to fibrosis and atelectasis. Pulmonary vascular congestion. Lowlung volumes. Neuro stimulator. Latoya Crane M.D. IMG DIAGNOSTIC KEYON GING PROCEDURES * (ABNORMAL) Rufinamide, S (05/30/2022 6:22 AM CDT) Rufinamide, S 30.8(H) 5.0 - 30.0 mcg/mL 05/30/2022 2:05 PM CDT [facility] Comment: ----ADDITIONAL INFORMATION---- This test was developed and its performance characteristics determined by [facility] in a manner consistent with CLIA requirements. This test has not been cleared or approved by the U.S. Food and Drug Administration. Blood (Blood, Venous) 05/30/2022 6:22 AM CDT 05/30/2022 8:27 AM CDT Latoya Crane M.D. LAB BLOOD NON ADD- ON [facility] [address] [place] [address] [facility] [address] [place] [address] [place] [address] * Lamotrigine Level (05/30/2022 6:22 AM CDT) Lamotrigine, S 4.8 3.0 - 15.0 mcg/mL 05/30/2022 12:03 PM CDT [facility] Comment: ----ADDITIONAL INFORMATION---- This test was developed and its performance characteristics determined by [facility] in a manner consistent with CLIA requirements. This test has not been cleared or approved by the U.S. Food and Drug Administration. Blood (Blood, Venous) 05/30/2022 6:22 AM CDT 05/30/2022 8:27 AM CDT Latoya Crane M.D. LAB BLOOD NON ADD- ON Performing Organization Address City/[facility]/ZIP Co de Phone Number [facility] [address] [place] [address] [facility] [address] [place] [address] [place] [address] * Carbamazepine, Total (05/30/2022 6:22 AM CDT) Pathologist [facility] Carbamazepine, Tot, S 5.4 4.0 - 12.0 mcg/mL 05/30/2022 7:42 AM CDT DTL Blood (Blood, Venous) 05/30/2022 6:22 AM CDT 05/30/2022 6:36 AM CDT Latoya Crane M.D. LAB BLOOD ADD-ON Performing Organization Address City/[facility]/ZIP Co de Phone Number [address] [address], [facility] [address] [address] * (ABNORMAL) Basic Metabolic Panel (05/30/2022 1:52 AM CDT) Pathologist [facility] Potassium, S 3.6 3.6 - 5.2 mmol/L 05/30/2022 2:54 AM CDT DTL Sodium, S 138 135 - 145 mmol/L 05/30/2022 2:54 AM CDT DTL Chloride, S 101 98 - 107 mmol/L 05/30/2022 2:54 AM CDT DTL Bicarbonate, S 25 22 - 29 mmol/L 05/30/2022 2:54 AM CDT DTL Anion Gap 12 7 - 15 05/30/2022 2:54 AM CDT DTL BUN (Blood Urea Nitrogen), S 13 8 - 24 mg/dL 05/30/2022 2:54 AM CDT DTL Creatinine 0.47(L) 0.74 - 1.35 mg/dL 05/30/2022 2:54 AM CDT DTL Estimated GFR (eGFR) >90 >=60 mL/min/BSA 05/30/2022 2:54 AM CDT DTL Comment: Estimated GFR calculated using the 2020 CKD_EPI creatinine equation. Calcium, Total, S 7.8(L) 8.6 - 10.0 mg/dL 05/30/2022 2:54 AM CDT DTL Glucose, S 103 70 - 140 mg/dL 05/30/2022 2:54 AM CDT DTL Blood (Blood, Venous) 05/30/2022 1:52 AM CDT 05/30/2022 2:30 AM CDT Latoya Crane M.D. LAB BLOOD ADD-ON [address] [address], [facility] [address] [address] * (ABNORMAL) CBC with Differential, Blood (05/30/2022 1:52 AM CDT) Hemoglobin 11.2(L) 13.2 - 16.6 g/dL 05/30/2022 2:20 AM CDT DTL Hematocrit 34.2(L) 38.3 - 48.6 % 05/30/2022 2:20 AM CDT DTL Erythrocytes 3.37(L) 4.35 - 5.65 x10(12)/L 05/30/2022 2:20 AM CDT DTL MCV 101.5(H) 78.2 - 97.9 fL 05/30/2022 2:20 AM CDT DTL RBC Distrib Width 13.2 11.8 - 14.5 % 05/30/2022 2:20 AM CDT DTL Platelet Count 573(H) 135 - 317 x10(9)/L 05/30/2022 2:20 AM CDT DTL Leukocytes 12.5(H) 3.4 - 9.6 x10(9)/L 05/30/2022 2:20 AM CDT DTL Neutrophils 10.65(H) 1.56 - 6.45 x10(9)/L 05/30/2022 2:20 AM CDT DTL Lymphocytes 0.56(L) 0.95 - 3.07 x10(9)/L 05/30/2022 2:20 AM CDT DTL Monocytes 1.24(H) 0.26 - 0.81 x10(9)/L 05/30/2022 2:20 AM CDT DTL Eosinophils <0.03 0.03 - 0.48 x10(9)/L 05/30/2022 2:20 AM CDT DTL Basophils 0.03 0.01 - 0.08 x10(9)/L 05/30/2022 2:20 AM CDT DTL Blood (Blood, Venous) 05/30/2022 1:52 AM CDT 05/30/2022 2:14 AM CDT Latoya Crane M.D. LAB BLOOD ADD-ON [facility] [address] [place] [address], [facility] [address] [place] [address] * Ferritin (05/30/2022 1:52 AM CDT) [facility] Ferritin, S 105 24 - 336 mcg/L 05/30/2022 3:33 AM CDT DTL Blood (Blood, Venous) 05/30/2022 1:52 AM CDT 05/30/2022 2:30 AM CDT Latoya Crane M.D. LAB BLOOD ADD-ON [facility] [address] [facility] [address] [place] [address] * Folate (05/30/2022 1:52 AM CDT) [facility] Folate, S 18.9 >=4.0 mcg/L 05/30/2022 6: 54 AM CDT DTL Blood (Blood, Venous) 05/30/2022 1:52 AM CDT 05/30/2022 2:30 AM CDT Latoya Crane M.D. LAB BLOOD ADD-ON Performing Organization Address City/[facility]/ZIP Co de Phone Number [facility] [address] [place], [place] [address] [address] [place] [address] * (ABNORMAL) Pernicious Anemia [place] (05/30/2022 1:52 AM CDT) [facility] Vitamin B12 Assay, S >1400(H) 180 - 914 ng/L 05/30/2022 12:30 PM CDT [facility] Blood (Blood, Venous) 05/30/2022 1:52 AM CDT 05/30/2022 9:29 AM CDT Latoya Crane M.D. LAB BLOOD NON ADD- ON Performing Organization Address City/[facility]/ZIP Co de Phone Number [facility] [address] [place] [address] [facility] [address] [place] [address] * DX Chest Portable 1 View (05/29/2022 7:51 AM CDT) Anatomical Region Laterality Modality Chest, Thoracic RST LOS, Tho racic ARZ LOS, Thoracic FLA LOS N/A Digital Radiography 05/29/2022 7:57 AM CDT Impressions 05/29/2022 7:59 AM CDT Given differences in patient position and rotation, no change since yesterday. Redistribution of the left pleural effusion. Atelectasis left mid and lower lung. Reticular opacities in the right lower lung likely due to combination of fibrosis and atelectasis. Pulmonary vascular congestion. Low lung volumes. Left pleural pigtail catheter. No pneumothorax. Neurostimulator. Narrative 05/29/2022 7:59 AM CDT EXAM: ??DX CHEST PORTABLE 1 VIEW Procedure Note Johnna Cotton M.D. - 05/29/2022 EXAM: DX CHEST PORTABLE 1 VIEW IMPRESSION: Given differences in patient position and rotation, no change sinceyesterday. Redistribution of the left pleural effusion. Atelectasis left mid andlower lung. Reticular opacities in the right lower lung likely due to combination of fibrosisand atelectasis. Pulmonary vascular congestion. Low lung volumes. Left pleural pigtail catheter. Nopneumothorax. Neurostimulator. Latoya Crane M.D. IMG DIAGNOSTIC KEYON GING PROCEDURES * (ABNORMAL) Hepatic Function Panel (05/29/2022 12:11 AM CDT) Bilirubin, Total, S <0.2 <=1.2 mg/dL 05/29/2022 1:41 AM CDT DTL Bilirubin, Direct, S <0.2 0.0 - 0.3 mg/dL 05/29/2022 1:41 AM CDT DTL Aspartate Aminotransferase (AST), S 29 8 - 48 U/L 05/29/2022 1:41 AM CDT DTL Alanine Aminotransferase (ALT), S 45 7 - 55 U/L 05/29/2022 1:41 AM CDT DTL Alkaline Phosphatase, S 76 40 - 129 U/L 05/29/2022 1:41 AM CDT DTL Albumin, S 2.8(L) 3.5 - 5.0 g/dL 05/29/2022 1:41 AM CDT DTL Protein, Total, S 5.0(L) 6.3 - 7.9 g/dL 05/29/2022 1:41 AM CDT DTL Blood (Blood, Venous) 05/29/2022 12:11 AM CDT 05/29/2022 1:16 AM CDT Latoya Crane M.D. LAB BLOOD ADD-ON [facility] [address] [place] [address], [facility] DTL [facility] [address] [place] [address] * (ABNORMAL) Basic Metabolic Panel (05/29/2022 12:11 AM CDT) Pathologist [facility] Potassium, S 4.0 3.6 - 5.2 mmol/L 05/29/2022 1:32 AM CDT DTL Sodium, S 133(L) 135 - 145 mmol/L 05/29/2022 1:32 AM CDT DTL Chloride, S 98 98 - 107 mmol/L 05/29/2022 1:32 AM CDT DTL Bicarbonate, S 27 22 - 29 mmol/L 05/29/2022 1:32 AM CDT DTL Anion Gap 8 7 - 15 05/29/2022 1:32 AM CDT DTL BUN (Blood Urea Nitrogen), S 11 8 - 24 mg/dL 05/29/2022 1:32 AM CDT DTL Creatinine 0.50(L) 0.74 - 1.35 mg/dL 05/29/2022 1:32 AM CDT DTL Estimated GFR (eGFR) >90 >=60 mL/min/BSA 05/29/2022 1:32 AM CDT DTL Comment: Estimated GFR calculated using the 2020 CKD_EPI creatinine equation. Calcium, Total, S 7.9(L) 8.6 - 10.0 mg/dL 05/29/2022 1:32 AM CDT DTL Glucose, S 103 70 - 140 mg/dL 05/29/2022 1:32 AM CDT DTL Blood (Blood, Venous) 05/29/2022 12:11 AM CDT 05/29/2022 1:16 AM CDT Latoya Crane M.D. LAB BLOOD ADD-ON [facility] [address] [place] [address], [place] DTL [facility] [address] [place] [address] * (ABNORMAL) CBC with Differential, Blood (05/29/2022 12:11 AM CDT) Hemoglobin 9.6(L) 13.2 - 16.6 g/dL 05/29/2022 1:04 AM CDT DTL Hematocrit 30.1(L) 38.3 - 48.6 % 05/29/2022 1:04 AM CDT DTL Erythrocytes 2.97(L) 4.35 - 5.65 x10(12)/L 05/29/2022 1:04 AM CDT DTL MCV 101.3(H) 78.2 - 97.9 fL 05/29/2022 1:04 AM CDT DTL RBC Distrib Width 13.2 11.8 - 14.5 % 05/29/2022 1:04 AM CDT DTL Platelet Count 515(H) 135 - 317 x10(9)/L 05/29/2022 1:04 AM CDT DTL Leukocytes 11.0(H) 3.4 - 9.6 x10(9)/L 05/29/2022 1:04 AM CDT DTL Neutrophils 8.91(H) 1.56 - 6.45 x10(9)/L 05/29/2022 1:04 AM CDT DTL Lymphocytes 0.75(L) 0.95 - 3.07 x10(9)/L 05/29/2022 1:04 AM CDT DTL Monocytes 1.27(H) 0.26 - 0.81 x10(9)/L 05/29/2022 1:04 AM CDT DTL Eosinophils <0.03 0.03 - 0.48 x10(9)/L 05/29/2022 1:04 AM CDT DTL Basophils 0.06 0.01 - 0.08 x10(9)/L 05/29/2022 1:04 AM CDT DTL Blood (Blood, Venous) 05/29/2022 12:11 AM CDT 05/29/2022 12:59 AM CDT Latoya Crane M.D. LAB BLOOD ADD-ON [facility] [address] [place] [address], [place] [facility] [address] [place] [address] * DX Chest Portable 1 View (05/28/2022 5:43 PM CDT) Anatomical Region Laterality Modality Chest, Thoracic RST LOS, Tho racic ARZ LOS, Thoracic FLA LOS N/A Digital Radiography 05/28/2022 5:55 PM CDT Impressions 05/28/2022 6:08 PM CDT Since earlier today at 4:08 PM, interval placement of a left basilar pigtail catheter with radiopaque marker projecting over the thoracic wall. Significantly decreased moderate left pleural effusion. Remainder not significantly changed. Trace right pleural effusion. Obscured cardiac silhouette. Pulmonary vascular congestion. Retrocardiac atelectasis/consolidation. Right lower lung reticular opacities likely secondary to atelectasis/scarring and pulmonary edema. Neurostimulator. Narrative 05/28/2022 6:08 PM CDT EXAM: ??DX CHEST PORTABLE 1 VIEW Procedure Note Jase Woods M.D., M.S. - 05/28/2022 EXAM: DX CHEST PORTABLE 1 VIEW IMPRESSION: Since earlier today at 4:08 PM, interval placement of a left basilarpigtail catheter with radiopaque marker projecting over the thoracic wall. Significantlydecreased moderate left pleural effusion. Remainder not significantly changed. Trace right pleuraleffusion. Obscured cardiac silhouette. Pulmonary vascular congestion. Retrocardiacatelectasis/consolidation. Right lower lung reticular opacities likely secondary to atelectasis/scarringand pulmonary edema. Neurostimulator. Deedee HERRING DIAGNOSTIC IMAG ING PROCEDURES * NH PLEURA DRAIN PERC W IMG GUID (05/28/2022 5:29 PM CDT) Narrative Tonya Platt M.D. - 05/28/2022 5:29 PM CDT Deedee Pierre M.D. ? 05/28/2022 ??5:31 PM Pleural Drains Performed by: Deedee Pierre M.D. Authorized by: Tonya Platt M.D. ?? PROCEDURE DETAILS Needle decompression: no Placement location: left posterior Intercostal space: 6th Tube type: pigtail Insertion of wire with dilators: yes Tube size (Fr): 14 Locking loop: yes Tube connected to drainage device at: -20 suction Drainage characteristics: serous Ultrasound image guidance used to localize target, identify at risk structures, and dynamically used to direct therapy to the target. Image(s) acquired and saved. CONSENT Consent obtained: written (Risks, benefits and alternatives were discussed and a written Informed Consent was obtained. Please see Informed Consent form for further details.) UNIVERSAL PROTOCOL All relevant documentation and testing were reviewed and available. All required blood products, implants, devices and or special equipment were made available as applicable. Pre-procedure verification was conducted and the correct site was marked if required. A fire risk assessment was done as applicable. The procedural time-out to verify correct patient, correct side/site, and procedure was conducted prior to performing the procedure and confirmed in a procedural pause. PRE-PROCEDURE DETAILS Indications: empyema Appropriate hand hygiene, gown, cap, mask, protective eyewear, sterile gloves, skin preparation, sterile drape, and strict aseptic technique were utilized as applicable for the procedure. Site preparation: chlorhexidine SEDATION / ANESTHESIA Anesthesia method: local infiltration Local infiltrate type: lidocaine POST-PROCEDURE DETAILS Post-insertion x-ray performed: yes X-ray findings: pending Procedure successful: yes Complications: no apparent complications ATTESTATION STATEMENT A resident or fellow participated in the procedure, and the x ray consultant was present for the entire procedure. Tonya Platt M.D. PROCEDURE/MINOR CHIU RGICAL ORDERABLES * Triglycerides, Body Fluid (05/28/2022 5:23 PM CDT) Triglycerides, BF 32 See Comment mg/dL 05/28/2022 8:31 PM CDT DTL Comment: ----ADDITIONAL INFORMATION---- Pleural fluid triglyceride concentrations > 110 mg/dL are consistent with chylous effusions. ??Triglyceride concentrations <50 mg/dL are usually not due to chylous effusions. Peritoneal fluid triglyceride concentrations > 187 mg/dL are most consistent with chylous effusion. All other fluids refer to http://www.Exinda.ShoorK for further interpretive information. This test has been modified from the quality control manager's instructions. ??Its performance characteristics were determined by [facility] in a manner consistent with CLIA requirements. ??This test has not been cleared or approved by the U.S. Food and Drug Administration. Fluid Type Fluid, Pleural Fluid, Left 05/28/2022 7:27 PM CDT DTL Fluid (Pleural Fluid, Left) 05/28/2022 5:23 PM CDT 05/28/2022 8:13 PM CDT Deedee iPerre M.D. LAB BODY FLUIDS AND STOOLS ORDERABLES [facility] [address] [place] [address], [facility] [address] [place] [address] * Glucose, Body Fluid (05/28/2022 5:23 PM CDT) Glucose, BF 85 See Comment mg/dL 05/28/2022 8:31 PM CDT DTL Comment: ----ADDITIONAL INFORMATION---- Body fluid glucose concentrations may be decreased due to increased cellular metabolism and should be interpreted in the context of blood glucose concentrations and in conjunction with other laboratory and clinical findings. Pleural, Peritoneal, and Pericardial fluid and serum glucose concentrations are similar in the absence of infection. Synovial fluid glucose concentrations are similar to fasting blood glucose concentrations or approximately 50% of the non-fasting serum glucose concentration under normal conditions. Values below this can be seen with infection. Amniotic fluid glucose <16 mg/dL is suggestive of infection. All other fluids refer to www.[employer].com for further interpretive information. This test has been modified from the quality control manager's instructions. Its performance characteristics were determined by [facility] in a manner consistent with CLIA requirements. This test has not been cleared or approved by the U.S. Food and Drug Administration. Fluid Type, Glucose Fluid, Pleural Fluid, Left 05/28/2022 7:27 PM CDT DTL Fluid (Pleural Fluid, Left) 05/28/2022 5:23 PM CDT 05/28/2022 8:13 PM CDT Deedee Pierre M.D. LAB BODY FLUIDS AND STOOLS ORDERABLES Performing Organization Address [facility] Co de Phone Number [facility] [address] [place] [address], [facility] [place] [address] * pH, Pleural Fluid (05/28/2022 5:23 PM CDT) pH, Pleural Fluid 7.42 Not Applicable pH 05/28/2022 5:41 PM CDT [facility] Comment: Clinical guidelines suggest that in parapneumonic pleural effusions, a pH <7.2 indicate the need for tube drainage. Fluid (Pleural Fluid, Left) 05/28/2022 5:23 PM CDT 05/28/2022 5:37 PM CDT Deedee Pierre M.D. LAB BODY FLUIDS AND STOOLS ORDERABLES Performing Organization Address [facility] Co de Phone Number [facility] [address] [place] [address] * Cytology Non-CHIEF ENGINEER RESEARCH (05/28/2022 5:23 PM CDT) 05/30/2022 2:39 PM CDT DTL Participated in the Interpretation Jennifer Raymond M.D. -Pathology Fellow 05/30/2022 2:39 PM CDT DTL Report electronically signed by Vanessa GutierrezB.S. I verify that I have examined all relevant slides/materi als for the specimen(s) and rendered or confirmed the diagnosis. 05/30/2022 2:39 PM CDT DTL Gross Description Received 46 cc of cloudy yellow fluid. 05/30/2022 2:39 PM CDT DTL Source A. Pleural, Left, fluid 05/30/2022 2:39 PM CDT DTL Interpretation A. Pleural, Left, fluid (ThinPrep): Negative for malignancy. Acute inflammation. 05/30/2022 2:39 PM CDT DTL Fluid (Pleural Fluid, Left) 05/28/2022 5:23 PM CDT 05/29/2022 8:24 AM CDT Deedee Pierre M.D. LAB SURG PATH ORDER RADHA Performing Organization Address [facility] de Phone Number [facility] [address] [place] [address], [facility] DTL [address] [facility] [address] [place] [address] * Protein, Total, Body Fluid (05/28/2022 5:23 PM CDT) Protein, Total, BF 4.3 See Comment g/dL 05/28/2022 8:31 PM CDT DTL Comment: ----ADDITIONAL INFORMATION---- A pleural fluid total protein to serum total protein ratio >0.5 is most consistent with exudative effusion. A peritoneal fluid total protein > 2.5 g/dL in patients with a high serum ascites albumin gradient can be caused by heart failure. A peritoneal fluid total protein > 1.0 g/dL helps to differentiate secondary from spontaneous bacterial peritonitis in conjunction with other laboratory, imaging, and clinical findings. All other fluids refer to [email or web address].com for further interpretive information. This test has been modified from the quality control manager's instructions. Its performance characteristics were determined by [facility] in a manner consistent with CLIA requirements. This test has not been cleared or approved by the U.S. Food and Drug Administration. Fluid Type, Protein, Total Fluid, Pleural Fluid, Left 05/28/2022 7:27 PM CDT DTL Fluid (Pleural Fluid, Left) 05/28/2022 5:23 PM CDT 05/28/2022 8:13 PM CDT Deedee Pierre M.D. LAB BODY FLUIDS AND STOOLS ORDERABLES Performing Organization Address [facility] Co de Phone Number [facility] [address] [place] [address], [facility] [address] [place] [address] * Lactate Dehydrogenase (LD), Body Fluid (05/28/2022 5:23 PM CDT) Lactate Dehydrogenase (LD), BF 319 See Comment U/L 05/28/2022 8:31 PM CDT DT Comment: ----ADDITIONAL INFORMATION---- Pleural fluid lactate dehydrogenase (LDH) to serum LDH ratio >0.6 are most consistent with exudative effusions. Peritoneal fluid LDH > 220 U/L suggest secondary rather than spontaneous bacterial peritonitis in conjunction with other laboratory, imaging, and clinical findings. Synovial fluid lactate dehydrogenase (LDH) may be elevated greater than plasma or serum LDH due to inflammatory causes. Values should be interpreted in conjunction with other clinical findings. All other fluids refer to www.[employer].ShoorK for further interpretive information. This test has been modified from the quality control manager's instructions. Its performance characteristics were determined by [facility] in a manner consistent with CLIA requirements. This test has not been cleared or approved by the U.S. Food and Drug Administration. Fluid Type, Lactate Dehydrogenase Fluid, Pleural Fluid, Left 05/28/2022 7:27 PM CDT DTL Fluid (Pleural Fluid, Left) 05/28/2022 5:23 PM CDT 05/28/2022 8:13 PM CDT Deedee Pierre M.D. LAB BODY FLUIDS AND STOOLS ORDERABLES [address] [address], [facility] [address] [place] [address] * Bacterial Culture, Aerobic + Susc (05/28/2022 5:23 PM CDT) Pathologist [facility] Bacterial Culture, Aerobic + Susc No growth after 5 days of incubation. 06/02/2022 8:13 AM CDT DT Fluid (Pleural Fluid, Left) 05/28/2022 5:23 PM CDT 05/28/2022 7:44 PM CDT Comment:Specimen Source Site : Fluid Narrative [facility] - 06/02/2022 8:13 AM CDT Bacterial Culture: Received Bactec aerobic and Bactec anaerobic bottles Deedee Pierre M.D. LAB MICROBIOLOGY - GENERAL ORDERABLES Performing Organization Address City/[facility] Co de Phone Number [facility] [address] [place] [address], [facility] [address] [place] [address] * Gram Stain (05/28/2022 5:23 PM CDT) Gram Stain No organisms seen. White blood cells present. 05/28/2022 11:24 PM CDT DTL Fluid (Pleural Fluid, Left) 05/28/2022 5:23 PM CDT 05/28/2022 7:44 PM CDT Comment:Specimen Source Site : Fluid Narrative [facility] - 05/28/2022 11:24 PM CDT Bacterial Culture: Received Bactec aerobic and Bactec anaerobic bottles Deedee Pierre M.D. LAB MICROBIOLOGY - GENERAL ORDERABLES Performing Organization Address City/[facility] Co de Phone Number [facility] [address] [place] [address], [facility] [address] [place] [address] * Cell Count and Differential, Body Fluid (05/28/2022 5:23 PM CDT) Fluid Type Left Pleural-Thora centesis 05/28/2022 7:54 PM CDT DHPM Gross Appearance Bloody 05/29/19 7:54 PM CDT DHPM Total Nucleated Cells 2178 /mcL 05/28/2022 7:54 PM CDT DHPM Comment: ----REFERENCE VALUE---- Synovial: <150 /mcL Peritoneal: <500 /mcL Pleural: <500 /mcL Pericardial: <500 /mcL ----ADDITIONAL INFORMATION---- This test has been modified from the quality control manager's instructions. Its performance characteristics were determined by [facility] in a manner consistent with CLIA requirements. This test has not been cleared or approved by the U.S. Food and Drug Administration. Neutrophils 58 % 05/28/2022 8:56 PM CDT DHPM Comment: ----REFERENCE VALUE---- Synovial: <25% Peritoneal: <25% Pleural: <25% Pericardial: <25% Lymphocytes 30 Synovial <75% % 05/28/2022 8:56 PM CDT DHPM Monocytes/Macropha ges 12 Synovial <70% % 05/28/2022 8:56 PM CDT DHPM Comment SeeComment 05/29/2022 10:19 AM CDT PM Comment:Cytology concurrentl y ordered; see separate report. Reviewed by: Tech 05/29/2022 10:19 AM CDT PM Fluid (Pleural Fluid, Left) 05/28/2022 5:23 PM CDT 05/28/2022 7:37 PM CDT Deedee Pierre M.D. LAB BODY FLUIDS AND STOOLS ORDERABLES [facility] [address] [place] [address], [facility] [address] [place] [address] * DX Chest Portable 1 View (05/28/2022 4:11 PM CDT) Anatomical Region Laterality Modality Chest, Thoracic RST LOS, Tho racic ARZ LOS, Thoracic FLA LOS N/A Digital Radiography 05/28/2022 4:12 PM CDT Impressions 05/28/2022 4:33 PM CDT Since 7:27 AM today, no substantial change. Moderate to large left and small right pleural effusions with associated atelectasis. Pulmonary vascular congestion. Obscured cardiac silhouette. Right lower lung atelectasis/scarring. Narrative 05/28/2022 4:33 PM CDT EXAM: ??DX CHEST PORTABLE 1 VIEW Procedure Note Jase Woods M.D., M.S. - 05/28/2022 EXAM: DX CHEST PORTABLE 1 VIEW IMPRESSION: Since 7:27 AM today, no substantial change. Moderate to large left andsmall right pleural effusions with associated atelectasis. Pulmonary vascularcongestion. Obscured cardiac silhouette. Right lower lung atelectasis/scarring. Latoya Crane M.D. IMG DIAGNOSTIC [facility] PROCEDURES documented in this encounter Visit Diagnoses Diagnosis Effusion Pleural- Primary Effusion Pleural Gastrostomy Status (HCC) Dysphagia Pneumonitis Due To Inhalation Of Food And Vomit (HCC) documented in this encounter Admitting Diagnoses Diagnosis Effusion Pleural documented in this encounter Administered Medications Inactive Administered Medications - up to 3 most recent administrations Medication Order MAR Action Action Date Dose Rate Site acetaminophen 160 mg/5 mL liquid 1,000 mg (TYLENOL) 1,000 mg, gastric tube, Every 6 hours, First dose on Sun05/28/22 at 2000 Given 06/02/2022 2:01 PM CDT 1,000 mg Given 06/02/2022 8:57 AM CDT 1,000 mg Given 06/01/2022 8:37 PM CDT 1,000 mg alteplase 10 mg in NaCl 0.9% intrapleural solution 10 mg, intrapleural, Every 12 hours, First dose on 05/29/22 at 1215, For 2 doses, Alteplase is instilled followed by a 0.9 % NaCl flush. Clamp for 1 hour, then unclamp and drain for 2 hours. The Dornase kailee is then instilled, followed by 0.9 % NaCl flush. Clamp for 1 hour then unclamp and drain for 2 hours. Notify service for the following: purulent drainage from the tube, bright red blood from tube, shortness of breath or chest pains. Given 05/30/2022 1:31 AM CDT 10 mg Given 05/29/2022 12:43 PM CDT 10 mg carBAMazepine suspension 200 mg (TEGretol) 200 mg, gastric tube, 3 times daily, First dose on Sun05/28/22 at 1715, Shake Well. Take with food. Do not administer with any other liquid drugs. Given 06/02/2022 2:02 PM CDT 200 mg Given 06/02/2022 6:37 AM CDT 200 mg Given 06/01/2022 6:12 PM CDT 200 mg carBAMazepine suspension 400 mg (TEGretol) 400 mg, gastric tube, Daily, First dose on Sun05/28/22 at 2030, Shake Well. Take with food. Do not administer with any other liquid drugs. Given 06/01/2022 8:38 PM CDT 400 mg Given 05/31/2022 8:52 PM CDT 400 mg Given 05/30/2022 8:43 PM CDT 400 mg cefTRIAXone in dextrose (iso osm) IVPB 2 g (ROCEPHIN) 2 g, intravenous, at 200 mL/hr, Administer over 15 Minutes, Every 24 hours, First dose on Sun05/28/22 at 1930, Drug Monitoring Program: Pharmacist to adjust medication dosing based on indication and drug clearance factors., Indications: Respiratory tract infection, community acquired New Bag 06/01/2022 7:00 PM CDT 2 g 200 mL/hr New Bag 05/31/2022 6:42 PM CDT 2 g 200 mL/hr New Bag 05/30/2022 7:01 PM CDT 2 g 200 mL/hr cholecalciferol 10 mcg/mL (400 Unit/mL) drops 50 mcg (VITAMIN D3) 50 mcg, gastric tube, Daily, First dose on Sun05/28/22 at 1730, Vitamin D: Units x 0.025 = mcg (e.g. 200 Units = 5 mcg; 250 Units = 6.25 mcg; 5,000 Units = 125 mcg) Given 06/01/2022 6:14 PM CDT 50 mcg Given 05/31/2022 6:45 PM CDT 50 mcg Given 05/30/2022 5:32 PM CDT 50 mcg citalopram solution 20 mg (CeleXA) 20 mg, gastric tube, Daily, First dose on Sun05/29/22 at 0900 Given 06/02/2022 8:57 AM CDT 20 mg Given 06/01/2022 9:24 AM CDT 20 mg Given 05/31/2022 8:24 AM CDT 20 mg D5W and NaCl 0.45% with KCl 10 mEq/L infusion 75 mL/hr, intravenous, Continuous, Starting on Sun05/30/22 at 1800, For 12 hours Rate/Dose Verify 05/30/2022 10:00 PM CDT 75 mL/hr 75 mL/hr Rate/Dose Verify 05/30/2022 9:00 PM CDT 75 mL/hr 75 mL/h r New Bag 05/30/2022 7:42 PM CDT 75 mL/hr 75 mL/hr diclofenac sodium 1 % gel 4 g (VOLTAREN) 4 g, topical, 4 times daily, First dose on Mahsa 06/01/22 at 1115, Do not exceed 32 g per day, over all affected joints. Use dosing card to measure product. 2 g = 2.25 inches, 4 gm = 4.5 inches. Rinse dosing card after use and save for each administration. Given 06/02/2022 2:14 PM CDT 4 g Given 06/02/2022 8:57 AM CDT 4 g Given 06/01/2022 8:39 PM CDT 4 g dornase kailee 5 mg in sterile water intrapleural solution 5 mg, intrapleural, Every 12 hours, First dose on 05/29/22 at 1515, For 2 doses, Alteplase is instilled followed by a 0.9 % NaCl flush. Clamp for 1 hour, then unclamp and drain for 2 hours. The Dornase kailee is then instilled, followed by 0.9 % NaCl flush. Clamp for 1 hour then unclamp and drain for 2 hours. Notify service for the following: purulent drainage from the tube, bright red blood from tube, shortness of breath or chest pains. Given 05/30/2022 6:46 AM CDT 5 mg Given 05/29/2022 4:38 PM CDT 5 mg enoxaparin injection 40 mg (LOVENOX) 40 mg, subcutaneous, Every 24 hours scheduled, First dose on Sun05/28/22 at 1900 Given 06/02/2022 8:57 AM CDT 40 mg Right Lower Abdomen Given 06/01/2022 9:24 AM CDT 40 mg Le ft Lower Abdomen Given 05/31/2022 8:16 AM CDT 40 mg Ri ght Lower Abdomen ferrous sulfate 220 mg (44 mg iron)/5 mL elixir 44 mg of iron 44 mg of iron, gastric tube, Daily, First dose on Sun05/28/22 at 1730, 220 mg contains 44 mg of elemental iron. Given 06/01/2022 6:08 PM CDT 44 m g of iron Given 05/31/2022 6:44 PM CDT 44 mg of iron Given 05/30/2022 5:31 PM CDT 44 mg of iron fluticasone propionate 50 mcg/actuation nasal spray 2 spray (FLONASE) 2 spray, each nostril, Daily, First dose on Sun05/29/22 at 0900 Given 05/30/2022 8:25 AM CDT 2 sprays Given 05/29/2022 8:35 AM CDT 2 sprays HYDROmorphone tablet 1 mg (DILAUDID) 1 mg, gastric tube, Every 4 hours PRN, moderate pain or score 4-6 of 10, Starting on Sun05/28/22 at 1927 iohexoL 300 mg iodine/mL solution (OMNIPAQUE) As needed, Starting on Sun05/31/22 at 1305, Intra-Op Given 05/31/2022 1:05 PM CDT 30 mL lactated Ringer's bolus 1,000 mL 1,000 mL, intravenous, at 250 mL/hr, Administer over 4 Hours, Once, On Sun05/30/22 at 0715, For 1 dose New Bag 05/30/2022 8:25 AM CDT 1,000 mL 250 mL/hr lactated Ringer's bolus 500 mL 500 mL, intravenous, at 500 mL/hr, Administer over 1 Hours, Once, On Sun05/29/22 at 0730, For 1 dose New Bag 05/29/2022 8:34 AM CDT 500 mL 500 mL/hr lactated Ringer's bolus 500 mL 500 mL, intravenous, at 500 mL/hr, Administer over 1 Hours, Once, On Sun05/29/22 at 1300, For 1 dose New Bag 05/29/2022 1:10 PM CDT 500 mL 500 mL/hr lamoTRIgine tablet 100 mg (LaMICtaL) 100 mg, gastric tube, 3 times daily, First dose on Sun05/28/22 at 1745 Given 06/02/2022 2:02 PM CDT 100 mg Given 06/02/2022 8:58 AM CDT 100 mg Given 06/01/2022 6:08 PM CDT 100 mg lamoTRIgine tablet 200 mg (LaMICtaL) 200 mg, gastric tube, Daily, First dose on Sun05/28/22 at 2100 Given 06/01/2022 8:38 PM CDT 200 mg Given 05/31/2022 8:53 PM CDT 200 mg Given 05/30/2022 8:46 PM CDT 200 mg lansoprazole suspension 30 mg (PREVACID) 30 mg, gastric tube, 2 times daily, First dose on Sun05/28/22 at 1630, lansoprazole DR disintegrating tablet was interchanged for lansoprazole oral suspension (same dose/frequency) Given 06/02/2022 6:37 AM CDT 30 mg Given 06/01/2022 3:49 PM CDT 30 mg Given 06/01/2022 6:45 AM CDT 30 mg lidocaine 1 % intrapleural solution 100 mg (XYLOCAINE) 100 mg, intrapleural, Every 6 hours PRN, pain, Starting on Sun05/28/22 at 1729, Flush with 5 mL NaCl 0.9% after instillation. Doses must be requested from pharmacy when needed. Dispensed in a cath-tip syringe loperamide capsule 2 mg (IMODIUM A-D) 2 mg, oral, 4 times daily PRN, diarrhea, Starting on Sun06/02/22 at 1324 Given 06/02/2022 2:30 PM CDT 2 mg loratadine solution 10 mg (CLARITIN) 10 mg, gastric tube, Daily, First dose on Sun05/28/22 at 2100 Given 06/01/2022 8:38 PM CDT 10 mg Given 05/31/2022 8:53 PM CDT 10 mg Given 05/30/2022 8:40 PM CDT 10 mg LORazepam concentrated solution 1 mg (ATIVAN) 1 mg, buccal, As needed, other, Seizure lasting longer than 90 seconds or for more than 3 seizures in less than 6 hours, Starting on Sun05/28/22 at 1652 LORazepam injection 1 mg (ATIVAN) 1 mg, intravenous, As needed, seizures, Seizure lasting longer than 90 seconds or for more than 3 seizures in less than 6 hours, Starting on Sun05/28/22 at 1652, Shortage on injection, use oral when possible For intravenous use, dilute with equal volume of 0.9% NS metroNIDAZOLE tablet 500 mg (FLAGYL) 500 mg, gastric tube, 3 times daily, First dose on Sun05/28/22 at 2100, Indications: Respiratory tract infection, community acquired Given 06/02/2022 2:16 PM CDT 500 mg Given 06/02/2022 8:58 AM CDT 500 mg Given 06/01/2022 8:38 PM CDT 500 mg naloxone injection 0.4 mg (NARCAN) 0.4 mg, intravenous, As needed, reversal, Starting on Sun05/28/22 at 1928 polyethylene glycol powder packet 17 g (MIRALAX) 17 g, gastric tube, 3 times weekly (Once per day on Sun), First dose (after last modification) on Sun05/29/22 at 0900, Dissolve in 240 mLs (8 ounces) of water prior to giving. Avoid mixing with starch-based thickened liquids., , On hold since Sun05/30/2022 at 0754 until manually unheld Given 05/29/2022 8:44 AM CDT 17 g potassium chloride IVPB 10 mEq 10 mEq, intravenous, at 100 mL/hr, Administer over 60 Minutes, Every 1 hour, First dose on Sun05/30/22 at 0830, For 2 doses, For K 3-3.4 mEq/L - give total of 20 mEq, Monitor the following for replacement: Potassium, Replace Potassium per: Standard Schedule New Bag 05/30/2022 9:57 AM CDT 10 mEq 100 mL/hr New Bag 05/30/2022 8:25 AM CDT 10 mEq 100 mL/hr rufinamide suspension 1,200 mg (BANZEL) 1,200 mg, gastric tube, 4 times daily, First dose on Sun05/28/22 at 1730 Given 06/02/2022 2:03 PM CDT 1,200 mg Given 06/02/2022 8:58 AM CDT 1,200 mg Given 06/01/2022 8:39 PM CDT 1,200 mg sodium chloride 0.9 % injection 3 mL 3 mL, intravenous, Every 12 hours scheduled, First dose on Sun05/28/22 at 2100, Peripheral Intravenous Catheter and Rapid Infusion Catheter, when no infusion to maintain patency Given 06/02/2022 9: 00 AM CDT 3 mL Given 06/01/2022 8:41 PM CDT 3 mL Given 06/01/2022 9:24 AM CDT 3 mL sodium chloride 0.9 % injection 5 mL 5 mL, miscellaneous, Every 12 hours, First dose on Sun05/29/22 at 1215, For 2 doses, Alteplase is instilled followed by a 0.9 % NaCl flush. Clamp for 1 hour, then unclamp and drain for 2 hours. The Dornase kailee is then instilled, followed by 0.9 % NaCl flush. Clamp for 1 hour then unclamp and drain for 2 hours. Notify service for the following: purulent drainage from the tube, bright red blood from tube, shortness of breath or chest pains. Given 05/30/2022 1:31 AM CDT 5 mL Given 05/29/2022 12:43 PM CDT 5 mL sodium chloride 0.9 % injection 5 mL 5 mL, miscellaneous, Every 12 hours, First dose on 05/29/22 at 1515, For 2 doses, Alteplase is instilled followed by a 0.9 % NaCl flush. Clamp for 1 hour, then unclamp and drain for 2 hours. The Dornase kailee is then instilled, followed by 0.9 % NaCl flush. Clamp for 1 hour then unclamp and drain for 2 hours. Notify service for the following: purulent drainage from the tube, bright red blood from tube, shortness of breath or chest pains. Given 05/30/2022 6:46 AM CDT 5 mL Given 05/29/2022 4:38 PM CDT 5 mL sodium chloride tablet 1 g 1 g, gastric tube, 3 times daily, First dose on Sun05/28/22 at 2100 Given 06/02/2022 2:02 PM CDT 1 g Given 06/02/2022 8:58 AM CDT 1 g Given 06/01/2022 8:38 PM CDT 1 g documented in this encounter Active and Recently Administered Medications Times are shown in CDT. Scheduled Medication Order 05/31/2022 06/01/2022 06/02/2022 acetaminophen 160 mg/5 mL liquid 1,000 mg (TYLENOL) 1,000 mg, gastric tube, Every 6 hours, First dose on Sun05/28/22 at 2000 0300 (Given - Provider: Irais Hansen R.N.)0815 (Given - Provider: Becky Bonner R.N.)1456 (Given - Provider: Becky Bonner R.N.)2051 (Given - Provider: Iona Collado R.N.) 0415 (Given - Provider: Iona Collado R.N.)0911 (Given - Provider: Becky Bonner R.N.)1548 (Given - Provider: Becky Bonner R.N.)203 (Given - Provider: Iona Collado R.N.) 0257 (Not Given - Provider: Iona Collado R.N. - Reason: Patient/family refused)0857 (Given - Provider: Becky Bonner R.N.)1401 (Given - Provider: Becky Bonner R.N.) carBAMazepine suspension 200 mg (TEGretol)(Linked Group 1) 200 mg, gastric tube, 3 times daily, First dose on 05/28/22 at 1715, Shake Well. Take with food. Do not administer with any other liquid drugs. 0816 (Given - Provider: Becky Bonner R.N.)1458 (Given - Provider: Becky Bonner R.N.)1844 (Given - Provider: Becky Bonner R.N.) 0645 (Given - Provider: Iona Collado R.N.)1246 (Given - Provider: Becky Bonner R.N.)1812 (Given - Provider: Becky Bonner R.N.) 0637 (Given - Provider: Iona Collado R.N.)1402 (Given - Provider: Becky Bonner R.N.) carBAMazepine suspension 400 mg (TEGretol)(Linked Group 1) 400 mg, gastric tube, Daily, First dose on 05/28/22 at 2030, Shake Well. Take with food. Do not administer with any other liquid drugs. 2051 (Given - Provider: Iona Collado R.N.) 2037 (Given - Provider: Iona Collado R.N.) cefTRIAXone in dextrose (iso osm) IVPB 2 g (ROCEPHIN) 2 g, intravenous, at 200 mL/hr, Administer over 15 Minutes, Every 24 hours, First dose on 05/28/22 at 1930, Drug Monitoring Program: Pharmacist to adjust medication dosing based on indication and drug clearance factors., Indications: Respiratory tract infection, community acquired 184 (New Bag - Provider: Becky Bonner R.N.) 1900 (New Bag - Provider: Becky Bonner R.N.) cholecalciferol 10 mcg/mL (400 Unit/mL) drops 50 mcg (VITAMIN D3) 50 mcg, gastric tube, Daily, First dose on 05/28/22 at 1730, Vitamin D: Units x 0.025 = mcg (e.g. 200 Units = 5 mcg; 250 Units = 6.25 mcg; 5,000 Units = 125 mcg) 184 (Given - Provider: Becky Bonner R.N.) 1813 (Given - Provider: Becky Bonner R.N.) citalopram solution 20 mg (CeleXA) 20 mg, gastric tube, Daily, First dose on Sun05/29/22 at 0900 0824 (Given - Provider: Becky Bonner R.N.) 0924 (Given - Provider: Becky Bonner R.N.) 0857 (Given - Provider: Becky Bonner R.N.) diclofenac sodium 1 % gel 4 g (VOLTAREN) 4 g, topical, 4 times daily, First dose on Mahsa 06/01/22 at 1115, Do not exceed 32 g per day, over all affected joints. Use dosing card to measure product. 2 g = 2.25 inches, 4 gm = 4.5 inches. Rinse dosing card after use and save for each administration. 1245 (Given - Provider: Becky Bonner R.N.)181 (Given - Provider: Becky Bonner R.N.)2039 (Given - Provider: Iona Collado R.N.) 0857 (Given - Provider: Becky Bonner R.N.)1414 (Given - Provider: Becky Bonner R.N.) enoxaparin injection 40 mg (LOVENOX) 40 mg, subcutaneous, Every 24 hours scheduled, First dose on 05/28/22 at 1900 0816 (Given - Provider: Becky Bonner R.N.) 0924 (Given - Provider: Becky Bonner R.N.) 0857 (Given - Provider: Becky Bonner R.N.) ferrous sulfate 220 mg (44 mg iron)/5 mL elixir 44 mg of iron 44 mg of iron, gastric tube, Daily, First dose on 05/28/22 at 1730, 220 mg contains 44 mg of elemental iron. 1844 (Given - Provider: Becky Bonner R.N.) 1808 (Given - Provider: Becky Bonner R.N.) fluticasone propionate 50 mcg/actuation nasal spray 2 spray (FLONASE) 2 spray, each nostril, Daily, First dose on 05/29/22 at 0900 0849 (Not Given - Provider: Becky Bonner R.N. - Reason: Patient/family refused) 0925 (Not Given - Provider: Becky Bonner R.N. - Reason: Patient/family refused) 0918 (Not Given - Provider: Becky Bonner R.N. - Reason: Patient/family refused) lamoTRIgine tablet 100 mg (LaMICtaL)(Linked Group 2) 100 mg, gastric tube, 3 times daily, First dose on 05/28/22 at 1745 0812 (Given - Provider: Becky Bonner R.N.)1457 (Given - Provider: Becky Bonner R.N.)1844 (Given - Provider: Becky Bonner R.N.) 0924 (Given - Provider: Becky Bonner R.N.)1246 (Given - Provider: Becky Bonner R.N.)1808 (Given - Provider: Becky Bonner R.N.) 0858 (Given - Provider: Becky Bonner R.N.)1402 (Given - Provider: Becky Bonner R.N.) lamoTRIgine tablet 200 mg (LaMICtaL)(Linked Group 2) 200 mg, gastric tube, Daily, First dose on 05/28/22 at 2099 2052 (Given - Provider: Iona Collado R.N.) 2037 (Given - Provider: Iona Collado R.N.) lansoprazole suspension 30 mg (PREVACID) 30 mg, gastric tube, 2 times daily, First dose on 05/28/22 at 1630, lansoprazole DR disintegrating tablet was interchanged for lansoprazole oral suspension (same dose/frequency) 0612 (Given - Provider: Irais Hansen RJoseNJose)1712 (Given - Provider: Becky Bonner R.N.) 0645 (Given - Provider: Iona Collado R.N.)1549 (Given - Provider: Becky Bonner R.N.) 0637 (Given - Provider: Iona Collado R.N.)1630 (Due) loratadine solution 10 mg (CLARITIN) 10 mg, gastric tube, Daily, First dose on 05/28/22 at 2099 2052 (Given - Provider: Iona Collado R.N.) 2037 (Given - Provider: Iona Collado R.N.) metroNIDAZOLE tablet 500 mg (FLAGYL) 500 mg, gastric tube, 3 times daily, First dose on 05/28/22 at 2099, Indications: Respiratory tract infection, community acquired 0812 (Given - Provider: Becky Bonner R.N.)1458 (Given - Provider: Becky Bonner R.N.)2052 (Given - Provider: Iona Collado R.N.) 0924 (Given - Provider: Becky Bonner R.N.)1548 (Given - Provider: Becky Bonner R.N.)2037 (Given - Provider: Iona Collado R.N.) 0858 (Given - Provider: Becky Bonner R.N.)1416 (Given - Provider: Becky Bonner R.N.) polyethylene glycol powder packet 17 g (MIRALAX) 17 g, gastric tube, 3 times weekly (Once per day on Sun), First dose (after last modification) on Sun05/29/22 at 0900, Dissolve in 240 mLs (8 ounces) of water prior to giving. Avoid mixing with starch-based thickened liquids., , On hold since Sun05/30/2022 at 0754 until manually unheld 0900 (Not Given - Provider: Becky Bonner R.N. - Reason: See Provider Order) 0900 (Not Given - Provider: Becyk Bonner R.N. - Reason: See Provider Order)1848 (Unheld by provider - Provider: Discharge Provider, Automatic) rufinamide suspension 1,200 mg (BANZEL) 1,200 mg, gastric tube, 4 times daily, First dose on Sun05/28/22 at 1730 0824 (Given - Provider: Becky Bonner R.N.)1459 (Given - Provider: Becky Bonner R.N.)1845 (Given - Provider: Becky Bonner R.N.)205 (Given - Provider: Kobe GarciaNJose) 0924 (Given - Provider: Becky Bonner R.N.)1246 (Given - Provider: Becky Bonner R.N.)1814 (Given - Provider: Becky Bonner R.N.)2039 (Given - Provider: Kobe GarciaNJose) 0858 (Given - Provider: Becky Bonner R.N.)1403 (Given - Provider: Becky Bonner R.N.) sodium chloride 0.9 % injection 3 mL 3 mL, intravenous, Every 12 hours scheduled, First dose on Sun05/28/22 at 2100, Peripheral Intravenous Catheter and Rapid Infusion Catheter, when no infusion to maintain patency 0835 (Given - Provider: Becky Bonner R.N.)2053 (Given - Provider: Iona Collado R.N.) 0924 (Given - Provider: Becky Bonner R.N.)204 (Given - Provider: Iona Collado R.N.) 0900 (Given - Provider: Becky Bonner R.N.) sodium chloride tablet 1 g 1 g, gastric tube, 3 times daily, First dose on Sun05/28/22 at 2100 0812 (Given - Provider: Becky Bonner R.N.)1457 (Given - Provider: Becky Bonner R.N.)2053 (Given - Provider: Iona Collado R.N.) 0924 (Given - Provider: Becky Bonner R.N.)1246 (Given - Provider: Becky Bonner R.N.)203 (Given - Provider: Iona Collado R.N.) 0858 (Given - Provider: Becky Bonner R.N.)1402 (Given - Provider: Becky Bonner R.N.) PRN Medication Order 05/31/2022 06/01/2022 06/02/2022 HYDROmorphone tablet 1 mg (DILAUDID) 1 mg, gastric tube, Every 4 hours PRN, moderate pain or score 4-6 of 10, Starting on Sun05/28/22 at 1927 iohexoL 300 mg iodine/mL solution (OMNIPAQUE) (COMPLETED) As needed, Starting on Sun05/31/22 at 1305, Intra-Op 1305 (Given - Provider: George Mendiola M.D.) lidocaine 1 % intrapleural solution 100 mg (XYLOCAINE) 100 mg, intrapleural, Every 6 hours PRN, pain, Starting on Sun05/28/22 at 1729, Flush with 5 mL NaCl 0.9% after instillation. Doses must be requested from pharmacy when needed. Dispensed in a cath-tip syringe loperamide capsule 2 mg (IMODIUM A-D) 2 mg, oral, 4 times daily PRN, diarrhea, Starting on Sun06/02/22 at 1324 1430 (Given - Provid er: Becky Bonner R.N.) LORazepam concentrated solution 1 mg (ATIVAN)(Linked Group 3) 1 mg, buccal, As needed, other, Seizure lasting longer than 90 seconds or for more than 3 seizures in less than 6 hours, Starting on 05/28/22 at 1652 LORazepam injection 1 mg (ATIVAN)(Linked Group 3) 1 mg, intravenous, As needed, seizures, Seizure lasting longer than 90 seconds or for more than 3 seizures in less than 6 hours, Starting on 05/28/22 at 1652, Shortage on injection, use oral when possible For intravenous use, dilute with equal volume of 0.9% NS naloxone injection 0.4 mg (NARCAN) 0.4 mg, intravenous, As needed, reversal, Starting on 05/28/22 at 1928 sodium chloride 0.9 % injection 10 mL 10 mL, intravenous, As needed, line care, Starting on Sun05/28/22 at 1535, Peripheral Intravenous Catheter and Rapid Infusion Catheter, prior to blood sampling, post blood transfusion or post blood sampling sodium chloride 0.9 % injection 3 mL 3 mL, intravenous, As needed, line care, Starting on Sun05/28/22 at 1535, Prior to and following infusion and between multiple consecutive infusions: sodium chloride 0.9 % injection Linked Groups Order Group 1: carBAMazepine suspension 200 mg (TEGretol)Jump to med 200 mg, gastric tube, 3 times daily, First dose on 05/28/22 at 1715, Shake Well. Take with food. Do not administer with any other liquid drugs. And carBAMazepine suspension 400 mg (TEGretol)Jump to med 400 mg, gastric tube, Daily, First dose on 05/28/22 at 2030, Shake Well. Take with food. Do not administer with any other liquid drugs. Group 2: lamoTRIgine tablet 100 mg (LaMICtaL)Jump to med 100 mg, gastric tube, 3 times daily, First dose on 05/28/22 at 1745 And lamoTRIgine tablet 200 mg (LaMICtaL)Jump to med 200 mg, gastric tube, Daily, First dose on 05/28/22 at 2100 Group 3: LORazepam concentrated solution 1 mg (ATIVAN)Jump to med 1 mg, buccal, As needed, other, Seizure lasting longer than 90 seconds or for more than 3 seizures in less than 6 hours, Starting on 05/28/22 at 1652 Or LORazepam injection 1 mg (ATIVAN)Jump to med 1 mg, intravenous, As needed, seizures, Seizure lasting longer than 90 seconds or for more than 3 seizures in less than 6 hours, Starting on 05/28/22 at 1652, Shortage on injection, use oral when possible For intravenous use, dilute with equal volume of 0.9% NS documented in this encounter Care Teams Systems Project Manager Relationship Specialty Start Date End Date None Reported, Pcp PCP - General Family Medicine 05/28/22 documented as of this encounter
--- OUTSIDE RECORDS SUMMARY | 2023-02-21 17:49 | XMS_ITS | Encounter Summary ---
Author Name Unknown Organization [facility] Address [address] [place] [phone] Care Team Providers Care Customer Development Representative Name Role Phone None Reported, Pcp Primary Care Provider Unavail able Encounter Details Date Type Department Care Team (Late Contact Info) Description 05/31/2022 11:35 AM CDT Ancillary Procedure Department of Pulmonary and CC Medicine Social History Tobacco Use Types Packs/Day Years [...] Encounters Date Type Department Care Team (Late Contact Info) Description 03/01/2023 11:15 AM CAN DRYER Appointment Department of Radiology in [place], [place] [address] [place] [phone] Floyd Robert APRN, C.N.P., M.S. [address] [place] [phone] documented as of this encounter Procedures Procedure Name Priority Date/Time Associated Diagnosis Comments PULMONARY AND CC MEDICINE IMAGE EXAM Routine 05/31/2022 11:35 AM CDT documented in this encounter Results * Non-Radiology Image-Pulmonary And CC Medicine Image Exam (05/31/2022 11:35 AM CDT) 05/31/2022 11:3 1 AM CDT Narrative IIMS - 05/31/2022 2:42 PM CDT This order has been created and auto-finalized to support the import of images acquired without order. The clinical documentation to support these images can be found on the encounter that produced images. Provider Not In System IMG NON RAD IMAGI NG PROCEDURES IIMS NA documented in this encounter Visit Diagnoses Not on filedocumented in this encounter Care Teams Customer Development Representative Relationship Specialty Start Date End Date None Reported, Pcp PCP - General Family Medicine 05/28/22 documented as of this encounter
--- OUTSIDE RECORDS SUMMARY | 2023-02-21 17:49 | XMS_ITS | Encounter Summary ---
Author Name Unknown Organization [facility] Address [address] [place] [address] Care Team Providers Care Forest Fire Prevention Specialist Name Role Phone None Reported, Pcp Primary Care Provider Unavail able Encounter Details Date Type Department Care Team (Latest Contact Info) Description 10/11/2022 2:30 PM CDT Clinical Communication Virtual Review in [place], [place] 200 [place] [address] Canceled Social History Tobacco Use Types Packs/Day Years [...] your living situation today? I have a [facility] place to live 10/11/2022 Sex and Gender Information Value Date Recorded Sex Assigned at Male 10/09/2022 11:47 PM CDT Gender Identity Male 10/09/2022 11:47 PM CDT Sexual Orientation Straight 10/09/2022 11 :47 PM CDT documented as of this encounter Plan of Treatment Upcoming Encounters Date Type Department Care Team (Late st Contact Info) Description 03/01/2023 11:15 AM HEATING REPAIR TECHNICIAN Appointment Department of Radiology in [place], [place] [address] [place] [phone] Floyd Robert, EMMANUEL, C.N.P., M.S. [address] [place] [phone] documented as of this encounter Visit Diagnoses Not on filedocumented in this encounter Care Teams Forest Fire Prevention Specialist Relationship Specialty Start Date End Date None Reported, Pcp PCP - General Family Medicine 05/28/22 documented as of this encounter
--- OUTSIDE RECORDS SUMMARY | 2023-02-21 17:49 | XMS_ITS | Encounter Summary ---
Author Name Unknown Organization [facility] Address [address] [place] [address] Care Team Providers Care Ferry Hand Name Role Phone None Reported, Pcp Primary Care Provider Unavail able Reason for Referral * Specialty Diagnoses / Procedures Referred By Contac t Referred To Contact [facility] [address] [place] [phone] [facility] Referral ID Status Reason Start Date Expiration Date Visits Re quested Visits Authorized * Outpatient (Routine) - Closed Specialty Diagnoses / Procedures Referred By Contac t Referred To Contact Endocrinology Diagnoses Dietary Counseling And Surveillance For Enteral Nutrition Kat Colbert APRN, C.N.P. [address] [place] [phone] [facility] Referral ID Status Reason Start Date Expiration Date Visits Re quested Visits Authorized [id number] Closed 09/26/2022 09/26/2023 1 1 * Outpatient (Routine) - Closed Specialty Diagnoses / Procedures Referred By Contac t Referred To Contact Radiology Diagnoses Dietary Counseling And Surveillance For Enteral Nutrition Procedures IR Gastrojejunal Tube Exchange Kat Colbert APRN, C.N.P. [address] [place] [phone] [facility] Referral ID Status Reason Start Date Expiration Date Visits Re quested Visits Authorized [id number] Closed 09/26/2022 09/26/2023 1 1 * Outpatient (Routine) - Closed Specialty Diagnoses / Procedures Referred By Parvin bishop Referred To Contact Nutrition Diagnoses Dietary Counseling And Surveillance For Enteral Nutrition Kat Colbert APRN, C.N.P. [address] [place] [phone] [facility] Referral ID Status Reason Start Date Expiration Date Visits Re quested Visits Authorized [id number] Closed 09/26/2022 09/26/2023 1 1 Encounter Details Date Type Department Care Team (Late st Contact Info) Description 09/26/2022 Orders Only Division of Endocrinology in [place], [place] [address] [place] [phone] Emerald Escobar R.N. [address] [place] [phone] Encounter For Observation For Suspected Conditions Related To Home Physiologic Monitoring Device Ruled Out (Primary Dx); Dietary Counseling And Surveillance For Enteral Nutrition Social History Tobacco Use Types Packs/Day Years [...] your living situation today? I have a [facility] place to live 10/11/2022 Sex and Gender Information Value Date Recorded Sex Assigned at Male 10/09/2022 11:47 PM CDT Gender Identity Male 10/09/2022 11:47 PM CDT Sexual Orientation Straight 10/09/2022 11 :47 PM CDT documented as of this encounter Plan of Treatment Upcoming Encounters Date Type Department Care Team (Late st Contact Info) Description 03/01/2023 11:15 AM PACKAGE DRIER Appointment Department of Radiology in [place], [place] [address] [place] [phone] Floyd Robert APRN, C.N.P., M.S. [address] [place] [phone] Scheduled Referrals Name Type Priority Associated Diagnoses Order Schedule Nutrition - Home nutrition medical nutrition therapy consult (clinic) Outpatient Referral Routine Home Enteral Nutrition Expected: 09/26/2022 (Approximate), Expires: 12/28/2023 Endocrinology - Home enteral medical nutrition therapy consult (clinic) Outpatient Referral Routine Home Enteral Nutrition Expected: 09/26/2022 (Approximate), Expires: 12/28/2023 Nutrition - Post-feeding tube education visit (clinic) Nurse Outpatient Referral Routine Home Enteral Nutrition Expected: 09/26/2022 (Approximate), Expires: 12/28/2023 documented as of this encounter Results * IR Gastrojejunal Tube Exchange (10/13/2022 10:56 AM CDT) Anatomical Region Laterality Modality Abdomen, Vascular Interventi onal RST LOS, Vascular Interventional ARZ LOS, Vascular Interventional FLA LOS N/A X-Ray Angiography 10/13/2022 10:5 8 AM CDT Impressions 10/13/2022 2:27 PM CDT Exchange of a 22 Luxembourger low profile percutaneous gastrojejunostomy tube. Stomal length increased to 2.7 cm, which seems to fit better. The tube is ready for use. Exchange tube in 3-5 months. Contact the HEN clinic at [phone] to schedule the tube exchange. 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 Currently, the patient has a 22 Luxembourger by 2.3 x 45 cm low profile [...] and draped in the usual sterile fashion. Twisting Frame Changer image demonstrates a percutaneous gastrojejunostomy tube. Contrast [...] ??Gastrojejunostomy. Tube Brand: ??ENFit. Tube Size: ??22 Luxembourger. Low Profile: ??Yes. 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 Currently, the patient has a 22 Luxembourger by 2.3 x 45 cmlow profile GJ tube. Concern from HEN service that stomal length is too short. Request forincreasing the stomal length. Encounter Type: Exchange. Encounter Timing: On cycle. Encounter Reason: Routine. Suspected Cause of Occlusion: NA. Presenting Location: Outpatient. TECHNIQUE: The patient was positioned supine on the fluoroscopy table.The patient and gastrojejunostomy tube were prepared and draped in the usual sterilefashion. Twisting Frame Changer image demonstrates a percutaneous gastrojejunostomy tube. Contrast [...] Gastrojejunostomy. Tube Brand: ENFit. Tube Size: 22 Luxembourger. Low Profile: Yes. Tube Length: Stomal 2.7 [...] were discussed. IMPRESSION: Exchange of a 22 Luxembourger low profile percutaneous gastrojejunostomy tube.Stomal length increased to 2.7 cm, which seems to fit better. The tube is ready for use.Exchange tube in 3-5 months. Contact the [facility] clinic at [phone] to schedule the tubeexchange. EP Amos Motta APRN.N.PJose IMG IR PROCEDURES documented in this encounter Visit Diagnoses Diagnosis Encounter For Observation For Suspected Conditions Related To Home Physiologic Monitoring Device Ruled Out- Primary Dietary Counseling And Surveillance For Enteral Nutrition Dietary Counseling And Surveillance For Enteral Nutrition documented in this encounter Care Teams Ferry Hand Relationship Specialty Start Date End Date None Reported, Pcp PCP - General Family Medicine 05/28/22 documented as of this encounter
--- OUTSIDE RECORDS SUMMARY | 2023-02-21 17:49 | XMS_ITS | Encounter Summary ---
Author Name Unknown Organization [facility] Address [address] [place] [address] Care Team Providers Care Toolroom Attendant Name Role Phone None Reported, Pcp Primary Care Provider Unavail able Encounter Details Date Type Department Care Team (Late Contact Info) Description 05/29/2022 8:10 AM CDT Ancillary Procedure Department of Pulmonary [...] (Late Contact Info) Description 03/01/2023 11:15 AM VAN LOADER Appointment Department of Radiology in [place], [place] [address] [place] [phone] Floyd Robert APRN, C.N.P., M.S. [address] [place] [phone] documented as of this encounter Procedures Procedure Name Priority Date/Time Associated Diagnosis Comments PULMONARY AND CC MEDICINE IMAGE EXAM Routine 05/29/2022 8:10 AM CDT documented in this encounter Results * Non-Radiology Image-Pulmonary And CC Medicine Image Exam (05/29/2022 8:10 AM CDT) 05/29/2022 8:09 AM CDT Narrative IIMS - 05/29/2022 10:27 AM CDT This order has been created and auto-finalized to support the import of images acquired without order. The clinical documentation to support these images can be found on the encounter that produced images. Provider Not In System IMG NON RAD IMAGI NG PROCEDURES IIMS NA documented in this encounter Visit Diagnoses Not on filedocumented in this encounter Care Teams Toolroom Attendant Relationship Specialty Start Date End Date None Reported, Pcp PCP - General Family Medicine 05/28/22 documented as of this encounter
--- OUTSIDE RECORDS SUMMARY | 2023-02-21 17:49 | XMS_ITS | Encounter Summary ---
Author Name Unknown Organization [facility] Address [address] [place] [address] Care Team Providers Care Career Development Coordinator Name Role Phone None Reported, Pcp Primary Care Provider Unavail able Encounter Details Date Type Department Care Team (Latest Contact Info) Description 10/12/2022 10:30 AM CDT Clinical Support Division of Endocrinology in [place], [place] [address] [place] [phone] Kat Colbert APRN, C.N.P. [address] [place] [phone] Sakina Horton, R.N. Anay Napier, R.N. Dietary Counseling And Surveillance For Enteral [...] the money to buy more. Never true 09/06/20 23 Within the past 12 months, t [...] your living situation today? I have a [facility] place to live 10/11/2022 Sex and Gender Information Value Date Recorded Sex Assigned at Male 10/09/2022 11:47 PM CDT Gender Identity Male 10/09/2022 11:47 PM CDT Sexual Orientation Straight 10/09/2022 11 :47 PM CDT documented as of this encounter Last Filed Vital Signs Vital Sign Reading Time Taken Comments Blood Pressure - - Pulse - - Temperature - - Respiratory Rate - - Oxygen Saturation - - Inhaled Oxygen Concentration - - Weight 64.4 kg (141 lb 15.6 oz) 023 10:05 AM CDT Height - - Body Mass Index 21.59 05/29/2022 1:00 PM CDT documented in this encounter Progress Notes * Sakina Horton R.N. - 10/12/2022 10:30 AM CDT SUBJECTIVE REASON FOR VISIT Mr. Vogt was seen in the Home Enteral Nutrition clinic today for a HEN consult. OBJECTIVE The indication for tube placement was: Marcos-Gastaut syndrome, cerebral palsy, decrease cognitive ability, and severe epilepsy . Tube was last replaced using: No sedation. Were there complications at time of placement? No. ASSESSMENT Tube type: TGJ tube (trans-gastric jejunal) Tube size: 22 Tube brand: [employer] Tube reference number: [id number] Connector type: Small Bore (Enfit) Date last replaced: 05/31/2022 Skin disk level: 2.3 low profile length Internal anchor device: Balloon, not checked Site condition: Moderate erythema from 3-9 o'clock Dressing status: Interdry (silver fabric) folded under tube Is an infection assessment needed? No Condition of tube: Tube clear/Normal appearance Securement device used: None Movement of tube: Moves freely Considerations for future visits: Low profile tube: Discussed, Demonstrated, Education/Teach Back, and Currently has/does Self replacement: NA Special order tube: GI/IR supply chain associate notified? Yes - [id number] GJ tube on the shelf for patient's tub replacement on 10/13 PLAN Is there a procedure scheduled? Date: 10/13/2022, Time: 10:00 am, and Location: --[facility] The patient's tube preference is: Balloon tube. Balloon to balloon replacement procedure discussed.The final decision of tube type and anesthesia will be made by the proceduralist and/or anesthesia provider Were procedural instructions given? Yes. Eating and drinking instructions: Starting 8 hours before your scheduled procedure: Stop eating solid food. Continue drinking liquids. Starting 6 hours beforeyour scheduled procedure: Stop drinking any non-clear liquids (milk, orange juice and tomato juice). You may continue to drink clear liquids such as water, clear fruit juice (apple or white grape), carbonated beverages, clear broth, gelatin, ice pops (no pulp), clear tea or black coffee (no milk orcreamer). If you have a feeding tube, stop putting feedings through the tube. You may continue putting water or other clear liquids through the tube. Starting 2 hours before your scheduled procedure:Stop drinking anything. If you have a feeding tube, stop putting water or other clear liquids through the tube. At the end of the discussion the patient verbalized understanding and agreement with the procedural instructions. Is a return visit needed? As needed Person educated: Patient and Family Supplies given: None *Patient's sister reports that shelter staff is cleaning the site with soap, water and a cleaning agent which she could not recall the name of. I provided our recommendations of using only soap and water. I also discussed that a zinc- oxide based cream or a barrier spray could be used to protect the skin from any leakage he is having. Right now, he is using Interdry, which is not effective as it often is removed from the area when the patient transfers. The patient reports some pain at the area, as well as consistent leaking from the tube site. I did not visualize active leaking during today's appointment, however his erythema suggests leaking or irritation on the skin around the tube. *I did notice that his tube seems quite tight and that it may be that his low profile (button) tubeis too short for his stoma. I have sent a message to the [facility] VIR RNs to ask them to measure his stoma during the tube replacement tomorrow, so we can order the appropriate tube length for his future exchanges. The patient and his sister seemed open to the idea of transitioning to a standard tube for a short time if IR believes the 2.3 cm tube is too short and will cause more issue. This was discussed with Floyd Robert CNP, who will see them today to discuss his tube and nutrition. documented in this encounter Plan of Treatment Upcoming Encounters Date Type Department Care Team (Late st Contact Info) Description 03/01/2023 11:15 AM HOMICIDE SQUAD CAPTAIN Appointment Department of Radiology in [place], [place] [address] [place] [phone] Floyd Robert APRN, C.N.P., M.S. [address] [place] [phone] documented as of this encounter Visit Diagnoses Diagnosis Dietary Counseling And Surveillance For Enteral Nutrition documented in this encounter Care Teams Career Development Coordinator Relationship Specialty Start Date End Date None Reported, Pcp PCP - General Family Medicine 05/28/22 documented as of this encounter
--- OUTSIDE RECORDS SUMMARY | 2023-02-21 17:49 | XMS_ITS | Encounter Summary ---
Author Name Unknown Organization [facility] Address [address] [place] [address] Care Team Providers Care Asbestos Brake Lining Finisher Helper Name Role Phone None Reported, Pcp Primary Care Provider Unavail able Encounter Details Date Type Department Care Team (Late st Contact Info) Description 05/28/2022 2:30 PM CDT Ancillary Procedure Department of Pulmonary and CC Medicine Social History Tobacco Use Types Packs/Day Years Used Date Smoking Tobacco: Never Assessed Nutrition Answer Date Recorded Nutrition: EVOO Fat [...] st Contact Info) Description 03/01/2023 11:15 AM DIRECT CASTING OPERATOR Appointment Department of Radiology in [place] [id number] [place] [phone] Floyd Robert APRN, C.N.P., M.S. [address] [place] [phone] documented as of this encounter Procedures Procedure Name Priority Date/Time Associated Diagnosis Comments PULMONARY AND CC MEDICINE IMAGE EXAM Routine 05/28/2022 2:30 PM CDT documented in this encounter Results * Non-Radiology Image-Pulmonary And CC Medicine Image Exam (05/28/2022 2:30 PM CDT) 05/28/2022 2:29 PM CDT Narrative IIMS - 05/28/2022 5:41 PM CDT This order has been created and auto-finalized to support the import of images acquired without order. The clinical documentation to support these images can be found on the encounter that produced images. Provider Not In System IMG NON RAD IMAGI NG PROCEDURES IIMS NA documented in this encounter Visit Diagnoses Not on filedocumented in this encounter Care Teams Asbestos Brake Lining Finisher Helper Relationship Specialty Start Date End Date None Reported, Pcp PCP - General Family Medicine 05/28/22 documented as of this encounter
--- OUTSIDE RECORDS SUMMARY | 2023-02-21 17:49 | XMS_ITS | Encounter Summary ---
Author Name Unknown Organization [facility] Address [address] [place] [address] Care Team Providers Care Associate Software Development Engineer Name Role Phone None Reported, Pcp Primary Care Provider Unavail able Encounter Details Date Type Department Care Team (Late Contact Info) Description 06/01/2022 7:25 AM CDT Ancillary Procedure Department of Pulmonary [...] (Late Contact Info) Description 03/01/2023 11:15 AM CHECK EXAMINER Appointment Department of Radiology in [place], [place] [address] [place] [phone] Floyd Robert APRN, C.N.P., M.S. [address] [place] [phone] documented as of this encounter Procedures Procedure Name Priority Date/Time Associated Diagnosis Comments PULMONARY AND CC MEDICINE IMAGE EXAM Routine 06/01/2022 7:25 AM CDT documented in this encounter Results * Non-Radiology Image-Pulmonary And CC Medicine Image Exam (06/01/2022 7:25 AM CDT) 06/01/2022 7:22 AM CDT Narrative IIMS - 06/01/2022 9:35 AM CDT This order has been created and auto-finalized to support the import of images acquired without order. The clinical documentation to support these images can be found on the encounter that produced images. Provider Not In System IMG NON RAD IMAGI NG PROCEDURES IIMS NA documented in this encounter Visit Diagnoses Not on filedocumented in this encounter Care Teams Associate Software Development Engineer Relationship Specialty Start Date End Date None Reported, Pcp PCP - General Family Medicine 05/28/22 documented as of this encounter
--- OUTSIDE RECORDS SUMMARY | 2023-02-21 17:49 | XMS_ITS | Encounter Summary ---
Author Name Unknown Organization [facility] Address [address] [place] [address] Care Team Providers Care Poultry Buyer Name Role Phone None Reported, Pcp Primary Care Provider Unavail able Encounter Details Date Type Department Care Team (Late Contact Info) Description 05/30/2022 7:55 AM CDT Ancillary Procedure Department of Pulmonary [...] (Late Contact Info) Description 03/01/2023 11:15 AM SPACE SYSTEMS OPERATIONS CRAFTSMAN Appointment Department of Radiology in [place], [place] [address] [place] [phone] Floyd Robert APRN, C.N.P., M.S. [address] [place] [phone] documented as of this encounter Procedures Procedure Name Priority Date/Time Associated Diagnosis Comments PULMONARY AND CC MEDICINE IMAGE EXAM Routine 05/30/2022 7:55 AM CDT documented in this encounter Results * Non-Radiology Image-Pulmonary And CC Medicine Image Exam (05/30/2022 7:55 AM CDT) 05/30/2022 7:55 AM CDT Narrative IIMS - 05/30/2022 10:11 AM CDT This order has been created and auto-finalized to support the import of images acquired without order. The clinical documentation to support these images can be found on the encounter that produced images. Provider Not In System IMG NON RAD IMAGI NG PROCEDURES IIMS NA documented in this encounter Visit Diagnoses Not on filedocumented in this encounter Care Teams Poultry Buyer Relationship Specialty Start Date End Date None Reported, Pcp PCP - General Family Medicine 05/28/22 documented as of this encounter
--- OUTSIDE RECORDS SUMMARY | 2023-02-21 17:49 | XMS_ITS | Encounter Summary ---
Author Name Unknown Organization [facility] Address [address] [place] [address] Care Team Providers Care Wood Room Hand Name Role Phone None Reported, Pcp Primary Care Provider Unavail able Reason for Visit * Reason Onset Date Comments Appt Request 09/11/2022 Encounter Details Date Type Department Care Team (Latest Contact Info) Description 09/11/2022 Clinical Communication Division of Endocrinology in [place], [place] [address] [place] [phone] Nina Crocker, R.N. Appt Request Social History Tobacco Use Types Packs/Day Years [...] your living situation today? I have a [facility] home place to live 10/11/2022 Sex and Gender Information Value Date Recorded Sex Assigned at Male 10/09/2022 11:47 PM CDT Gender Identity Male 10/09/2022 11:47 PM CDT Sexual Orientation Straight 10/09/2022 11 :47 PM CDT documented as of this encounter Plan of Treatment Upcoming Encounters Date Type Department Care Team (Late st Contact Info) Description 03/01/2023 11:15 AM JEWEL HOLE FINISH OPENER Appointment Department of Radiology in [place], [place] [address] [place] [phone] Floyd Robert, EMMANUEL, C.N.P., M.S. [address] [place] [phone] documented as of this encounter Visit Diagnoses Not on filedocumented in this encounter Care Teams Wood Room Hand Relationship Specialty Start Date End Date None Reported, Pcp PCP - General Family Medicine 05/28/22 documented as of this encounter
--- OUTSIDE RECORDS SUMMARY | 2023-02-21 17:49 | XMS_ITS | Encounter Summary ---
Author Name Unknown Organization [facility] Address [address] [place] [id number] Care Team Providers Care Web Development Instructor Name Role Phone None Reported, Pcp Primary Care Provider Unavail able Reason for Visit * Reason Comments Scheduling Encounter Details Date Type Department Care Team (Late st Contact Info) Description 10/03/2022 Documentation Division of General Internal Medicine in [place], [place] [address] [place] [phone] Emerald Escobar R.N. [address] [place] [phone] Scheduling Social History Tobacco Use Types Packs/Day [...] Progress Notes * Emerald Escobar, R.N. - 10/03/2022 8:18 AM CDT Order in for GJ tube replacement in IR. Patient has a history of intellectual disability, cerebral palsy, Ford Cliff-Gastaut syndrome with severe epilepsy, prior right-sided loculated empyema requiring chest tube in the setting of aspiration status post G tube (2017), gastroesophageal reflux with priorsevere reflux esophagitis, hiatal hernia, osteoporosis. He currently has a 8270-22-2.3 GJ tube lastreplaced in IR on 05/31/2022. Procedure and sedation per IR, procedure should be scheduled at [facility] as he has a special order tube.Patient is not currently on any anticoagulants. He will need to see the [facility] dietitian, nurse and provider. Requesting next available appointments. *Per IR supply his replacement GJ low profile tube (8270-22-2.3) is on the shelf with his name on it. documented in this encounter Plan of Treatment Upcoming Encounters Date Type Department Care Team (Late st Contact Info) Description 03/01/2023 11:15 AM PREFINISH OPERATOR Appointment Department of Radiology in [place], [place] [address] [place] [phone] Floyd Robert, EMMANUEL, C.N.P., M.S. [address] [place] [phone] documented as of this encounter Visit Diagnoses Not on filedocumented in this encounter Care Teams Web Development Instructor Relationship Specialty Start Date End Date None Reported, Pcp PCP - General Family Medicine 05/28/22 documented as of this encounter
--- OUTSIDE RECORDS SUMMARY | 2023-02-21 17:50 | XMS_ITS | Clinical Summary ---
Author Name Unknown Organization [facility] Address [address] [place] [address] Care Team Providers Care Literacy Education Professor Name Role Phone Paras Dupree MD Unavailable [phone] Zarina Manzo MD Unavailable Darryl Kenny Primary Care Provider [phone] Modesta Elliott MD Unavailable Paras Dupree MD Unavailable [phone] Paras Dupree MD Unavailable [phone] Allergies Active Allergy Reactions Criticality Noted Date Comments Alendronate Other (See Comments) 06/08/2008 PN: LW Reaction: intolerant of taking correctly Intolerant of taking correctly Alendronate Sodium 11/05/2012 Erythromycin Other (See Comments) 10/14/2003 PN: Unknown Felbamate Rash Low 03/20/2007 PN: LW Reaction: Rash, Generalized Felbamate Rash Low 07/05/2012 Macrolides And Ketolides Other (See Comments) 10/14/2003 PN: Unknown Piperacillin Sod-Tazobactam So Rash High 06/13/2013 Piperacillin-Tazobacta m In Dex Rash Low 07/07/2015 Medications Medication Sig Dispensed Refills Start Date End Date Status polyethylene glycol (MIRALAX/GLYCOLAX) packetIndications: Slow transit constipation 17 g by Per PEG tube route 2 times daily as needed for constipation 60 packet 0 08/15/2015 Active Additional Information Patient taking differently:17 g Per PEG tube 2 TIMES DAILY PRN, constipation,Every other day per guardian, Reported on 02/18/2021 sennosides (SENOKOT) 8.6 MG tabletIndications: Constipation Take one tab up to two times daily as needed for constipation 120 tablet 1 01/11/2016 Active ARTIFICIAL SALIVA MT Take 1 spray by mouth 0 05/28/2017 Active acetaminophen 167 MG/5ML elixir 1,000 mg by Per G Tube route 0 10/10/2017 Active fluticasone (FLONASE) 50 MCG/ACT nasal spray [place] 2 sprays in nostril 0 05/29/2017 Active pseudoePHEDrine (SUDAFED) 60 MG tablet Take 60 mg by mouth PRN 0 11/02/2015 Active Nutritional Supplements (TWOCAL HN) LIQD Patient take 20 oz daily 0 Active LANsoprazole (PREVACID SOLUTAB) 30 MG ODT 30 mg by Per G Tube route 2 times daily 0 01/10/2019 Active cholecalciferol 125 MCG/0.5ML liquid 0 01/16/2022 Active citalopram (CELEXA) 10 MG/5ML solutionIndication s:Recurrent major depressive disorder, remission status unspecified (H24) ADMINISTER 10ML(20MG) ONCE A DAY INTO G-TUBE, NOT AT THE SAME TIME THE CARBAMAZEPINE SUSPENSION 240 mL 11 07/07/2022 Active carBAMazepine (TEGRETOL) 100 MG/5ML suspensionIndicati ons:Marcos-Gastaut syndrome with tonic seizures (H) ADMINISTER 200MG(10ML) PER G-TUBE IN MORNING, 200MG(10ML) AT NOON, 200MG(10ML) EVENING AND 400MG(20ML) AT BEDTIME 1500 mL 11 08/03/2022 Active sodium chloride 1 GM tabletIndications: Marcos-Gastaut syndrome with tonic seizures (H) 1 tablet (1 g) by Per G Tube route 3 times daily 90 tablet 5 08/07/2022 Active ferrous sulfate 220 (44 Fe) MG/5ML ELIX 220 mg by Other route daily 0 01/16/2022 Active loratadine (CLARITIN) 5 MG/5ML solution 10 mg by Jejunal Tube route daily 0 05/01/2022 Active Rufinamide (BANZEL) 40 MG/ML SUSPIndications:Le nnox-Gastaut syndrome with tonic seizures (H) ADMINISTER 30 ML IN AM, 30 ML AT NOON, 30 ML IN EVENING AND 30 ML AT BEDTIME. 3600 mL 11 10/03/2022 Active omeprazole (FIRST-OMEPRAZOLE) 2 MG/ML SUSP Take 10 mLs by mouth 2 times daily 0 Active lamoTRIgine (LAMICTAL) 100 MG tabletIndications: Andover-Gastaut syndrome with tonic seizures (H) CRUSH AND GIVE 1 TABLET VIA G-TUBE 3 TIMES DAILY (AM, NOON, AFTERNOON) AND 2 TABLETS IN THE EVENING 155 tablet 11 12/15/2022 Active LORazepam (LORAZEPAM INTENSOL) 2 MG/ML (HIGH CONC) oral solutionIndication s:Andover-Gastaut syndrome with tonic seizures (H) ADMINISTER 0.5 ML (1 MG) PRN FOR SEIZURE LASTING LONGER THAN 90 SECONDS OR FORM MORE THAN 3 SEIZURES IN LESS THAN 6 HOURS 30 mL 0 12/20/2022 Active Active Problems Problem Noted Date Diagnosed Date Sensorineural hearing loss, bilateral 01/11/2017 Aspiration into airway 07/27/2016 Chronic constipation 07/27/2016 Chronic GERD 07/27/2016 Cognitive dysfunction 07/27/2016 Wheelchair bound 07/27/2016 Epilepsy 09/19/2015 Severe sepsis with acute organ dysfunction 07/07 Gastroesophageal reflux disease with esophagitis 06/23/2015 Dysphagia 04/02/2015 Encephalomalacia 02/18/2014 Aspiration pneumonia 06/13/2013 Overview: Overview: He is on honey thickened liquids for diet ; Aspiration pneumonia 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 Staff has labelled major motor seizuers <30 sec tonic seizurs, >30 sec tonic- clonic seiuzres. Most seizures nocturnal and staff has only counted daytime seizures. Neither CC sectin nor VNS helped much. Baseline 5 tonic-clonic' and 18tonic seizurs per month. PHT, PB, GP, VPA tried and did not help. Rash with felbatol. As best as can tell OXC, TPM, lacosamide, fycompa not yet used. LTG, LEV< ZNS, CBZ all appeared to help, increased LTG adn ZNS worsened behavior. Seizures appeared to improve after RUF substituted for ZNS. Clobazam was added most recently with improvement allowing DC of LEV. Further attempts to simplify by discontinuing RUF and moving to LTG CARBAMAZEPINE CLB appeared associated with increased numbers of GTCs but some improvement in alertness. We decided to optimize CLB but may need to restart RUF; best seizure control thus far has been CARBAMAZEPINE LTG CLB 30 RUF 2400. Restarting RUF helped. Because of sedation moving to DC CLB and optimize carbamazepine lamotrigine RUF; this resulted in improved alertness and reasonable seizure control. Seizures then worsened again. Loss of appetite 02/12/2012 Hyperlipidemia 03/16/2008 Closed fracture of clavicle 04/13/2004 Overview: Overview: LW Onset: ; Fx Clavicle Closed Overview: LW Onset: Moderate intellectual disabi lity with intelligence quotient 35 to 49 04/13/2004 Overview: Overview: LW Onset: Intellectual disability 04/13/2004 Overview: Overview: LW Onset: Osteoporosis 04/13/2004 Overview: Overview: LW Onset: Seizure 04/13/2004 Overview: Overview: LW Modifier: VNS and corpus callosotomy in past Dr Dupree [facility] Encounters Date Type Department Care Team Description 12/19/2022 Refill [facility] [address] [address] Paras Dupree MD Refill Request (LORazepam (LORAZEPAM INTENSOL) 2 MG/ML (HIGH CONC) oral solution) 12/15/2022 2:30 PM PRODUCT ENGINEER Lab [facility] [address] [id number] Andover-Gastaut syndrome with tonic seizures (H); Andover-Gastaut syndrome with tonic seizures 12/15/2022 1:45 PM PRODUCT ENGINEER Office Visit [facility] [address] [address] Paras Dupree MD Andover-Gastaut syndrome with tonic seizures 12/15/2022 Travel 12/11/2022 MyC Medical Advice [facility] [address] [place] [address] Paras Dupree MD Andover-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) 12/10/2022 Travel from Last 3 Months Immunizations Name Administration Dates Next Due DT (PEDS <7y) 04/16/1985 Flu, Unspecified 11/10/2009,11/24/2006, 4 Influenza Vaccine >6 months,quad, PF 07/2018,10/10/2017,10/13/2015,2014,10/03/2013 Influenza Vaccine IM Ages 6- 35 Months 4 Valent (PF) 11/27/2012 Influenza Vaccine, 6+MO IM (QUADRIVALENT W/PRESERVATIVES) 11/07/2016 Influenza, seasonal, injectable, PF 11/01/2011,1 02/06/2010 Pneumococcal 23 valent 03/13/2008 Pneumococcal, Unspecified 03/13/2008 TD,PF 7+ (Tenivac) 06/21/2013,01/14/2004, 994 TDAP Vaccine (Adacel) 02/12/2012 Family History Medical History Relation Comments Cerebrovascular Disease Father Depression Father Diabetes Father Cerebrovascular Disease Maternal Grandfather Depression Mother Relation Status Comments Father Maternal Grandfather Mother Social History Tobacco Use Types Packs/Day Years Used Date Smoking Tobacco: Never Smokeless Tobacco: Never Tobacco Cessation:Counseling Given: Not Answered Alcohol Use Standard Drinks/Week Comments No 0 (1 standard drink = 0.6 oz pur e alcohol) PHQ-2 Answer Date Recorded PHQ-2 Score 0 09/26/2018 Adolescent Education Answer Date Record ed Getting School Help Needed Not on file 11/07 Sex and Gender Information Value Date Recorded Sex Assigned at Male 12/09/2019 10:46 PM PRODUCT ENGINEER Gender Identity Male 12/09/2019 10:46 PM PRODUCT ENGINEER Sexual Orientation Straight 12/09/2019 10 :46 PM PRODUCT ENGINEER Last Filed Vital Signs Vital Sign Reading Time Taken Comments Blood Pressure 115/70 12/15/2022 1:46 PM PRODUCT ENGINEER Pulse 78 12/15/2022 1:46 PM PRODUCT ENGINEER Temperature 36.1 ??C (97 ??F) 08/18/2022 11: 45 AM CDT Respiratory Rate 16 12/15/2022 1:46 PM PRODUCT ENGINEER Oxygen Saturation 100% 12/15/2022 1:4 6 PM PRODUCT ENGINEER Inhaled Oxygen Concentration - - Weight 73.5 kg (162 lb) 03/31/2022 1:57 PM PRODUCT ENGINEER On wheelchair, wheelchair wt 63.3lbs. Height 172.7 cm (5' 8) 03/31/2022 1:57 PM PRODUCT ENGINEER Body Mass Index 24.63 03/31/2022 1:57 PM PRODUCT ENGINEER Plan of Treatment Upcoming Encounters Date Type Department Care Team (Late st Contact Info) Description 06/22/2023 1:10 PM CDT Office Visit [facility] [address] [place] [address] Paras Dupree MD [address] [facility] [address] [place] [address] Health Maintenance Due Date Last Done Comments ANNUAL REVIEW OF HM ORDERS 1964 CT COLONOGRAPHY 1965 DEPRESSION ACTION PLAN 1964 FLEX SIG 1965 HEPATITIS B IMMUNIZATION (1 of 3 - 3-dose series) 1964 PHQ-9 1964 sDNA (Cologuard) 1965 COLONOSCOPY 02/02/1974 HIV SCREENING 02/02/1979 HEPATITIS C SCREENING 02/02/1982 LIPID 02/02/1999 ZOSTER IMMUNIZATION (1 of 2) 02/02/2014 COLORECTAL CANCER SCREENING 04/06/2021 FIT 04/06/2021 04/06/2020 DTAP/TDAP/TD IMMUNIZATION (3 - Td or Tdap) 06/22/2023 06/21/2013, 02/12/2012, 01/14/2004, Additional history exists MEDICARE ANNUAL WELLNESS VISIT 08/01/2023 07/31/2022, 05/02/2021, 03/23/2020, Additional history exists ADVANCE CARE PLANNING 05/18/2024 05/19/2019, 020 Pneumococcal Vaccine: Pediatrics (0 to 5 Years) and At-Risk Patients (6 to 64 Years) Aged Out 03/13/2008, 03/13/2008 No longer eligibl e based on patient's age to complete this topic COVID-19 Vaccine Completed 12/07/2022, , 06/22/2021, Additional history exists INFLUENZA VACCINE Completed 12/07/2022, , 12/17/2020, Additional history exists HPV IMMUNIZATION Aged Out No longer e ligible based on patient's age to complete this topic IPV IMMUNIZATION Aged Out No longer e ligible based on patient's age to complete this topic MENINGITIS IMMUNIZATION Aged Out No l onger eligible based on patient's age to complete this topic RSV MONOCLONAL ANTIBODY Aged Out No l onger eligible based on patient's age to complete this topic Procedures Procedure Name Priority Date/Time Associated Diagnosis Comments IRON AND IRON BINDING CAPACITY Routine 12/15/2022 2:53 PM PRODUCT ENGINEER Andover-Gastaut syndrome with tonic seizures FERRITIN Routine 12/15/2022 2:53 PM PRODUCT ENGINEER Marcos-Gastaut syndrome with tonic seizures CARBAMAZEPINE TOTAL Routine 12/15/2022 2 :53 PM PRODUCT ENGINEER Andover-Gastaut syndrome with tonic seizures SODIUM Routine 12/15/2022 2:53 PM PRODUCT ENGINEER Marcos-Gastaut syndrome with tonic seizures (H) LAMOTRIGINE LEVEL Routine 12/15/2022 2:5 3 PM PRODUCT ENGINEER Andover-Gastaut syndrome with tonic seizures (H) RUFINAMIDE LEVEL Routine 12/15/2022 2:53 PM PRODUCT ENGINEER Andover-Gastaut syndrome with tonic seizures (H) CARBAMAZEPINE EPOXIDE AND TOTAL Routine 12/15/2022 2:53 PM PRODUCT ENGINEER Marcos-Gastaut syndrome with tonic seizures (H) from Last 3 Months Results * Carbamazepine Epoxide and Total (12/15/2022 2:53 PM PRODUCT ENGINEER) 10, 11 Epoxide Level 3.5 ug/mL 12/06 4:21 PM PRODUCT ENGINEER [employer] Comment: INTERPRETIVE INFORMATION: ??Carbamazepine-10, 11-Epoxide Carbamazepine-10, 11 Epoxide Therapeutic Range: Not well established Toxic: ??Greater than 15.0 ug/mL Total Carbamazepine Therapeutic Range: 4.0-12.0 ug/mL Toxic: Greater than 15.0 ug/mL The therapeutic range is based on serum pre-dose (trough) draw at steady-state concentration. The carbamazepine metabolite, Carbamazepine-10, 11-Epoxide, has anticonvulsant activity and a proposed therapeutic range of 0.4-4 ug/mL. A rare, adverse drug reaction to carbamazepine therapy includes Rojas-Joseph syndrome or toxic epidermal necrolysis. Patients of ancestry with the presence of the HLA-B*15:02 have an increased risk for this carbamazepine-induced, life-threatening reaction. Pharmacogenetic testing for HLA-B*15:02 is recommended prior to treatment for patients at risk of carbamazepine hypersensitivity. This information has been included in the FDA-approved label for carbamazepine (https://www.accessdata.fda.gov/scripts/cder/daf/index.cfm?e vent=overview.process&ohiRrriBw=021241) and in the guideline from the Clinical Pharmacogenetics Implementation Consortium (https://www.pharmgkb.org/guidelines). [HLA-B*15:02 Genotyping, Carbamazepine Hypersensitivity, Casabu test code 5691275.] A combination of therapeutic drug monitoring with HLA-B*15:02 pharmacogenetics genotyping may benefit patients at increased risk of developing carbamazepine-induced adverse events due to rare genotypes other than the HLA-B*15:02 variant allele. This test was developed and its performance characteristics determined by [facility]. It has not been cleared or approved by the US Food and Drug Administration. This test was performed in a CLIA certified laboratory and is intended for clinical purposes. Carbamazepine Total Level 5.8 4.0 - 12.0 ug/mL 12/19/2022 4:21 PM PRODUCT ENGINEER [employer] Comment: Performed By: [facility] [address] [place] [id number] Dry Ice Maker: Xavi Rodriguez MD, PhD CLIA Number: [id number] Blood STRUCTURE OF LEFT HAND / Unknown Venipuncture / Unknown 12/15/2022 2:53 PM PRODUCT ENGINEER 12/15/2022 2:54 PM PRODUCT ENGINEER Paras Dupree MD LAB - BLOOD ORDERABLES Performing Organization Address [facility] de Phone Number [address] [address], [facility] [phone] * Rufinamide Level (12/15/2022 2:53 PM PRODUCT ENGINEER) Rufinamide 21.4 5.0 - 30.0 ug/mL 12/17/2022 9:00 PM PRODUCT ENGINEER [facility] Comment: INTERPRETIVE INFORMATION: Rufinamide, Serum or Plasma Therapeutic Range: 5-30 ug/mL Dose-related range (values at doses of 800-7200 mg/day): 3-30 ug/mL Toxic: Not well established. Adverse effects may include somnolence, vomiting, headache and fatigue. This test was developed and its performance characteristics determined by [facility]. It has not been cleared or approved by the US Food and Drug Administration. This test was performed in a CLIA certified laboratory and is intended for clinical purposes. Performed By: [facility] [address] [place] [id number] Dry Ice Maker: Xavi Rodriguez MD, PhD CLIA Number: [id number] Blood STRUCTURE OF LEFT HAND / Unknown Venipuncture / Unknown 12/15/2022 2:53 PM PRODUCT ENGINEER 12/15/2022 2:54 PM PRODUCT ENGINEER Paras Dupree MD LAB - BLOOD ORDERABLES Performing Organization Address [facility] de Phone Number [address] [address], [facility] [phone] * Lamotrigine Level (12/15/2022 2:53 PM PRODUCT ENGINEER) Lamotrigine 5.2 3.0 - 15.0 ug/mL 12/17/2022 11:51 AM PRODUCT ENGINEER [facility] Comment: INTERPRETIVE INFORMATION: ??Lamotrigine Therapeutic Range: ??3.0-15.0 ug/mL ?Toxic: ??Greater than or equal to 20 ug/mL Pharmacokinetics varies widely, particularly with co-medications and/or compromised renal function. ??Adverse effects may include dizziness, somnolence, nausea and vomiting. Performed By: [facility] [address] [place] [address] Dry Ice Maker: Xavi Rodriguez MD, PhD CLIA Number: [id number] Blood STRUCTURE OF LEFT HAND / Unknown Venipuncture / Unknown 12/15/2022 2:53 PM PRODUCT ENGINEER 12/15/2022 2:54 PM PRODUCT ENGINEER Paras Dupree MD LAB - BLOOD ORDERABLES Performing Organization Address [facility]/ZIP Co de Phone Number [employer] [address] [place] [address], [facility] [phone] * (ABNORMAL) Iron and iron binding capacity (12/15/2022 2:53 PM PRODUCT ENGINEER) Iron 10(L) 61 - 157 ug/dL 12/15/2022 3:24 PM PRODUCT ENGINEER [facility] Iron Binding Capacity 411 240 - 430 ug/dL 12/15/2022 3:24 PM PRODUCT ENGINEER [facility] Iron Sat Index 2(L) 15 - 46 % 12/15/2022 3:24 PM PRODUCT ENGINEER [facility] Blood STRUCTURE OF LEFT HAND / Unknown Venipuncture / Unknown 12/15/2022 2:53 PM PRODUCT ENGINEER 12/15/2022 2:54 PM PRODUCT ENGINEER Paras Dupree MD LAB - BLOOD ORDERABLES [facility] [address] 1[address] [place] [address] * (ABNORMAL) Ferritin (12/15/2022 2:53 PM PRODUCT ENGINEER) Ferritin 8(L) 31 - 409 ng/mL 12/15/2022 3:45 PM PRODUCT ENGINEER [facility] Blood STRUCTURE OF LEFT HAND / Unknown Venipuncture / Unknown 12/15/2022 2:53 PM PRODUCT ENGINEER 12/15/2022 2:54 PM PRODUCT ENGINEER Paras Dupree MD LAB - BLOOD ORDERABLES [facility] [address] 1st [place] [address] * Carbamazepine total (12/15/2022 2:53 PM PRODUCT ENGINEER) Carbamazepine 5.3 4.0 - 12.0 ug/mL 12/15/2022 9:15 PM PRODUCT ENGINEER LABORATORY Blood STRUCTURE OF LEFT HAND / Unknown Venipuncture / Unknown 12/15/2022 2:53 PM PRODUCT ENGINEER 12/15/2022 2:54 PM PRODUCT ENGINEER Paras Dupree MD LAB - BLOOD ORDERABLES Performing Organization Address City/[facility]/ZIP Co de Phone Number LABORATORY [facility] [place] [facility] [address] [facility], Room [address] [address], [facility] [phone] * (ABNORMAL) Sodium (12/15/2022 2:53 PM PRODUCT ENGINEER) Sodium 134(L) 135 - 145 mmol/L 12/15/2022 3:24 PM PRODUCT ENGINEER [facility] Comment:Reference intervals for this test were updated on 10/31/2022 to more accurately reflect our healthy population. There may be differences in the flagging of prior results with similar values performed with this method. Interpretation of those prior results can be made in the context of the updated reference intervals. Blood STRUCTURE OF LEFT HAND / Unknown Venipuncture / Unknown 12/15/2022 2:53 PM PRODUCT ENGINEER 12/15/2022 2:54 PM PRODUCT ENGINEER Paras Dupree MD LAB - BLOOD ORDERABLES [facility] [place] [id number] [facility] 1st [place] [address] from Last 3 Months Advance Directives For more information, please contact: [phone] Documents on File Type Date Recorded Patient Bone Tender Expl anation Advance Directives and Living Will 05/19/2019 12:35 PM Legal Guardianship 03-13-2018 Advance Directives and Living Will 03/06/2017 8:32 AM POLST 07/27/2016 Latest Code Status on File Code Status Date Activated Date Inactivated Comments DNR/DNI 09/22/2015 10:37 AM 05/15/2019 10:28 AM Code Status History Code Status Date Activated Date Inactivated Comments DNR/DNI 09/22/2015 10:04 AM 09/22/2015 10:37 AM DNR/DNI 09/20/2015 10:28 AM 09/22/2015 10:04 AM Full Code 09/19/2015 5:25 PM 09/20/2015 10:28 AM DNR 07/13/2015 7:44 AM 07/25/2015 6:35 PM Care Teams Literacy Education Professor Relationship Specialty Start Date End Date Darryl Kenny [address] [place] [address] PCP - General Family Practice 09/08/16 Paras Dupree MD [address] [place] [address] Neurology 04/29/14 Zarina Manzo MD [address] [place] [address] Referring Physician Family Practice 12/20/15 Mdoesta Elliott MD [address] [place] [address] Physical Medicine and Rehabilitation 11/12/17 Paras Dupree MD [address] [address] Assigned Neuroscience Provider 11/28/19 Paras Dupree MD [address] [facility] [address] [place] [address] Neurology 10/04/22
--- OUTSIDE RECORDS SUMMARY | 2023-02-21 17:50 | XMS_ITS | Clinical Summary ---
Author Name Unknown Organization [facility] Address [place], [place] [address] Care Team Providers Care Trumpet Teacher Name Role Phone Darryl Kenny MD Primary Care Provider Allergies Active Allergy Reactions Criticality Noted Date Comments Alendronate Other - Describe In Comment Field 07/27/2016 Intolerant of taking correctly Erythromycin *Unknown 07/27/2016 Felbamate Rash 07/27/2016 Macrolide Antibiotics *Unknown 07/27/2016 Piperacillin-Tazobactam Rash 07/27/2016 Has been receiving it since 05/13/17 without any reaction noted as of 05/15/17. Medications Medication Sig Dispensed Refills Start Date End Date Status lamoTRIgine (LAMICTAL) 100 mg tabletIndications:S eizure (HC) Administer 1 tablet via G-tube 4 times daily. 120 tablet 0 05/29/19 18 Active citalopram (CELEXA) 10 mg/5 mL solutionIndications :Depression, unspecified depression type Administer 10 mL via G-tube every morning. 300 mL 0 06/03/19 18 Active SENNA 8.8 mg/5 mL syrupIndications:Ch ronic constipation ADMINISTER 5ML VIA G-TUBE ONCE DAILY IF NEEDED FOR CONSTIPATION (IF NO BOWEL MOVEMENT 3 DAYS) 237 mL 2 04/15/19 19 Active LORazepam (ATIVAN) 1 mg tablet Take as directed per seizure protocol. Crush and place in mouth. 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 Length of need: 99 months. 1 Device 0 07/17/19 20 Active miscellaneous medical supply miscIndications:Whe elchair bound Reclining shower chair. 1 Units 0 08/15/19 20 Active miscellaneous medical supply miscIndications:Seun nox-Gastaut syndrome with tonic seizures (HC) As directed. Helmet. 1 Units 0 11/17/19 20 Active bisacodyL (DULCOLAX) 10 mg suppositoryIndicati ons:Abnormal abdominal x-ray One suppository per rectum today, and then every week as needed for constipation. 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 Rub in well after cleaning with soap and water. 24 g 0 08/02/19 22 Active rufinamide 40 mg/mL suspIndications:Sei zure (HC) Take 30 mL (1,200 mg) by mouth four times daily. 0 11/04/19 22 Active durable medical equipment (DME)Indications:Ga strostomy tube dependent (HC) Isosource 1.5 isidro formula. 1 carton four times daily via gravity feeds. 124 Each 11 11/19/19 22 Active Incontinence Pad, Liner, Disp padsIndications:Uri nary incontinence, unspecified type USE THREE TO FOUR PER DAY PER SENDY 180 Each 3 01/09/20 22 Active durable medical equipment (DME)Indications:Ga strostomy tube dependent (HC) Enset Connector for feeding bag 30 Each 11 02/04/20 22 Active hydrocortisone 1 % creamIndications:He morrhoids, external Apply topically to affected area(s) two times daily. As needed to external hemorrhoids. 35 g 1 02/13/19 23 Active cholecalciferol, Vitamin D3, (D--THAD) 10 mcg/mL (400 unit/mL) dropsIndications:Vi tamin D deficiency GIVE 5ML DAILY VIA PEG TUBE. 150 mL 12 05/13/19 23 Active Mapap 500 mg/15 mL liquidIndications:P ain ADMINISTER 30 ML VIA G-TUBE EVERY 6 HOURS IF NEEDED. BY G-TUBE ONLY 237 mL 3 05/30/19 23 Active fluticasone (50 mcg per actuation) nasal solution (FLONASE)Indication s:Nasal congestion INHALE 2 SPRAYS IN THE NOSTRIL(S) ONCE DAILY. 48 g 3 06/17/19 23 Active acetic acid 0.25% 0.25 % irrigation USE TO CLEANSE SKIN AROUND PEG TUBE TWICE A DAY DIRECTED. 0 05/20/19 23 Active durable medical equipment (DME)Indications:Ga strostomy tube dependent (HC) Enfit Woody Extension Sets 8 Each 11 08/03/19 Active durable medical equipment (DME)Indications:Ga strostomy tube dependent (HC) 60cc Enfit Syringes 16 Each 08/03/19 Active hospital bedIndications:Recu rrent aspiration pneumonia (HC),Chronic GERD,CP (cerebral palsy), spastic (HC) Hospital bed with mattress and full rails. Semi-electric bed. Length of need 99 months. Bed phone screener:no 1 Each 0 08/04/19 23 Active WalkerIndications:O ther symptoms and signs involving the musculoskeletal system Walker, no wheels, for home use. 1 Each 0 09/07/19 23 Active disposable glovesIndications:U rinary incontinence, unspecified type FOR PERSONAL CARE FOR STAFF AT HOME 400 Each 3 09/19/19 23 Active loratadine (CLARITIN) 1 mg/mL liquidIndications:A llergic rhinitis due to pollen, unspecified seasonality GIVE 10ML VIA PEG TUBE ONCE DAILY 900 mL 2 09/24/19 23 Active Mouth Kote spraIndications:Dry mouth ONE SPRAY TO MOUTH NEEDED 59 mL 6 09/30/19 23 Active ferrous sulfate 220 mg (44 mg iron)/5 mL elixIndications:Iro n deficiency anemia due to chronic blood loss ADMINISTER 5 ML VIA G-TUBE ONCE DAILY 450 mL 2 10/14/19 23 Active durable medical equipment (DME)Indications:Ga strostomy tube dependent (HC) Nutren 1.5 formula. 1 carton four times daily via gravity feedings. 32 Each 1 12/05/19 23 Active omeprazole (PRILOSEC) 2 mg/mL susp oral suspensionIndicatio ns:Erosive esophagitis Take 10 mL (20 mg) by mouth two times daily. 0 01/02/20 23 Active famotidine (PEPCID) 40 mg/5 mL suspensionIndicatio ns:Erosive esophagitis 2.5 mL twice daily via G-J tube. 450 mL 3 01/03/20 23 Active Diaper,Brief, Adult,DisposableInd ications:Urinary incontinence, unspecified type USE THREE TO FOUR PER DAY PER SENDY 360 Each 3 01/18/20 23 Active sodium chloride 1,000 mg soluble tabletIndications:H yponatremia ADMINISTER 1 TABLET (1,000 MG) VIA G-TUBE TWO TIMES DAILY. 8 AM AND 9 EVENING. 180 Tablet 3 02/12/19 24 Active Underpads 23 X 36 padsIndications:Uri nary incontinence, unspecified type USES 2 TO 3 PER DAY 300 Each 3 02/14/19 24 Active Underpads 23 X 36 padsIndications:Uri nary incontinence, unspecified type Uses 2 to 3 per day. 100 Each 3 12/09/19 22 024 Discontinued sodium chloride 1,000 mg soluble tabletIndications:H yponatremia Administer 1 Tablet (1,000 mg) via G-tube two times daily. 8 am and 9 evening. 30 Tablet 0 08/18/19 23 024 Discontinued pseudoephedrine (SUDAFED) 15 mg/5 mL liqdIndications:Con gestion of nasal sinus Administer 10 mL (30 mg) via J-tube every 6 hours if needed (nasal congestion/cough ) for up to 7 days. 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 Sensorineural hearing loss, bilateral 01/11/2017 Seizure 07/27/2016 Osteoporosis 07/27/2016 Cognitive dysfunction 07/27/2016 Chronic GERD 07/27/2016 Chronic constipation 07/27/2016 Wheelchair bound 07/27/2016 Resolved Problems Problem Noted Date Diagnosed Date Resolved Date CP (cerebral palsy), spastic 08/24/2020 08/17/2022 Gastric tube granulation tissue 08/22/2018 03/19/2019 Gastrostomy tube dependent 06/20/2017 0 08/01/2021 Palliative care encounter 05/18/2017 Pneumonia due to infectious organism 05/15/2017 05/02/2021 Hyperlipidemia, unspecified 07/27/2016 05/02/2021 Aspiration into airway 07/27/201605/02 Anorexia 07/27/2016 07/31/2022 Encounters Date Type Department Care Team Description 02/21/2023 3:00 PM FIRMWARE TEST ENGINEER Orders Only [facility] [address] [place] [address] Lab, [place] Lab 02/21/2023 Telephone [facility] [address] [place] [address] Darryl Kenny MD Results 02/21/2023 Travel 02/16/2023 Refill [facility] [address] [place] [address] Darryl Kenny MD Refill Request (Underpads) 02/12/2023 Refill [facility] [address] [place] [address] Darryl Kenny MD Refill Request (Underpads) 02/12/2023 Telephone [facility] [address] [place] [address] Darryl Kenny MD Form 02/12/2023 Refill [facility] [address] [place] [address] Darryl Kenny MD Refill Request (Sodium Chloride) 01/17/2023 3:50 PM FIRMWARE TEST ENGINEER Ancillary Procedure [address] [address] 01/17/2023 3:00 PM FIRMWARE TEST ENGINEER Office Visit [facility] [address] [place] [phone] Fransisca Lopez, BODY BUILDER Cough 01/17/2023 Telephone [facility] [address] [place] [address] Shemar Morales MD Error-please disregard 01/17/2023 Travel 01/16/2023 Refill [facility] [address] [place] [address] Darryl Kenny MD Refill Request 01/02/2023 Telephone [facility] [address] [place] [address] Darryl Kenny MD Medication Problem (questioning dosage is low) 01/01/2023 3:20 PM FIRMWARE TEST ENGINEER Office Visit [facility] [address] [place] [address] Darryl Kenny MD Follow Up (6 month) 01/01/2023 Travel 12/26/2022 1:40 PM FIRMWARE TEST ENGINEER Nurse/Clinic Staff Only [facility] [address] [place] [address] Error-please disregard; Infusion Therapy 12/26/2022 Telephone [facility] [address] [place] [address] Darryl Kenny MD Follow Up 12/26/2022 Travel 12/22/2022 Telephone [facility] [address] [place] [address] Darryl Kenny MD Questions (IRON LEVEL LOW) 12/14/2022 Orders Only [address] [place] [address] Darryl Kenny MD Outside Order (Ordered by Paras Dupree) 12/07/2022 4:00 PM CDT Nurse/Clinic Staff Only [facility] [address] [place] [address] Immunization/Inject ion (COVID-19 AND FLU ); Immunization/Inject ion 12/07/2022 Travel 12/04/2022 Telephone [facility] [address] [place] [address] Darryl Kenny MD Referral (food for feeding tub ) 11/29/2022 2:30 PM CDT Office Visit [facility] [address] [place] [address] Keyonna Doyle PA Recheck (Ear cleaning) 11/28/2022 Travel from Last 3 Months Immunizations Name Administration Dates Next Due COVID-19 Vaccine Spikevax (M oderna 50mcg/0.5mL) 12YO+ [id number] Formula PF 12/07/2022 COVID-19 vaccine (Moderna 100mcg/0.5mL) PF, MDV 12/23/2020,03/31/2020,03/03/2020 COVID-19 vaccine (Pfizer-Bio NTech 30mcg/0.3mL) 12YO+ BIVALENT PF, MDV 11/03/2021 COVID-19 vaccine (Pfizer-Bio NTech 30mcg/0.3mL) 12YO+ CICI-SUCROSE PF, MDV 06/22/2021 DT (Age < 7 years) 04/16/1985 Influenza Virus, Unspecified 11/24/2006 Influenza, IIV3 (Age >=3 years) 11/01/19 12,12/07/2010,11/10/2009,2003 Influenza, IIV4 12/07/2022, 2,12/11/2018,2017,10/13/2015,10/27/2014,10/03/2013 Influenza, IIV4 (=>6mos) MDV 11/19/2019,11/08/19 17 Influenza, IIV4 (Age 6-35 Mos) 11/27/2012 Influenza,CCIIV4 PRESERV FREE 12/17/2020 Pneumococcal Poly,23-Valent (Pneumovax) 03/13/2008 Td, Preservative Free (age > = 7 Years) 06/21/2013,01/14/2004,06/21/1993 Tdap 02/12/2012 Family History Medical History Relation Name Comments Cancer-colon No Family History Cancer-prostate No Family History Heart Disease No Family History Social History Tobacco Use Types Packs/Day Years Used Date Smoking Tobacco: Never Smokeless Tobacco: Never Tobacco Cessation:Counseling Given: No Alcohol Use Standard Drinks/Week Comments No 0 (1 standard drink = 0.6 oz pur e alcohol) PHQ-2 Answer Date Recorded PHQ-2 Score 0 04/07/2018 Social Connections Answer Date Recorded Frequency of Communication with Friends and Fami ly 0 07/28/2022 Financial Resource Strain Answer Date R ecorded Difficulty of Paying Living Expenses 3 07/28/2022 Difficulty of Paying Living Expenses Not on file 07/28/2022 Food Insecurity Answer Date Recorded Worried About Running Out of Food in the Last Ye ar 1 07/28/2022 Transportation Needs Answer Date Record ed Lack of Transportation (Medical) 1 07/28/2022 Housing Stability Answer Date Recorded Unable to Pay for Housing in the Last Year 1 07/28/2022 Sex and Gender Information Value Date Recorded Sex Assigned at Male 11/21/2019 8:44 AM CDT Gender Identity Male 11/21/2019 8:44 AM CDT Sexual Orientation Straight 11/21/2019 8: 44 AM CDT Obstetrics History Last Filed Vital Signs Vital Sign Reading Time Taken Comments Blood Pressure 104/55 01/17/2023 3:19 PM FIRMWARE TEST ENGINEER Pulse 84 01/17/2023 3:19 PM FIRMWARE TEST ENGINEER Temperature 36.6 ??C (97.8 ??F) 01/17/2023 3:19 PM CS T Respiratory Rate 20 01/17/2023 3:19 PM FIRMWARE TEST ENGINEER Oxygen Saturation 97% 01/17/2023 3:19 PM FIRMWARE TEST ENGINEER Inhaled Oxygen Concentration - - Weight 64.4 kg (142 lb) 01/17/2023 3:19 PM FIRMWARE TEST ENGINEER Height 170.2 cm (5' 7) 06/22/2021 5:12 PM CDT Body Mass Index 22.24 06/22/2021 5:12 PM CDT Plan of Treatment Upcoming Encounters Date Type Department Care Team (Late st Contact Info) Description 02/28/2023 1:30 PM FIRMWARE TEST ENGINEER Office Visit [facility] [address] [place] [address] Shemar Morales MD [address] [place] [address] Health Maintenance Due Date Last Done Comments Zoster (shingles) series for age 50+ (1 of 2) 02/02/2014 Tetanus booster 06/22/2023 06/21/2013, 08/2012, 01/14/2004, Additional history exists Fecal testing non-DNA (FIT,FOBT,iFOBT) for age 45-75 08/16/2023 08/15/2022, 05/11/2021, 04/06/2020 Lipids for age 45-75 04/07/2025 04/07/2020, 03/08/2018, 07/28/2016 Pneumococcal series for age 6-64 Aged Out 03/13/2008 No longer eligible based on patient's age to complete this topic Tdap Completed 02/12/2012 Hepatitis C screening for age 18-79 Completed 03/08/2018 HIV for age 15-65 Completed 07/31/2022 COVID-19 vaccine series Completed 12/08/19, 11/03/2021, 06/22/2021, Additional history exists Influenza for age 50-64 Completed 12/08/19, 2022, 12/17/2020, Additional history exists Procedures Procedure Name Priority Date/Time Associated Diagnosis Comments HEMOGLOBIN Routine 02/21/2023 3:00 PM FIRMWARE TEST ENGINEER Iron deficiency anemia, unspecified iron deficiency anemia type XR CHEST 2 VIEWS PA AND LATERAL STAT 01/17/2023 4:07 PM FIRMWARE TEST ENGINEER Cough, unspecified type STREP A PCR STAT 01/17/2023 3:31 PM FIRMWARE TEST ENGINEER Cough, unspecified type THROAT RAPID STREP A WITH REFLEX STAT 01/17/2023 3:31 PM FIRMWARE TEST ENGINEER Cough, unspecified type COVID/FLU/RSV PANEL Routine 01/17/2023 3 :31 PM FIRMWARE TEST ENGINEER Cough, unspecified type from Last 3 Months Results * (ABNORMAL) HEMOGLOBIN (02/21/2023 3:00 PM FIRMWARE TEST ENGINEER) HEMOGLOBIN 6.2(LL) 13.5 - 17.5 g/dL 02/21/2023 3:48 PM FIRMWARE TEST ENGINEER [facility] MCV 97 80 - 100 fL 02/21/2023 3:48 PM FIRMWARE TEST ENGINEER [facility] Blood BLOOD SPECIMEN / Unknown Butterfly / Unknown 02/21/2023 3:00 PM FIRMWARE TEST ENGINEER 02/21/2023 3:07 PM FIRMWARE TEST ENGINEER Darryl Kenny MD [facility]ATOLOGY [facility] [address] [place] [address], * XR CHEST 2 VIEWS PA AND LATERAL (01/17/2023 4:07 PM FIRMWARE TEST ENGINEER) Anatomical Region Laterality Modality CHEST, THORAX, Lung, HEART Compu roberto Radiography 01/17/2023 4:24 PM FIRMWARE TEST ENGINEER Impressions 01/17/2023 4:24 PM FIRMWARE TEST ENGINEER Basilar heterogeneous airspace disease and small left pleural effusion when he. Differential considerations include aspiration versus developing infection. Dictated by Abhijeet Bautista MD @ 01/17/2023 4:24:24 PM (Electronically Signed) Narrative 01/17/2023 4:24 PM FIRMWARE TEST ENGINEER For Patients: ??As a result of the Century Cures Act, medical imaging exams and procedure reports are released immediately into your electronic medical record. ??You may view this report before your referring provider. ??If you have questions, please contact your health care provider. INDICATION: Cough. TECHNIQUE: Chest 2 views. COMPARISON: May 2022. FINDINGS: Superimposition of the soft tissues of the head neck overlying the lung apices degrade evaluation. Left pectoral vagal nerve stimulator. Peg tube. Lungs: Low lung volumes.. Basilar heterogeneous airspace disease. The tracheobronchial tree and hilar structures are unremarkable. Pleura: Small left pleural effusion. Heart and Mediastinum: Normal heart size. The great vessels of the thorax are unremarkable. Bones: No acute displaced osseous process. Procedure Note Abhijeet Bautista MD - 01/17/2023 For Patients: As a result of the Cures Act, medical imagingexams and procedure reports are released immediately into your electronicmedical record. You may view this report before your referring provider.If you have questions, please contact your health care provider. INDICATION: Cough. TECHNIQUE: Chest 2 views. COMPARISON: May 2022. FINDINGS: Superimposition of the soft tissues of the head neck overlying the lungapices degrade evaluation. Left pectoral vagal nerve stimulator. Peg tube. Lungs: Low lung volumes.. Basilar heterogeneous airspace disease. Thetracheobronchial tree and hilar structures are unremarkable. Pleura: Small left pleural effusion. Heart and Mediastinum: Normal heart size. The great vessels of the thoraxare unremarkable. Bones: No acute displaced osseous process. IMPRESSION: Basilar heterogeneous airspace disease and small left pleural effusionwhen he. Differential considerations include aspiration versus developinginfection. Dictated by Abhijeet Bautista MD @ 01/17/2023 4:24:24 PM (Electronically Signed) Fransisca Lopez NP GENERAL IMAGING * COVID/FLU/RSV PANEL (01/17/2023 3:31 PM FIRMWARE TEST ENGINEER) COVID 19 [facility] Negative Negative 01/18/2023 10:22 PM FIRMWARE TEST ENGINEER [facility] Comment:All PCR tests are partida bject to false negative result due to variability in viral load and collection technique. A negative result does not rule out a SARS-CoV-2 infection. Clinical correlation required. INFLUENZA A PCR Negative 10:22 PM FIRMWARE TEST ENGINEER [facility] INFLUENZA B PCR Negative 10:22 PM FIRMWARE TEST ENGINEER [facility] Respiratory Syncytial Virus Negative 01/18/2023 10:22 PM FIRMWARE TEST ENGINEER [facility] Nasopharyngeal NASOPHARYNGEAL SWAB / Unknown Non-Blood / Unknown 01/17/2023 3:31 PM FIRMWARE TEST ENGINEER 01/17/2023 3:31 PM FIRMWARE TEST ENGINEER Narrative [facility] - 01/18/2023 10:22 PM FIRMWARE TEST ENGINEER This test has been authorized by FDA under an Emergency Use Authorization (EUA). This test is only authorized for the duration of time the declaration that circumstances exist justifying the authorization of the emergency use of in vitro diagnostic tests for detection of SARS-CoV-2 virus and/or diagnosis of COVID-19 infection under section 564(b)(1) of the Act, 21 U.S.C. 360bbb-3(b) (1), unless the authorization is terminated or revoked sooner. Stephanie Suzannayolanda Sierra MICROBIOLOGY Performing Organization Address [facility] de Phone Number [facility] [address] [place] [address], * STREP A PCR (01/17/2023 3:31 PM FIRMWARE TEST ENGINEER) GROUP A STREP Negative 01/19/2023 1:59 AM FIRMWARE TEST ENGINEER [facility] Throat SPECIMEN FROM THROAT / Unknown Non-Blood / Unknown 01/17/2023 3:31 PM FIRMWARE TEST ENGINEER 01/17/2023 3:52 PM FIRMWARE TEST ENGINEER Stephanie Sierra [facility] Performing Organization Address [facility] de Phone Number [facility] [address] [phone], [place] * THROAT RAPID STREP A WITH REFLEX (01/17/2023 3:31 PM FIRMWARE TEST ENGINEER) STREP A ANTIGEN Negative 01/17/2023 3:55 PM FIRMWARE TEST ENGINEER [facility] Comment:PCR to follow. Throat SPECIMEN FROM THROAT / Unknown Non-Blood / Unknown 01/17/2023 3:31 PM FIRMWARE TEST ENGINEER 01/17/2023 3:31 PM FIRMWARE TEST ENGINEER Stephanie Sierra MICROBIOLOGY Performing Organization Address [facility] Co de Phone Number [facility] [address] [place] [phone] from Last 3 Months Advance Directives Documents on File Type Date Recorded Patient Bankman Expl anation POLST 06/11/2020 12:00 AM POLST 08/14/2017 3:39 PM AFIA NOONAN, 06/06/17 Latest Code Status on File Code Status Date Activated Date Inactivated Comments DNR 01/05/2019 1:43 AM 01/10/2019 5:21 PM Question Answer Comments Code Status Discussion: Per Advance Care Plan Code Status History Code Status Date Activated Date Inactivated Comments DNR 05/15/2017 8:38 PM 05/28/2017 9:16 PM Question Answer Comments Code Status Discussion: Discussed Care Teams Trumpet Teacher Relationship Specialty Start Date End Date Darryl Kenny MD [address] [place] [address] PCP - General Family Practice 05/08/16
--- OUTSIDE RECORDS SUMMARY | 2023-02-21 17:50 | XMS_ITS | Encounter Summary ---
Author Name Unknown Organization [facility] Address [address] [place] [address] Care Team Providers Care Administrative Office Specialist Name Role Phone Paras Dupree MD Unavailable [phone] Zarina Manzo MD Unavailable Darryl Kenny Primary Care Provider Modesta Elliott MD Unavailable [phone] Paras Dupree MD Unavailable [phone] Paras Dupree MD Unavailable + [phone] Encounter Details Date Type Department Care Team (Latest Contact Info) Description 12/15/2022 Travel Social History Tobacco Use Types Packs/Day Years Used Date Smoking Tobacco: Never Smokeless Tobacco: Never Alcohol Use Standard Drinks/Week Comments No 0 (1 standard drink = 0.6 oz pur e alcohol) PHQ-2 Answer Date Recorded PHQ-2 Score 0 09/26/2018 Adolescent Education Answer Date Record ed Getting School Help Needed Not on file 11/07 Sex and Gender Information Value Date Recorded Sex Assigned at Male 12/09/2019 10:46 PM PROGRAMMING SPECIALIST Gender Identity Male 12/09/2019 10:46 PM PROGRAMMING SPECIALIST Sexual Orientation Straight 12/09/2019 10 :46 PM PROGRAMMING SPECIALIST documented as of this encounter Plan of Treatment Upcoming Encounters Date Type Department Care Team (Late st Contact Info) Description 06/22/2023 1:10 PM CDT Office Visit [facility] Neu[facility] [address] [place] [address] Paras Dupree MD [address] [address] documented as of this encounter Visit Diagnoses Not on filedocumented in this encounter Care Teams Administrative Office Specialist Relationship Specialty Start Date End Date Darryl Kenny [address] [place] [address] PCP - General Family Practice 09/08/16 Paras Dupree MD [address] [place] [address] Neurology 04/29/14 Zarina Manzo MD [address] [place] [address] Referring Physician Family Practice 12/20/15 Modesta Elliott MD [address] [place] [address] Physical Medicine and Rehabilitation 11/12/17 Paras Dupree MD [address] [address] Assigned Neuroscience Provider 11/28/19 Paras Dupree MD [address] [address] Neurology 10/04/22 documented as of this encounter
--- OUTSIDE RECORDS SUMMARY | 2023-02-21 17:50 | XMS_ITS | Encounter Summary ---
Author Name Unknown Organization [facility] Address [address] [place] [address] Care Team Providers Care Measurement And Sensing Technician Name Role Phone Paras Dupree MD Unavailable [phone] Zarina Manzo MD Unavailable Darryl Kenny Primary Care Provider [phone] Modesta Elliott MD Unavailable [phone] Paras Dupree MD Unavailable [phone] Paras Dupree MD Unavailable [phone] Encounter Details Date Type Department Care Team (Late st Contact Info) Description 12/11/2022 MyC Medical Advice [facility] [address] [place] [address] Paras Dupree MD 8833 [facility] 200 [place] [address] 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 Orders placed waiting for signature from Dr. Dupree once signed will fax them over to [facility]. 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 documented in this encounter Care Teams Measurement And Sensing Technician Relationship Specialty Start Date End Date Darryl Kenny [address] [place] [address] PCP - General Family Practice 09/08/16 Paras Dupree MD [address] [place] [address] Neurology 04/29/14 Zarina Manzo MD [address] [place] [address] Referring Physician Family Practice 12/20/15 Modesta Elliott MD [address] [place] [address] [id number] Physical Medicine and Rehabilitation 11/12/17 Paras Dupree MD [address] [facility] [address] Assigned Neuroscience Provider 11/28/19 Paras Dupree MD [address] [facility] [address] Neurology 10/04/22 documented as of this encounter
--- OUTSIDE RECORDS SUMMARY | 2023-02-21 17:50 | XMS_ITS | Encounter Summary ---
Author Name Unknown Organization [place] Address [address] [place] [address] Care Team Providers Care Remediation Bioanalytics Consultant Name Role Phone Paras Dupree MD Unavailable [phone] Zarina Manzo MD Unavailable Darryl Kenny Primary Care Provider Modesta Elliott MD Unavailable [phone] Paras Dupree MD Unavailable [phone] Paras Dupree MD Unavailable + [phone] Encounter Details Date Type Department Care Team (Latest Contact Info) Description 12/10/2022 Travel Social History Tobacco Use Types Packs/Day [...] Sex Assigned at Male 12/09/2019 10:46 PM POWER REACTOR OPERATOR Gender Identity Male 12/09/2019 10:46 PM POWER REACTOR OPERATOR Sexual Orientation Straight 12/09/2019 10 :46 PM POWER REACTOR OPERATOR documented as of this encounter Plan of Treatment Upcoming Encounters Date Type Department Care Team (Late st Contact Info) Description 06/22/2023 1:10 PM CDT Office Visit [facility] Neurology [address] [place] [address] Paras Dupree MD [address] [address] documented as of this encounter Visit Diagnoses Not on filedocumented in this encounter Care Teams Remediation Bioanalytics Consultant Relationship Specialty Start Date End Date Darryl Kenny [address] [place] [address] PCP - General Family Practice 09/08/16 Paras Dupree MD [address] [place] [address] Neurology 04/29/14 Zarina Manzo MD [address] [place] [address] Referring Physician Family Practice 12/20/15 Modesta Elliott MD [address] [place] [address] Physical Medicine and Rehabilitation 11/12/17 Paras Dupree MD [address] [address] Assigned Neuroscience Provider 11/28/19 Paras Dupree MD [address] [address] Neurology 10/04/22 documented as of this encounter
--- OUTSIDE RECORDS SUMMARY | 2023-02-21 17:50 | XMS_ITS | Encounter Summary ---
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) Procedures Carbamazepine Epoxide and Total Paras Dupree MD 4575 [facility] 200 [place] [address] Referral ID Status Reason Start Date Expiration Date V isits Requested Visits Authorized [id number] Pending Review 03/27/2022 03/27/2023 1 1 Encounter Details Date Type Department Care Team (Late st Contact Info) Description 12/15/2022 2:30 PM [facility] Lab [address] [address] 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); Van Wert-Gastaut syndrome with tonic seizures Social History Tobacco Use Types Packs/Day Years [...] Sex Assigned at Male 12/09/2019 10:46 PM FIRE PREVENTION INSPECTOR Gender Identity Male 12/09/2019 10:46 PM FIRE PREVENTION INSPECTOR Sexual Orientation Straight 12/09/2019 10 :46 PM FIRE PREVENTION INSPECTOR documented as of this encounter Plan of Treatment Upcoming Encounters Date Type Department Care Team (Late st Contact Info) Description 06/22/2023 1:10 PM CDT Office Visit [facility] [address]rd [place] [address] Paras Dupree MD 5775 [facility] [address] [place], [place] [address] documented as of this encounter Procedures Procedure Name Priority Date/Time Associated Diagnosis Comments CARBAMAZEPINE EPOXIDE AND TOTAL Routine 12/15/2022 2:53 PM FIRE PREVENTION INSPECTOR 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) RUFINAMIDE LEVEL Routine 12/15/2022 2:53 PM FIRE PREVENTION INSPECTOR Marcos-Gastaut syndrome with tonic seizures (H) LAMOTRIGINE LEVEL Routine 12/15/2022 2:5 3 PM FIRE PREVENTION INSPECTOR Marcos-Gastaut syndrome with tonic seizures (H) IRON AND IRON BINDING CAPACITY Routine 12/15/2022 2:53 PM FIRE PREVENTION INSPECTOR Van Wert-Gastaut syndrome with tonic seizures FERRITIN Routine 12/15/2022 2:53 PM FIRE PREVENTION INSPECTOR Marcos-Gastaut syndrome with tonic seizures CARBAMAZEPINE TOTAL Routine 12/15/2022 2 :53 PM FIRE PREVENTION INSPECTOR Van Wert-Gastaut syndrome with tonic seizures SODIUM Routine 12/15/2022 2:53 PM FIRE PREVENTION INSPECTOR 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) documented in this encounter Results * (ABNORMAL) Iron and iron binding capacity (12/15/2022 2:53 PM FIRE PREVENTION INSPECTOR) Iron 10(L) 61 - 157 ug/dL 12/15/2022 3:24 PM FIRE PREVENTION INSPECTOR [facility] Iron Binding Capacity 411 240 - 430 ug/dL 12/15/2022 3:24 PM FIRE PREVENTION INSPECTOR [facility] Iron Sat Index 2(L) 15 - 46 % 12/15/2022 3:24 PM FIRE PREVENTION INSPECTOR [facility] Blood STRUCTURE OF LEFT HAND / Unknown Venipuncture / Unknown 12/15/2022 2:53 PM FIRE PREVENTION INSPECTOR 12/15/2022 2:54 PM FIRE PREVENTION INSPECTOR Paras Dupree MD LAB - BLOOD ORDERABLES Performing Organization Address [facility] Co de Phone Number [facility] [address] 1st [place] [address] * (ABNORMAL) Ferritin (12/15/2022 2:53 PM FIRE PREVENTION INSPECTOR) Pathologist [facility] Ferritin 8(L) 31 - 409 ng/mL 12/15/2022 3:45 PM FIRE PREVENTION INSPECTOR [facility] Blood STRUCTURE OF LEFT HAND / Unknown Venipuncture / Unknown 12/15/2022 2:53 PM FIRE PREVENTION INSPECTOR 12/15/2022 2:54 PM FIRE PREVENTION INSPECTOR Paras Dupree MD LAB - BLOOD ORDERABLES [facility] [address] 1[address] [place] [address] * Carbamazepine total (12/15/2022 2:53 PM FIRE PREVENTION INSPECTOR) Carbamazepine 5.3 4.0 - 12.0 ug/mL 12/15/2022 9:15 PM FIRE PREVENTION INSPECTOR [facility] Blood STRUCTURE OF LEFT HAND / Unknown Venipuncture / Unknown 12/15/2022 2:53 PM FIRE PREVENTION INSPECTOR 12/15/2022 2:54 PM FIRE PREVENTION INSPECTOR Paras Dupree MD LAB - BLOOD ORDERABLES LABORATORY [facility] [place] [facility] [address] [facility] [id number], [facility] [phone] * (ABNORMAL) Sodium (12/15/2022 2:53 PM FIRE PREVENTION INSPECTOR) Sodium 134(L) 135 - 145 mmol/L 12/15/2022 3:24 PM FIRE PREVENTION INSPECTOR [facility] Comment:Reference intervals for [...] Unknown Venipuncture / Unknown 12/15/2022 2:53 PM FIRE PREVENTION INSPECTOR 12/15/2022 2:54 PM FIRE PREVENTION INSPECTOR Paras Dupree MD LAB - BLOOD ORDERABLES Performing Organization Address [facility] Co de Phone Number [facility] [address] [place] [address] * Lamotrigine Level (12/15/2022 2:53 PM FIRE PREVENTION INSPECTOR) Lamotrigine 5.2 3.0 - 15.0 ug/mL 12/17/2022 11:51 AM FIRE PREVENTION INSPECTOR [facility] Comment: INTERPRETIVE INFORMATION: ??Lamotrigine Therapeutic Range: ??3.0-15.0 ug/mL ?Toxic: ??Greater than or equal to 20 ug/mL Pharmacokinetics varies widely, particularly with co-medications and/or compromised renal function. ??Adverse effects may include dizziness, somnolence, nausea and vomiting. Performed By: [facility] [place] [id number] [employer] Sales Representative: Xavi Rodriguez MD, PhD CLIA Number: [id number] Blood STRUCTURE OF LEFT HAND / Unknown Venipuncture / Unknown 12/15/2022 2:53 PM FIRE PREVENTION INSPECTOR 12/15/2022 2:54 PM FIRE PREVENTION INSPECTOR Paras Dupree MD LAB - BLOOD ORDERABLES Performing Organization Address [facility] de Phone Number [address] [address], [facility] [phone] * Rufinamide Level (12/15/2022 2:53 PM FIRE PREVENTION INSPECTOR) Pathologist [facility] Rufinamide 21.4 5.0 - 30.0 ug/mL 12/17/2022 9:00 PM FIRE PREVENTION INSPECTOR [facility] Comment: INTERPRETIVE INFORMATION: Rufinamide, Serum or Plasma Therapeutic Range: 5-30 ug/mL Dose-related range (values at doses of 800-7200 mg/day): 3-30 ug/mL Toxic: Not well established. Adverse effects may include somnolence, vomiting, headache and fatigue. This test was developed and its performance characteristics determined by [facility]. It has not been cleared or approved by the [place] Food and Drug Administration. This test was performed in a CLIA certified laboratory and is intended for clinical purposes. Performed By: [facility] [address] [place] [address] Textile Machinery Sales Representative: Xavi Rodriguez MD, PhD CLIA Number: [id number] Blood STRUCTURE OF LEFT HAND / Unknown Venipuncture / Unknown 12/15/2022 2:53 PM FIRE PREVENTION INSPECTOR 12/15/2022 2:54 PM FIRE PREVENTION INSPECTOR Paras Dupree MD LAB - BLOOD ORDERABLES Performing Organization Address [facility] de Phone Number [address] [address], [facility] [phone] * Carbamazepine Epoxide and Total (12/15/2022 2:53 PM FIRE PREVENTION INSPECTOR) 10, 11 Epoxide Level 3.5 ug/mL 12/06 4:21 PM FIRE PREVENTION INSPECTOR [facility] Comment: INTERPRETIVE INFORMATION: ??Carbamazepine-10, 11-Epoxide Carbamazepine-10, 11 [...] in the FDA-approved label for carbamazepine (https://www.accessdata.fda.gov/scripts/cder/daf/index.cfm?e vent=overview.process&zrlDmcqOv=681760) and in the guideline from the Clinical Pharmacogenetics Implementation Consortium (https://www.pharmgkb.org/guidelines). [HLA-B*15:02 Genotyping, Carbamazepine Hypersensitivity, [facility] test code 0872298.] A combination of therapeutic drug monitoring with HLA-B*15:02 pharmacogenetics genotyping may benefit patients at increased risk of developing carbamazepine-induced adverse events due to rare genotypes other than the HLA-B*15:02 variant allele. This test was developed and its performance characteristics determined by [facility]. It has not been cleared or approved by the [place] Food and Drug Administration. This test was performed in a CLIA certified laboratory and is intended for clinical purposes. Carbamazepine Total Level 5.8 4.0 - 12.0 ug/mL 12/19/2022 4:21 PM FIRE PREVENTION INSPECTOR [facility] Comment: Performed By: [facility] [address] [place] [id number] [employer] Sales Representative: Xavi Rodriguez MD, PhD CLIA Number: [id number] Blood STRUCTURE OF LEFT HAND / Unknown Venipuncture / Unknown 12/15/2022 2:53 PM FIRE PREVENTION INSPECTOR 12/15/2022 2:54 PM FIRE PREVENTION INSPECTOR Paras Dupree MD LAB - BLOOD ORDERABLES [facility] [address] [place] [phone], [facility] [phone] documented in this encounter Visit Diagnoses Diagnosis 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 documented in this encounter Care Teams Revenue Coordinator Relationship Specialty Start Date End Date Darryl Kenny [address] [place] [address] PCP - General Family Practice 09/08/16 Paras Dupree MD [address] [place] [address] Neurology 04/29/14 Zarina Manzo MD [address] [place] [address] Referring Physician Family Practice 12/20/15 Modesta Elliott MD [address] [place] [address] Physical Medicine and Rehabilitation 11/12/17 Paras Dupree MD 57[address] [facility] [address] [place], [place] [id number] Assigned Neuroscience Provider 11/28/19 Paras Dupree MD 5775 [facility] [address] [place], [place] [id number] Neurology 10/04/22 documented as of this encounter
--- OUTSIDE RECORDS SUMMARY | 2023-02-21 17:50 | XMS_ITS | Referral Summary ---
Author Name Unknown Organization [facility] Address [address] [place] [address] Care Team Providers Care Big Data Platform Architect Name Role Phone Paras Dupree MD Unavailable [phone]- [phone] Zarina Manzo MD Unavailable Darryl Kenny Primary Care Provider Modesta Elloitt MD Unavailable Paras Dupree MD Unavailable [phone]- [phone] Paras Dupree MD Unavailable [phone]- [phone] Encounters Date Type Department Care Team Description 12/19/2022 Refill [facility] [address] [address] Paras Dupree MD Refill Request (LORazepam (LORAZEPAM INTENSOL) 2 MG/ML (HIGH CONC) oral solution) 12/15/2022 2:30 PM LAMINATING MACHINE FEEDER Lab [facility] [address] [phone] Marcos-Gastaut syndrome with tonic seizures (H); Marcos-Gastaut syndrome with tonic seizures 12/15/2022 Travel 12/15/2022 1:45 PM LAMINATING MACHINE FEEDER Office Visit [facility] [address] [phone] Paras Dupree MD Marcos-Gastaut syndrome with tonic seizures 12/11/2022 MyC Medical Advice [facility] [address] [place] [address] Paras Dupree MD 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 3600 mL 10/03/2022 Active omeprazole (FIRST-OMEPRAZOLE) 2 MG/ML SUSP Take 10 mLs by mouth 2 times daily 0 Active lamoTRIgine (LAMICTAL) 100 MG tabletIndications: Marcos-Gastaut syndrome with tonic seizures (H) CRUSH AND GIVE 1 TABLET VIA G-TUBE 3 TIMES DAILY (AM, NOON, AFTERNOON) AND 2 TABLETS IN THE EVENING 155 tablet 11 12/15/2022 Active LORazepam (LORAZEPAM INTENSOL) 2 MG/ML (HIGH CONC) oral solutionIndication s:Marcos-Gastaut syndrome with tonic seizures (H) ADMINISTER 0.5 [...] thickened liquids for diet ; Aspiration pneumonia Marcos-Gastaut syndrome with tonic seizures 05/2012 Overview: Symptomatic [...] to 48 04/13/2004 Overview: Overview: LW Onset: [id number] Intellectual disability 04/13/2004 Overview: Overview: LW Onset: Osteoporosis 04/13/2004 Overview: Overview: LW Onset: Seizure 04/13/2004 Overview: Overview: LW Modifier: VNS and corpus callosotomy in past Dr Dupree [facility] Immunizations Name Administration Dates Next Due DT (PEDS <7y) 04/16/1985 Flu, Unspecified 11/10/2009,11/24/2006, 4 Influenza Vaccine >6 months,quad, PF 07/2018,10/10/2017,10/13/2015,2014,10/03/2013 Influenza Vaccine IM Ages 6- 35 Months 4 Valent (PF) 11/27/2012 Influenza Vaccine, 6+MO IM (QUADRIVALENT W/PRESERVATIVES) 11/07/2016 Influenza, seasonal, injectable, PF 11/01/2011,1 02/06/2010 Pneumococcal 23 valent 03/13/2008 Pneumococcal, Unspecified 03/13/2008 TD,PF 7+ (Tenivac) 06/21/2013,01/14/2004, 994 TDAP Vaccine (Adacel) 02/12/2012 Social History Tobacco Use Types Packs/Day Years [...] Sex Assigned at Male 12/09/2019 10:46 PM LAMINATING MACHINE FEEDER Gender Identity Male 12/09/2019 10:46 PM LAMINATING MACHINE FEEDER Sexual Orientation Straight 12/09/2019 10 :46 PM LAMINATING MACHINE FEEDER Last Filed Vital Signs Vital Sign Reading Time Taken Comments Blood Pressure 115/70 12/15/2022 1:46 PM LAMINATING MACHINE FEEDER Pulse 78 12/15/2022 1:46 PM LAMINATING MACHINE FEEDER Temperature 36.1 ??C (97 ??F) 08/18/2022 11: 45 AM CDT Respiratory Rate 16 12/15/2022 1:46 PM LAMINATING MACHINE FEEDER Oxygen Saturation 100% 12/15/2022 1:4 6 PM LAMINATING MACHINE FEEDER Inhaled Oxygen Concentration - - Weight 73.5 kg (162 lb) 03/31/2022 1:57 PM LAMINATING MACHINE FEEDER On wheelchair, wheelchair wt 63.3lbs. Height 172.7 cm (5' 8) 03/31/2022 1:57 PM LAMINATING MACHINE FEEDER Body Mass Index 24.63 03/31/2022 1:57 PM LAMINATING MACHINE FEEDER Plan of Treatment Upcoming Encounters Date Type Department Care Team (Late st Contact Info) Description 06/22/2023 1:10 PM CDT Office Visit [facility] [address] [place] [address] Paras Dupree MD [address] [facility] [address] [place], [place] [address] Procedures Procedure Name Priority Date/Time Associated Diagnosis Comments IRON AND IRON BINDING CAPACITY Routine 12/15/2022 2:53 PM LAMINATING MACHINE FEEDER Marcos-Gastaut syndrome with tonic seizures FERRITIN Routine 12/15/2022 2:53 PM LAMINATING MACHINE FEEDER Marcos-Gastaut syndrome with tonic seizures CARBAMAZEPINE TOTAL Routine 12/15/2022 2 :53 PM LAMINATING MACHINE FEEDER Miami-Gastaut syndrome with tonic seizures SODIUM Routine 12/15/2022 2:53 PM LAMINATING MACHINE FEEDER Marcos-Gastaut syndrome with tonic seizures (H) LAMOTRIGINE LEVEL Routine 12/15/2022 2:5 3 PM LAMINATING MACHINE FEEDER Marcos-Gastaut syndrome with tonic seizures (H) RUFINAMIDE LEVEL Routine 12/15/2022 2:53 PM LAMINATING MACHINE FEEDER Marcos-Gastaut syndrome with tonic seizures (H) CARBAMAZEPINE EPOXIDE AND TOTAL Routine 12/15/2022 2:53 PM LAMINATING MACHINE FEEDER Miami-Gastaut syndrome with tonic seizures (H) from Last 3 Months Results * Carbamazepine Epoxide and Total (12/15/2022 2:53 PM LAMINATING MACHINE FEEDER) 10, 11 Epoxide Level 3.5 ug/mL 12/06 4:21 PM LAMINATING MACHINE FEEDER [facility] Comment: INTERPRETIVE INFORMATION: ??Carbamazepine-10, 11-Epoxide Carbamazepine-10, 11 [...] in the FDA-approved label for carbamazepine (https://www.accessdata.fda.gov/scripts/cder/daf/index.cfm?e vent=overview.process&jnfStfiAz=167163) and in the guideline from the Clinical Pharmacogenetics Implementation Consortium (https://www.pharmgkb.org/guidelines). [HLA-B*15:02 Genotyping, Carbamazepine Hypersensitivity, [employer] test code 4436605.] A combination of therapeutic drug monitoring with HLA-B*15:02 pharmacogenetics genotyping may benefit patients at increased risk of developing carbamazepine-induced adverse events due to rare genotypes other than the HLA-B*15:02 variant allele. This test was developed and its performance characteristics determined by [facility]. It has not been cleared or approved by the US Food and Drug Administration. This test was performed in a CLIA certified laboratory and is intended for clinical purposes. Carbamazepine Total Level 5.8 4.0 - 12.0 ug/mL 12/19/2022 4:21 PM LAMINATING MACHINE FEEDER [facility] Comment: Performed By: [facility] [address] [place] [address] [employer] Supervisor: Xavi Rodriguez MD, PhD CLIA Number: [id number] Blood STRUCTURE OF LEFT HAND / Unknown Venipuncture / Unknown 12/15/2022 2:53 PM LAMINATING MACHINE FEEDER 12/15/2022 2:54 PM LAMINATING MACHINE FEEDER Paras Dupree MD LAB - BLOOD ORDERABLES Performing Organization Address [facility] de Phone Number [address] [address], [place] [phone] * Rufinamide Level (12/15/2022 2:53 PM LAMINATING MACHINE FEEDER) Rufinamide 21.4 5.0 - 30.0 ug/mL 12/17/2022 9:00 PM LAMINATING MACHINE FEEDER [facility] Comment: INTERPRETIVE INFORMATION: Rufinamide, Serum or Plasma Therapeutic Range: 5-30 ug/mL Dose-related range (values at doses of 800-7200 mg/day): 3-30 ug/mL Toxic: Not well established. Adverse effects may include somnolence, vomiting, headache and fatigue. This test was developed and its performance characteristics determined by [facility]. It has not been cleared or approved by the US Food and Drug Administration. This test was performed in a CLIA certified laboratory and is intended for clinical purposes. Performed By: [facility] [address] [place] [address] [employer] Supervisor: Xavi Rodriguez MD, PhD CLIA Number: [id number] Blood STRUCTURE OF LEFT HAND / Unknown Venipuncture / Unknown 12/15/2022 2:53 PM LAMINATING MACHINE FEEDER 12/15/2022 2:54 PM LAMINATING MACHINE FEEDER Paras Dupree MD LAB - BLOOD ORDERABLES Performing Organization Address [facility] de Phone Number [facility] [address] [address], [facility] [phone] * Lamotrigine Level (12/15/2022 2:53 PM LAMINATING MACHINE FEEDER) Lamotrigine 5.2 3.0 - 15.0 ug/mL 12/17/2022 11:51 AM LAMINATING MACHINE FEEDER [facility] Comment: INTERPRETIVE INFORMATION: ??Lamotrigine Therapeutic Range: ??3.0-15.0 ug/mL ?Toxic: ??Greater than or equal to 20 ug/mL Pharmacokinetics varies widely, particularly with co-medications and/or compromised renal function. ??Adverse effects may include dizziness, somnolence, nausea and vomiting. Performed By: [facility] [address] [place] [address] [employer] Supervisor: Xavi Rodriguez MD, PhD CLIA Number: [id number] Blood STRUCTURE OF LEFT HAND / Unknown Venipuncture / Unknown 12/15/2022 2:53 PM LAMINATING MACHINE FEEDER 12/15/2022 2:54 PM LAMINATING MACHINE FEEDER Paras Dupree MD LAB - BLOOD ORDERABLES Performing Organization Address City/[facility]/ZIP Co de Phone Number [employer] [address] [place] [phone] [phone] * (ABNORMAL) Iron and iron binding capacity (12/15/2022 2:53 PM LAMINATING MACHINE FEEDER) Iron 10(L) 61 - 157 ug/dL 12/15/2022 3:24 PM LAMINATING MACHINE FEEDER [facility] Iron Binding Capacity 411 240 - 430 ug/dL 12/15/2022 3:24 PM LAMINATING MACHINE FEEDER [facility] Iron Sat Index 2(L) 15 - 46 % 12/15/2022 3:24 PM LAMINATING MACHINE FEEDER [facility] Blood STRUCTURE OF LEFT HAND / Unknown Venipuncture / Unknown 12/15/2022 2:53 PM LAMINATING MACHINE FEEDER 12/15/2022 2:54 PM LAMINATING MACHINE FEEDER Paras Dupree MD LAB - BLOOD ORDERABLES [facility] [address] 1st [place] [address] * (ABNORMAL) Ferritin (12/15/2022 2:53 PM LAMINATING MACHINE FEEDER) Ferritin 8(L) 31 - 409 ng/mL 12/15/2022 3:45 PM LAMINATING MACHINE FEEDER [facility] Blood STRUCTURE OF LEFT HAND / Unknown Venipuncture / Unknown 12/15/2022 2:53 PM LAMINATING MACHINE FEEDER 12/15/2022 2:54 PM LAMINATING MACHINE FEEDER Paras Dupree MD LAB - BLOOD ORDERABLES [facility] [address] [place] [address] 1st [place] [address] * Carbamazepine total (12/15/2022 2:53 PM LAMINATING MACHINE FEEDER) Pathologist [facility] Carbamazepine 5.3 4.0 - 12.0 ug/mL 12/15/2022 9:15 PM LAMINATING MACHINE FEEDER LABORATORY Blood STRUCTURE OF LEFT HAND / Unknown Venipuncture / Unknown 12/15/2022 2:53 PM LAMINATING MACHINE FEEDER 12/15/2022 2:54 PM LAMINATING MACHINE FEEDER Paras Dupree MD LAB - BLOOD ORDERABLES [facility]ATORY [facility] [place] [facility] [address] [facility], [address] [phone] [phone] * (ABNORMAL) Sodium (12/15/2022 2:53 PM LAMINATING MACHINE FEEDER) Pathologist [facility] Sodium 134(L) 135 - 145 mmol/L 12/15/2022 3:24 PM LAMINATING MACHINE FEEDER [facility] Comment:Reference intervals for [...] Unknown Venipuncture / Unknown 12/15/2022 2:53 PM LAMINATING MACHINE FEEDER 12/15/2022 2:54 PM LAMINATING MACHINE FEEDER Paras Dupree MD LAB - BLOOD ORDERABLES [facility] [place] [facility] [place] [address] [place] [address] 1st [place] [address] from Last 3 Months Advance Directives For more information, please contact: [phone] Documents on File Type Date Recorded Patient Tone Cabinet Assembler Expl anation Advance Directives and Living Will [...] 7:44 AM 07/25/2015 6:35 PM Care Teams Big Data Platform Architect Relationship Specialty Start Date End Date Darryl Kenny [address] [place] [address] PCP - General Family Practice 09/08/16 Paras Dupree MD [address] [place] [address] Neurology 04/29/14 Zarina Manzo MD [address] [place] [address] Referring Physician Family Practice 12/20/15 Modesta Elliott MD [address] [place] [address] Physical Medicine and Rehabilitation 11/12/17 Paras Dupree MD [address] [address] Assigned Neuroscience Provider 11/28/19 Paras Dupree MD [address] [address] Neurology 10/04/22
--- OUTSIDE RECORDS SUMMARY | 2023-02-21 17:50 | XMS_ITS | Encounter Summary ---
Author Name Unknown Organization [facility] Address [address] [place] [address] Care Team Providers Care Sales Agent Financial Report Service Name Role Phone Paras Dupree MD Unavailable [phone]- [phone] Zarina Manzo MD Unavailable Darryl Kenny Primary Care Provider Modesta Elliott MD Unavailable [phone] Paras Dupree MD Unavailable [phone] Paras Dupree MD Unavailable [phone]- [phone] Reason for Visit * Reason Comments RECHECK Here for a 6 mo foll ow up, confirmed with patient Encounter Details Date Type Department Care Team (Late st Contact Info) Description 12/15/2022 1:45 PM GUEST SERVICE AIDE Office Visit [facility] [address] 3rd [place] [address] Paras Dupree MD 8[address] [facility] [address] [place] [address] Seldovia-Gastaut syndrome with tonic seizures Social History Tobacco [...] Sex Assigned at Male 12/09/2019 10:46 PM GUEST SERVICE AIDE Gender Identity Male 12/09/2019 10:46 PM GUEST SERVICE AIDE Sexual Orientation Straight 12/09/2019 10 :46 PM GUEST SERVICE AIDE documented as of this encounter Last Filed Vital Signs Vital Sign Reading Time Taken Comments Blood Pressure 115/70 12/15/2022 1:46 PM GUEST SERVICE AIDE Pulse 78 12/15/2022 1:46 PM GUEST SERVICE AIDE Temperature - - Respiratory Rate 16 12/15/2022 1:46 PM GUEST SERVICE AIDE Oxygen Saturation 100% 12/15/2022 1:46 PM GUEST SERVICE AIDE Inhaled Oxygen Concentration - - Weight - - Height - - Body Mass Index - - documented in this encounter Progress Notes * Paras Dupree MD - 12/15/2022 1:45 PM CST [facility] Epilepsy Care Progress Note Patient: Lew Vogt : 1965 Age: [age] year old Today's Office Visit: 12/15/2022 Epilepsy Data: Patient History Primary Epileptologist/Provider: Paras Dupree M.D. Seizure Record Current Visit Date: 12/15/22 Previous Visit Date: 03/31/22 Months since last visit: 8.51 Seizure Type 1: Tonic seizures Description of Sz Type 1: stiffens, right mouth curls up; <30 sec # of Type 1 Seizure since last visit: 33 Freq. Type 1 / Month: 3.88 Seizure Type 2: Tonic-clonic seizures Description of Sz Type 2: convulsion, >30 sec # of Type 2 Seizure since last visit: 18 Freq. 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 Staff has labelledmajor motor seizuers <30 sec tonic seizurs, >30 sec tonic- clonic seiuzres. Most seizures nocturnal and staff has only counted daytime seizures. Neither CC sectin nor VNS helped much. Baseline 5tonic-clonic' and 18tonic seizurs per month. PHT, PB, [...] reasonable seizure control. Seizures then worsened again. History of Present Illness: Seizures are about the same. [place] seizures are more frequent. Longer seizures the same. Not out of line compared to last two years. They may have been paying more attention over the last five months after jejunostomy placed. Hospitalized at [facility] in May for aspiration pneumonia and empyema. Significant reflux was found. Also significant hiatus hernia. Decision was made to move to a dual lumen tube with jejunostomy and gastrostomy. He now gets all medications other than omeprazole per jejunostomy. Also gets food through jejunostomy. [facility] pharmacists felt that different antiseizure medications cannot be mixed together. They recommended that each medication be followed by a flush and that medications be kept a separate. They have adjusted to this in the mcc. However, it significantly increases the amount of time needed for administration of medications. They wonder whether this is necessary. Stands and pivots but does not walk. All food through jejunostomy tube. Has gastrostomy jejunostomy tube. Current Outpatient Medications Medication Sig Dispense Refill omeprazole (FIRST-OMEPRAZOLE) 2 MG/ML SUSP Take 10 mLs by mouth 2 times daily acetaminophen 167 MG/5ML elixir 1,000 mg by Per G Tube route ARTIFICIAL SALIVA MT Take 1 spray by mouth carBAMazepine (TEGRETOL) 100 MG/5ML suspension ADMINISTER 200MG(10ML) PER G-TUBE IN MORNING, 200MG(10ML) AT NOON, 200MG(10ML) EVENING AND 400MG(20ML) AT BEDTIME 1500 mL 11 cholecalciferol 125 MCG/0.5ML liquid citalopram (CELEXA) 10 MG/5ML solution ADMINISTER 10ML(20MG) ONCE A DAY INTO G- TUBE, NOT AT THE SAME TIME THE CARBAMAZEPINE SUSPENSION 240 mL 11 ferrous sulfate 220 (44 Fe) MG/5ML ELIX 220 mg by Other route daily fluticasone (FLONASE) 50 MCG/ACT nasal spray [place] 2 sprays in nostril lamoTRIgine (LAMICTAL) 100 MG tablet CRUSH AND GIVE 1 TABLET VIA G-TUBE 3 TIMES DAILY (AM, NOON, AFTERNOON) AND 2 TABLETS IN THE EVENING 155 tablet 11 LANsoprazole (PREVACID SOLUTAB) 30 MG ODT 30 mg by Per G Tube route 2 times daily (Patient not taking: Reported on 12/15/2022) loratadine (CLARITIN) 5 MG/5ML solution 10 mg by Jejunal Tube route daily LORazepam (LORAZEPAM INTENSOL) 2 MG/ML (HIGH CONC) oral solution Administer 0.5 ml (1 mg) prn for seizure lasting longer than 90 seconds or form more than 3 seizures in less than 6 hours 30 mL 0 Nutritional Supplements (TWOCAL HN) LIQD Patient take 20 oz daily polyethylene glycol (MIRALAX/GLYCOLAX) packet 17 g by Per PEG tube route 2 times daily as needed for constipation (Patient taking differently: 17 g by Per PEG tube route 2 times daily as needed for constipation Every other day per guardian) 60 packet 0 pseudoePHEDrine (SUDAFED) 60 MG tablet Take 60 mg by mouth PRN Rufinamide (BANZEL) 40 MG/ML SUSP ADMINISTER 30 ML IN AM, 30 ML AT NOON, 30 ML IN EVENING AND 30 MLAT BEDTIME. 3600 mL 11 sennosides (SENOKOT) 8.6 MG tablet Take one tab up to two times daily as needed for constipation 120 tablet 1 sodium chloride 1 GM tablet 1 tablet (1 g) by Per G Tube route 3 times daily 90 tablet 5 Medication Notes: NaCl was reduced to 1 gm twice a day, we are not sure when or why. Review of Systems: No vomiting, diarrhea, fevers, hematuria or kidney stones. Have you experienced a traumatic fall since your last visit: NO Are these falls related to your seizures: Not Applicable Other Issues: Aspiration pneumonia as above. Changed to jejunostomy as above. Got another COVID infection in September but did not require hospitalization. Everyone in the house got it. Is patient safe to drive: No Exam: BP 115/70 (BP Location: Right arm, Patient Position: Sitting, Cuff Size: Adult Regular) Pulse 78 Resp 16 SpO2 100% Wt Readings from Last 5 Encounters: 03/31/22 162 lb (73.5 kg) 09/16/21 164 lb (74.4 kg) 08/13/20 151 lb 9.6 oz (68.8 kg) 01/24/19 149 lb 4.8 oz (67.7 kg) 05/10/18 149 lb 4.8 oz (67.7 kg) Weight gain of 13 pounds over the last year. He is alert. 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 Follows simple commands. Can count fingers. Simple sentences. Responds to visual threat bilaterally. EOMI. Disrupted saccades but full versions. Smile symmetrical. Bilateral spasticity, left greater than right. Can manage fine movements with right hand but not with left. Power is probably full in hips, knees, and foot dorsiflexors. Latest Reference Range & Units 02/16/21 16:00 Sodium (External) 135 - 145 mmol/L 133 (L) CARBAMAZEPINE TOTAL LEVEL (EXTERNAL) 4.0 - 10.0 ug/mL 8.3 LAMOTRIGINE LEVEL (EXTERNAL) 3.0 - 15.0 ug/mL 5.0 RUFINAMIDE (EXTERNAL) See scan ug/mL 19.3 (E) Alert. Spastic dysarthria. Fluent speech. Able to follow simple commands. EOMI. Smile symmetrical. Tongue midline. Decreased tongue movements. Bilateral pronation, more extensive on the left. Tone increased bilaterally, left more so than right. FFN is done well. Appears to have full strength at hips, knees, and dorsiflexors on both sides. Anticonvulsant blood levels 05/30/2022, prior to placement of jejunostomy per sister. Rufinamide 30.8, lamotrigine 4.8, carbamazepine 5.4. Sodium 141. Assessment and Plan: 1) Synmptomatic generalized epilepsy, status post corpus callosum section, status post VNS placement neither of which really helped. Currently with tonic and tonic-clonic seizures. Previous course indicated worsening seizures with discontinuation of RUF, improved with readdition of RUF suggesting that this medication helped. Over fpc seizures have been reasonably controlled with carbamazepine levels between 8 and 10, lamotrigine levels between 4 and 5 and RUF levels above 20. Sister and staff feel that situation is unchanged. Numbers however wax and wane. 2) Continued response of depression to citalopram; over the years we have learned that he repeatedly responds to this medication. 3) No tremor. No nausea. increased weight; all markers of improvement of his general health. Continues looking quite good compared to several years ago and actually more alert than at last visit. 4) Hyponatremia, probably related to carbamazepine but was not a problem until May 2018. Citalopram may be contributing. Normal in May. Needs follow-up. 5) all antiseizure medications now through jejunostomy. This should not significantly impair absorption but does require follow-up. Not sure that cocktailing antiseizure medications is inappropriate, will need to follow-up with pharmacology. DISCUSSION Above discussed frankly and supportively. We discussed further treatment options. Sister did not want to make any changes. PLAN: 1) continue current lamotrigine and carbamazepine. Continue rufinamide to 1200 mg QID. Anticonvulsant blood levels today to confirm that current jejunal administration will result in sufficient absorption. 2) AED levels today to confirm compliance, rule out toxicity. Sodium to follow up on hyponatremia. Please note that he is prescribed sodium 2 g/day rather than 3 g/day. This probably will not make much difference but can increase his sodium if hyponatremic. 3) Continue current citalopram dose. 4) RTC 6 months. 5) Epidiolex probably best choice if another treatment option needed. Fycompa, lacosamide, and brivaracetam have not been tried but their efficacy in his epilepsy syndrome is unclear. It is not clearthat topiramate has been tried either. They could be consider if need be. Can consider reevaluationfor resective surgery or possibly redo VNS if he has multifocal epilepsy but likelihood of this is low. Epidiolex can be considered and may be best choice if seizures worsen, DBS can be considered inextremis. Total time in person today 25 min. Additional 9 min reviewing chart prior to visit. Additional 7 min generating note and coordinating care following visit. So total of 41 min, all on day of visit. Reviewed total of four individual tests. Most information obtained from sister because patient unable to provide reliable history. Sent message to pharmacology to obtain advice regarding mixing of antiseizure medications. Paras Dupree ADDENDUM: Sodium = 134, ferritin and iron levels low. Sister had asked us to obtain for primary care. I sent letter summarizing results. Also asked that salt be increased to 1 gm tid as per our Rx. TSW T SERVICE AIDE documented in this encounter Nursing Notes * Eula Catalan - 12/15/2022 1:45 PM CST Chief Complaint Patient presents with RECHECK Here for a 6 mo follow up, confirmed with patient Eula Lizamarupa T SERVICE AIDE documented in this encounter Plan of Treatment Upcoming Encounters Date Type Department Care Team (Late st Contact Info) Description 06/22/2023 1:10 PM CDT Office Visit [facility] [address] [place] [address] Paras Dupree MD [address] [address] documented as of this encounter Results * (ABNORMAL) Iron and iron binding capacity (12/15/2022 2:53 PM GUEST SERVICE AIDE) Iron 10(L) 61 - 157 ug/dL 12/15/2022 3:24 PM GUEST SERVICE AIDE [facility] Iron Binding Capacity 411 240 - 430 ug/dL 12/15/2022 3:24 PM GUEST SERVICE AIDE [facility] Iron Sat Index 2(L) 15 - 46 % 12/15/2022 3:24 PM GUEST SERVICE AIDE [facility] Blood STRUCTURE OF LEFT HAND / Unknown Venipuncture / Unknown 12/15/2022 2:53 PM GUEST SERVICE AIDE 12/15/2022 2:54 PM GUEST SERVICE AIDE Paras Dupree MD LAB - BLOOD ORDERABLES [facility] - [address] 1st [place] [address] * (ABNORMAL) Ferritin (12/15/2022 2:53 PM GUEST SERVICE AIDE) Ferritin 8(L) 31 - 409 ng/mL 12/15/2022 3:45 PM GUEST SERVICE AIDE [facility] Blood STRUCTURE OF LEFT HAND / Unknown Venipuncture / Unknown 12/15/2022 2:53 PM GUEST SERVICE AIDE 12/15/2022 2:54 PM GUEST SERVICE AIDE Paras Dupree MD LAB - BLOOD ORDERABLES [facility] [address] [facility] [place] [address] * Carbamazepine total (12/15/2022 2:53 PM GUEST SERVICE AIDE) Carbamazepine 5.3 4.0 - 12.0 ug/mL 12/15/2022 9:15 PM GUEST SERVICE AIDE [facility] Blood STRUCTURE OF LEFT HAND / Unknown Venipuncture / Unknown 12/15/2022 2:53 PM GUEST SERVICE AIDE 12/15/2022 2:54 PM GUEST SERVICE AIDE Paras Dupree MD LAB - BLOOD ORDERABLES [facility] [place] [facility] [address] [facility], Room [address] [id number] [phone] documented in this encounter Visit Diagnoses Diagnosis 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 documented in this encounter Care Teams Sales Agent Financial Report Service Relationship Specialty Start Date End Date Darryl Kenny [address] [place] [address] PCP - General Family Practice 09/08/16 Paras Dupree MD [address] [place] [address] Neurology 04/29/14 Zarina Manzo MD [address] [place] [address] Referring Physician Family Practice 12/20/15 Modesta Elliott MD [address] [place] [address] Physical Medicine and Rehabilitation 11/12/17 Paras Dupree MD 5775 [facility] [address] [place], [place] [address] Assigned Neuroscience Provider 11/28/19 Paras Dupree MD 57[address] [facility] [address] [place] [address] Neurology 10/04/22 documented as of this encounter
--- OUTSIDE RECORDS SUMMARY | 2023-02-21 17:50 | XMS_ITS | Encounter Summary ---
Author Name Unknown Organization [facility] Address [address] [place] [address] Care Team Providers Care Hand Meat Salter Name Role Phone Paras Dupree MD Unavailable [phone] Zarina Manzo MD Unavailable Darryl Kenny Primary Care Provider Modesta Elliott MD Unavailable [phone] Paras Dupree MD Unavailable [phone] Paras Dupree MD Unavailable [phone]- [phone] Encounter Details Date Type Department Care Team (Late st Contact Info) Description 11/06/2022 [facility] [place] [facility] [address] [place] [address] Paras Dupree MD 8756 [facility] 200 [place] [address] Social History Tobacco Use Types Packs/Day Years [...] Sex Assigned at Male 12/09/2019 10:46 PM BOILER FIREMAN Gender Identity Male 12/09/2019 10:46 PM BOILER FIREMAN Sexual Orientation Straight 12/09/2019 10 :46 PM BOILER FIREMAN documented as of this encounter Plan of Treatment Upcoming Encounters Date Type Department Care Team (Late st Contact Info) Description 06/22/2023 1:10 PM CDT Office Visit [facility] [address] [place] [phone] Paras Dupree MD [address] [employer] [address] [address] documented as of this encounter Visit Diagnoses Not on filedocumented in this encounter Care Teams Hand Meat Salter Relationship Specialty Start Date End Date Zoya Darryl Opal [address] [place] [address] PCP - General Family Practice 09/08/16 Paras Dupree MD [address] [place] [address] Neurology 04/29/14 Zarina Manzo MD [address] [place] [address] Referring Physician Family Practice 12/20/15 Modesta Elliott MD [address] [place] [address] Physical Medicine and Rehabilitation 11/12/17 Parsa Dupree MD 5775 [facility] 200 [place] [address] Assigned Neuroscience Provider 11/28/19 Paras Dupree MD 57[address] [facility] [address] [place] [address] Neurology 10/04/22 documented as of this encounter
--- OUTSIDE RECORDS SUMMARY | 2023-02-21 17:50 | XMS_ITS | Encounter Summary ---
Author Name Unknown Organization [facility] Address [address] [place] [address] Care Team Providers Care Computer Game Programmer Name Role Phone Paras Dupree MD Unavailable [phone]- [phone] Zarina Manzo MD Unavailable Darryl Kenny Primary Care Provider Modesta Elliott MD Unavailable Paras Dupree MD Unavailable [phone]- [phone] Paras Dupree MD Unavailable [phone]- [phone] Reason for Visit * Reason Onset Date Comments Refill Request 12/19/2022 LORazepam (LORAZ EPAM INTENSOL) 2 MG/ML (HIGH CONC) oral solution Encounter Details Date Type Department Care Team (Late st Contact Info) Description 12/19/2022 Refill [facility] [address] [place] [address] Paras Dupree MD [address] [facility] [address] [place] [address] Refill Request (LORazepam (LORAZEPAM INTENSOL) 2 MG/ML (HIGH CONC) oral solution) Social History Tobacco Use Types Packs/Day Years [...] Sex Assigned at Male 12/09/2019 10:46 PM ROLL FORGER Gender Identity Male 12/09/2019 10:46 PM ROLL FORGER Sexual Orientation Straight 12/09/2019 10 :46 PM ROLL FORGER documented as of this encounter Miscellaneous Notes * Telephone Encounter - Valerie Ruiz RN - 12/20/2022 10:03 AM CST LORazepam (LORAZEPAM INTENSOL) 2 MG/ML (HIGH CONC) oral solution 30 mL 0 06/16/2022 12/15/2022 [facility] Paras Dupree MD Neurology Routed because: controlled. 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 documented in this encounter Care Teams Computer Game Programmer Relationship Specialty Start Date End Date Darryl Kenny [address] [place] [address] PCP - General Family Practice 09/08/16 Paras Dupree MD [address] [place] [address] Neurology 04/29/14 Zarina Manzo MD [address] [place] [address] Referring Physician Family Practice 12/20/15 Modesta Elliott MD [address] [place] [address] Physical Medicine and Rehabilitation 11/12/17 Paras Dupree MD [address] [address] Assigned Neuroscience Provider 11/28/19 Paras Dupree MD [address] [id number] Neurology 10/04/22 documented as of this encounter
--- OUTSIDE RECORDS SUMMARY | 2023-02-21 17:50 | XMS_ITS | Encounter Summary ---
Author Name Unknown Organization [facility] Address [address] [place] [address] Care Team Providers Care International Exchange Coordinator Name Role Phone None Reported, Pcp Primary Care Provider Unavail able Encounter Details Date Type Department Care Team (Latest Contact Info) Description 05/28/2022 [facility]ake [facility] Social History Tobacco Use Types Packs/Day Years Used Date Smoking Tobacco: Never Assessed Overall Financial Resource Strain (CARDIA) Answe r [...] your living situation today? I have a [facility] place to live 10/11/2022 Sex and Gender Information Value Date Recorded Sex Assigned at Male 10/09/2022 11:47 PM CDT Gender Identity Male 10/09/2022 11:47 PM CDT Sexual Orientation Straight 10/09/2022 11 :47 PM CDT documented as of this encounter Progress Notes * Jud Cortez L.I.C.S.W., M.S.W. - 05/28/2022 11:02 AM CDT [facility]: ATC referral SUBJECTIVE Referral received from [facility] Transfer [facility] on 05/28/22, as part of hospital transfer request from [place], [place] (phone: [phone]). OBJECTIVE This patient was accepted for transfer prior to the assessment process. Spoke with patient's RN. This is a 57 y.o. year old single male from [address] [place] [address]. The patient was admitted to their facility on 05/27/2022. The physician is requesting transfer and the family is aware of, and agrees with, the request to transfer. Patient is unable to make their own decisions, their guardian is making decisions on their behalf. The patient's nurse reports the following information: The patient was admitted due to aspiration pneumonia. A transfer is being requested for a higher level of care. Oxygen: Patient is currently on 2 L of supplemental oxygen. Bariatric equipment: Patient does not require bariatric equipment, and there is no concern for morbid obesity. Mobility: Patient ambulates with a wheelchair at baseline. ADLs: Wheelchair-dependent at baseline Prior to admission, the patient was living in a half-way. Wound care: No concerns Diet: G-tube Isolation precautions: None Dialysis: None Behavioral concerns: No concerns Psychiatric concerns: No concerns Legal concerns: No concerns Financial concerns: no concerns identified Family concerns: No concerns Multiple hospitalizations: No concerns identified Patient has the following supports: Family support. Patient's sister is his guardian. ASSESSMENT / PLAN It appears that minimal barriers to discharge planning have been identified as noted above. PLAN: I have discussed with the patient's RN that in the event the patient is transferred here the socialcost of travel such as lodging, meals, and transport home are the personal responsibility of the patient and family. They have agreed to relay this information to the family. Joelle Ayon, M.S.W. 05/28/2022 documented in this encounter Plan of Treatment Upcoming Encounters Date Type Department Care Team (Late st Contact Info) Description 03/01/2023 11:15 AM [facility] Appointment Department of Radiology in [place] [id number] [place] [phone] Floyd Robert, EMMANUEL, C.N.P., M.S. [address] [place] [phone] documented as of this encounter Visit Diagnoses Not on filedocumented in this encounter Care Teams International Exchange Coordinator Relationship Specialty Start Date End Date None Reported, Pcp PCP - General Family Medicine 05/28/22 documented as of this encounter
--- OUTSIDE RECORDS SUMMARY | 2023-02-21 17:51 | XMS_ITS | Encounter Summary ---
Author Name Unknown Organization [facility] Address [address] [place] [id number] Care Team Providers Care Tripe Finisher Name Role Phone Paras Dupree MD Unavailable [phone] Zarina Manzo MD Unavailable Darryl Kenny Primary Care Provider [phone] Modesta Elliott MD Unavailable [phone] Paras Dupree MD Unavailable [phone] Reason for Visit * Reason Onset Date Comments Medication Refill Medication Question 10/02/2022 Encounter Details Date Type Department Care Team (Late st Contact Info) Description 10/02/2022 Refill [facility] [address] [place] [address] Paras Dupree MD [address] [facility] [address] [place] [address] Medication Refill; Medication Question Social History Tobacco Use Types Packs/Day Years Used Date Smoking Tobacco: Never Smokeless Tobacco: Never Alcohol Use Standard Drinks/Week Comments No 0 (1 standard drink = 0.6 oz pur e alcohol) PHQ-2 Answer Date Recorded PHQ-2 Score 0 09/26/2018 Sex and Gender Information Value Date Recorded Sex Assigned at Male 12/09/2019 10:46 PM [employer] Gender Identity Male 12/09/2019 10:46 PM [employer] Sexual Orientation Straight 12/09/2019 10 :46 PM [employer] documented as of this encounter Miscellaneous Notes * Telephone Encounter - Dhara Alvarez RN - 10/03/2022 3:47 PM CDT Last seen: 03/31/2022 RTC: 6 months Cancel: none No-show: none Next appt: 10/23 Incoming refill from patient via phone Medication requested: Rufinamide (BANZEL) 40 MG/ML SUSP Directions: Administer 30 ml in AM, 30 ml at noon, 30 ml in evening and 30 ml at bedtime. Qty: 3600 ml Last refilled: 09/2021 Medication refill approved per refill protocol * Telephone Encounter - Senia Platt - 10/03/2022 10:24 AM CDT [facility] Phone Message May a detailed message be left on voicemail: yes Reason for Call: Medication Question or concern regarding medication Prescription Clarification Name of Medication: Rufinamide 40 mg. suspend Prescribing Provider: Tash Dupree Pharmacy: [facility] What on the order needs clarification? Prescription has as of 09/16. Please reissue new prescription for this medication. 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
--- OUTSIDE RECORDS SUMMARY | 2023-02-21 17:51 | XMS_ITS | Encounter Summary ---
Author Name Unknown Organization [facility] Address [facility] [place] [address] Care Team Providers Care Screener Operator Name Role Phone Paras Dupree MD Unavailable [phone] Zarina Manzo MD Unavailable Darryl Kenny Primary Care Provider Modesta Elliott MD Unavailable [phone] Paras Dupree MD Unavailable [phone] Reason for Visit * Auth/Cert (Routine) Specialty Diagnoses / Procedures Referred By Parvin t Referred To Contact Gastroenterology Diagnoses Anemia, unspecified type Anemia, unspecified type [D64.9] Procedures [place] UGI ENDOSCOPY DIAG W OR W/O BRUSH/WASH Esophagoscopy, gastroscopy, duodenoscopy (EGD), combined Endoscopy [address] [address] Referral ID Status Reason Start Date Expiration Date Visits Re quested Visits Authorized [id number] 1 1 Encounter Details Date Type Department Care Team (Late st Contact Info) Description 08/18/2022 9:30 AM CDT - 08/18/2022 12:21 PM CDT Hospital Encounter [facility] [address] [address] Amanda Hopper MD [facility] [address] [place], [place] [id number] Discharge Disposition: Home or Self Care Social History Tobacco Use Types Packs/Day Years Used Date Smoking Tobacco: Never Smokeless Tobacco: Never Alcohol Use Standard Drinks/Week Comments No 0 (1 standard drink = 0.6 oz pur e alcohol) PHQ-2 Answer Date Recorded PHQ-2 Score 0 09/26/2018 Sex and Gender Information Value Date Recorded Sex Assigned at Male 12/09/2019 10:46 PM FEED WEIGHER Gender Identity Male 12/09/2019 10:46 PM FEED WEIGHER Sexual Orientation Straight 12/09/2019 10 :46 PM FEED WEIGHER COVID-19 Exposure Response Date Recorded In the last 10 days, have justa beck been in contact with someone who was confirmed or suspected to have Coronavirus/COVID-19? No / Unsure 08/18/2022 9:30 AM CDT documented as of this encounter Last Filed Vital Signs Vital Sign Reading Time Taken Comments Blood Pressure 110/68 08/18/2022 11:45 AM CDT Pulse 70 08/18/2022 11:45 AM CDT Temperature 36.1 ??C (97 ??F) 08/18/2022 11:45 AM CDT Respiratory Rate 15 08/18/2022 11:45 AM CDT Oxygen Saturation 96% 08/18/2022 11:45 AM CDT Inhaled Oxygen Concentration - - Weight - - Height - - Body Mass Index - - documented in this encounter Medications at Time of Discharge Medication Sig Dispensed Refills Start Date End Date acetaminophen 167 MG/5ML elixir 1,000 mg by Per G Tube route 0 10/10/2017 ARTIFICIAL SALIVA MT Take 1 spray by mouth 0 05/28/2017 carBAMazepine (TEGRETOL) 100 MG/5ML suspensionIndications :Conway-Gastaut syndrome with tonic seizures (H) ADMINISTER 200MG(10ML) PER G-TUBE IN MORNING, 200MG(10ML) AT NOON, 200MG(10ML) EVENING AND 400MG(20ML) AT BEDTIME 1500 mL 11 08/03/2022 cholecalciferol 125 MCG/0.5ML liquid 0 01/16/2022 citalopram (CELEXA) 10 MG/5ML solutionIndications:R ecurrent major depressive disorder, remission status unspecified (H24) ADMINISTER 10ML(20MG) ONCE A DAY INTO G-TUBE, NOT AT THE SAME TIME THE CARBAMAZEPINE SUSPENSION 240 mL 11 07/07/2022 ferrous sulfate 220 (44 Fe) MG/5ML ELIX 220 mg by Other route daily 0 01/16/2022 fluticasone (FLONASE) 50 MCG/ACT nasal spray [place] 2 sprays in nostril 0 05/29/2017 LANsoprazole (PREVACID SOLUTAB) 30 MG ODT 30 mg by Per G Tube route 2 times daily 0 01/10/2019 loratadine (CLARITIN) 5 MG/5ML solution 10 mg by Jejunal Tube route daily 0 05/01/2022 Nutritional Supplements (TWOCAL HN) LIQD Patient take 20 oz daily 0 polyethylene glycol (MIRALAX/GLYCOLAX) packetIndications:Slo w transit constipation 17 g by Per PEG tube route 2 times daily as needed for constipation 60 packet 0 08/15/2015 pseudoePHEDrine (SUDAFED) 60 MG tablet Take 60 mg by mouth PRN 0 11/02/2015 sennosides (SENOKOT) 8.6 MG tabletIndications:Con stipation Take one tab up to two times daily as needed for constipation 120 tablet 1 01/11/2016 sodium chloride 1 GM tabletIndications:Seun nox-Gastaut syndrome with tonic seizures (H) 1 tablet (1 g) by Per G Tube route 3 times daily 90 tablet 5 08/07/2022 lamoTRIgine (LAMICTAL) 100 MG tabletIndications:Seun nox-Gastaut syndrome with tonic seizures (H) CRUSH AND GIVE 1 TABLET VIA G-TUBE 3 TIMES DAILY (AM, NOON, AFTERNOON) AND 2 TABLETS IN THE EVENING 155 tablet 11 02/24/2022 12/15/2022 LORazepam (LORAZEPAM INTENSOL) 2 MG/ML (HIGH CONC) oral solutionIndications:L ennox-Gastaut syndrome with tonic seizures (H) Administer 0.5 ml (1 mg) prn for seizure lasting longer than 90 seconds or form more than 3 seizures in less than 6 hours 30 mL 0 06/16/2022 12/20/2022 Rufinamide (BANZEL) 40 MG/ML SUSPIndications:Lenno x-Gastaut syndrome with tonic seizures (H) Administer 30 ml in AM, 30 ml at noon, 30 ml in evening and 30 ml at bedtime. 3600 mL 11 09/16/2021 10/03/2022 documented as of this encounter H&P Notes * Amanda Hopper MD - 08/18/2022 10:42 AM CDT PRE-PROCEDURE H&P CHIEF COMPLAINT / REASON FOR PROCEDURE: Anemia, iron deficiency PERTINENT HISTORY : Past Medical History: Diagnosis Date ??? Depressive disorder ??? Developmental delay ??? Dysphagia ??? Osteoporosis ??? Seizures (H) ??? Spina bifida ??? Symptomatic generalized epilepsy (H) Past Surgical History: Procedure Laterality Date ??? ABDOMEN SURGERY everything is good ??? ESOPHAGOSCOPY, GASTROSCOPY, DUODENOSCOPY (EGD), COMBINED N/A 09/20/2015 Procedure: COMBINED ESOPHAGOSCOPY, GASTROSCOPY, DUODENOSCOPY (EGD); Surgeon: Guru Kalen Pulliam MD; [facility] ??? ESOPHAGOSCOPY, GASTROSCOPY, DUODENOSCOPY (EGD), COMBINED N/A 12/13/2015 Procedure: COMBINED ESOPHAGOSCOPY, GASTROSCOPY, DUODENOSCOPY (EGD); Surgeon: Guru Kalen Pulliam MD; [facility] ??? GI SURGERY GJ tube exchange ??? HC REPLACE DUODENOSTOMY/JEJUNOSTOMY TUBE PERCUTANEOUS N/A 08/20/2015 Procedure: REPLACE GASTROJEJUNOSTOMY TUBE, PERCUTANEOUS; Surgeon: Arun Laura MD; [facility] ??? HC REPLACE GASTROSTOMY/CECOSTOMY TUBE PERCUTANEOUS N/A 07/21/2015 Procedure: REPLACE GASTROSTOMY TUBE, PERCUTANEOUS; Surgeon: Arun Laura MD; [facility] ??? HC REPLACE GASTROSTOMY/CECOSTOMY TUBE PERCUTANEOUS N/A 09/20/2015 Procedure: REPLACE GASTROSTOMY TUBE, PERCUTANEOUS; Surgeon: Guru Kalen Pulliam MD; [facility] ??? IMPLANT STIMULATOR VAGUS NERVE 03/25/99, replaced 05/22/03, end of service 2011 ??? ZC TRANSECT CORPUS CALLOSUM 07/03/90 Bleeding tendencies: No Relevant Family History: NONE Relevant Social History: NONE A relevant review of systems was performed and was negative Current symptoms include: no symptoms reported ALLERGIES/SENSITIVITIES: Allergies Allergen Reactions ??? Piperacillin Sod-Tazobactam So Rash ??? Alendronate Other (See Comments) PN: LW Reaction: intolerant of taking correctly Intolerant of taking correctly ??? Alendronate Sodium ??? Erythromycin Other (See Comments) PN: Unknown ??? Macrolides And Ketolides Other (See Comments) PN: Unknown ??? Felbamate Rash PN: LW Reaction: Rash, Generalized ??? Felbatol [Felbamate] Rash ??? Zosyn [Piperacillin-Tazobactam In Dex] Rash CURRENT MEDICATIONS: Prior to Admission Medications Prescriptions Last Dose Informant Patient Reported? Taking? ARTIFICIAL SALIVA MT 08/17/2022 Yes Yes Sig: Take 1 spray by mouth LANsoprazole (PREVACID SOLUTAB) 30 MG ODT 08/18/2022 Yes Yes Si mg by Per G Tube route 2 times daily LORazepam (LORAZEPAM INTENSOL) 2 MG/ML (HIGH CONC) oral solution Unknown No Yes Sig: Administer 0.5 ml (1 mg) prn for seizure lasting longer than 90 seconds or form more than 3 seizures in less than 6 hours Nutritional Supplements (TWOCAL HN) LIQD Yes No Sig: Patient take 20 oz daily Rufinamide (BANZEL) 40 MG/ML SUSP 08/18/2022 No Yes Sig: Administer 30 ml in AM, 30 ml at noon, 30 ml in evening and 30 ml at bedtime. acetaminophen 167 MG/5ML elixir Unknown Yes Yes Si,000 mg by Per G Tube route carBAMazepine (TEGRETOL) 100 MG/5ML suspension 08/18/2022 No Yes Sig: ADMINISTER 200MG(10ML) PER G-TUBE IN MORNING, 200MG(10ML) AT NOON, 200MG(10ML) EVENING AND 400MG(20ML) AT BEDTIME cholecalciferol 125 MCG/0.5ML liquid 08/17/2022 Yes Yes citalopram (CELEXA) 10 MG/5ML solution 08/18/2022 No Yes Sig: ADMINISTER 10ML(20MG) ONCE A DAY INTO G-TUBE, NOT AT THE SAME TIME THE CARBAMAZEPINE SUSPENSION ferrous sulfate 220 (44 Fe) MG/5ML ELIX 08/17/2022 Yes Yes Si mg by Other route daily fluticasone (FLONASE) 50 MCG/ACT nasal spray 08/17/2022 Yes Yes Sig: [place] 2 sprays in nostril lamoTRIgine (LAMICTAL) 100 MG tablet 08/18/2022 No Yes Sig: CRUSH AND GIVE 1 TABLET VIA G-TUBE 3 TIMES DAILY (AM, NOON, AFTERNOON) AND 2 TABLETS IN THE EVENING loratadine (CLARITIN) 5 MG/5ML solution 08/17/2022 Yes Yes Si mg by Jejunal Tube route daily polyethylene glycol (MIRALAX/GLYCOLAX) packet Unknown No Yes Si g by Per PEG tube route 2 times daily as needed for constipation Patient taking differently: 17 g by Per PEG tube route 2 times daily as needed for constipation Every other day per guardian pseudoePHEDrine (SUDAFED) 60 MG tablet Unknown Yes Yes Sig: Take 60 mg by mouth PRN sennosides (SENOKOT) 8.6 MG tablet Unknown No Yes Sig: Take one tab up to two times daily as needed for constipation sodium chloride 1 GM tablet 08/17/2022 No Yes Si tablet (1 g) by Per G Tube route 3 times daily Facility-Administered Medications: None PRE-SEDATION ASSESSMENT: Lung Exam: normal Airway Exam: thick neck, limited mobility Previous reaction to anesthesia/sedation: No Sedation plan based on assessment: general ASA Classification: 3 - Severe systemic disease, but not incapacitating Comments: risks explained to patient's sister who signed consent IMPRESSION: Rule out upper gi bleeding source, h. pylori PLAN: egd with bx Amanda Hopper MD, MD [facility] Office: [phone] documented in this encounter Plan of Treatment Upcoming Encounters Date Type Department Care Team (Late st Contact Info) Description 06/22/2023 1:10 PM CDT Office Visit [facility] [address] 3rd [place] [address] Paras Dupree MD [address] [facility] [address] [place] [address] documented as of this encounter Procedures Procedure Name Priority Date/Time Associated Diagnosis Comments SURGICAL PATHOLOGY EXAM Routine 08/18/2022 11:02 AM CDT ESOPHAGOGASTRODUO DENOSCOPY, WITH BIOPSY 08/18/2022 10:40 AM CDT Anemia, unspecified type Special Needs LEGAL CO-GUARDIANS ARE HIS SISTERS NEAL - left message with guardian re: H&P --pg 08/14Marquis have pre-op @ [facility] on 08/17 per sister UPPER GI ENDOSCOPY Routine 08/18/2022 10:31 AM CDT documented in this encounter Results * Surgical Pathology Exam (08/18/2022 11:02 AM CDT) Case Report Surgical Pathology Report ? Case: [id number] ? Authorizing Provider: ??Amanda Hopper MD Collected: ? 08/18/2022 11:02 AM ? Ordering Location: ? [facility] ?Received: ?08/18/2022 11:51 AM ? [facility] ? Pathologist: ? Kimberlee Robison MD PhD ? Specimens: ?? A) - Small Intestine, Duodenum, anemia ? B) - Stomach, Body, anemia ? C) - Esophagus, anemia ? 08/22/2022 11:27 AM CDT LABORATORY Final Diagnosis A(1). Duodenum, biopsy: -Small intestinal mucosa with inactive chronic peptic duodenitis. -Normal villous architecture identified and no prominence in intraepithelial lymphocytes seen. -Negative for luminal organisms. -Negative for dysplasia or malignancy. B(2). Stomach, body, biopsy: - Oxyntic type gastric mucosa with mild chronic inflammation. - Negative for H. Pylori organisms on routine stains. - Negative for intestinal metaplasia. -Negative for dysplasia or malignancy C(3). Esophagus, distal, biopsy:. -Acute erosive esophagitis with superficially associated fungal elements and prominent reactive epithelial changes. -Special stains for fungal organisms (PAS) is POSITIVE -Negative for intestinal metaplasia. -Negative for eosinophilic esophagitis. -Negative for dysplasia or malignancy. 08/22/2022 11:27 AM CDT LABORATORY Clinical Information Procedure: Esophagoscopy, gastroscopy, duodenoscopy (EGD), combined Pre-op Diagnosis: Anemia, unspecified type [D64.9] Post-op Diagnosis: D64.9 - Anemia, unspecified type [ICD-10-CM] 08/22/2022 11:27 AM CDT LABORATORY Gross Description A(1). Small Intestine, Duodenum, anemia: The specimen is received in formalin, labeled with the patient's name, medical record number and other identifying information designated duodenal biopsy. It consists of 3 juan soft tissue fragments, 0.2-0.3 cm. Entirely submitted in 1 cassette. B(2). Stomach, Body, anemia: The specimen is received in formalin, labeled with the patient's name, medical record number and other identifying information designated stomach, body biopsy. It consists of 2 juan soft tissue fragments, 0.2 and 0.3 cm. Entirely submitted in 1 cassette. C(3). Esophagus, anemia: The specimen is received in formalin, labeled with the patient's name, medical record number and other identifying information designated esophageal biopsy. It consists of 4 juan soft tissue fragments, less than 0.1-0.5 cm. Entirely submitted in 1 cassette. (Lidia Ruiz Biopsy Tech) 08/22/2022 11:27 AM CDT LABORATORY Microscopic Description Microscopic examination was performed. 08/22/2022 11:27 AM CDT LABORATORY Special Stains Special stains for fungal organisms (PAS) is POSITIVE. All controls stain appropriately. 08/22/2022 11:27 AM CDT LABORATORY Performing Labs The technical component of this testing was completed at [facility] 08/22/2022 11:27 AM CDT LABORATORY Case Images 08/22/2022 11:27 AM CDT LABORATORY Biopsy DUODENAL STRUCTURE / Unknown 08/18/2022 11:02 AM CDT 08/18/2022 11:51 AM CDT Specimen from unspecified body site obtained by biopsy (specimen) STOMACH STRUCTURE / Unknown 08/18/2022 11:02 AM CDT 08/18/2022 11:51 AM CDT Specimen from unspecified body site obtained by biopsy (specimen) ESOPHAGEAL STRUCTURE / Unknown 08/18/2022 11:03 AM CDT 08/18/2022 11:51 AM CDT Amanda [facility]ONER [facility] [address] Lab (1st floor, no room number) [place] [address], [facility] [phone] [facility] [address] 1[address] floor, [address] [address], [facility] [phone] * UPPER GI ENDOSCOPY (08/18/2022 10:31 AM CDT) [facility] Upper GI Endoscopy [facility] [address] ??[id number] Patient Name: Lew Vogt ?Procedure Date: 08/18/2022 10:31 AM ? Date of : 1965 ? Admit Type: Outpatient Age: 57 ? Room: [place] [address] Note Status: Finalized ?Attending MD: Amanda Hopper MD, Instrument Name: 509 [id number] Gastroscope Procedure: ?Upper GI endoscopy Indications: ?Iron deficiency anemia, history of reflux and ?aspiration pneumonia. Long history of G-tube. Evelyn ?2022 G-J tube placed. Providers: ?Amanda Hopper MD, Valerie Lewis RN Referring MD: ? Medicines: ?Monitored Anesthesia Care, General Anesthesia Complications: ?No immediate complications. Procedure: ?Pre-Anesthesia Assessment: ?- Prior to the procedure, a History and Physical ?was performed, and patient medications and ?allergies were reviewed. The patient is unable to ?give consent secondary to the patient's altered ?mental status. The risks and benefits of the ?procedure and the sedation options and risks were ?discussed with the patient's sister. All questions ?were answered and informed consent was obtained. ?Patient identification and proposed procedure were ?verified by the physician and the nurse. Mental ?Status Examination: alert and oriented. Respiratory ?Examination: clear to auscultation. CV Examination: ?normal. Prophylactic Antibiotics: The patient does ?not require prophylactic antibiotics. Prior ?Anticoagulants: The patient has taken no ?anticoagulant or antiplatelet agents. ASA Grade ?Assessment: III - A patient with severe systemic ?disease. After reviewing the risks and benefits, ?the patient was deemed in satisfactory condition to ?undergo the procedure. The anesthesia plan was to ?use general anesthesia. Immediately prior to ?administration of medications, the patient was ?re-assessed for adequacy to receive sedatives. The ?heart rate, respiratory rate, oxygen saturations, ?blood pressure, adequacy of pulmonary ventilation, ?and response to care were monitored throughout the ?procedure. The physical status of the patient was ?re-assessed after the procedure. ?After obtaining informed consent, the endoscope was ?passed under direct vision. Throughout the ?procedure, the patient's blood pressure, pulse, and ?oxygen saturations were monitored continuously. The ?endoscope 509 was introduced through the mouth, and ?advanced to the second part of duodenum. The upper ?GI endoscopy was accomplished without difficulty. ?The patient tolerated the procedure well. ? Findings: ? LA Grade C esophagitis with no bleeding was found 35 cm to the 40cm. . ? Biopsies were taken with a cold forceps for histology. Very friable ? mucosa. The remainder of the esophagus appeared normal. ? There was evidence of a gastrostomy present in the gastric body with ? tube going through the pylorus into the duodenum. Gastric mucosa ? appeared normal, biopsies taken. ? 2cm hiatal hernia. ? The examined duodenum was normal. Biopsies were taken with a cold ? forceps for histology. Some views blocked by J-tube. ? Impression: ? - Esophagitis in the distal 5cm of esophagus, ?likely reflux esophagitis, biopsies pending. ?- Gastrostomy present characterized by healthy ?appearing mucosa with tube extending into the ?duodenum. ?- Normal examined duodenum. Biopsied. Recommendation: ? Continue BID Lansoprazole, await biopsies. ?This looks like reflux esophagitis. Sitting up as ?much as possible with feedings may be helpful. I ?will contact you with additional recommendations ?when biopsies return. ? Procedure Code(s): ? --- Professional --- ? 51023, Esophagogastroduod enoscopy, flexible, transoral; with biopsy, ? single or multiple CPT copyright 2020 [employer]. All rights reserved. The codes documented in this report are preliminary and upon stripper and opaquer apprentice review may be revised to meet current compliance requirements. Electonically signed by Amanda Hopper MD Amanda Hopper MD 08/18/2022 11:19:34 AM I was physically present for the entire viewing portion of the exam. Amanda Hopper MD Number of Addenda: 0 Note Initiated On: 08/18/2022 10:31 AM Total Procedure Duration: 0 hours 6 minutes 41 seconds Estimated Blood Loss: ? minimal Scope In: 10:52:45 AM Scope Out: 10:59:26 AM RADIOLOGY RESULTS 08/18/2022 10:3 1 AM CDT Amanda Hopper MD PROCEDURES RADIOLOGY RESULTS documented in this encounter Visit Diagnoses Not on filedocumented in this encounter Administered Medications Inactive Administered Medications - up to 3 most recent administrations Medication Order MAR Action Action Date Dose Rate Site fentaNYL (PF) (SUBLIMAZE) injection 25 mcg 25 mcg, Intravenous, EVERY 5 MIN PRN, moderate pain, Give fentaNYL (SUBLIMAZE) first if HYDROmorphone (DILAUDID) also ordered., Starting on Sun08/18/22 at 1123, Administer fentaNYL (SUBLIMAZE) for acute pain control. Move to HYDROmorphone (DILAUDID): - IF patient has received up to 200 mcg of fentaNYL (SUBLIMAZE) OR - IF patient has received 2 doses of fentaNYL (SUBLIMAZE) AND continues to have pain score greater than or equal to six (6) or is unable to participate in post op recovery due to pain. Wait 5 minutes AFTER last fentaNYL (SUBLIMAZE) dose before administering HYDROmorphone (DILADUDID). Postop Anesthesia Phase I only. Notify Provider to assess for uncontrolled pain or analgesic side effects. DO NOT revert back to fentanyl (SUBLIMAZE) after administering HYDROmorphone (DILAUDID)., PACU fentaNYL (PF) (SUBLIMAZE) injection 50 mcg 50 mcg, Intravenous, EVERY 5 MIN PRN, severe pain, Give fentaNYL (SUBLIMAZE) first if HYDROmorphone (DILAUDID) also ordered., Starting on Sun08/18/22 at 1123, Administer fentaNYL (SUBLIMAZE) for acute pain control. Move to HYDROmorphone (DILAUDID): - IF patient has received up to 200 mcg of fentaNYL (SUBLIMAZE), OR - IF patient has received 2 doses of fentaNYL (SUBLIMAZE) AND continues to have severe pain (pain score greater than or equal to seven (7) or is unable to participate in post op recovery due to pain. Wait 5 minutes AFTER last fentaNYL (SUBLIMAZE) dose before administering HYDROmorphone (DILADUDID). Postop Anesthesia Phase I only. Notify Provider to assess for uncontrolled pain or analgesic side effects. DO NOT revert back to fentanyl (SUBLIMAZE) after administering HYDROmorphone (DILAUDID)., PACU HYDROmorphone (DILAUDID) injection 0.2 mg 0.2 mg, Intravenous, EVERY 5 MIN PRN, moderate pain, Starting on Sun08/18/22 at 1123, Use FentaNYL (SUBLIMAZE) first if ordered. Maximum total cumulative dose NOT to exceed 2 mg. DO NOT revert back to fentanyl (SUBLIMAZE) after administering HYDROmorphone (DILAUDID). Notify Provider to assess for uncontrolled pain or analgesic side effects., PACU HYDROmorphone (DILAUDID) injection 0.4 mg 0.4 mg, Intravenous, EVERY 5 MIN PRN, severe pain, Starting on Sun08/18/22 at 1123, Use FentaNYL (SUBLIMAZE) first if ordered. Maximum total cumulative dose NOT to exceed 2 mg. DO NOT revert back to fentanyl (SUBLIMAZE) after administering HYDROmorphone (DILAUDID). Notify Provider to assess for uncontrolled pain or analgesic side effects., PACU lactated ringers infusion at 100 mL/hr, Intravenous, CONTINUOUS, Continue until IV catheter is weaned, PACU, Starting on Sun08/18/22 at 1130, Until Sun08/18/22 at 1422 ondansetron (ZOFRAN ODT) ODT tab 4 mg 4 mg, Oral, EVERY 30 MIN PRN, nausea, Starting on Sun08/18/22 at 1123, For 2 doses, MAX total dose = 8 mg, including OR dosing. If not resolved in 15 minutes, then go to step 2 [prochlorperazine (COMPAZINE), if ordered]. With dry hands, peel back foil backing and gently remove tablet. Do not push oral disintegrating tablet through foil backing. Administer immediately on tongue and oral disintegrating tablet dissolves in seconds, then swallow with saliva. Liquid not required., PACU ondansetron (ZOFRAN) injection 4 mg 4 mg, Intravenous, EVERY 30 MIN PRN, nausea, Administer over 2-5 Minutes, Starting on Sun08/18/22 at 1123, For 2 doses, MAX total dose = 8 mg, including OR dosing. If not resolved in 15 minutes, then go to step 2 [prochlorperazine (COMPAZINE), if ordered]. Irritant., PACU documented in this encounter Active and Recently Administered Medications Times are shown in CDT. Continuous Medication Order 08/16/2022 08/17/2022 08/18/2022 lactated ringers infusion at 100 mL/hr, Intravenous, CONTINUOUS, Continue until IV catheter is weaned, PACU, Starting on Sun08/18/22 at 1130, Until Sun08/18/22 at 1422 1130 (Canceled Entry - Provider: Orders Generic Provider - Comment: Automatically canceled at discontinue of medication order) PRN Medication Order 08/16/2022 08/17/2022 08/18/2022 fentaNYL (PF) (SUBLIMAZE) injection 25 mcg 25 mcg, Intravenous, EVERY 5 MIN PRN, moderate pain, Give fentaNYL (SUBLIMAZE) first if HYDROmorphone (DILAUDID) also ordered., Starting on Sun08/18/22 at 1123, Administer fentaNYL (SUBLIMAZE) for acute pain control. Move to HYDROmorphone (DILAUDID): - IF patient has received up to 200 mcg of fentaNYL (SUBLIMAZE) OR - IF patient has received 2 doses of fentaNYL (SUBLIMAZE) AND continues to have pain score greater than or equal to six (6) or is unable to participate in post op recovery due to pain. Wait 5 minutes AFTER last fentaNYL (SUBLIMAZE) dose before administering HYDROmorphone (DILADUDID). Postop Anesthesia Phase I only. Notify Provider to assess for uncontrolled pain or analgesic side effects. DO NOT revert back to fentanyl (SUBLIMAZE) after administering HYDROmorphone (DILAUDID)., PACU fentaNYL (PF) (SUBLIMAZE) injection 50 mcg 50 mcg, Intravenous, EVERY 5 MIN PRN, severe pain, Give fentaNYL (SUBLIMAZE) first if HYDROmorphone (DILAUDID) also ordered., Starting on Sun08/18/22 at 1123, Administer fentaNYL (SUBLIMAZE) for acute pain control. Move to HYDROmorphone (DILAUDID): - IF patient has received up to 200 mcg of fentaNYL (SUBLIMAZE), OR - IF patient has received 2 doses of fentaNYL (SUBLIMAZE) AND continues to have severe pain (pain score greater than or equal to seven (7) or is unable to participate in post op recovery due to pain. Wait 5 minutes AFTER last fentaNYL (SUBLIMAZE) dose before administering HYDROmorphone (DILADUDID). Postop Anesthesia Phase I only. Notify Provider to assess for uncontrolled pain or analgesic side effects. DO NOT revert back to fentanyl (SUBLIMAZE) after administering HYDROmorphone (DILAUDID)., PACU HYDROmorphone (DILAUDID) injection 0.2 mg 0.2 mg, Intravenous, EVERY 5 MIN PRN, moderate pain, Starting on Sun08/18/22 at 1123, Use FentaNYL (SUBLIMAZE) first if ordered. Maximum total cumulative dose NOT to exceed 2 mg. DO NOT revert back to fentanyl (SUBLIMAZE) after administering HYDROmorphone (DILAUDID). Notify Provider to assess for uncontrolled pain or analgesic side effects., PACU HYDROmorphone (DILAUDID) injection 0.4 mg 0.4 mg, Intravenous, EVERY 5 MIN PRN, severe pain, Starting on Sun08/18/22 at 1123, Use FentaNYL (SUBLIMAZE) first if ordered. Maximum total cumulative dose NOT to exceed 2 mg. DO NOT revert back to fentanyl (SUBLIMAZE) after administering HYDROmorphone (DILAUDID). Notify Provider to assess for uncontrolled pain or analgesic side effects., PACU ondansetron (ZOFRAN ODT) ODT tab 4 mg(Linked Group 1) 4 mg, Oral, EVERY 30 MIN PRN, nausea, Starting on Sun08/18/22 at 1123, For 2 doses, MAX total dose = 8 mg, including OR dosing. If not resolved in 15 minutes, then go to step 2 [prochlorperazine (COMPAZINE), if ordered]. With dry hands, peel back foil backing and gently remove tablet. Do not push oral disintegrating tablet through foil backing. Administer immediately on tongue and oral disintegrating tablet dissolves in seconds, then swallow with saliva. Liquid not required., PACU ondansetron (ZOFRAN) injection 4 mg(Linked Group 1) 4 mg, Intravenous, EVERY 30 MIN PRN, nausea, Administer over 2-5 Minutes, Starting on Sun08/18/22 at 1123, For 2 doses, MAX total dose = 8 mg, including OR dosing. If not resolved in 15 minutes, then go to step 2 [prochlorperazine (COMPAZINE), if ordered]. Irritant., PACU Linked Groups Order Group 1: ondansetron (ZOFRAN ODT) ODT tab 4 mgJump to med 4 mg, Oral, EVERY 30 MIN PRN, nausea, Starting on Sun08/18/22 at 1123, For 2 doses, MAX total dose = 8 mg, including OR dosing. If not resolved in 15 minutes, then go to step 2 [prochlorperazine (COMPAZINE), if ordered]. With dry hands, peel back foil backing and gently remove tablet. Do not push oral disintegrating tablet through foil backing. Administer immediately on tongue and oral disintegrating tablet dissolves in seconds, then swallow with saliva. Liquid not required., PACU Or ondansetron (ZOFRAN) injection 4 mgJump to med 4 mg, Intravenous, EVERY 30 MIN PRN, nausea, Administer over 2-5 Minutes, Starting on Sun08/18/22 at 1123, For 2 doses, MAX total dose = 8 mg, including OR dosing. If not resolved in 15 minutes, then go to step 2 [prochlorperazine (COMPAZINE), if ordered]. Irritant., PACU documented in this encounter Care Teams Screener Operator Relationship Specialty Start Date End Date Darryl Kenny [address] [place] [address] PCP - General Family Practice 09/08/16 Paras Dupree MD [address] [place] [address] Neurology 04/29/14 Zarina Manzo MD [address] [place] [address] Referring Physician Family Practice 12/20/15 Modesta Elliott MD [address] [place] [address] Physical Medicine and Rehabilitation 11/12/17 Paras Dupree MD [address] [address] [place] [address] Assigned Neuroscience Provider 11/28/19 documented as of this encounter
--- OUTSIDE RECORDS SUMMARY | 2023-02-21 17:51 | XMS_ITS | Encounter Summary ---
Author Name Unknown Organization [facility] Address [address] [place] [address] Care Team Providers Care Cpa Tax Name Role Phone Paras Dupree MD Unavailable [phone] Zarina Manzo MD Unavailable Darryl Kenny Primary Care Provider Modesta Elliott MD Unavailable [phone] Paras Dupree MD Unavailable [phone] Encounter Details Date Type Department Care Team (Latest Contact Info) Description 03/26/2022 Travel Social History Tobacco Use Types Packs/Day Years Used Date Smoking Tobacco: Never Smokeless Tobacco: Never Alcohol Use Standard Drinks/Week Comments No 0 (1 standard drink = 0.6 oz pur e alcohol) PHQ-2 Answer Date Recorded PHQ-2 Score 0 09/26/2018 Sex and Gender Information Value Date Recorded Sex Assigned at Male 12/09/2019 10:46 PM WIRE TAPER Gender Identity Male 12/09/2019 10:46 PM WIRE TAPER Sexual Orientation Straight 12/09/2019 10 :46 PM WIRE TAPER COVID-19 Exposure Response Date Recorded In the last 10 days, have yo u been in contact with someone who was confirmed or suspected to have Coronavirus/COVID-19? No / Unsure 03/26/2022 11:37 PM WIRE TAPER documented as of this encounter Plan of Treatment Upcoming Encounters Date Type Department Care Team (Late st Contact Info) Description 06/22/2023 1:10 PM CDT Office Visit [facility] [address]rd [place] [address] Paras Dupree MD [address] [facility] 200 [place] [address] documented as of this encounter Visit Diagnoses Not on filedocumented in this encounter Care Teams Cpa Tax Relationship Specialty Start Date End Date Darryl Kenny [address] [place] [address] PCP - General Family Practice 09/08/16 Paras Dupree MD [address] [place] [address] Neurology 04/29/14 Zarina Manzo MD [address] [place] [address] Referring Physician Family Practice 12/20/15 Modesta Elliott MD [address] [place] [address] Physical Medicine and Rehabilitation 11/12/17 Paras Dupree MD [address] [facility] 200 [place] [address] Assigned Neuroscience Provider 11/28/19 documented as of this encounter
--- OUTSIDE RECORDS SUMMARY | 2023-02-21 17:51 | XMS_ITS | Encounter Summary ---
Author Name Unknown Organization [facility] Address [address] [place] [address] Care Team Providers Care Event Host Name Role Phone Paras Dupree MD Unavailable [phone] Zarina Manzo MD Unavailable Darryl Kenny Primary Care Provider Modesta Elliott MD Unavailable [phone] Paras Dupree MD Unavailable [phone] Encounter Details Date Type Department Care Team (Latest Contact Info) Description 08/18/2022 Travel Social History Tobacco Use Types Packs/Day Years Used Date Smoking Tobacco: Never Smokeless Tobacco: Never Alcohol Use Standard Drinks/Week Comments No 0 (1 standard drink = 0.6 oz pur e alcohol) PHQ-2 Answer Date Recorded PHQ-2 Score 0 09/26/2018 Sex and Gender Information Value Date Recorded Sex Assigned at Male 12/09/2019 10:46 PM RESTAURANT OPERATIONS MANAGER Gender Identity Male 12/09/2019 10:46 PM RESTAURANT OPERATIONS MANAGER Sexual Orientation Straight 12/09/2019 10 :46 PM RESTAURANT OPERATIONS MANAGER COVID-19 Exposure Response Date Recorded In the last 10 days, have yo u been in contact with someone who was confirmed or suspected to have Coronavirus/COVID-19? No / Unsure 08/18/2022 9:30 AM CDT documented as of this encounter Plan of Treatment Upcoming Encounters Date Type Department Care Team (Late st Contact Info) Description 06/22/2023 1:10 PM CDT Office Visit [facility] Neurology Clinic [address] [place] [address] Paras Dupree MD [address] [facility] 200 [place] [address] documented as of this encounter Visit Diagnoses Not on filedocumented in this encounter Care Teams Event Host Relationship Specialty Start Date End Date Darryl Kenny [address] [place] [address] PCP - General Family Practice 09/08/16 Paras Dupree MD [address] [place] [address] Neurology 04/29/14 Zarina Manzo MD [address] [place] [address] Referring Physician Family Practice 12/20/15 Modesta Elliott MD [address] [place] [address] Physical Medicine and Rehabilitation 11/12/17 Paras Dupree MD [address] [facility] [address] [place] [address] Assigned Neuroscience Provider 11/28/19 documented as of this encounter
--- OUTSIDE RECORDS SUMMARY | 2023-02-21 17:51 | XMS_ITS | Encounter Summary ---
Author Name Unknown Organization [facility] Address [address] [place] [address] Care Team Providers Care Construction Management Assistant Name Role Phone Paras Dupree MD Unavailable [phone] Zarina Manzo MD Unavailable Darryl Kenny Primary Care Provider Modesta Elliott MD Unavailable [phone] Paras Dupree MD Unavailable [phone] Encounter Details Date Type Department Care Team (Late st Contact Info) Description 03/31/2022 2:45 PM PUBLIC HEALTH NURSE Lab [place] [id number] [facility] [address] [place] [address] Marcos-Gastaut syndrome with tonic seizures (H) Social History Tobacco Use Types Packs/Day Years Used Date Smoking Tobacco: Never Smokeless Tobacco: Never Alcohol Use Standard Drinks/Week Comments No 0 (1 standard drink = 0.6 oz pur e alcohol) PHQ-2 Answer Date Recorded PHQ-2 Score 0 09/26/2018 Sex and Gender Information Value Date Recorded Sex Assigned at Male 12/09/2019 10:46 PM PUBLIC HEALTH NURSE Gender Identity Male 12/09/2019 10:46 PM PUBLIC HEALTH NURSE Sexual Orientation Straight 12/09/2019 10 :46 PM PUBLIC HEALTH NURSE COVID-19 Exposure Response Date Recorded In the last 10 days, have yo u been in contact with someone who was confirmed or suspected to have Coronavirus/COVID-19? No / Unsure 03/31/2022 1:43 PM PUBLIC HEALTH NURSE documented as of this encounter Plan of Treatment Upcoming Encounters Date Type Department Care Team (Late Contact Info) Description 06/22/2023 1:10 PM CDT Office Visit [facility] Neurology [address]rd [place] [address] Paras Dupree MD [address] [facility] 200 [place] [address] documented as of this encounter Procedures Procedure Name Priority Date/Time Associated Diagnosis Comments LABORATORY MISCELLANEOUS ORDER Routine 03/31/2022 3:07 PM PUBLIC HEALTH NURSE Marcos-Gastaut syndrome with tonic seizures (H) [facility] MISCELLANEOUS TEST Routine 03/31/2022 3:07 PM PUBLIC HEALTH NURSE [place]-Gastaut syndrome with tonic seizures (H) LAMOTRIGINE LEVEL Routine 03/31/2022 3:0 7 PM PUBLIC HEALTH NURSE [place]-Gastaut syndrome with tonic seizures (H) CARBAMAZEPINE TOTAL Routine 03/31/2022 3 :07 PM PUBLIC HEALTH NURSE Marcos-Gastaut syndrome with tonic seizures (H) SODIUM Routine 03/31/2022 3:07 PM PUBLIC HEALTH NURSE [place]-Gastaut syndrome with tonic seizures (H) documented in this encounter Results * rufinamide level: [facility] Miscellaneous Test (03/31/2022 3:07 PM PUBLIC HEALTH NURSE) [facility] Miscellaneous Test SEE NOTE 2022 4:52 PM PUBLIC HEALTH NURSE [facility] Comment: Test name ?Result Flag ??Units ??RefIntvl Rufinamide, Serum or Plasma ? 21.8 ? ug/mL ? INTERPRETIVE INFORMATION: Rufinamide, Serum or Plasma Therapeutic Range: 5-30 ug/mL Dose-related range (values at doses of 800-7200 mg/day): 3-30 ug/mL Toxic: Not well established. Adverse effects may include somnolence, vomiting, headache and fatigue. This test was developed and its performance characteristics determined by [facility]. It has not been cleared or approved by the [place] Food and Drug Administration. This test was performed in a CLIA certified laboratory and is intended for clinical purposes. Performed By: [facility] [address] [place] [address] Auto Striper: Xavi Rodriguez MD, PhD Blood STRUCTURE OF LEFT UPPER LIMB / Unknown Venipuncture / Unknown 03/31/2022 3:07 PM PUBLIC HEALTH NURSE 03/31/2022 3:08 PM PUBLIC HEALTH NURSE Paras Dupree MD LAB - BLOOD ORDERABLES [address] [address], [facility] [phone] * [facility]; rufinamide level (Laboratory Miscellaneous Order) (03/31/2022 3:07 PM PUBLIC HEALTH NURSE) See Scanned Result Specimen received. Reordered and sent to performing laboratory. Report to follow up on completion. [facility] 03/31/2022 3:40 PM PUBLIC HEALTH NURSE [facility] Performing Laboratory [facility] Laboratories [facility] 03/31/2022 3:40 PM PUBLIC HEALTH NURSE [facility] Test Name Rufinamide Level, Serum or Plasma [facility] 03/31/2022 3:40 PM PUBLIC HEALTH NURSE [facility] Comment:[id number] Test Code [id number] [facility] 03/31/2022 3:40 PM PUBLIC HEALTH NURSE [facility] Blood STRUCTURE OF LEFT UPPER LIMB / Unknown Venipuncture / Unknown 03/31/2022 3:07 PM PUBLIC HEALTH NURSE 03/31/2022 3:08 PM PUBLIC HEALTH NURSE Paras Dupree MD LAB - BLOOD ORDERABLES Performing Organization Address [facility] de Phone Number [facility] - [address] [place] [address] * (ABNORMAL) Sodium (03/31/2022 3:07 PM PUBLIC HEALTH NURSE) Sodium 132(L) 136 - 145 mmol/L 03/31/2022 3:38 PM PUBLIC HEALTH NURSE [facility] Blood STRUCTURE OF LEFT UPPER LIMB / Unknown Venipuncture / Unknown 03/31/2022 3:07 PM PUBLIC HEALTH NURSE 03/31/2022 3:08 PM PUBLIC HEALTH NURSE Paras Dupree MD LAB - BLOOD ORDERABLES Performing Organization Address [facility] de Phone Number [facility] [address] [place] [address] * Lamotrigine Level (03/31/2022 3:07 PM PUBLIC HEALTH NURSE) Lamotrigine 6.1 3.0 - 15.0 ug/mL 04/01/2022 3:02 PM PUBLIC HEALTH NURSE [facility] Comment: INTERPRETIVE INFORMATION: ??Lamotrigine Therapeutic Range: ??3.0-15.0 ug/mL ?Toxic: ??Greater than or equal to 20 ug/mL Pharmacokinetics varies widely, particularly with co-medications and/or compromised renal function. ??Adverse effects may include dizziness, somnolence, nausea and vomiting. Performed By: [facility] [address] [place] [address] Auto Striper: Xavi Rodriguez MD, PhD Blood STRUCTURE OF LEFT UPPER LIMB / Unknown Venipuncture / Unknown 03/31/2022 3:07 PM PUBLIC HEALTH NURSE 03/31/2022 3:08 PM PUBLIC HEALTH NURSE Paras Dupree MD LAB - BLOOD ORDERABLES Performing Organization Address [facility]/ZIP Co de Phone Number [facility] [address] [place] [address], [facility] [phone] * Carbamazepine total (03/31/2022 3:07 PM PUBLIC HEALTH NURSE) Carbamazepine 8.1 4.0 - 12.0 ug/mL 03/31/2022 8:34 PM PUBLIC HEALTH NURSE [facility] Blood STRUCTURE OF LEFT UPPER LIMB / Unknown Venipuncture / Unknown 03/31/2022 3:07 PM PUBLIC HEALTH NURSE 03/31/2022 3:08 PM PUBLIC HEALTH NURSE Paras Dupree MD LAB - BLOOD ORDERABLES [facility] [address] [facility], Room [address] [address], [facility] [phone] documented in this encounter Visit Diagnoses Diagnosis 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
--- OUTSIDE RECORDS SUMMARY | 2023-02-21 17:51 | XMS_ITS | Encounter Summary ---
Author Name Unknown Organization [facility] Address [address] [place] [address] Care Team Providers Care Manager Compensation Name Role Phone Paras Dupree MD Unavailable [phone] Zarina Manzo MD Unavailable Darryl Kenny Primary Care Provider [phone] Modesta Elliott MD Unavailable [phone] Paras Dupree MD Unavailable [phone] Paras Dupree MD Unavailable [phone] Encounter Details Date Type Department Care Team (Late st Contact Info) Description 04/25/2022 MyC Medical Advice [facility] Neurology Clinic [address] [place] [address] Paras Dupree MD [address] [facility] 200 [place] [address] Social History Tobacco Use Types Packs/Day Years Used Date Smoking Tobacco: Never Smokeless Tobacco: Never Alcohol Use Standard Drinks/Week Comments No 0 (1 standard drink = 0.6 oz pur e alcohol) PHQ-2 Answer Date Recorded PHQ-2 Score 0 09/26/2018 Sex and Gender Information Value Date Recorded Sex Assigned at Male 12/09/2019 10:46 PM OB GYN Gender Identity Male 12/09/2019 10:46 PM OB GYN Sexual Orientation Straight 12/09/2019 10 :46 PM OB GYN COVID-19 Exposure Response Date Recorded In the last 10 days, have yo u been in contact with someone who was confirmed or suspected to have Coronavirus/COVID-19? No / Unsure 03/31/2022 1:43 PM OB GYN documented as of this encounter Plan of Treatment Upcoming Encounters Date Type Department Care Team (Late st Contact Info) Description 06/22/2023 1:10 PM CDT Office Visit [facility] Neurology [facility] [address] [facility] [address] [place] [phone] Paras Dupree MD [address] [facility] [employer] [address] [address] documented as of this encounter Visit Diagnoses Not on filedocumented in this encounter Care Teams Manager Compensation Relationship Specialty Start Date End Date Darryl Kenny [address] [place] [address] PCP - General Family Practice 09/08/16 Paras Dupree MD [address] [place] [address] Neurology 04/29/14 Zarina Manzo MD [address] [place] [address] Referring Physician Family Practice 12/20/15 Modesta Elliott MD [address] [place] [address] Physical Medicine and Rehabilitation 11/12/17 Paras Dupree MD [address] [employer] [address] Assigned Neuroscience Provider 11/28/19 Paras Dupree MD [address] [place] [address] Neurology 10/04/22 documented as of this encounter
--- OUTSIDE RECORDS SUMMARY | 2023-02-21 17:51 | XMS_ITS | Encounter Summary ---
Author Name Unknown Organization [place] Address [address] [place] [address] Care Team Providers Care Ice Hockey Coach Name Role Phone Paras Dupree MD Unavailable [phone] Zarina Manzo MD Unavailable Darryl Kenny Primary Care Provider Modesta Elliott MD Unavailable Paras Dupree MD Unavailable [phone] Reason for Visit * Reason Comments Medication Refill CITALOPRAM 10mg/5mL 10 Solution Encounter Details Date Type Department Care Team (Late st Contact Info) Description 07/01/2022 Refill [facility] Neurology Clinic [address] [place] [address] Paras Dupree MD [address] [facility] [address] [place] [address] Medication Refill (CITALOPRAM 10mg/5mL 10 Solution) Social History Tobacco Use Types Packs/Day Years Used Date Smoking Tobacco: Never Smokeless Tobacco: Never Alcohol Use Standard Drinks/Week Comments No 0 (1 standard drink = 0.6 oz pur e alcohol) PHQ-2 Answer Date Recorded PHQ-2 Score 0 09/26/2018 Sex and Gender Information Value Date Recorded Sex Assigned at Male 12/09/2019 10:46 PM CAN MAKER Gender Identity Male 12/09/2019 10:46 PM CAN MAKER Sexual Orientation Straight 12/09/2019 10 :46 PM CAN MAKER documented as of this encounter Miscellaneous Notes * Telephone Encounter - Fransisca Chang RN - 07/06/2022 12:21 PM CDT Images from the original note were not included. CITALOPRAM 10mg/5mL 10 Solution Last Written Prescription Date: 07/11/2021 Last Fill Quantity: 310, # refills: 11 Last Office Visit : 03/31/2022 Future Office visit: 10/13/2022 Routing refill request to provider for review/approval because: Needing updated PHQ-9 per Protocol Refer to Provider for review SSRIs Protocol Failed 07/06/2022 12:21 PM Protocol Details PHQ-9 score less than 5 in past 6 months Fransisca Chang RN Central Triage Red Flags/Med Refills documented in this encounter Plan of Treatment Upcoming Encounters Date Type Department Care Team (Late st Contact Info) Description 06/22/2023 1:10 PM CDT Office Visit [facility] Neurology Clinic [address] [place] [phone] Paras Dupree MD [address] [address] documented as of this encounter Visit Diagnoses Diagnosis Recurrent major depressive disorder, remission status unspecified (H24) documented in this encounter Care Teams Ice Hockey Coach Relationship Specialty Start Date End Date Darryl Kenny [address] [place] [address] PCP - General Family Practice 09/08/16 Paras Dupree MD [address] [place] [address] Neurology 04/29/14 Zarina Manzo MD [address] [place] [address] Referring Physician Family Practice 12/20/15 Modesta Elliott MD [address] [place], [place] [address] Physical Medicine and Rehabilitation 11/12/17 Paras Dupree MD [address] [address] Assigned Neuroscience Provider 11/28/19 documented as of this encounter
--- OUTSIDE RECORDS SUMMARY | 2023-02-21 17:51 | XMS_ITS | Encounter Summary ---
Author Name Unknown Organization [place] Address [facility] [place] [address] Care Team Providers Care Dry Sander Name Role Phone Paras Dupree MD Unavailable [phone] Zarina Manzo MD Unavailable Darryl Kenny Primary Care Provider Modesta Elliott MD Unavailable [phone] Paras Dupree MD Unavailable [phone] Reason for Visit * Auth/Cert (Routine) Specialty Diagnoses / Procedures Referred By Parvin t Referred To Contact Gastroenterology Diagnoses Anemia, unspecified type Anemia, unspecified type [D64.9] Procedures NM UGI ENDOSCOPY DIAG W OR W/O BRUSH/WASH Esophagoscopy, gastroscopy, duodenoscopy (EGD), combined Sh Endoscopy [address] [id number] Referral ID Status Reason Start Date Expiration Date Visits Re quested Visits Authorized [id number] 1 1 Encounter Details Date Type Department Care Team (Late st Contact Info) Description 08/18/2022 10:30 AM CDT - 08/18/2022 11:15 AM CDT Surgery [facility] Endoscopy [address] [phone] Amanda Hopper MD [facility] [address] [place], [place] [id number] Esophagoscopy, gastroscopy, duodenoscopy (EGD), combined Surgery Details Date/Time Status Location OR Service Patient Class Case Class Case Type Trauma Case? 08/18/22 10:30 AM Posted GI GI SP 01 Gastroenterology Outpatient Panel 1 Procedure LRB Anes Op Region Wound Class Comments Esophagoscopy, gastroscopy, duodenoscopy (EGD), combined N/A MAC Esophagus II-Clean Con taminated Surgeon Surgeon Role Service Panel Amanda Hopper MD Primary Gastroenterolo gy 1 Special Needs LEGAL CO-GUARDIANS ARE HIS SISTERS KRYSTYNA AND MIC - left message with guardian re: H&P --pg 08/14Will have pre-op @ [facility] on 08/17 per sister documented in this encounter Social History Tobacco Use Types Packs/Day Years Used Date Smoking Tobacco: Never Smokeless Tobacco: Never Alcohol Use Standard Drinks/Week Comments No 0 (1 standard drink = 0.6 oz pur e alcohol) PHQ-2 Answer Date Recorded PHQ-2 Score 0 09/26/2018 Sex and Gender Information Value Date Recorded Sex Assigned at Male 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 No / Unsure 08/18/2022 9:30 AM CDT documented as of this encounter Last Filed Vital Signs Vital Sign Reading Time Taken Comments Blood Pressure 116/63 08/18/2022 11:15 AM CDT Pulse 70 08/18/2022 11:15 AM CDT Temperature 36.1 ??C (96.9 ??F) 08/18/2022 11:15 AM C DT Respiratory Rate 14 08/18/2022 11:15 AM CDT Oxygen Saturation 100% 08/18/2022 11:15 AM CDT Inhaled Oxygen Concentration - - Weight - - Height - - Body Mass Index - - documented in this encounter Medications at Time of Discharge Medication Sig Dispensed Refills Start Date End Date acetaminophen 167 MG/5ML elixir 1,000 mg by Per G Tube route 0 10/10/2017 ARTIFICIAL SALIVA MT Take 1 spray by mouth 0 05/28/2017 carBAMazepine (TEGRETOL) 100 MG/5ML suspensionIndications :Marcos-Gastaut syndrome with tonic seizures (H) ADMINISTER 200MG(10ML) [...] 01/16/2022 fluticasone (FLONASE) 50 MCG/ACT nasal spray [place] 2 sprays in nostril 0 05/29/2017 LANsoprazole [...] replaced 05/22/03, end of service 2011 ??? [facility] TRANSECT CORPUS CALLOSUM 07/03/90 Bleeding tendencies: No [...] MCG/ACT nasal spray 08/17/2022 Yes Yes Sig: [place] 2 sprays in nostril lamoTRIgine (LAMICTAL) 100 [...] PLAN: egd with bx Amanda Hopper MD, [place] [facility] Office: [phone] documented in this encounter Plan of Treatment Upcoming Encounters Date Type Department Care Team (Late st Contact Info) Description 06/22/2023 1:10 PM CDT Office Visit [facility] Neurology [address] [place] [address] Paras Dupree MD [address] [facility] [address] [place] [address] documented as of this encounter Procedures Procedure Name Priority Date/Time Associated Diagnosis Comments SURGICAL PATHOLOGY EXAM Routine 08/18/2022 11:02 AM CDT ESOPHAGOGASTRODUO DENOSCOPY, WITH BIOPSY 08/18/2022 10:40 AM CDT Anemia, unspecified type Special Needs LEGAL CO-GUARDIANS ARE HIS SISTERS KRYSTYNA AND MIC - left message with guardian re: H&P --pg 08/14Will have pre-op @ [facility] on 08/17 per sister UPPER GI ENDOSCOPY Routine 08/18/2022 10:31 AM CDT documented in this encounter Results * Surgical Pathology Exam (08/18/2022 11:02 AM CDT) Case Report Surgical Pathology Report ? Case: [id number] ? Authorizing Provider: ??Amanda Hopper MD Collected: ? 08/18/2022 11:02 AM ? Ordering Location: ? [facility] ?Received: ?08/18/2022 11:51 AM ? [facility] ? Pathologist: ? Kimberlee Robison, MD PhD ? Specimens: ?? A) - [...] for dysplasia or malignancy. 08/22/2022 11:27 AM [facility] Clinical Information Procedure: Esophagoscopy, gastroscopy, duodenoscopy (EGD), combined Pre-op Diagnosis: Anemia, unspecified type [D64.9] Post-op Diagnosis: D64.9 - Anemia, unspecified type [ICD-10-CM] 08/22/2022 11:27 AM [facility] Gross Description A(1). Small Intestine, Duodenum, [...] (Lidia Ruiz Biopsy Tech) 08/22/2022 11:27 AM [facility] Microscopic Description Microscopic examination was performed. 08/22/2022 11:27 AM [facility] Special Stains Special stains for fungal organisms (PAS) is POSITIVE. All controls stain appropriately. 08/22/2022 11:27 AM [facility] Performing Labs The technical component of this testing was completed at [facility] 08/22/2022 11:27 AM [facility] Case Images 08/22/2022 11:27 AM [facility] Biopsy DUODENAL STRUCTURE / Unknown 08/18/2022 11:02 AM CDT 08/18/2022 11:51 AM CDT Specimen from unspecified body site obtained by biopsy (specimen) STOMACH STRUCTURE / Unknown 08/18/2022 11:02 AM CDT 08/18/2022 11:51 AM CDT Specimen from unspecified body site obtained by biopsy (specimen) ESOPHAGEAL STRUCTURE / Unknown 08/18/2022 11:03 AM CDT 08/18/2022 11:51 AM CDT Amanda [facility] [address] [facility] (1st floor, no room number) [place] [address], [place] [phone] [facility] [address] 1st floor, [address] [place] [address], [place] [phone] * UPPER GI ENDOSCOPY (08/18/2022 10:31 AM CDT) Upper GI Endoscopy [facility] [address] ??[id number] Patient Name: Lew Vogt ?Procedure Date: 08/18/2022 10:31 AM ? Date of : 1965 ? Admit Type: Outpatient Age: 57 ? Room: [place] [address] Note Status: Finalized ?Attending MD: Amanda Hopper [...] Procedure Code(s): ? --- Professional --- ? 39571, Esophagogastroduod enoscopy, flexible, transoral; with biopsy, ? single or multiple CPT copyright 2020 [employer]. All rights reserved. The codes documented in this report are preliminary and upon sticker operator review may be revised to meet current [...] RESULTS documented in this encounter Visit Diagnoses Diagnosis Anemia, unspecified type documented in this encounter Administered Medications Inactive [...] PACU documented in this encounter Care Teams Dry Sander Relationship Specialty Start Date End Date Darryl Kenny [address] [place] [address] PCP - General Family Practice 09/08/16 Paras Dupree MD [address] [place] [id number] Neurology 04/29/14 Zarina Manzo MD [address] [place] [address] Referring Physician Family Practice 12/20/15 Modesta Elliott MD [address] [place], [place] [address] Physical Medicine and Rehabilitation 11/12/17 Paras Dupree MD [address] [id number] Assigned Neuroscience Provider 11/28/19 documented as of this encounter
--- OUTSIDE RECORDS SUMMARY | 2023-02-21 17:51 | XMS_ITS | Encounter Summary ---
Author Name Unknown Organization [place] Address [address] [place] [address] Care Team Providers Care Frog Shaker Name Role Phone Paras Dupree MD Unavailable [phone] Zarina Manzo MD Unavailable Darryl Kenny Primary Care Provider [phone] Modesta Elliott MD Unavailable [phone] Paras Dupree MD Unavailable [phone] Reason for Visit * Reason Comments Medication Refill SODIUM CHLORIDE 1GM TAB 1 Tablet Encounter Details Date Type Department Care Team (Late st Contact Info) Description 08/02/2022 [facility] [address] [place] [address] Paras Dupree MD [address] [facility] [address] [place] [address] Medication Refill (SODIUM CHLORIDE 1GM TAB 1 Tablet) Social History Tobacco Use Types Packs/Day Years Used Date Smoking Tobacco: Never Smokeless Tobacco: Never Alcohol Use Standard Drinks/Week Comments No 0 (1 standard drink = 0.6 oz pur e alcohol) PHQ-2 Answer Date Recorded PHQ-2 Score 0 09/26/2018 Sex and Gender Information Value Date Recorded Sex Assigned at Male 12/09/2019 10:46 PM ENVIRONMENTAL PROJECT MANAGER Gender Identity Male 12/09/2019 10:46 PM ENVIRONMENTAL PROJECT MANAGER Sexual Orientation Straight 12/09/2019 10 :46 PM ENVIRONMENTAL PROJECT MANAGER documented as of this encounter Miscellaneous Notes * Telephone Encounter - Fransisca Chang RN - 08/07/2022 5:55 AM CDT SODIUM CHLORIDE 1GM TAB 1 Tablet Last Written Prescription Date: 02/07/2022 Last Fill Quantity: 90, # refills: 5 Last Office Visit : 03/31/2022 Future Office visit: 10/13/2022 Routing refill request to provider for review/approval because: Drug not on the 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
--- OUTSIDE RECORDS SUMMARY | 2023-02-21 17:51 | XMS_ITS | Encounter Summary ---
Author Name Unknown Organization [facility] Address [address] [place] [address] Care Team Providers Care Hogshead Dumper Name Role Phone Paras Dupree MD Unavailable [phone] Zarina Manzo MD Unavailable Darryl Kenny Primary Care Provider [phone] Modesta Elliott MD Unavailable [phone] Paras Dupree MD Unavailable [phone] Reason for Visit * Auth/Cert (Routine) Specialty Diagnoses / Procedures Referred By Parvin t Referred To Contact Gastroenterology Diagnoses Anemia, unspecified type Anemia, unspecified type [D64.9] Procedures OK UGI ENDOSCOPY DIAG W OR W/O BRUSH/WASH Esophagoscopy, gastroscopy, duodenoscopy (EGD), combined Endoscopy [address] [id number] Referral ID Status Reason Start Date Expiration Date Visits Re quested Visits Authorized 1 1 Encounter Details Date Type Department Care Team (Late st Contact Info) Description 08/18/2022 10:40 AM CDT Anesthesia Event [facility] [address] [id number] Byron Willams MD [facility] [address] [place], [place] [address] Anesthesia Record Procedure Summary Procedure Name Responsible Anesthesiologist Anesthesia Start Time Anesthesia Stop Time Esophagoscopy, gastroscopy, duodenoscopy (EGD), combined (Esophagus) Byron Willams MD 08/18/22 1040 08/18/22 1118 Events Date Time Event Comment 08/18/2022 1040 An Start 1040 An Start Data 1043 AN REASSESS I attest that I have identified and re-evaluated the patient immediately before the induction of anesthesia and I am satisfied that the anesthetic plan is suitable for the patient's condition and procedure. The first vital signs recorded are pre- induction. Sanjuana Bray APRN SALES APPRENTICE 1044 An Induction 1046 MD Present 1049 An Intubation 1051 Anesthesia Ready for Procedu re 1052 AN INCISION 1104 AN Extubation All extubation criteria met prior to removal. 1106 MD Present 1112 an stop data 1118 An Stop Electronically signed by Donna Diamond APRN CRNA on August 18, 2022 11:18 AM Meds Name Total lidocaine 2% 50 mg ondansetron 2 mg/mL 4 mg propofol (DIPRIVAN) 10 mg/mL 140 mg dexamethasone (DECADRON) 4 mg/mL 4 mg fentaNYL 50 mcg/mL 25 mcg rocuronium 10 mg/mL 20 mg sugammadex (BRIDION) 200mg/2mL 200 mg LR 200 mL * Agents Name NO HELIOX O2 N2O Air Exp Sevoflurane Exp Isoflurane Exp Desflurane Exp N2O Ins Sevoflurane Ins Isoflurane Ins Desflurane O2 Auxiliary * Blood No blood administrations on file. Lines, Drains, and Airways Type Details Placement Removal Wound 07/08/15; Left; Yes 07/08/15 000 0 by Fatuma Hua RN Incision/Surgical Site 07/16/15; 2026; Abdomen; GJ site 07/16/152026 by Latanya Meraz RN Incision/Surgical Site 09/20/15; 1138; L eft; Abdomen; g-tube site 09/20/15 1138 by Ina Willis, PRACHI Gastrostomy/Enterostomy 05/15/19; 1316; Gastrostomy; LUQ; 1; 20 fr; Tolerated well 05/15/19 1316 by Audrey Nieves Peripheral IV 09/21/15; 0046; 20 G , 1 3/4 inch; Right, Medial; Lower forearm; Brachial vein (medial); Chlorhexidine; None; 1; Tolerated well, Age-appropriate response 09/21/15 0046 by Tori Bryant RN 08/18/22 1322 by Inpatient, Nurse Peripheral IV 08/18/22; 1014; 22 G ; BD; Right, Dorsal; Hand; Chlorhexidine; None 08/18/22 1014 by Valerie Lewis RN 08/18/22 1207 by Brooke Barkley RN ETT Placement Date: 08/18/22; Placement Time: 1051 (created via procedure documentation); Mask Ventilation: 1; Induction Type: Intravenous; Ease of Intubation: Easy; Technique: Video laryngoscopy; ETT Type: Single; Tube Size: 8 mm; VL Blade Size: Ray 4; Grade View: 1; Adjucts: Stylet; Placement Person: SALES APPRENTICE; Attempts: 1; Depth: 23 cm 08/18/22 1051 by Sanjuana Bray APRN SALES APPRENTICE 08/18/22 1104 by Sanjuana Bray APRN SALES APPRENTICE documented in this encounter Social History Tobacco Use Types Packs/Day Years Used Date Smoking Tobacco: Never Smokeless Tobacco: Never Alcohol Use Standard Drinks/Week Comments No 0 (1 standard drink = 0.6 oz pur e alcohol) PHQ-2 Answer Date Recorded PHQ-2 Score 0 09/26/2018 Sex and Gender Information Value Date Recorded Sex Assigned at Male 12/09/2019 10:46 PM PINBALL MACHINE REPAIRER Gender Identity Male 12/09/2019 10:46 PM PINBALL MACHINE REPAIRER Sexual Orientation Straight 12/09/2019 10 :46 PM PINBALL MACHINE REPAIRER COVID-19 Exposure Response Date Recorded In the last 10 days, have yo u been in contact with someone who was confirmed or suspected to have Coronavirus/COVID-19? No / Unsure 08/18/2022 9:30 AM CDT documented as of this encounter OR Notes * Anesthesia Postprocedure Evaluation - Byron Willams MD - 08/18/2022 2:21 PM CDT Patient: Lew Vogt Procedure: Procedure(s): Esophagoscopy, gastroscopy, duodenoscopy (EGD), combined Anesthesia Type: General Note: Disposition: Outpatient Postop Pain Control: Uneventful Sign Out: Well controlled pain PONV: No Neuro/Psych: Uneventful Sign Out: Acceptable/Baseline neuro status Airway/Respiratory: Uneventful Sign Out: Acceptable/Baseline resp. status CV/Hemodynamics: Uneventful Sign Out: Acceptable CV status; No obvious hypovolemia; No obvious fluid overload Other NRE: NONE DID A NON-ROUTINE EVENT OCCUR? No Last vitals: Vitals Value Taken Time BP 110/68 08/18/22 1145 Temp 36.1 ??C (97 ??F) 08/18/22 1145 Pulse 70 08/18/22 1148 Resp 17 08/18/22 1148 SpO2 96 % 08/18/22 1148 Vitals shown include unvalidated device data. Electronically Signed By: Byron Willams MD August 18, 2022 2:21 PM * Anesthesia Procedure Notes - Sanjuana Bray APRN CRNA - 08/18/2022 10:53 AM CDTAssociated Order(s): Airway Airway Patient location: Endoscopy. Procedure Start/Stop Times: 08/18/2022 10:51 AM Staff - Anesthesiologist: Byron Willams MD SALES APPRENTICE: Sanjuana Bray APRN CRNA Performed By: SALES APPRENTICE Consent for Airway Urgency: elective Indications and Patient Condition Indications for airway management: airway protection Induction type:intravenous Mask difficulty assessment: 1 - vent by mask Final Airway Details Final airway type: endotracheal airway Successful airway: ETT - single Endotracheal Airway Details ETT size (mm): 8.0 Cuffed: yes Successful intubation technique: video laryngoscopy VL Blade Size: Ray 4 Grade View of Cords: 1 Adjucts: stylet Position: Right Measured from: lips Secured at (cm): 23 Bite block used: None Post intubation assessment Placement verified by: capnometry, equal breath sounds and chest rise Number of attempts at approach: 1 Secured with: silk tape Ease of procedure: easy Dentition: Unchanged Medication(s) Administered Medication Administration Time: 08/18/2022 10:51 AM * Anesthesia Preprocedure Evaluation - Byron Willams MD - 08/18/2022 9:12 AM CDT Anesthesia Pre-Procedure Evaluation Patient: Lew Vogt : 1965 Procedure : Procedure(s): Esophagoscopy, gastroscopy, duodenoscopy (EGD), combined Past Medical History: Diagnosis Date ??? Depressive [...] 2011 ??? ZZC TRANSECT CORPUS CALLOSUM 07/03/90 Allergies Allergen Reactions ??? Piperacillin Sod-Tazobactam So Rash ??? Alendronate Other (See Comments) PN: LW Reaction: intolerant of taking correctly Intolerant of taking correctly ??? Alendronate Sodium ??? Erythromycin Other (See Comments) PN: Unknown ??? Macrolides And Ketolides Other (See Comments) PN: Unknown ??? Felbamate Rash PN: LW Reaction: Rash, Generalized ??? Felbatol [Felbamate] Rash ??? Zosyn [Piperacillin-Tazobactam In Dex] Rash Social History Tobacco Use ??? Smoking status: Never ??? Smokeless tobacco: Never Substance Use Topics ??? Alcohol use: No Wt Readings from Last 1 Encounters: 03/31/22 73.5 kg (162 lb) Anesthesia Evaluation Pt has had prior anesthetic. 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) (+) seizures, Cardiovascular: (+) Dyslipidemia ----- METS/Exercise Tolerance: Hematologic: Comments: Hgb 8.4 Plt 501 (+) anemia, Musculoskeletal: - neg musculoskeletal ROS GI/Hepatic: Comment: Dysphagia Presence of externally removable percutaneous endoscopic gastrostomy (PEG) tube (+) GERD, Renal/Genitourinary: - neg Renal ROS Endo: Comment: H/o hyponatremia Psychiatric/Substance Use: - neg psychiatric ROS Infectious Disease: - neg infectious disease ROS Malignancy: Other: Comment: Wheelchair bound Physical Exam Airway airway exam normal Mallampati: I TM distance: > 3 FB Neck ROM: full Mouth opening: > 3 cm Respiratory Devices and Support Dental (+) Modest Abnormalities - crowns, retainers, 1 or 2 missing teeth Cardiovascular Rhythm and rate: regular and normal Pulmonary pulmonary exam normal OUTSIDE LABS: CBC: Lab Results Component Value Date WBC 5.1 01/12/2017 WBC 5.6 12/13/2015 HGB 13.2 (L) 01/12/2017 HGB 10.4 (L) 12/13/2015 HCT 41.5 01/12/2017 HCT 32.7 (L) 12/13/2015 PLT 346 01/12/2017 PLT 336 12/13/2015 BMP: Lab Results Component Value Date NA 132 (L) 03/31/2022 NA 130 (A) 04/07/2020 POTASSIUM 3.5 12/13/2015 POTASSIUM 3.4 09/20/2015 CHLORIDE 107 09/20/2015 CHLORIDE 105 09/19/2015 CO2 22 09/20/2015 CO2 25 09/19/2015 BUN 10 12/13/2015 BUN 8 09/20/2015 CR 0.62 (L) 09/22/2015 CR 0.60 (L) 09/20/2015 GLC 79 09/20/2015 GLC 92 09/19/2015 COAGS: Lab Results Component Value Date INR 1.04 12/13/2015 POC: Lab Results Component Value Date BGM 101 (H) 09/22/2015 HEPATIC: Lab Results Component Value Date ALBUMIN 3.2 (L) 09/20/2015 PROTTOTAL 6.5 (L) 09/20/2015 ALT 24 09/20/2015 AST 22 05/11/2017 ALKPHOS 106 09/20/2015 BILITOTAL 0.7 09/20/2015 OTHER: Lab Results Component Value Date LACT 1.7 09/19/2015 RAUL 8.4 (L) 09/20/2015 PHOS 4.2 09/20/2015 MAG 2.2 09/20/2015 LIPASE 206 08/15/2015 CRP 5.9 08/15/2015 SED 38 (H) 08/15/2015 Anesthesia Plan ASA Status: 3 NPO Status: NPO Appropriate Anesthesia Type: General. - Airway: ETT Induction: Intravenous, Propofol. Techniques and Equipment: - Airway: Video-Laryngoscope Consents Anesthesia Plan(s) and associated risks, benefits, and realistic alternatives discussed. Questions answered and patient/auto service representative(s) expressed understanding. - Discussed: - Discussed with: Patient Postoperative Care Pain management: IV analgesics. PONV prophylaxis: Ondansetron (or other 5HT-3) Comments: H&P reviewed: Unable to attach H&P to encounter due to EHR limitations. H&P Update: appropriate H&P reviewed, patient examined. No interval changes since H&P (within 30 days). Byron Willams MD documented in this encounter Miscellaneous Notes * Anesthesia Care Transfer Note - Donna Diamond APRN SALES APPRENTICE - 08/18/2022 11:17 AM CDT Patient: Lew Vogt Procedure: Procedure(s): Esophagoscopy, gastroscopy, duodenoscopy (EGD), combined Diagnosis: Anemia, unspecified type [D64.9] Diagnosis Additional Information: No value filed. Anesthesia Type: No value filed. Note: Oropharynx: oropharynx clear of all foreign objects and spontaneously breathing Level of Consciousness: awake Oxygen Supplementation: face mask Level of Supplemental Oxygen (L/min / FiO2): 6 Independent Airway: airway patency satisfactory and stable Dentition: dentition unchanged Vital Signs Stable: post-procedure vital signs reviewed and stable Report to RN Given: handoff report given Patient transferred to: PACU Comments: Neuromuscular blockade reversed with sugammadex, spontaneous respirations, adequate tidalvolumes, followed commands to voice, oropharynx suctioned with soft flexible catheter, extubated atraumatically, extubated with suction, airway patent after extubation. Oxygen via facemask at 6 liters per minute to PACU. Oxygen tubing connected to wall O2 in PACU, SpO2, NiBP, and EKG monitors and alarms on and functioning, Duc Hugger warmer connected to patient gown, report on patient's clinicalstatus given to FUNDRAISING CONSULTANT, RN questions answered. Handoff Report: Identifed the Patient, Identified the Reponsible Provider, Reviewed the pertinent medical history, Discussed the surgical course, Reviewed Intra-OP anesthesia mangement and issues during anesthesia, Set expectations for post-procedure period and Allowed opportunity for questions andacknowledgement of understanding Vitals: Vitals Value Taken Time BP Temp Pulse 70 08/18/22 1116 Resp 14 08/18/22 1116 SpO2 100 % 08/18/22 1116 Vitals shown include unvalidated device data. Electronically Signed By: Donna Diamond APRN SALES APPRENTICE August 18, 2022 11:17 AM documented in this encounter Plan of Treatment Upcoming Encounters Date Type Department Care Team (Late st Contact Info) Description 06/22/2023 1:10 PM CDT Office Visit [facility] [address] [place] [address] Paras Dupree MD [address] [address] documented as of this encounter Procedures Procedure Name Priority Date/Time Associated Diagnosis Comments ANE AIRWAY ETT PERFORMABLE Routine 08/18/2022 10:51 AM CDT documented in this encounter Results * ANE AIRWAY ETT PERFORMABLE (08/18/2022 10:51 AM CDT) Narrative Sanjuana Bray APRN CRNA - 08/18/2022 10:51 AM CDT Sanjuana Bray APRN CRNA ? 08/18/2022 10:54 AM Airway ? Patient location: Endoscopy. ? Procedure Start/Stop Times: 08/18/2022 10:51 AM Staff - ? Anesthesiologist: ??Byron Willams MD ? SALES APPRENTICE: Sanjuana Bray APRN CRNA ? Performed By: SALES APPRENTICE Consent for Airway ? Urgency: elective Indications and Patient Condition ? Indications for airway management: airway protection ? Induction type:intravenous ? Mask difficulty assessment: 1 - vent by mask Final Airway Details ? Final airway type: endotracheal airway ? Successful airway: ETT - single Endotracheal Airway Details ? ETT size (mm): 8.0 ? Cuffed: yes ? Successful intubation technique: video laryngoscopy ? VL Blade Size: Ray 4 ? Grade View of Cords: 1 ? Adjucts: stylet ? Position: Right ? Measured from: lips ? Secured at (cm): 23 ? Bite block used: None Post intubation assessment ? Placement verified by: capnometry, equal breath sounds and chest rise ? Number of attempts at approach: 1 ? Secured with: silk tape ? Ease of procedure: easy ? Dentition: Unchanged Medication(s) Administered Medication Administration Time: 08/18/2022 10:51 AM Sanjuana Bray APRN SALES APPRENTICE [place] ANESTHESIA documented in this encounter Visit Diagnoses Not on filedocumented in this encounter Administered Medications Inactive Administered Medications - up to 3 most recent administrations Medication Order MAR Action Action Date Dose Rate Site dexamethasone (DECADRON) injection Intravenous, PRN, Administer over 1 Minutes, Starting on Sun08/18/22 at 1050, Anesthesia Intra-op $Given 08/18/2022 10:50 AM CDT 4 mg fentaNYL (PF) (SUBLIMAZE) injection Intravenous, PRN, Administer over 3-5 Minutes, Starting on Sun08/18/22 at 1044, Anesthesia Intra-op $Given 08/18/2022 10:44 AM CDT 25 mcg lactated ringers infusion Intravenous, CONTINUOUS PRN, Anesthesia Intra-op, Starting on Sun08/18/22 at 1044, Until Sun08/18/22 at 1118 $New Bag 08/18/2022 10:44 AM CDT lidocaine 2% injection (MDV) Intravenous, PRN, Starting on Sun08/18/22 at 1044, Anesthesia Intra-op $Given 08/18/2022 10:44 AM CDT 50 mg ondansetron (ZOFRAN) injection Intravenous, PRN, Administer over 2-5 Minutes, Starting on Sun08/18/22 at 1050, Anesthesia Intra-op $Given 08/18/2022 10:50 AM CDT 4 mg propofol (DIPRIVAN) injection 10 mg/mL vial Intravenous, PRN, Starting on Sun08/18/22 at 1044, Anesthesia Intra-op $Given 08/18/2022 10:44 AM CDT 140 mg rocuronium injection Intravenous, PRN, Starting on Sun08/18/22 at 1044, Anesthesia Intra-op $Given 08/18/2022 10:44 AM CDT 20 mg sugammadex (BRIDION) injection Intravenous, PRN, Starting on Sun08/18/22 at 1058, Anesthesia Intra-op $Given 08/18/2022 10:58 AM CDT 200 mg documented in this encounter Care Teams Hogshead Dumper Relationship Specialty Start Date End Date Darryl Kenny [address] [place] [address] PCP - General Family Practice 09/08/16 Paras Dupree MD [address] [place] [address] Neurology 04/29/14 Zarina Manzo MD [address] [place] [address] Referring Physician Family Practice 12/20/15 Modesta Elliott MD [address] [place] [address] Physical Medicine and Rehabilitation 11/12/17 Paras Dupree MD [address] [address] Assigned Neuroscience Provider 11/28/19 documented as of this encounter
--- OUTSIDE RECORDS SUMMARY | 2023-02-21 17:51 | XMS_ITS | Encounter Summary ---
Author Name Unknown Organization [facility] Address [address] [place] [address] Care Team Providers Care Real Estate Appraiser Name Role Phone Paras Dupree MD Unavailable [phone] Zarina Manzo MD Unavailable Darryl Kenny Primary Care Provider Modesta Elliott MD Unavailable Paras Dupree MD Unavailable [phone] Encounter Details Date Type Department Care Team (Late st Contact Info) Description 06/01/2022 [facility] Medical Advice [facility] [address] [place] [address] Paras Dupree MD [address] [facility] [address] [place] [address] Social History Tobacco Use Types Packs/Day Years Used Date Smoking Tobacco: Never Smokeless Tobacco: Never Alcohol Use Standard Drinks/Week Comments No 0 (1 standard drink = 0.6 oz pur e alcohol) PHQ-2 Answer Date Recorded PHQ-2 Score 0 09/26/2018 Sex and Gender Information Value Date Recorded Sex Assigned at Male 12/09/2019 10:46 PM CREASING MACHINE OPERATOR Gender Identity Male 12/09/2019 10:46 PM CREASING MACHINE OPERATOR Sexual Orientation Straight 12/09/2019 10 :46 PM CREASING MACHINE OPERATOR documented as of this encounter Miscellaneous Notes * Telephone Encounter - Abhijeet Boyle RN - 06/02/2022 11:30 AM CDT Discussed with , Pharm D. Medications should be okay to continue. Some people have reported lamotrigine causing stomach discomfort or acute abdominal pain. This should be observed for in case changing from administration during tube feeds, to administration withouttube feeds leads to discomfort. Levels should not need to be checked unless there are indications of subtherapeutic levels or side effects. Will respond to Manisha via MyChart documented in this encounter Plan of Treatment Upcoming Encounters Date Type Department Care Team (Late st Contact Info) Description 06/22/2023 1:10 PM CDT Office Visit [facility] [place] [id number] [facility] [address] [place] [address] Paras Dupree MD [address] [address] documented as of this encounter Visit Diagnoses Not on filedocumented in this encounter Care Teams Real Estate Appraiser Relationship Specialty Start Date End Date Darryl Kenny [address] [place] [address] PCP - General Family Practice 09/08/16 Paras Dupree MD [address] [place] [address] Neurology 04/29/14 Zarina Manzo MD [address] [place] [address] Referring Physician Family Practice 12/20/15 Modesta Elliott MD [address] [place] [address] Physical Medicine and Rehabilitation 11/12/17 Paras Dupree MD [address] [facility] [address] [place] [address] Assigned Neuroscience Provider 11/28/19 documented as of this encounter
--- OUTSIDE RECORDS SUMMARY | 2023-02-21 17:51 | XMS_ITS | Encounter Summary ---
Author Name Unknown Organization [facility] Address [address] [place] [address] Care Team Providers Care Big Machine Consultant Name Role Phone Paras Dupree MD Unavailable [phone] Zarina Manzo MD Unavailable Darryl Kenny Primary Care Provider [phone] Modesta Elliott MD Unavailable [phone] Paras Dupree MD Unavailable [phone] Reason for Visit * Reason Comments Medication Refill Encounter Details Date Type Department Care Team (Late st Contact Info) Description 07/31/2022 Counts Include [facility] [address] [place] [address] Paras Dupree MD [address] [facility] [address] [place] [address] Medication Refill Social History Tobacco Use Types Packs/Day Years Used Date Smoking Tobacco: Never Smokeless Tobacco: Never Alcohol Use Standard Drinks/Week Comments No 0 (1 standard drink = 0.6 oz pur e alcohol) PHQ-2 Answer Date Recorded PHQ-2 Score 0 09/26/2018 Sex and Gender Information Value Date Recorded Sex Assigned at Male 12/09/2019 10:46 PM ICE GRINDER Gender Identity Male 12/09/2019 10:46 PM ICE GRINDER Sexual Orientation Straight 12/09/2019 10 :46 PM ICE GRINDER documented as of this encounter Miscellaneous Notes * Telephone Encounter - Michelle Ramirez RN - 08/03/2022 12:25 PM CDT Last Clinic Visit: [facility] 03/31/22 [place]: 10/13/22 All protocols passed documented in this encounter Plan of Treatment Upcoming Encounters Date Type Department Care Team (Late st Contact Info) Description 06/22/2023 1:10 PM CDT Office Visit [facility] Neu[facility] [address] [place] [id number] Paras Dupree MD [address] [id number] documented as of this encounter Visit Diagnoses Diagnosis [place]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
--- OUTSIDE RECORDS SUMMARY | 2023-02-21 17:51 | XMS_ITS | Encounter Summary ---
Author Name Unknown Organization [place] Address [address] [place] [address] Care Team Providers Care Utility System Operator Name Role Phone Paras Dupree MD Unavailable [phone] Zarina Manzo MD Unavailable Darryl Kenny Primary Care Provider [phone] Modesta Elliott MD Unavailable Paras Dupree MD Unavailable [phone] Reason for Visit * Reason Comments Medication Refill LORAZEPAM 2MG/ML CON 2 Concentrate Encounter Details Date Type Department Care Team (Late st Contact Info) Description 06/15/2022 Refill [facility] [address] [place] [address] Paras Dupree MD 5625 [facility] [address] [place] [address] Medication Refill (LORAZEPAM 2MG/ML CON 2 Concentrate) Social History Tobacco Use Types Packs/Day Years Used Date Smoking Tobacco: Never Smokeless Tobacco: Never Alcohol Use Standard Drinks/Week Comments No 0 (1 standard drink = 0.6 oz pur e alcohol) PHQ-2 Answer Date Recorded PHQ-2 Score 0 09/26/2018 Sex and Gender Information Value Date Recorded Sex Assigned at Male 12/09/2019 10:46 PM TOOL CRIB CLERK Gender Identity Male 12/09/2019 10:46 PM TOOL CRIB CLERK Sexual Orientation Straight 12/09/2019 10 :46 PM TOOL CRIB CLERK documented as of this encounter Miscellaneous Notes * Telephone Encounter - Fransisca Chang RN - 06/16/2022 8:19 AM CDT LORAZEPAM 2MG/ML CON 2 Concentrate Last Written Prescription Date: 09/16/2021 Last Fill Quantity: 30, # refills: 0 Last Office Visit : 03/31/2022 Future Office visit: 10/13/2022 Routing refill request to provider for review/approval because: Drug not on the [facility], [facility] or [facility] refill protocol or controlled substance Fransisca Chang RN Central Triage Red Flags/Med Refills documented in this encounter Plan of Treatment Upcoming Encounters Date Type Department Care Team (Late st Contact Info) Description 06/22/2023 1:10 PM CDT Office Visit [facility] [address] [phone] Paras Dupree MD [address] [address] documented as of this encounter Visit Diagnoses Diagnosis 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 documented in this encounter Care Teams Utility System Operator Relationship Specialty Start Date End Date Darryl Kenny [address] [place] [address] PCP - General Family Practice 09/08/16 Paras Dupree MD [address] [place] [address] Neurology 04/29/14 Zarina Manzo MD [address] [place] [address] Referring Physician Family Practice 12/20/15 Modesta Elliott MD 909 [place] [address] Physical Medicine and Rehabilitation 11/12/17 Paras Dupree MD 5775 [facility] [address] [place] [address] Assigned Neuroscience Provider 11/28/19 documented as of this encounter
--- OUTSIDE RECORDS SUMMARY | 2023-02-21 17:51 | XMS_ITS | Encounter Summary ---
Author Name Unknown Organization [place] Address [address] [place] [address] Care Team Providers Care Linen Clerk Name Role Phone Paras Dupree MD Unavailable [phone] Zarina Manzo MD Unavailable Darryl Kenny Primary Care Provider Modesta Elliott MD Unavailable [phone] Paras Dupree MD Unavailable [phone] Paras Dupree MD Unavailable [phone] Encounter Details Date Type Department Care Team (Latest Contact Info) Description 10/04/2022 Travel Social History Tobacco Use Types Packs/Day Years Used Date Smoking Tobacco: Never Smokeless Tobacco: Never Alcohol Use Standard Drinks/Week Comments No 0 (1 standard drink = 0.6 oz pur e alcohol) PHQ-2 Answer Date Recorded PHQ-2 Score 0 09/26/2018 Sex and Gender Information Value Date Recorded Sex Assigned at Male 12/09/2019 10:46 PM STOCKFEED MILLER Gender Identity Male 12/09/2019 10:46 PM STOCKFEED MILLER Sexual Orientation Straight 12/09/2019 10 :46 PM STOCKFEED MILLER COVID-19 Exposure Response Date Recorded In the last 10 days, have yo u been in contact with someone who was confirmed or suspected to have Coronavirus/COVID-19? Unable to assess 10/04/2022 1:26 PM CDT documented as of this encounter Plan of Treatment Upcoming Encounters Date Type Department Care Team (Late st Contact Info) Description 06/22/2023 1:10 PM CDT Office Visit [facility] [address] 3rd [place] [phone] Praas Dupree MD [address] [address] documented as of this encounter Visit Diagnoses Not on filedocumented in this encounter Care Teams Linen Clerk Relationship Specialty Start Date End Date Darryl Kenny [address] [place] [address] PCP - General Family Practice 09/08/16 Paras Dupree MD [address] [place] [address] Neurology 04/29/14 Zarina Manzo MD [address] [place] [address] Referring Physician Family Practice 12/20/15 Modesta Elliott MD [address] [place] [address] Physical Medicine and Rehabilitation 11/12/17 Paras Dupree MD [address] [address] Assigned Neuroscience Provider 11/28/19 Paras Dupree MD [address] [address] Neurology 10/04/22 documented as of this encounter
--- OUTSIDE RECORDS SUMMARY | 2023-02-21 17:51 | XMS_ITS | Encounter Summary ---
Author Name Unknown Organization [place] Address [address] [place] [address] Care Team Providers Care Licensed Sales Producer Name Role Phone Paras Dupree MD Unavailable [phone] Zarina Manzo MD Unavailable Darryl Kenny Primary Care Provider Modesta Elliott MD Unavailable [phone] Paras Dupree MD Unavailable [phone] Encounter Details Date Type Department Care Team (Latest Contact Info) Description 03/31/2022 Travel Social History Tobacco Use Types Packs/Day Years Used Date Smoking Tobacco: Never Smokeless Tobacco: Never Alcohol Use Standard Drinks/Week Comments No 0 (1 standard drink = 0.6 oz pur e alcohol) PHQ-2 Answer Date Recorded PHQ-2 Score 0 09/26/2018 Sex and Gender Information Value Date Recorded Sex Assigned at Male 12/09/2019 10:46 PM SHANK CUTTER Gender Identity Male 12/09/2019 10:46 PM SHANK CUTTER Sexual Orientation Straight 12/09/2019 10 :46 PM SHANK CUTTER COVID-19 Exposure Response Date Recorded In the last 10 days, have yo u been in contact with someone who was confirmed or suspected to have Coronavirus/COVID-19? No / Unsure 03/31/2022 1:43 PM SHANK CUTTER documented as of this encounter Plan of Treatment Upcoming Encounters Date Type Department Care Team (Late st Contact Info) Description 06/22/2023 1:10 PM CDT Office Visit [facility] [address]rd [place] [address] Paras Dupree MD 4974 [facility] [address] [place] [address] documented as of this encounter Visit Diagnoses Not on filedocumented in this encounter Care Teams Licensed Sales Producer Relationship Specialty Start Date End Date Darryl Kenny [address] [place] [address] PCP - General Family Practice 09/08/16 Paras Dupree MD [address] [place] [address] Neurology 04/29/14 Zarina Manzo MD [address] [place] [address] Referring Physician Family Practice 12/20/15 Modesta Elliott MD [address] [place] [address] Physical Medicine and Rehabilitation 11/12/17 Paras Dupree MD 5775 [facility] [address] [place] [address] Assigned Neuroscience Provider 11/28/19 documented as of this encounter
--- OUTSIDE RECORDS SUMMARY | 2023-02-21 17:51 | XMS_ITS | Encounter Summary ---
Author Name Unknown Organization [place] Address [address] [place] [address] Care Team Providers Care Wreath Maker Name Role Phone Paras Dupree MD Unavailable [phone] Zarina Manzo MD Unavailable Darryl Kenny Primary Care Provider [phone] Modesta Elliott MD Unavailable Paras Dupree MD Unavailable [phone] Reason for Visit * Reason Comments RECHECK Seizure Encounter Details Date Type Department Care Team (Late st Contact Info) Description 03/31/2022 1:45 PM SEWER SEPARATION DESIGNER Office Visit [facility] [address] [address] Paras Dupree MD 3887 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) Social History Tobacco Use Types Packs/Day Years Used Date Smoking Tobacco: Never Smokeless Tobacco: Never Alcohol Use Standard Drinks/Week Comments No 0 (1 standard drink = 0.6 oz pur e alcohol) PHQ-2 Answer Date Recorded PHQ-2 Score 0 09/26/2018 Sex and Gender Information Value Date Recorded Sex Assigned at Male 12/09/2019 10:46 PM SEWER SEPARATION DESIGNER Gender Identity Male 12/09/2019 10:46 PM SEWER SEPARATION DESIGNER Sexual Orientation Straight 12/09/2019 10 :46 PM SEWER SEPARATION DESIGNER COVID-19 Exposure Response Date Recorded In the last 10 days, have yo u been in contact with someone who was confirmed or suspected to have Coronavirus/COVID-19? No / Unsure 03/31/2022 1:43 PM SEWER SEPARATION DESIGNER documented as of this encounter Last Filed Vital Signs Vital Sign Reading Time Taken Comments Blood Pressure 114/78 03/31/2022 1:57 PM SEWER SEPARATION DESIGNER Pulse 74 03/31/2022 1:57 PM SEWER SEPARATION DESIGNER Temperature - - Respiratory Rate - - Oxygen Saturation 97% 03/31/2022 1:5 7 PM SEWER SEPARATION DESIGNER Inhaled Oxygen Concentration - - Weight 73.5 kg (162 lb) 03/31/2022 1:57 PM SEWER SEPARATION DESIGNER On wheelchair, wheelchair wt 63.3lbs. Height 172.7 cm (5' 8) 03/31/2022 1:57 PM SEWER SEPARATION DESIGNER Body Mass Index 24.63 03/31/2022 1:57 PM SEWER SEPARATION DESIGNER documented in this encounter Progress Notes * Paras Dupree MD - 03/31/2022 1:45 PM CST [facility] Epilepsy Care Progress Note Patient: Lew Vogt : 1965 Age: [age] year old Today's Office Visit: 03/31/2022 Epilepsy Data: Patient History Primary Epileptologist/Provider: Paras Dupree M.D. Seizure Record Current Visit Date: 03/31/22 Previous Visit Date: 09/16/21 Months since last visit: 6.44 Seizure Type 1: Tonic seizures Description of Sz Type 1: stiffens, right mouth curls up; <30 sec # of Type 1 Seizure since last visit: 9 Freq. Type 1 / Month: 1.4 Seizure Type 2: Tonic-clonic seizures Description of Sz Type 2: convulsion, >30 sec # of Type 2 Seizure since last visit: 13 Freq. Type 2 / Month: 2.02 Background History: Symptomatic generalized epilepsy with major [...] then worsened again. History of Present Illness: Sister presents with seizure reports from [facility]dc. Seizures tallied and numbers as above. Sisternot sure that all seizures are being marked. One seizure with incontinence marked but sister believes seizures with incontinence occur every sixweeks or so. Change in color postictally reported with two seizures. Sister notes that he awakens with BM in the AM that he is not aware of and that this is not being marked as seizure. This has happened about three times since last visit. Overall sister feels situation now worse since last visit and may be a little better. Sister states that patient is DNR. retirement staff want precise instructions on what is to be doneif apnea or cardiac arrest occurs following seizure. She does not want extensive resuscitation to be done following cardiac arrest. Current Outpatient Medications Medication Sig Dispense Refill ??? acetaminophen 167 MG/5ML elixir 1,000 mg by Per G Tube route ??? ARTIFICIAL SALIVA MT Take 1 spray by mouth ??? carBAMazepine (TEGRETOL) 100 MG/5ML suspension ADMINISTER 200MG(10ML) PER G- TUBE IN MORNING, 200MG(10ML) AT NOON, 200MG(10ML) EVENING AND 400MG(20ML) AT BEDTIME 1500 mL 11 ??? cholecalciferol 125 MCG/0.5ML liquid ??? citalopram (CELEXA) 10 MG/5ML solution ADMINISTER 10ML(20MG) ONCE A DAY INTO G-TUBE, NOT AT THESAME TIME THE CARBAMAZEPINE SUSPENSION 310 mL 11 ??? ferrous sulfate 220 (44 Fe) MG/5ML LIQD ??? fluticasone (FLONASE) 50 MCG/ACT nasal spray [place] 2 sprays in nostril ??? lamoTRIgine (LAMICTAL) 100 MG tablet CRUSH AND GIVE 1 TABLET VIA G-TUBE 3 TIMES DAILY (AM, NOON, AFTERNOON) AND 2 TABLETS IN THE EVENING 155 tablet 11 ??? LANsoprazole (PREVACID SOLUTAB) 30 MG ODT 30 mg by Per G Tube route 2 times daily ??? loratadine (CLARITIN) 10 MG tablet Take 10 mg by mouth as needed for allergies ??? LORazepam (ATIVAN) 2 MG/ML (HIGH CONC) oral solution Administer 0.5 ml (1 mg) prn for seizure lasting longer than 90 seconds or form more than 3 seizures in less than 6 hours. 30 mL 0 ??? polyethylene glycol (MIRALAX/GLYCOLAX) packet 17 g by Per PEG tube route 2 times daily as needed for constipation (Patient taking differently: 17 g by Per PEG tube route 2 times daily as needed for constipation Every other day per guardian) 60 packet 0 ??? pseudoePHEDrine (SUDAFED) 60 MG tablet Take 60 mg by mouth PRN ??? Rufinamide (BANZEL) 40 MG/ML SUSP Administer 30 ml in AM, 30 ml at noon, 30 ml in evening and 30 ml at bedtime. 3600 mL 11 ??? sennosides (SENOKOT) 8.6 MG tablet Take one tab up to two times daily as needed for constipation 120 tablet 1 ??? sodium chloride 1 GM tablet TAKE 1 TABLET (1 G) VIA G-TUBE 3 TIMES DAILY 90 tablet 5 ??? tolnaftate 1 % AERO spray Apply 1 spray topically ??? Nutritional Supplements (TWOCAL HN) LIQD Patient take 20 oz daily Medication Notes: Still getting salt tablets. AED Medication Compliance: compliant all of the time Using a pill box: No Review of Systems: No vomiting, diarrhea, fevers, hematuria or kidney stones. Have you experienced a traumatic fall since your last visit: NO Are these falls related to your seizures: Not Applicable Other Issues: Had new GI tube placed and this helped with abdominal pain. Can still help with standing and pivot but requires one to two to stand and pivot. Can hold urine and indicates when needs to go to bathroom. Having more accidents in the AM. Is patient safe to drive: No Exam: BP 114/78 (BP Location: Right arm, Patient Position: Chair, Cuff Size: Adult Regular) Pulse 74 Ht 1.727 m (5' 8) Wt 77.5 kg (170 lb 12.8 oz) SpO2 97% BMI 25.97 kg/m?? Wt Readings from Last 5 Encounters: 03/31/22 77.5 kg (170 lb 12.8 oz) 09/16/21 74.4 kg (164 lb) 08/13/20 68.8 kg (151 lb 9.6 oz) 01/24/19 67.7 kg (149 lb 4.8 oz) 05/10/18 67.7 kg (149 lb 4.8 oz) Weight gain of 13 pounds over the [...] full in hips, knees, and foot dorsiflexors. ? Latest Reference Range & Units 02/16/21 16:00 Sodium (External) 135 - 145 mmol/L 133 (L) CARBAMAZEPINE TOTAL LEVEL (EXTERNAL) 4.0 - 10.0 ug/mL 8.3 LAMOTRIGINE LEVEL (EXTERNAL) 3.0 - 15.0 ug/mL 5.0 RUFINAMIDE (EXTERNAL) See scan ug/mL 19.3 (E) ?? Alert. Spastic dysarthria. Fluent speech. Able to stand up with sister's assist. Stands up straight and can maintain standing position for 30seconds or so. EOMI. Smile symmetrical. Tongue midline. Decreased tongue movements. Bilateral pronation, more extensive on the left. Tone increased bilaterally, left more so than right. FFN is done well. Appears to have full strength at hips, knees, and dorsiflexors on both sides. Labs: 09/16/2021; lamotrigine = 5.2, carbamazepine = 23.1. Sodium 02/16/2021 = 133. Assessment and Plan: 1) Synmptomatic generalized epilepsy, status post corpus callosum section, status post VNS placement neither of which really helped.??Currently with tonic and tonic-clonic seizures. Previous course indicated worsening seizures with discontinuation of RUF, improved with readdition of RUF suggesting that this medication helped. Over fdc seizures have been reasonably controlled with carbamazepine levels between 8 and 10, lamotrigine levels between 4 and 5 and RUF levels above 20. Sister and staff feel there has been no deterioration but numbers have gradually increased. Better per numbers over the last interval but sister not certain but all seizures ercorded. 2)??Continued response of depression to citalopram; over the years we have learned that he repeatedly responds to this medication. 3)??No tremor. No nausea.??increased weight; all markers of improvement of his general health.??Continues looking quite??good compared to??several years??ago. 4) Hyponatremia, probably related to carbamazepine but??was not a problem until May 2018.??Citalopram may be contributing. Needs follow up. ?? DISCUSSION Above discussed frankly and supportively.??We discussed further treatment options. Sister did not want to make any changes. We discussed entity of SUDEP and how to approach post convulsive care if he is apneic. Wrote out changes on seizure protocol, reviewed with sister who agreed. ?? PLAN: ?? 1) continue current??lamotrigine and??carbamazepine.??Continue rufinamide to 1200 mg QID. If level low therapeutic consider further increase. 2) AED levels today to confirm compliance, rule out toxicity. Sodium to follow up on hyponatremia. 3) Continue current citalopram dose??for now but consider reduction if hyponatremia persists. 4) RTC??6??months.?? 5)??Epidiolex probably best choice if another treatment option needed.??Fycompa,??lacosamide, and brivaracetam??have not been tried but their efficacy in his epilepsy syndrome is unclear. It is not clear that topiramate has been tried either. They could be consider if need be. Can consider reevaluat ion for resective surgery or possibly redo VNS if he has multifocal epilepsy but likelihood of thisis low.??Epidiolex can be considered??and may be best choice if seizures worsen, DBS can be considered in extremis. 6) If apneic following BTC staff is to open airway and stimulate aggressively. They are not to perform mouth to mouth and are not to perform CPR. Sister feels that this is appropriate and consistent with overall DNR status. ? Total time in person today??25??min. Additional 6??min reviewing chart prior to visit. Additional??7??min generating note and coordinating care following visit. So total of 38??min, all on day of visit. Reviewed total of four individual tests. Most information obtained from sister because patient unable to provide reliable history. ?? Paras Dupree R SEPARATION DESIGNER documented in this encounter Nursing Notes * Mark Anthony Kahn - 03/31/2022 1:45 PM CST Chief Complaint Patient presents with ??? RECHECK Seizure Mark Anthony Kahn R SEPARATION DESIGNER documented in this encounter Plan of Treatment Upcoming Encounters Date Type Department Care Team (Late st Contact Info) Description 06/22/2023 1:10 PM CDT Office Visit [facility] [address] [place] [address] Paras Dupree MD [address] [address] documented as of this encounter Results * [facility]; rufinamide level (Laboratory Miscellaneous Order) (03/31/2022 3:07 PM SEWER SEPARATION DESIGNER) See Scanned Result Specimen received. Reordered and sent to performing laboratory. Report to follow up on completion. GERI 03/31/2022 3:40 PM SEWER SEPARATION DESIGNER [facility] Performing Laboratory [facility] GERI 03/31/2022 3:40 PM SEWER SEPARATION DESIGNER [facility] Test Name Rufinamide Level, Serum or Plasma GERI 03/31/2022 3:40 PM SEWER SEPARATION DESIGNER [facility] Comment:[id number] Test Code [id number] GERI 03/31/2022 3:40 PM SEWER SEPARATION DESIGNER [facility] Blood STRUCTURE OF LEFT UPPER LIMB / Unknown Venipuncture / Unknown 03/31/2022 3:07 PM SEWER SEPARATION DESIGNER 03/31/2022 3:08 PM SEWER SEPARATION DESIGNER Paras Dupree MD LAB - BLOOD ORDERABLES Performing Organization Address [facility] de Phone Number [facility] [address] 1st [place] [address] * (ABNORMAL) Sodium (03/31/2022 3:07 PM SEWER SEPARATION DESIGNER) Sodium 132(L) 136 - 145 mmol/L 03/31/2022 3:38 PM SEWER SEPARATION DESIGNER [facility] Blood STRUCTURE OF LEFT UPPER LIMB / Unknown Venipuncture / Unknown 03/31/2022 3:07 PM SEWER SEPARATION DESIGNER 03/31/2022 3:08 PM SEWER SEPARATION DESIGNER Paras Dupree MD LAB - BLOOD ORDERABLES Performing Organization Address [facility] de Phone Number [facility] [address] [place] [address] * Lamotrigine Level (03/31/2022 3:07 PM SEWER SEPARATION DESIGNER) Lamotrigine 6.1 3.0 - 15.0 ug/mL 04/01/2022 3:02 PM SEWER SEPARATION DESIGNER [facility] Comment: INTERPRETIVE INFORMATION: ??Lamotrigine Therapeutic Range: ??3.0-15.0 ug/mL ?Toxic: ??Greater than or equal to 20 ug/mL Pharmacokinetics varies widely, particularly with co-medications and/or compromised renal function. ??Adverse effects may include dizziness, somnolence, nausea and vomiting. Performed By: [facility] [address] [place] [address] Pulp Plant Supervisor: Xavi Rodriguez MD, PhD Blood STRUCTURE OF LEFT UPPER LIMB / Unknown Venipuncture / Unknown 03/31/2022 3:07 PM SEWER SEPARATION DESIGNER 03/31/2022 3:08 PM SEWER SEPARATION DESIGNER Paras Dupree MD LAB - BLOOD ORDERABLES [facility] [address] [place] [address], [facility] [phone] * Carbamazepine total (03/31/2022 3:07 PM SEWER SEPARATION DESIGNER) Carbamazepine 8.1 4.0 - 12.0 ug/mL 03/31/2022 8:34 PM SEWER SEPARATION DESIGNER [facility] Blood STRUCTURE OF LEFT UPPER LIMB / Unknown Venipuncture / Unknown 03/31/2022 3:07 PM SEWER SEPARATION DESIGNER 03/31/2022 3:08 PM SEWER SEPARATION DESIGNER Paras Dupree MD LAB - BLOOD ORDERABLES [facility] [address] [facility], [address] [id number], [facility] [phone] documented in this encounter Visit Diagnoses Diagnosis 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
--- OUTSIDE RECORDS SUMMARY | 2023-02-21 17:52 | XMS_ITS | Encounter Summary ---
Author Name Unknown Organization [facility] Address [address] [place] [address] Care Team Providers Care Carpenter Assembler Name Role Phone Paras Dupree MD Unavailable [phone] Zarina Manzo MD Unavailable Darryl Kenny Primary Care Provider Modesta Elliott MD Unavailable [phone] Paras Dupree MD Unavailable [phone] Paras Dupree MD Unavailable [phone] Encounter Details Date Type Department Care Team (Late st Contact Info) Description 08/27/2020 [facility] [address] [place] [address] Yulisa Park, DO 420 [facility] 295 [place] [address] Social History Tobacco Use Types Packs/Day Years Used Date Smoking Tobacco: Never Smokeless Tobacco: Never Alcohol Use Standard Drinks/Week Comments No 0 (1 standard drink = 0.6 oz pur e alcohol) PHQ-2 Answer Date Recorded PHQ-2 Score 0 09/26/2018 Sex and Gender Information Value Date Recorded Sex Assigned at Male 12/09/2019 10:46 PM HARDWARE MANAGER Gender Identity Male 12/09/2019 10:46 PM HARDWARE MANAGER Sexual Orientation Straight 12/09/2019 10 :46 PM HARDWARE MANAGER COVID-19 Exposure Response Date Recorded In the last month, have you been in contact with someone who was confirmed or suspected to have Coronavirus / COVID-19? No / Unsure 08/13/2020 2:47 PM CDT documented as of this encounter Plan of Treatment Upcoming Encounters Date Type Department Care Team (Late st Contact Info) Description 06/22/2023 1:10 PM CDT Office Visit [facility] [place] 909 [facility] 3rd [place] [address] Paras Dupree MD [address] [address] documented as of this encounter Visit Diagnoses Not on filedocumented in this encounter Care Teams Carpenter Assembler Relationship Specialty Start Date End Date Darryl Kenny 5200 [place] [address] PCP - General Family Practice 09/08/16 Paras Dupree MD 5200 [place] [address] Neurology 04/29/14 Zarina Manzo MD 5200 [place] [address] Referring Physician Family Practice 12/20/15 Modesta Elliott MD [address] [place] [address] Physical Medicine and Rehabilitation 11/12/17 Paras Dupree MD [address] [address] Assigned Neuroscience Provider 11/28/19 Paras Dupree MD [address] [address] Neurology 10/04/22 documented as of this encounter
--- OUTSIDE RECORDS SUMMARY | 2023-02-21 17:52 | XMS_ITS | Encounter Summary ---
Author Name Unknown Organization [place] Address [address] [place] [address] Care Team Providers Care Manager Transplant Name Role Phone Paras Dupree MD Unavailable [phone] Zarina Manzo MD Unavailable Darryl Kenny Primary Care Provider [phone] Fatuma Lynn RN Unavailable [phone] Modesta Elliott MD Unavailable [phone] Paras Dupree MD Unavailable [phone] Paras Dupree MD Unavailable [phone] Reason for Visit * Reason Onset Date Comments Patient Request for Note/Letter 02/20/2018 update to seizure protocol Encounter Details Date Type Department Care Team (Late st Contact Info) Description 02/20/2018 [facility] Medical Advice [facility] Neurology [address] [address] Paras Dupree MD 3120 [facility] 200 [place] [address] Patient Request for Note/Letter (update to... Social History Tobacco Use Types Packs/Day Years Used Date Smoking Tobacco: Never Smokeless Tobacco: Never Alcohol Use Standard Drinks/Week Comments No 0 (1 standard drink = 0.6 oz pur e alcohol) PHQ-2 Answer Date Recorded PHQ-2 Score 0 02/12/2018 Sex and Gender Information Value Date Recorded Sex Assigned at Male 12/09/2019 10:46 PM CORN HUSKER Gender Identity Male 12/09/2019 10:46 PM CORN HUSKER Sexual Orientation Straight 12/09/2019 10 :46 PM CORN HUSKER documented as of this encounter Miscellaneous Notes * Telephone Encounter - Abhijeet Boyle RN - 02/22/2018 5:08 PM CST ----- Message from [employer] sent at 02/22/2018 ??1:07 PM CORN HUSKER ----- Perfect!!! Thank you for doing this. ??Can you send this new Protocol to Rosaline Bowen. ??Then send me one in the mail. Manisha Blackwell [address] [place] [address] ??[id number] Manisha henry with content of letter, will print for signing and distribution HUSKER * Telephone Encounter - Abhijeet Boyle RN - 02/21/2018 11:45 AM CST Discussed with , plan updated and forwarded to Manisha for comment prior to final copy distribution HUSKER documented in this encounter Plan of Treatment Upcoming Encounters Date Type Department Care Team (Late st Contact Info) Description 06/22/2023 1:10 PM CDT Office Visit [facility] Neurology Clinic [address] 3rd [place] [address] Paras Dupree MD [address] [address] documented as of this encounter Visit Diagnoses Not on filedocumented in this encounter Care Teams Manager Transplant Relationship Specialty Start Date End Date Darryl Kenny 5207 [place] [address] PCP - General Family Practice 09/08/16 Paras Dupree MD 9889 [place] [address] Neurology 04/29/14 Zarina Manzo MD 5200 [place] [address] Referring Physician Family Practice 12/20/15 Fatuma Lynn, PRACHI 5200 [place] [address] Specialty Education And Training Manager 08/31/17 05/29/18 Modesta Elliott MD [address] [place] [address] Physical Medicine and Rehabilitation 11/12/17 Paras Dupree MD [address] [address] Assigned Neuroscience Provider 11/28/19 Paras Dupree MD [address] [address] Neurology 10/04/22 documented as of this encounter
--- OUTSIDE RECORDS SUMMARY | 2023-02-21 17:52 | XMS_ITS | Encounter Summary ---
Author Name Unknown Organization [place] Address [address] [place] [address] Care Team Providers Care Ibm Websphere Commerce Developer Name Role Phone Paras Dupree MD Unavailable [phone] Zarina Manzo MD Primary Care Provider [phone] Zarina Manzo MD Unavailable Anjum Santiago RN Unavailable Aruna Villa RN Unavailable [phone] Darrly Kenny Primary Care Provider [phone] Abhijeet Boyle RN Unavailable Fatuma Lynn RN Unavailable [phone] Modesta Elliott MD Unavailable [phone] Paras Dupree MD Unavailable Paras Dupree MD Unavailable Encounter Details Date Type Department Care Team (Late st Contact Info) Description 06/07/2016 [facility] Neurology [address] [address] Anjum Santiago, RN Social History Tobacco Use Types Packs/Day Years Used Date Smoking Tobacco: Never Smokeless Tobacco: Never Alcohol Use Standard Drinks/Week Comments No 0 (1 standard drink = 0.6 oz pur e alcohol) Sex and Gender Information Value Date Recorded Sex Assigned at Male 12/09/2019 10:46 PM ASSEMBLY MACHINE TOOL SETTER Gender Identity Male 12/09/2019 10:46 PM ASSEMBLY MACHINE TOOL SETTER Sexual Orientation Straight 12/09/2019 10 :46 PM ASSEMBLY MACHINE TOOL SETTER documented as of this encounter Plan of Treatment Upcoming Encounters Date Type Department Care Team (Late st Contact Info) Description 06/22/2023 1:10 PM CDT Office Visit [facility] Neurology Clinic [address] 3rd [place] [address] Paras Dupree MD [address] [address] documented as of this encounter Visit Diagnoses Not on filedocumented in this encounter Care Teams Ibm Websphere Commerce Developer Relationship Specialty Start Date End Date Zarina Manzo MD 5200 [place] [address] PCP - General Family Practice 08/20/15 09/07/16 Darryl Kenny PCP - General Family Practice 09/08/16 Paras Dupree MD 5[address] [place] [address] Neurology 04/29/14 Zarina Manzo MD 5200 [place] [address] Referring Physician Family Practice 12/20/15 Anjum Santiago, RN Nurse Coordinator Neurology 02/18/16 02/15/18 Aruna Villa, RN Nurse Coordinator Neurology 04/24/16 09/11/16 Abhijeet Boyle, RN Specialty Dipper Operator Neurology 08/29/17 01/10/18 Fatuma Lynn, RN Specialty Dipper Operator 08/31/17 05/29/18 Modesta Elliott MD [address] [place] [address] Physical Medicine and Rehabilitation 11/12/17 Paras Dupree MD [address] [address] Assigned Neuroscience Provider 11/28/19 Paras Dupree MD [address] [address] Neurology 10/04/22 documented as of this encounter
--- OUTSIDE RECORDS SUMMARY | 2023-02-21 17:52 | XMS_ITS | Encounter Summary ---
Author Name Unknown Organization [place] Address [address] [place] [address] Care Team Providers Care Mortgage Field Inspector Name Role Phone Paras Dupree MD Unavailable [phone] Zarina Manzo MD Unavailable Anjum Santiago RN Unavailable Darryl Kenny Primary Care Provider [phone] Abhijeet Boyle RN Unavailable Fatuma Lynn RN Unavailable [phone] Modesta Elliott MD Unavailable [phone] Paras Dupree MD Unavailable [phone] Paras Dupree MD Unavailable Encounter Details Date Type Department Care Team (Late st Contact Info) Description 02/20/2017 [facility] [place] [facility] Neurology 9 [facility] 3rd [place] [address] Paras Dupree MD 0545 [facility] 200 [place] [address] Social History Tobacco Use Types Packs/Day Years Used Date Smoking Tobacco: Never Smokeless Tobacco: Never Alcohol Use Standard Drinks/Week Comments No 0 (1 standard drink = 0.6 oz pur e alcohol) Sex and Gender Information Value Date Recorded Sex Assigned at Male 12/09/2019 10:46 PM SECURITY SYSTEM ENGINEER Gender Identity Male 12/09/2019 10:46 PM SECURITY SYSTEM ENGINEER Sexual Orientation Straight 12/09/2019 10 :46 PM SECURITY SYSTEM ENGINEER documented as of this encounter Plan of Treatment Upcoming Encounters Date Type Department Care Team (Late st Contact Info) Description 06/22/2023 1:10 PM CDT Office Visit [facility] [place] 909 [facility] 3rd [place] [address] Paras Dupree MD 5775 [facility] 200 [place] [address] documented as of this encounter Visit Diagnoses Not on filedocumented in this encounter Care Teams Mortgage Field Inspector Relationship Specialty Start Date End Date Darryl Kenny PCP - General Family Practice 09/08/16 Paras Dupree MD 5200 [place], [place] [address] Neurology 04/29/14 Zarina Manzo MD 5200 [place] [address] Referring Physician Family Practice 12/20/15 Anjum Santiago RN Nurse Coordinator Neurology 02/18/16 02/15/18 Abhijeet Boyle, RN Specialty Director Physical Neurology 08/29/17 01/10/18 Fatuma Lynn, RN Specialty Director Physical 08/31/17 05/29/18 Modesta Elliott MD 909 [place] [address] Physical Medicine and Rehabilitation 11/12/17 Paras Dupree MD [address] [facility] 200 [place], [place] [address] Assigned Neuroscience Provider 11/28/19 Paras Dupree MD [address] [facility] 200 [place], [place] [address] Neurology 10/04/22 documented as of this encounter
--- OUTSIDE RECORDS SUMMARY | 2023-02-21 17:52 | XMS_ITS | Encounter Summary ---
Author Name Unknown Organization [place] Address [address] [place] [address] Care Team Providers Care Pillar Man Name Role Phone Paras Dupree MD Unavailable [phone] Zarina Manzo MD Unavailable Anjum Santiago RN Unavailable Darryl Kenny Primary Care Provider Abhijeet Boyle RN Unavailable Fatuma Lynn RN Unavailable [phone] Modesta Elliott MD Unavailable [phone] Paras Dupree MD Unavailable Paras Dupree MD Unavailable + [phone] Reason for Visit * Reason Onset Date Comments Prior Auth - Medication 03/29/2017 lamoTRIg ine (LAMICTAL) 100 MG tablet Encounter Details Date Type Department Care Team (Late st Contact Info) Description 03/29/2017 Telephone [facility] Neurology 909 [facility] 3rd [place] [address] Paras Dupree MD 9805 [facility] 200 [place] [address] Prior Auth - Medication (lamoTRIgine (LAMICTAL) 100 MG tablet) Social History Tobacco Use Types Packs/Day Years Used Date Smoking Tobacco: Never Smokeless Tobacco: Never Alcohol Use Standard Drinks/Week Comments No 0 (1 standard drink = 0.6 oz pur e alcohol) Sex and Gender Information Value Date Recorded Sex Assigned at Male 12/09/2019 10:46 PM GENERAL ACCOUNTANT Gender Identity Male 12/09/2019 10:46 PM GENERAL ACCOUNTANT Sexual Orientation Straight 12/09/2019 10 :46 PM GENERAL ACCOUNTANT documented as of this encounter Miscellaneous Notes * Telephone Encounter - Gabbie Reynolds - 03/30/2017 11:13 AM CST P/A is not needed. Called pharmacy. They confirmed it did process through insurance. RAL ACCOUNTANT * Telephone Encounter - Kacey Mercer - 03/29/2017 2:01 PM CST Images from the original note were not included. Central Prior Authorization Team needs pa for ltg Received: Today ? Anjum Santiago RN P [facility] Med ? Please start a PA for Lamotrigine 100 mg tabs Thank You! RAL ACCOUNTANT documented in this encounter Plan of Treatment Upcoming Encounters Date Type Department Care Team (Late st Contact Info) Description 06/22/2023 1:10 PM CDT Office Visit [facility] Neurology Clinic [address] [place] [address] Paras Dupree MD [address] [address] documented as of this encounter Visit Diagnoses Not on filedocumented in this encounter Care Teams Pillar Man Relationship Specialty Start Date End Date Darryl Kenny PCP - General Family Practice 09/08/16 Paras Dupree MD 5200 [place] [address] Neurology 04/29/14 Zarina Manzo MD 5200 [place] [address] Referring Physician Family Practice 12/20/15 Anjum Santiago, PRACHI Nurse Coordinator Neurology 02/18/16 02/15/18 Abhijeet Boyle, PRACHI Specialty Method Consultant Neurology 08/29/17 01/10/18 Fatuma Lynn, PRACHI Specialty Method Consultant 08/31/17 05/29/18 Modesta Elliott MD 909 [place] [address] Physical Medicine and Rehabilitation 11/12/17 Paras Dupree MD 5775 [facility] 200 [place], [place] [address] Assigned Neuroscience Provider 11/28/19 Paras Dupree MD 5775 [facility] 200 [place], [place] [address] Neurology 10/04/22 documented as of this encounter
--- OUTSIDE RECORDS SUMMARY | 2023-02-21 17:52 | XMS_ITS | Encounter Summary ---
Author Name Unknown Organization [facility] Address [address] [place] [address] Care Team Providers Care Quality Assurance Tester Name Role Phone Paras Dupree MD Unavailable [phone] Zarina Manzo MD Unavailable Darryl Kenny Primary Care Provider [phone] Modesta Elliott MD Unavailable [phone] Paras Dupree MD Unavailable [phone] Paras Dupree MD Unavailable [phone] Encounter Details Date Type Department Care Team (Late st Contact Info) Description 07/31/2019 [facility] Medical Advice [facility] Neurology [address] [place] [address] Paras Dupree MD 0164 [facility] 200 [place] [address] Social History Tobacco Use Types Packs/Day Years Used Date Smoking Tobacco: Never Smokeless Tobacco: Never Alcohol Use Standard Drinks/Week Comments No 0 (1 standard drink = 0.6 oz pur e alcohol) PHQ-2 Answer Date Recorded PHQ-2 Score 0 09/26/2018 Sex and Gender Information Value Date Recorded Sex Assigned at Male 12/09/2019 10:46 PM NAIL PULLER Gender Identity Male 12/09/2019 10:46 PM NAIL PULLER Sexual Orientation Straight 12/09/2019 10 :46 PM NAIL PULLER documented as of this encounter Plan of Treatment Upcoming Encounters Date Type Department Care Team (Late st Contact Info) Description 06/22/2023 1:10 PM CDT Office Visit [facility] Neurology Clinic [place] 909 [facility] 3rd [place] [phone] Paras Dupree MD [address] [address] documented as of this encounter Visit Diagnoses Not on filedocumented in this encounter Care Teams Quality Assurance Tester Relationship Specialty Start Date End Date Darryl Kenny 5200 [place] [address] PCP - General Family Practice 09/08/16 Paras Dupree MD 5200 [place] [address] Neurology 04/29/14 Zarina Manzo MD 5200 [place] [address] Referring Physician Family Practice 12/20/15 Modesta Elliott MD 9 [place] [address] Physical Medicine and Rehabilitation 11/12/17 Paras Dupree MD [address] [address] Assigned Neuroscience Provider 11/28/19 Paras Dupree MD [address] [address] Neurology 10/04/22 documented as of this encounter
--- OUTSIDE RECORDS SUMMARY | 2023-02-21 17:52 | XMS_ITS | Encounter Summary ---
Author Name Unknown Organization [place] Address [address] [place] [address] Care Team Providers Care Yacht Master Name Role Phone Paras Dupree MD Unavailable [phone] Zarina Manzo MD Unavailable Anjum Santiago RN Unavailable Darryl Kenny Primary Care Provider [phone] Abhijeet Boyle RN Unavailable Fatuma Lynn RN Unavailable [phone] Modesta Elliott MD Unavailable [phone] Paras Dupree MD Unavailable [phone] Paras Dupree MD Unavailable Encounter Details Date Type Department Care Team (Late st Contact Info) Description 07/27/2017 [facility]ice [facility] [address] [place] [address] Paras Dupree MD 5719 [facility] 200 [place] [address] Social History Tobacco Use Types Packs/Day Years Used Date Smoking Tobacco: Never Smokeless Tobacco: Never Alcohol Use Standard Drinks/Week Comments No 0 (1 standard drink = 0.6 oz pur e alcohol) Sex and Gender Information Value Date Recorded Sex Assigned at Male 12/09/2019 10:46 PM HEDGE FUND MANAGER Gender Identity Male 12/09/2019 10:46 PM HEDGE FUND MANAGER Sexual Orientation Straight 12/09/2019 10 :46 PM HEDGE FUND MANAGER documented as of this encounter Plan of Treatment Upcoming Encounters Date Type Department Care Team (Late st Contact Info) Description 06/22/2023 1:10 PM CDT Office Visit [facility] Neurology Clinic [place] 909 [facility] 3rd [place] [address] Paras Dupree MD [address] [address] documented as of this encounter Visit Diagnoses Not on filedocumented in this encounter Care Teams Yacht Master Relationship Specialty Start Date End Date Kenny Darryl Opal PCP - General Family Practice 09/08/16 Paras Dupree MD 5200 [place], [place] [address] Neurology 04/29/14 Zarina Manzo MD 5200 [place], [place] [address] Referring Physician Family Practice 12/20/15 Anjum Santiago, PRACHI Nurse Coordinator Neurology 02/18/16 02/15/18 Abhijeet Boyle, RN Specialty Hoop Machine Operator Neurology 08/29/17 01/10/18 Fatuma Lynn, RN Specialty Hoop Machine Operator 08/31/17 05/29/18 Modesta Elliott MD 909 [place] [address] Physical Medicine and Rehabilitation 11/12/17 Paras Dupree MD 5775 [facility] 200 [place] [address] Assigned Neuroscience Provider 11/28/19 Paras Dupree MD 5775 [facility] 200 [place] [address] Neurology 10/04/22 documented as of this encounter
--- OUTSIDE RECORDS SUMMARY | 2023-02-21 17:52 | XMS_ITS | Encounter Summary ---
Author Name Unknown Organization [facility] Address [address] [place] [address] Care Team Providers Care Incident Response Lead Name Role Phone Paras Dupree MD Unavailable [phone] Zarina Manzo MD Unavailable Anjum Santiago RN Unavailable Darryl Kenny Primary Care Provider Abhijeet Boyle RN Unavailable Fatuma Lynn RN Unavailable [phone] Modesta Elliott MD Unavailable [phone] Paras Dupree MD Unavailable [phone] Paras Dupree MD Unavailable Encounter Details Date Type Department Care Team (Late st Contact Info) Description 01/08/2018 [facility] Medical Advice [facility] Neurology 9 [facility] 3rd [place] [address] Paras Dupree MD 3251 [facility] 200 [place] [address] Social History Tobacco Use Types Packs/Day Years Used Date Smoking Tobacco: Never Smokeless Tobacco: Never Alcohol Use Standard Drinks/Week Comments No 0 (1 standard drink = 0.6 oz pur e alcohol) Sex and Gender Information Value Date Recorded Sex Assigned at Male 12/09/2019 10:46 PM DOOR PULLER Gender Identity Male 12/09/2019 10:46 PM DOOR PULLER Sexual Orientation Straight 12/09/2019 10 :46 PM DOOR PULLER documented as of this encounter Plan of Treatment Upcoming Encounters Date Type Department Care Team (Late st Contact Info) Description 06/22/2023 1:10 PM CDT Office Visit [facility] Neurology Clinic [place] 909 [facility] 3rd [place] [address] Paras Dupree MD 5775 [facility] 200 [place] [address] documented as of this encounter Visit Diagnoses Not on filedocumented in this encounter Care Teams Incident Response Lead Relationship Specialty Start Date End Date Darryl Kenny PCP - General Family Practice 09/08/16 Paras Dupree MD 5200 [place], [place] [address] Neurology 04/29/14 Zarina Manzo MD 5200 [place] [address] Referring Physician Family Practice 12/20/15 Anjum Santiago RN Nurse Coordinator Neurology 02/18/16 02/15/18 Abhijeet Boyle, RN Specialty Special Population Paraprofessional Neurology 08/29/17 01/10/18 Fatuma Lynn, RN Specialty Special Population Paraprofessional 08/31/17 05/29/18 Modesta Elliott MD 909 [place] [address] Physical Medicine and Rehabilitation 11/12/17 Paras Dupree MD [address] [facility] 200 [place], [place] [address] Assigned Neuroscience Provider 11/28/19 Paras Dupree MD [address] [facility] 200 [place], [place] [address] Neurology 10/04/22 documented as of this encounter
--- OUTSIDE RECORDS SUMMARY | 2023-02-21 17:52 | XMS_ITS | Encounter Summary ---
Author Name Unknown Organization [facility] Address [address] [place] [address] Care Team Providers Care Continuous Pickling Line Pickler Helper Name Role Phone Paras Dupree MD Unavailable [phone] Zarina Manzo MD Unavailable Anjum Santiago RN Unavailable Darryl Kenny Primary Care Provider Abhijeet Boyle RN Unavailable Fatuma Lynn RN Unavailable [phone] Modesta Elliott MD Unavailable [phone] Paras Dupree MD Unavailable [phone] Paras Dupree MD Unavailable Encounter Details Date Type Department Care Team (Late st Contact Info) Description 05/28/2017 [facility] Medical Advice [facility] Neurology 9 [facility] 3rd [place] [address] Paras Dupree MD 0567 [facility] 200 [place] [address] Social History Tobacco Use Types Packs/Day Years Used Date Smoking Tobacco: Never Smokeless Tobacco: Never Alcohol Use Standard Drinks/Week Comments No 0 (1 standard drink = 0.6 oz pur e alcohol) Sex and Gender Information Value Date Recorded Sex Assigned at Male 12/09/2019 10:46 PM LINE REPAIRER Gender Identity Male 12/09/2019 10:46 PM LINE REPAIRER Sexual Orientation Straight 12/09/2019 10 :46 PM LINE REPAIRER documented as of this encounter Plan of Treatment Upcoming Encounters Date Type Department Care Team (Late st Contact Info) Description 06/22/2023 1:10 PM CDT Office Visit [facility] Neurology Clinic [place] 909 [facility] 3rd [place] [address] Paras Dupree MD 5775 [facility] 200 [place] [address] documented as of this encounter Visit Diagnoses Not on filedocumented in this encounter Care Teams Continuous Pickling Line Pickler Helper Relationship Specialty Start Date End Date Darryl Kenny PCP - General Family Practice 09/08/16 Paras Dupree MD 5200 [place], [place] [id number] Neurology 04/29/14 Zarina Manzo MD 5200 [place] [address] Referring Physician Family Practice 12/20/15 Anjum Santiago RN Nurse Coordinator Neurology 02/18/16 02/15/18 Abhijeet Boyle, RN Specialty Herbarium Curator Neurology 08/29/17 01/10/18 Fatuma Lynn, RN Specialty Herbarium Curator 08/31/17 05/29/18 Modesta Elliott MD 909 [place] [address] Physical Medicine and Rehabilitation 11/12/17 Paras Dupree MD 57[address] [facility] 200 [place], [place] [address] Assigned Neuroscience Provider 11/28/19 Paras Dupree MD 57[address] [facility] 200 [place], [place] [address] Neurology 10/04/22 documented as of this encounter
--- OUTSIDE RECORDS SUMMARY | 2023-02-21 17:52 | XMS_ITS | Encounter Summary ---
Author Name Unknown Organization [facility] Address [address] [place] [address] Care Team Providers Care Wire Sawyer Name Role Phone Paras Dupree MD Unavailable [phone] Zarina Manzo MD Unavailable Darryl Kenny Primary Care Provider [phone] Modesta Elliott MD Unavailable Paras Dupree MD Unavailable [phone] Paras Dupree MD Unavailable [phone] Encounter Details Date Type Department Care Team (Late st Contact Info) Description 07/31/2019 [facility] Medical Advice [facility] Neurology [address] [place] [address] Paras Dupree MD 4186 [facility] 200 [place] [address] Social History Tobacco Use Types Packs/Day Years Used Date Smoking Tobacco: Never Smokeless Tobacco: Never Alcohol Use Standard Drinks/Week Comments No 0 (1 standard drink = 0.6 oz pur e alcohol) PHQ-2 Answer Date Recorded PHQ-2 Score 0 09/26/2018 Sex and Gender Information Value Date Recorded Sex Assigned at Male 12/09/2019 10:46 PM MARKETING INFORMATION ANALYST Gender Identity Male 12/09/2019 10:46 PM MARKETING INFORMATION ANALYST Sexual Orientation Straight 12/09/2019 10 :46 PM MARKETING INFORMATION ANALYST documented as of this encounter Plan of Treatment Upcoming Encounters Date Type Department Care Team (Late st Contact Info) Description 06/22/2023 1:10 PM CDT Office Visit [facility] Neurology Clinic [place] 909 [facility] 3rd [place] [phone] Paras Dupree MD [address] [address] documented as of this encounter Visit Diagnoses Not on filedocumented in this encounter Care Teams Wire Sawyer Relationship Specialty Start Date End Date Darryl Kenny 5200 [place] [address] PCP - General Family Practice 09/08/16 Parsa Dupree MD 5200 [place] [address] Neurology 04/29/14 Zarina Manzo MD 5200 [place] [address] Referring Physician Family Practice 12/20/15 Modesta Elliott MD 9 [place] [address] Physical Medicine and Rehabilitation 11/12/17 Paras Dupree MD [address] [address] Assigned Neuroscience Provider 11/28/19 Paras Dupree MD [address] [address] Neurology 10/04/22 documented as of this encounter
--- OUTSIDE RECORDS SUMMARY | 2023-02-21 17:52 | XMS_ITS | Encounter Summary ---
Author Name Unknown Organization [facility] Address [address] [place] [address] Care Team Providers Care Audio Visual Engineer Name Role Phone Paras Dupree MD Unavailable [phone] Zarina Manzo MD Unavailable Darryl Kenny Primary Care Provider Modesta Elliott MD Unavailable [phone] Paras Dupree MD Unavailable [phone] Paras Dupree MD Unavailable [phone] Encounter Details Date Type Department Care Team (Late st Contact Info) Description 07/08/2021 [facility] Neurology Clinic [address] [address] [facility] Social History Tobacco Use Types Packs/Day Years Used Date Smoking Tobacco: Never Smokeless Tobacco: Never Alcohol Use Standard Drinks/Week Comments No 0 (1 standard drink = 0.6 oz pur e alcohol) PHQ-2 Answer Date Recorded PHQ-2 Score 0 09/26/2018 Sex and Gender Information Value Date Recorded Sex Assigned at Male 12/09/2019 10:46 PM WILDLIFE MANAGER Gender Identity Male 12/09/2019 10:46 PM WILDLIFE MANAGER Sexual Orientation Straight 12/09/2019 10 :46 PM WILDLIFE MANAGER COVID-19 Exposure Response Date Recorded In the last 10 days, have yo u been in contact with someone who was confirmed or suspected to have Coronavirus/COVID-19? Unable to assess 07/11/2021 11:12 AM CDT documented as of this encounter Plan of Treatment Upcoming Encounters Date Type Department Care Team (Late st Contact Info) Description 06/22/2023 1:10 PM CDT Office Visit [facility] Neurology [place] [address]39 [facility] 3rd [place] [phone] Paras Dupree MD [address] [address] [address] documented as of this encounter Visit Diagnoses Not on filedocumented in this encounter Care Teams Audio Visual Engineer Relationship Specialty Start Date End Date Darryl Kenny 5200 [place] [address] PCP - General Family Practice 09/08/16 Paras Dupree MD 5200 [place] [address] Neurology 04/29/14 Zarina Manzo MD 5200 [place] [address] Referring Physician Family Practice 12/20/15 Modesta Elliott MD 9 [place] [address] Physical Medicine and Rehabilitation 11/12/17 Paras Dupree MD 5775 [address] [facility] 200 [place] [address] Assigned Neuroscience Provider 11/28/19 Paras Dupree MD [address] [address] [address] Neurology 10/04/22 documented as of this encounter
--- OUTSIDE RECORDS SUMMARY | 2023-02-21 17:52 | XMS_ITS | Encounter Summary ---
Author Name Unknown Organization [place] Address [address] [place] [address] Care Team Providers Care Vp Talent Management Name Role Phone Paras Dupree MD Unavailable [phone] Zarina Manzo MD Unavailable Darryl Kenny Primary Care Provider Modesta Elliott MD Unavailable [phone] Paras Dupree MD Unavailable [phone] Paras Dupree MD Unavailable [phone] Encounter Details Date Type Department Care Team (Late st Contact Info) Description 02/16/2021 External Order Results [facility] [address] [place] [address] Outside, Provider Marcos-Gastaut syndrome with tonic seizures (H) Social History Tobacco Use Types Packs/Day Years Used Date Smoking Tobacco: Never Smokeless Tobacco: Never Alcohol Use Standard Drinks/Week Comments No 0 (1 standard drink = 0.6 oz pur e alcohol) PHQ-2 Answer Date Recorded PHQ-2 Score 0 09/26/2018 Sex and Gender Information Value Date Recorded Sex Assigned at Male 12/09/2019 10:46 PM STATIONARY ENGINEER APPRENTICE Gender Identity Male 12/09/2019 10:46 PM STATIONARY ENGINEER APPRENTICE Sexual Orientation Straight 12/09/2019 10 :46 PM STATIONARY ENGINEER APPRENTICE documented as of this encounter Plan of Treatment Upcoming Encounters Date Type Department Care Team (Late st Contact Info) Description 06/22/2023 1:10 PM CDT Office Visit [facility] Neurology Clinic [address] 3rd [place] [address] Paras Dupree MD 3941 [facility] 200 [place] [address] documented as of this encounter Procedures Procedure Name Priority Date/Time Associated Diagnosis Comments RUFINAMIDE LEVEL Routine 02/16/2021 4:00 PM STATIONARY ENGINEER APPRENTICE LAMOTRIGINE LEVEL Routine 02/16/2021 4:0 0 PM STATIONARY ENGINEER APPRENTICE Marcos-Gastaut syndrome with tonic seizures (H) CARBAMAZEPINE TOTAL Routine 02/16/2021 4 :00 PM STATIONARY ENGINEER APPRENTICE Bernalillo-Gastaut syndrome with tonic seizures (H) SODIUM Routine 02/16/2021 4:00 PM STATIONARY ENGINEER APPRENTICE Bernalillo-Gastaut syndrome with tonic seizures (H) documented in this encounter Results * Rufinamide Level (02/16/2021 4:00 PM STATIONARY ENGINEER APPRENTICE) RUFINAMIDE (EXTERNAL) 19.3 See scan ug/mL NON-INTERFACED (ONBASE SCANS) Blood 02/16/2021 4:00 PM STATIONARY ENGINEER APPRENTICE Narrative BREEZE PFT - 02/22/2021 9:50 AM STATIONARY ENGINEER APPRENTICE Verified by Senia Willis on 02/22/2021. Darryl Kenny LAB - BLOOD ORDERABL ES BREEZE PFT NON-INTERFACED (ONBASE SCANS) * (ABNORMAL) Sodium (02/16/2021 4:00 PM STATIONARY ENGINEER APPRENTICE) Sodium (External) 133(L) 135 - 145 mmol/L NON-INTERFACED (ONBASE SCANS) Blood 02/16/2021 4:00 PM STATIONARY ENGINEER APPRENTICE Narrative BREEZE PFT - 02/18/2021 9:25 AM STATIONARY ENGINEER APPRENTICE Verified by Ray Johnson on 02/18/2021. Paras Dupree MD LAB - BLOOD ORDERABLES Performing Organization Address [facility] Co de Phone Number BREEZE PFT NON-INTERFACED (ONBASE SCANS) * Lamotrigine Level (02/16/2021 4:00 PM STATIONARY ENGINEER APPRENTICE) LAMOTRIGINE LEVEL (EXTERNAL) 5.0 3.0 - 15.0 ug/mL NON-INTERFACED (ONBASE SCANS) Blood 02/16/2021 4:00 PM STATIONARY ENGINEER APPRENTICE Narrative BREEZE PFT - 02/18/2021 9:29 AM STATIONARY ENGINEER APPRENTICE Verified by Senia Willis on 02/18/2021. Paras Dupree MD LAB - BLOOD ORDERABLES Performing Organization Address [facility] Co de Phone Number BREEZE PFT NON-INTERFACED (ONBASE SCANS) * Carbamazepine total (02/16/2021 4:00 PM STATIONARY ENGINEER APPRENTICE) CARBAMAZEPINE TOTAL LEVEL (EXTERNAL) 8.3 4.0 - 10.0 ug/mL NON-INTERFACE D (ONBASE SCANS) Blood 02/16/2021 4:00 PM STATIONARY ENGINEER APPRENTICE Narrative BREEZE PFT - 02/18/2021 9:29 AM STATIONARY ENGINEER APPRENTICE Verified by Senia Willis on 02/18/2021. 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 documented in this encounter Care Teams Vp Talent Management Relationship Specialty Start Date End Date Darryl Kenny [address] [place], [place] [phone] PCP - General Family Practice 09/08/16 Paras Dupree MD [address] [place] [address] Neurology 04/29/14 Zarina Manzo MD 5200 [place] [address] Referring Physician Family Practice 12/20/15 Modesta Elliott MD 909 [place] [address] Physical Medicine and Rehabilitation 11/12/17 Paras Dupree MD [address] [address] Assigned Neuroscience Provider 11/28/19 Paras Dupree MD [address] [address] Neurology 10/04/22 documented as of this encounter
--- OUTSIDE RECORDS SUMMARY | 2023-02-21 17:52 | XMS_ITS | Encounter Summary ---
Author Name Unknown Organization [facility] Address [address] [place] [address] Care Team Providers Care Boat Canvas Maker Installer Name Role Phone Paras Dupree MD Unavailable [phone] Zarina Manzo MD Unavailable Anjum [place] RN Unavailable Darryl Kenny Primary Care Provider Abhijeet Boyle RN Unavailable Fatuma Lynn RN Unavailable [phone] Modesta Ellitot MD Unavailable [phone] Paras Dupree MD Unavailable Paras Dupree MD Unavailable Encounter Details Date Type Department Care Team (Late st Contact Info) Description 06/26/2017 [facility] [place] [place] Medical Advice [facility] Neurology 9 [facility] 3rd [place] [address] Paras Dupree MD 4322 [facility] 200 [place] [address] Social History Tobacco Use Types Packs/Day Years Used Date Smoking Tobacco: Never Smokeless Tobacco: Never Alcohol Use Standard Drinks/Week Comments No 0 (1 standard drink = 0.6 oz pur e alcohol) Sex and Gender Information Value Date Recorded Sex Assigned at Male 12/09/2019 10:46 PM CAN INTAKE WORKER Gender Identity Male 12/09/2019 10:46 PM CAN INTAKE WORKER Sexual Orientation Straight 12/09/2019 10 :46 PM CAN INTAKE WORKER documented as of this encounter Plan of Treatment Upcoming Encounters Date Type Department Care Team (Late st Contact Info) Description 06/22/2023 1:10 PM CDT Office Visit [facility] Neurology Clinic [place] 909 [facility] 3rd [place] [address] Paras Dupree MD 5775 [facility] 200 [place] [address] documented as of this encounter Visit Diagnoses Not on filedocumented in this encounter Care Teams Boat Canvas Maker Installer Relationship Specialty Start Date End Date Darryl Kenny PCP - General Family Practice 09/08/16 Paras Dupree MD 5200 [place], [place] [phone] Neurology 04/29/14 Zarina Manzo MD 5200 [place] [address] Referring Physician Family Practice 12/20/15 Anjum Santiago RN Nurse Coordinator Neurology 02/18/16 02/15/18 Abhijeet Boyle, RN Specialty Committee Member Neurology 08/29/17 01/10/18 Fatuma Lynn, RN Specialty Committee Member 08/31/17 05/29/18 Modesta Elliott MD 909 [place] [address] Physical Medicine and Rehabilitation 11/12/17 Paras Dupree MD [address] [facility] 200 [place], [place] [address] Assigned Neuroscience Provider 11/28/19 Paras Dupree MD [address] [facility] 200 [place], [place] [address] Neurology 10/04/22 documented as of this encounter
--- OUTSIDE RECORDS SUMMARY | 2023-02-21 17:52 | XMS_ITS | Encounter Summary ---
Author Name Unknown Organization [facility] Address [address] [place] [address] Care Team Providers Care Global Technical Writer Name Role Phone Paras Dupree MD Unavailable [phone] Zarina Manzo MD Unavailable Anjum Santiago RN Unavailable Darryl Kenny Primary Care Provider [phone] Abhijeet Boyle RN Unavailable Fatuma Lynn RN Unavailable [phone] Modesta Elliott MD Unavailable [phone] Paras Dupree MD Unavailable Paras Dupree MD Unavailable Encounter Details Date Type Department Care Team (Late st Contact Info) Description 10/12/2016 [facility] Medical Advice [facility] Neurology 9 [facility] 3rd [place] [address] Paras Dupree MD 0180 [facility] 200 [place] [address] Social History Tobacco Use Types Packs/Day Years Used Date Smoking Tobacco: Never Smokeless Tobacco: Never Alcohol Use Standard Drinks/Week Comments No 0 (1 standard drink = 0.6 oz pur e alcohol) Sex and Gender Information Value Date Recorded Sex Assigned at Male 12/09/2019 10:46 PM COMPLAINTS COORDINATOR Gender Identity Male 12/09/2019 10:46 PM COMPLAINTS COORDINATOR Sexual Orientation Straight 12/09/2019 10 :46 PM COMPLAINTS COORDINATOR documented as of this encounter Plan of Treatment Upcoming Encounters Date Type Department Care Team (Late st Contact Info) Description 06/22/2023 1:10 PM CDT Office Visit [facility] Neurology Clinic [place] 909 [facility] 3rd [place] [address] Paras Dupree MD 5775 [facility] 200 [place] [address] documented as of this encounter Visit Diagnoses Not on filedocumented in this encounter Care Teams Global Technical Writer Relationship Specialty Start Date End Date Darryl Kenny PCP - General Family Practice 09/08/16 Paras Dupree MD 5200 [place], [place] 6[address] Neurology 04/29/14 Zarina Manzo MD 5200 [place] [address] Referring Physician Family Practice 12/20/15 Anjum Santiago RN Nurse Coordinator Neurology 02/18/16 02/15/18 Abhijeet Boyle, RN Specialty Staff Cytotechnologist Neurology 08/29/17 01/10/18 Fatuma Lynn, RN Specialty Staff Cytotechnologist 08/31/17 05/29/18 Modesta Elliott MD 909 [place] [address] Physical Medicine and Rehabilitation 11/12/17 Paras Dupree MD [address] [facility] 200 [place], [place] [address] Assigned Neuroscience Provider 11/28/19 Paras Dupree MD [address] [facility] 200 [place], [place] [address] Neurology 10/04/22 documented as of this encounter
--- OUTSIDE RECORDS SUMMARY | 2023-02-21 17:52 | XMS_ITS | Encounter Summary ---
Author Name Unknown Organization [place] Address [address] [place] [address] Care Team Providers Care Weight Engineer Name Role Phone Paras Dpuree MD Unavailable [phone] Zarina Manzo MD Unavailable Anjum Santiago RN Unavailable Darryl Kenny Primary Care Provider Abhijeet Boyle RN Unavailable Fatuma Lynn RN Unavailable [phone] Modesta Elliott MD Unavailable [phone] Paras Dupree MD Unavailable Paras Dupree MD Unavailable Encounter Details Date Type Department Care Team (Late st Contact Info) Description 06/07/2017 [facility] Medical Advice [facility] Neurology 9 [facility] 3rd [place] [address] Paras Dupree MD 4803 [facility] 200 [place] [address] Social History Tobacco Use Types Packs/Day Years Used Date Smoking Tobacco: Never Smokeless Tobacco: Never Alcohol Use Standard Drinks/Week Comments No 0 (1 standard drink = 0.6 oz pur e alcohol) Sex and Gender Information Value Date Recorded Sex Assigned at Male 12/09/2019 10:46 PM STAMPER BLOCKER Gender Identity Male 12/09/2019 10:46 PM STAMPER BLOCKER Sexual Orientation Straight 12/09/2019 10 :46 PM STAMPER BLOCKER documented as of this encounter Plan of Treatment Upcoming Encounters Date Type Department Care Team (Late st Contact Info) Description 06/22/2023 1:10 PM CDT Office Visit [facility] Neurology Clinic [place] 909 [facility] 3rd [place] [address] Paras Dupree MD 5775 [facility] 200 [place] [address] documented as of this encounter Visit Diagnoses Not on filedocumented in this encounter Care Teams Weight Engineer Relationship Specialty Start Date End Date Darryl Kenny PCP - General Family Practice 09/08/16 Paras Dupree MD 5200 [place], [place] 1079[address] Neurology 04/29/14 Zarina Manzo MD 5200 [place] [address] Referring Physician Family Practice 12/20/15 Anjum Santiago RN Nurse Coordinator Neurology 02/18/16 02/15/18 Abhijeet Boyle, RN Specialty Vrt Mechanic Neurology 08/29/17 01/10/18 Fatuma Lynn, RN Specialty Vrt Mechanic 08/31/17 05/29/18 Modesta Elliott MD 909 [place] [address] Physical Medicine and Rehabilitation 11/12/17 Paras Dupree MD 57[address] [facility] 200 [place], [place] [address] Assigned Neuroscience Provider 11/28/19 Paras Dupree MD [address] [facility] 200 [place], [place] 9[address] Neurology 10/04/22 documented as of this encounter
--- OUTSIDE RECORDS SUMMARY | 2023-02-21 17:52 | XMS_ITS | Encounter Summary ---
Author Name Unknown Organization [facility] Address [address] [place] [address] Care Team Providers Care Brine Mixer Operator Name Role Phone Paras Dupree MD Unavailable [phone] Zarina Manzo MD Unavailable Darryl Kenny Primary Care Provider Modesta Elliott MD Unavailable [phone] Paras Dupree MD Unavailable [phone] Reason for Visit * Reason Comments Medication Refill Encounter Details Date Type Department Care Team (Late st Contact Info) Description 02/20/2022 [facility] Neurology Clinic [address] 3rd [place] [address] Paras Dupree MD 0800 [facility] 200 [place] [address] Medication Refill Social History Tobacco Use Types Packs/Day Years Used Date Smoking Tobacco: Never Smokeless Tobacco: Never Alcohol Use Standard Drinks/Week Comments No 0 (1 standard drink = 0.6 oz pur e alcohol) PHQ-2 Answer Date Recorded PHQ-2 Score 0 09/26/2018 Sex and Gender Information Value Date Recorded Sex Assigned at Male 12/09/2019 10:46 PM MINING DETAIL DRAFTSPERSON Gender Identity Male 12/09/2019 10:46 PM MINING DETAIL DRAFTSPERSON Sexual Orientation Straight 12/09/2019 10 :46 PM MINING DETAIL DRAFTSPERSON documented as of this encounter Miscellaneous Notes * Telephone Encounter - Michelle Ramirez RN - 02/24/2022 7:36 AM CST Last Clinic Visit: [facility] 09/16/21 [place]: 03/31/22 Filling per [facility] medication refill protocols - seizure medications. Not all labs required. NG DETAIL DRAFTSPERSON documented in this encounter Plan of Treatment Upcoming Encounters Date Type Department Care Team (Late st Contact Info) Description 06/22/2023 1:10 PM CDT Office Visit [facility] Neurology [address]rd [place] [address] Paras Dupree MD [address] [facility] [address] [address] documented as of this encounter Visit Diagnoses Diagnosis Marcos-Gastaut syndrome with tonic seizures- Primary Generalized convulsive epilepsy without mention of intractable epilepsy documented in this encounter Care Teams Brine Mixer Operator Relationship Specialty Start Date End Date Darryl Kenny 5200 [place] [address] PCP - General Family Practice 09/08/16 Paras Dupree MD 5200 [place] [address] Neurology 04/29/14 Zarina Manzo MD 5200 [place] [address] Referring Physician Family Practice 12/20/15 Modesta Elliott MD [address] [place] [address] Physical Medicine and Rehabilitation 11/12/17 Paras Dupree MD [address] [address] Assigned Neuroscience Provider 11/28/19 documented as of this encounter
--- OUTSIDE RECORDS SUMMARY | 2023-02-21 17:52 | XMS_ITS | Encounter Summary ---
Author Name Unknown Organization [facility] Address [address] [place] [address] Care Team Providers Care Couples Therapist Name Role Phone Paras Dupree MD Unavailable [phone] Zarina Manzo MD Unavailable Anjum Santiago RN Unavailable Darryl Kenny Primary Care Provider [phone] Abhijeet Boyle RN Unavailable Fatuma Lynn RN Unavailable [phone] Modesta Elliott MD Unavailable [phone] Paras Dupree MD Unavailable [phone] Paras Dupree MD Unavailable Encounter Details Date Type Department Care Team (Late st Contact Info) Description 06/04/2017 [facility] Medical Advice [facility] Neurology 9 [facility] 3rd [place] [address] Paras Dupree MD 1420 [facility] 200 [place] [address] Social History Tobacco Use Types Packs/Day Years Used Date Smoking Tobacco: Never Smokeless Tobacco: Never Alcohol Use Standard Drinks/Week Comments No 0 (1 standard drink = 0.6 oz pur e alcohol) Sex and Gender Information Value Date Recorded Sex Assigned at Male 12/09/2019 10:46 PM DISTANCE EDUCATION FACULTY LIAISON Gender Identity Male 12/09/2019 10:46 PM DISTANCE EDUCATION FACULTY LIAISON Sexual Orientation Straight 12/09/2019 10 :46 PM DISTANCE EDUCATION FACULTY LIAISON documented as of this encounter Plan of Treatment Upcoming Encounters Date Type Department Care Team (Late st Contact Info) Description 06/22/2023 1:10 PM CDT Office Visit [facility] [place] 909 [facility] 3rd [place] [address] Paras Dupree MD 5775 [facility] 200 [place] [address] documented as of this encounter Visit Diagnoses Not on filedocumented in this encounter Care Teams Couples Therapist Relationship Specialty Start Date End Date Darryl Kenny PCP - General Family Practice 09/08/16 Paras Dupree MD 5200 [place], [place] [address] Neurology 04/29/14 Zarina Manzo MD 5200 [place] [address] Referring Physician Family Practice 12/20/15 Anjum Santiago RN Nurse Coordinator Neurology 02/18/16 02/15/18 Abhijeet Boyle, RN Specialty Pattern Carrier Neurology 08/29/17 01/10/18 Fatuma Lynn, RN Specialty Pattern Carrier 08/31/17 05/29/18 Modesta Elliott MD 909 [place] [address] Physical Medicine and Rehabilitation 11/12/17 Paras Dupree MD [address] [facility] 200 [place], [place] [address] Assigned Neuroscience Provider 11/28/19 Paras Dupree MD [address] [facility] [address] 200 [place], [place] 44[address]46 Neurology 10/04/22 documented as of this encounter
--- OUTSIDE RECORDS SUMMARY | 2023-02-21 17:52 | XMS_ITS | Encounter Summary ---
Author Name Unknown Organization [facility] [facility] Address [address] [place] [address] Care Team Providers Care Insurance Plan Specialist Name Role Phone Paras Dupree MD Unavailable [phone] Zarina Manzo MD Primary Care Provider [phone] Zarina Manzo MD Unavailable Anjum Santiago RN Unavailable Aruna Villa RN Unavailable [phone] Darryl Kenny Primary Care Provider [phone] Abhijeet Boyle RN Unavailable Fatuma Lynn RN Unavailable [phone] Modesta Elliott MD Unavailable [phone] Paras Dupree MD Unavailable Paras Dupree MD Unavailable Encounter Details Date Type Department Care Team (Late st Contact Info) Description 06/05/2016 [facility] Medical Advice [facility] Neurology 909 [facility] 3rd [place] [address] Paras Dupree MD 2525 [facility] 200 [place] [address] Social History Tobacco Use Types Packs/Day Years Used Date Smoking Tobacco: Never Smokeless Tobacco: Never Alcohol Use Standard Drinks/Week Comments No 0 (1 standard drink = 0.6 oz pur e alcohol) Sex and Gender Information Value Date Recorded Sex Assigned at Male 12/09/2019 10:46 PM LEARNING COACH Gender Identity Male 12/09/2019 10:46 PM LEARNING COACH Sexual Orientation Straight 12/09/2019 10 :46 PM LEARNING COACH documented as of this encounter Plan of Treatment Upcoming Encounters Date Type Department Care Team (Late st Contact Info) Description 06/22/2023 1:10 PM CDT Office Visit [facility] [address] 3rd [place] [address] Paras Dupree MD 5775 [facility] 200 [place] [address] documented as of this encounter Visit Diagnoses Not on filedocumented in this encounter Care Teams Insurance Plan Specialist Relationship Specialty Start Date End Date Zarina Manzo MD 5200 [place] [address] PCP - General Family Practice 08/20/15 09/07/16 Darryl Kenny PCP - General Family Practice 09/08/16 Paras Dupree MD 5[address] [place] [address] Neurology 04/29/14 Zarina Manzo MD 5[address] [place] [address] Referring Physician Family Practice 12/20/15 Anjum Santiago, RN Nurse Coordinator Neurology 02/18/16 02/15/18 Aruna Villa, PRACHI Nurse Coordinator Neurology 04/24/16 09/11/16 Abhijeet Boyle RN Specialty Data Systems Analyst Neurology 08/29/17 01/10/18 Fatuma Lynn, RN Specialty Data Systems Analyst 08/31/17 05/29/18 Modesta Elliott MD [address] [place] [address] Physical Medicine and Rehabilitation 11/12/17 Paras Dupree MD [address] [address] Assigned Neuroscience Provider 11/28/19 Paras Dupree MD 5775 [facility] 200 [place] [address] Neurology 10/04/22 documented as of this encounter
--- OUTSIDE RECORDS SUMMARY | 2023-02-21 17:52 | XMS_ITS | Encounter Summary ---
Author Name Unknown Organization [facility] Address [address] [place] [address] Care Team Providers Care Bmw Service Technician Name Role Phone Paras Dupree MD Unavailable [phone] Zarina Manzo MD Unavailable Anjum Santiago RN Unavailable Darryl Kenny Primary Care Provider [phone] Abhijeet Boyle RN Unavailable Fatuma Lynn RN Unavailable [phone] Modesta Elliott MD Unavailable [phone] Paras Dupree MD Unavailable [phone] Paras Dupree MD Unavailable Encounter Details Date Type Department Care Team (Late st Contact Info) Description 06/04/2017 [facility] Neurology 9 [facility] 3rd [place] [address] Paras Dupree MD 6213 [facility] 200 [place] [address] Social History Tobacco Use Types Packs/Day Years Used Date Smoking Tobacco: Never Smokeless Tobacco: Never Alcohol Use Standard Drinks/Week Comments No 0 (1 standard drink = 0.6 oz pur e alcohol) Sex and Gender Information Value Date Recorded Sex Assigned at Male 12/09/2019 10:46 PM TECHNOLOGY SALES CONSULTANT Gender Identity Male 12/09/2019 10:46 PM TECHNOLOGY SALES CONSULTANT Sexual Orientation Straight 12/09/2019 10 :46 PM TECHNOLOGY SALES CONSULTANT documented as of this encounter Plan of Treatment Upcoming Encounters Date Type Department Care Team (Late st Contact Info) Description 06/22/2023 1:10 PM CDT Office Visit [facility] [place] 909 [facility] 3rd [place] [address] Paras Dupree MD 5775 [facility] 200 [place] [address] documented as of this encounter Visit Diagnoses Not on filedocumented in this encounter Care Teams Bmw Service Technician Relationship Specialty Start Date End Date Darryl Kenny PCP - General Family Practice 09/08/16 Paras Dupree MD 5200 [place], [place] [address] Neurology 04/29/14 Zarina Manzo MD 5200 [place] [address] Referring Physician Family Practice 12/20/15 Anjum Santiago RN Nurse Coordinator Neurology 02/18/16 02/15/18 Abhijeet Boyle, RN Specialty Rubber Belt Splicer Neurology 08/29/17 01/10/18 Fatuma Lynn, RN Specialty Rubber Belt Splicer 08/31/17 05/29/18 Modesta Elliott MD 909 [place] [address] Physical Medicine and Rehabilitation 11/12/17 Paras Dupree MD [address] [facility] 200 [place], [place] [address] Assigned Neuroscience Provider 11/28/19 Paras Dupree MD [address] [facility] 200 [place], [place] [address] Neurology 10/04/22 documented as of this encounter
--- OUTSIDE RECORDS SUMMARY | 2023-02-21 17:52 | XMS_ITS | Encounter Summary ---
Author Name Unknown Organization [facility] Address [address] [place] [address] Care Team Providers Care Noc Technician Name Role Phone Paras Dupree MD Unavailable [phone] Zarina Manzo MD Unavailable Darryl Kenny Primary Care Provider [phone] Fatuma Lynn RN Unavailable [phone] Modesta Elliott MD Unavailable [phone] Paras Dupree MD Unavailable [phone] Paras Dupree MD Unavailable [phone] Encounter Details Date Type Department Care Team (Late Contact Info) Description 03/22/2018 [facility] Medical Advice [facility] Neurology [address] [address] Paras Dupree MD 9677 [facility] 200 [place] [address] Social History Tobacco Use Types Packs/Day Years Used Date Smoking Tobacco: Never Smokeless Tobacco: Never Alcohol Use Standard Drinks/Week Comments No 0 (1 standard drink = 0.6 oz pur e alcohol) PHQ-2 Answer Date Recorded PHQ-2 Score 0 02/12/2018 Sex and Gender Information Value Date Recorded Sex Assigned at Male 12/09/2019 10:46 PM FIXED INTEREST DEALER Gender Identity Male 12/09/2019 10:46 PM FIXED INTEREST DEALER Sexual Orientation Straight 12/09/2019 10 :46 PM FIXED INTEREST DEALER documented as of this encounter Plan of Treatment Upcoming Encounters Date Type Department Care Team (Late st Contact Info) Description 06/22/2023 1:10 PM CDT Office Visit [facility] [place] 909 [facility] 3rd [place] [phone] Paras Dupree MD [address] [address] documented as of this encounter Visit Diagnoses Not on filedocumented in this encounter Care Teams Noc Technician Relationship Specialty Start Date End Date Darryl Kenny 5200 [place] [address] PCP - General Family Practice 09/08/16 Paras Dupree MD 5200 [place] [address] Neurology 04/29/14 Zarina Manzo MD 5200 [place] [address] Referring Physician Family Practice 12/20/15 Fatuma Lynn, PRACHI 5200 [place] [address] Specialty Games Manager 08/31/17 05/29/18 Modesta Elliott MD [address] [place] [address] Physical Medicine and Rehabilitation 11/12/17 Paras Dupree MD 5775 [facility] 200 [place] [address] Assigned Neuroscience Provider 11/28/19 Paras Dupree MD 5775 [facility] 200 [place] [address] Neurology 10/04/22 documented as of this encounter
--- OUTSIDE RECORDS SUMMARY | 2023-02-21 17:52 | XMS_ITS | Encounter Summary ---
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 200 [place] [address] Referral ID Status Reason Start Date Expiration Date V isits Requested Visits Authorized [id number] Pending Review 03/27/2022 03/27/2023 1 1 EMENT RIDE OPERATOR * (Routine) - Pending Review Specialty Diagnoses / Procedures Referred By Contac t Referred To Contact Diagnoses [place]-Gastaut syndrome with tonic seizures (H) Procedures Rufinamide Level Paras Dupree MD [address] [facility] 200 [place] [address] Referral ID Status Reason Start Date Expiration Date V isits Requested Visits Authorized [id number] Pending Review 03/27/2022 03/27/2023 1 1 EMENT RIDE OPERATOR * (Routine) - Pending Review Specialty Diagnoses / Procedures Referred By Contac t Referred To Contact Diagnoses Marcos-Gastaut syndrome with tonic seizures (H) Procedures Carbamazepine Epoxide and Total Paras Dupree MD [address] [facility] 200 [place] [address] Referral ID Status Reason Start Date Expiration Date V isits Requested Visits Authorized [id number] Pending Review 03/27/2022 03/27/2023 1 1 EMENT RIDE OPERATOR Encounter Details Date Type Department Care Team (Late st Contact Info) Description 03/15/2022 [facility] Medical Advice [facility] Neurology Clinic [address] 3rd [place] [address] Paras Dupree MD [address] [facility] 200 [place], [place] [address] [place]-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) Social History Tobacco Use Types Packs/Day Years Used Date Smoking Tobacco: Never Smokeless Tobacco: Never Alcohol Use Standard Drinks/Week Comments No 0 (1 standard drink = 0.6 oz pur e alcohol) PHQ-2 Answer Date Recorded PHQ-2 Score 0 09/26/2018 Sex and Gender Information Value Date Recorded Sex Assigned at Male 12/09/2019 10:46 PM AMUSEMENT RIDE OPERATOR Gender Identity Male 12/09/2019 10:46 PM AMUSEMENT RIDE OPERATOR Sexual Orientation Straight 12/09/2019 10 :46 PM AMUSEMENT RIDE OPERATOR documented as of this encounter Miscellaneous Notes * Telephone Encounter - Abhijeet Boyle RN - 03/27/2022 10:22 AM CST Message from patient Dr. Dupree, ?? Can you send the information to [facility] for labs for our upcoming visit with you on 03/31,with Lew Vogt. ?? If you can get it to them by the end of this week so that we can get there next week, so that you can have the results b4 our visit? Thank you! Manisha ------- Per Check carbamazepine, rufinamide, lamotrigine and sodium levels please. Thanks. TSW Orders placed and printed for signing/faxing EMENT RIDE OPERATOR documented in this encounter Plan of Treatment Upcoming Encounters Date Type Department Care Team (Late st Contact Info) Description 06/22/2023 1:10 PM CDT Office Visit [facility] [address] [address] Paras Dupree MD [address] [address] documented as of this encounter Results * (ABNORMAL) Sodium (12/15/2022 2:53 PM AMUSEMENT RIDE OPERATOR) [facility] Sodium 134(L) 135 - 145 mmol/L 12/15/2022 3:24 PM AMUSEMENT RIDE OPERATOR [facility] Comment:Reference intervals for [...] Unknown Venipuncture / Unknown 12/15/2022 2:53 PM AMUSEMENT RIDE OPERATOR 12/15/2022 2:54 PM AMUSEMENT RIDE OPERATOR Paras Dupree MD LAB - BLOOD ORDERABLES [facility] [address] [place] [address] * Lamotrigine Level (12/15/2022 2:53 PM AMUSEMENT RIDE OPERATOR) Lamotrigine 5.2 3.0 - 15.0 ug/mL 12/17/2022 11:51 AM AMUSEMENT RIDE OPERATOR [facility] Comment: INTERPRETIVE INFORMATION: ??Lamotrigine Therapeutic Range: ??3.0-15.0 ug/mL ?Toxic: ??Greater than or equal to 20 ug/mL Pharmacokinetics varies widely, particularly with co-medications and/or compromised renal function. ??Adverse effects may include dizziness, somnolence, nausea and vomiting. Performed By: [facility] [address] [place] [address] Fish And Wildlife Biologist: Xavi Rodriguez MD, PhD CLIA Number: [id number] Blood STRUCTURE OF LEFT HAND / Unknown Venipuncture / Unknown 12/15/2022 2:53 PM AMUSEMENT RIDE OPERATOR 12/15/2022 2:54 PM AMUSEMENT RIDE OPERATOR Paras Dupree MD LAB - BLOOD ORDERABLES Performing Organization Address City/[facility]/ZIP Co de Phone Number [facility] [address] [place] [phone] [phone] * Rufinamide Level (12/15/2022 2:53 PM AMUSEMENT RIDE OPERATOR) Rufinamide 21.4 5.0 - 30.0 ug/mL 12/17/2022 9:00 PM AMUSEMENT RIDE OPERATOR [facility] Comment: INTERPRETIVE INFORMATION: Rufinamide, Serum or Plasma Therapeutic Range: 5-30 ug/mL Dose-related range (values at doses of 800-7200 mg/day): 3-30 ug/mL Toxic: Not well established. Adverse effects may include somnolence, vomiting, headache and fatigue. This test was developed and its performance characteristics determined by [facility]. It has not been cleared or approved by the US Food and Drug Administration. This test was performed in a CLIA certified laboratory and is intended for clinical purposes. Performed By: [facility] [address] [place] [address] Fish And Wildlife Biologist: Xavi Rodriguez MD, PhD CLIA Number: [id number] Blood STRUCTURE OF LEFT HAND / Unknown Venipuncture / Unknown 12/15/2022 2:53 PM AMUSEMENT RIDE OPERATOR 12/15/2022 2:54 PM AMUSEMENT RIDE OPERATOR Paras Dupree MD LAB - BLOOD ORDERABLES [address] [address], [facility] [phone] * Carbamazepine Epoxide and Total (12/15/2022 2:53 PM AMUSEMENT RIDE OPERATOR) 10, 11 Epoxide Level 3.5 ug/mL 12/06 4:21 PM AMUSEMENT RIDE OPERATOR [facility] Comment: INTERPRETIVE INFORMATION: ??Carbamazepine-10, 11-Epoxide Carbamazepine-10, 11 [...] in the FDA-approved label for carbamazepine (https://www.accessdata.fda.gov/scripts/cder/daf/index.cfm?e vent=overview.process&iycQnhfXk=190421) and in the guideline from the Clinical Pharmacogenetics Implementation Consortium (https://www.pharmgkb.org/guidelines). [HLA-B*15:02 Genotyping, Carbamazepine Hypersensitivity, [facility] test code 9917236.] A combination of therapeutic drug monitoring with HLA-B*15:02 pharmacogenetics genotyping may benefit patients at increased risk of developing carbamazepine-induced adverse events due to rare genotypes other than the HLA-B*15:02 variant allele. This test was developed and its performance characteristics determined by [facility]. It has not been cleared or approved by the US Food and Drug Administration. This test was performed in a CLIA certified laboratory and is intended for clinical purposes. 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 documented in this encounter Care Teams Repair Operator Relationship Specialty Start Date End Date Darryl Kenny 5[address] [place] [address] PCP - General Family Practice 09/08/16 Paras Dupree MD [address] [place] [address] Neurology 04/29/14 Zarina Manzo MD [address] [place] [address] Referring Physician Family Practice 12/20/15 Modesta Elliott MD [address] [place] [address] Physical Medicine and Rehabilitation 11/12/17 Paras Dupree MD [address] [address] Assigned Neuroscience Provider 11/28/19 Paras Dupree MD 5775 [facility] 200 [place] [address] Neurology 10/04/22 documented as of this encounter
--- OUTSIDE RECORDS SUMMARY | 2023-02-21 17:52 | XMS_ITS | Encounter Summary ---
Author Name Unknown Organization [facility] Address [address] [place] [address] Care Team Providers Care Venue Manager Name Role Phone Paras Dupree MD Unavailable [phone] Zarina Manzo MD Unavailable Darryl Kenny Primary Care Provider Modesta Elliott MD Unavailable Paras Dupree MD Unavailable [phone] Paras Dupree MD Unavailable [phone] Encounter Details Date Type Department Care Team (Late st Contact Info) Description 07/31/2019 [facility] [place] [facility] Neurology [address] [place] [address] Paras Dupree MD 8509 [facility] 200 [place] [address] Social History Tobacco Use Types Packs/Day Years Used Date Smoking Tobacco: Never Smokeless Tobacco: Never Alcohol Use Standard Drinks/Week Comments No 0 (1 standard drink = 0.6 oz pur e alcohol) PHQ-2 Answer Date Recorded PHQ-2 Score 0 09/26/2018 Sex and Gender Information Value Date Recorded Sex Assigned at Male 12/09/2019 10:46 PM NUCLEAR POWER REACTOR OPERATOR Gender Identity Male 12/09/2019 10:46 PM NUCLEAR POWER REACTOR OPERATOR Sexual Orientation Straight 12/09/2019 10 :46 PM NUCLEAR POWER REACTOR OPERATOR documented as of this encounter Plan of Treatment Upcoming Encounters Date Type Department Care Team (Late st Contact Info) Description 06/22/2023 1:10 PM CDT Office Visit [facility] [place] 909 [facility] 3rd [place] [phone] Paras Dupree MD [address] [address] documented as of this encounter Visit Diagnoses Not on filedocumented in this encounter Care Teams Venue Manager Relationship Specialty Start Date End Date Darryl Kenny [address] [place] [address] PCP - General Family Practice 09/08/16 Paras Dupree MD [address] [place] [address] Neurology 04/29/14 Zarina Manzo MD [address] [place] [address] Referring Physician Family Practice 12/20/15 Modesta Elliott MD 9 [place] [address] Physical Medicine and Rehabilitation 11/12/17 Paras Dupree MD [address] [address] Assigned Neuroscience Provider 11/28/19 Paras Dupree MD [address] [address] Neurology 10/04/22 documented as of this encounter
--- OUTSIDE RECORDS SUMMARY | 2023-02-21 17:53 | XMS_ITS | Encounter Summary ---
Author Name Unknown Organization [facility] Address [address] [place] [address] Care Team Providers Care Flexboard Operator Name Role Phone Paras Dupree MD Unavailable [phone] Zarina Manzo MD Primary Care Provider [phone] Zarina Manzo MD Unavailable Anjum Santiago RN Unavailable Aruna Villa RN Unavailable [phone] Darryl Kenny Primary Care Provider Abhijeet Boyle RN Unavailable Fatuma Lynn RN Unavailable [phone] Modesta Elliott MD Unavailable [phone] Paras Dupree MD Unavailable [phone] Paras Dupree MD Unavailable Encounter Details Date Type Department Care Team (Late st Contact Info) Description 02/08/2016 [facility] Medical Advice [facility] Neurology [address] [facility] [address] [place] [address] Paras Dupree MD 5545 [facility] [address] [place] [address] Social History Tobacco Use Types Packs/Day Years Used Date Smoking Tobacco: Never Smokeless Tobacco: Never Alcohol Use Standard Drinks/Week Comments No 0 (1 standard drink = 0.6 oz pur e alcohol) Sex and Gender Information Value Date Recorded Sex Assigned at Male 12/09/2019 10:46 PM MARINE ENGINEERING CONSULTANT Gender Identity Male 12/09/2019 10:46 PM MARINE ENGINEERING CONSULTANT Sexual Orientation Straight 12/09/2019 10 :46 PM MARINE ENGINEERING CONSULTANT documented as of this encounter Plan of Treatment Upcoming Encounters Date Type Department Care Team (Late st Contact Info) Description 06/22/2023 1:10 PM CDT Office Visit [facility] Neurology Clinic [address] 3rd [place] [phone] Paras Dupree MD 5775 [facility] [address] [place] [address] documented as of this encounter Visit Diagnoses Not on filedocumented in this encounter Care Teams Flexboard Operator Relationship Specialty Start Date End Date Zarina Manzo MD [address] [place] [address] PCP - General Family Practice 08/20/15 09/07/16 Darryl Kenny PCP - General Family Practice 09/08/16 Paras Dupree MD [address] [place] [address] Neurology 04/29/14 Zarina Manzo MD [address] [place] [address] Referring Physician Family Practice 12/20/15 Anjum Santiago, RN Nurse Coordinator Neurology 02/18/16 02/15/18 Aruna Villa, PRACHI Nurse Coordinator Neurology 04/24/16 09/11/16 Abhijeet Boyle RN Specialty Fishing Rod Marker Neurology 08/29/17 01/10/18 Fatuma Lynn, RN Specialty Fishing Rod Marker 08/31/17 05/29/18 Modesta Elliott MD [address] [place] [address] Physical Medicine and Rehabilitation 11/12/17 Paras Dupree MD [address] [address] Assigned Neuroscience Provider 11/28/19 Paras Dupree MD 5775 [facility] 200 [place] [address] Neurology 10/04/22 documented as of this encounter
--- OUTSIDE RECORDS SUMMARY | 2023-02-21 17:53 | XMS_ITS | Clinical Summary ---
Author Name Unknown Organization [facility] Address [address] [place] [address] Care Team Providers Care Sand Wheeler Name Role Phone [facility], Provider Primary Care Pr ovider Unavailable Source Comments You are receiving this document as you are listed as the primary care provider,follow-up provider, or the patient has been referred to you for consultation.This is in compliance with the Medicare and[facility] Cent[facility]aid EHR Incentive Program,which states Providers who transition their patient to another setting of careor provider of care or refers their patient to another provider of care shouldprovide summary care record for each transition of care or referral. [facility] Allerg[facility] Active Allergy Reactions Criticality Noted Date Comments Alendronate Sodium 06/08/2008 PN: LW Reaction: intolerant of taking correctly Erythromycin 10/14/2003 PN: Unknown Felbamate 03/20/2007 PN: LW Reaction: Rash, Generalized Macrolides And Ketolides 10/14/2003 PN: Unknown Piperacillin Sod-Tazobactam So Rash High 06/13/2013 Medications Medication Sig Dispensed Refills Start Date End Date Status pediatric multiple vitamin-iron (FRUITY CHEWS/IRON) chew tabletIndications: SUPPLEMENTATION Take 1 tablet by mouth daily (every 24 hours). Indications: SUPPLEMENTATION 0 02/09/2014 Active drug not in computerIndication s:Malnutrition (HRC),Reflux esophagitis,Aspira tion into airway, subsequent encounter Take by mouth three times a day. honey thicket juice cans TID 270 Each 3 10/18/2015 Active lamoTRIgine (LAMICTAL) 100 MG tabletIndications: SEIZURE DISORDER Take 1 Tab by mouth 4 times a day. Indications: SEIZURE DISORDER 150 Tab 1 11/02/2015 Active pseudoephedrine (SUDAFED) 60 MG tabletIndications: Nasal Congestion Take 1 Tab by mouth every 6 hours as needed for Congestion. Indications: Stuffy Nose 30 Tab 2 11/02/2015 Active drug not in computer Take by mouth 4 times a day. Take honey thickened juice QID 120 Each 11 12/03/2015 Active drug not in computerIndication s:Malnutrition (HRC),Reflux esophagitis Take by mouth two times a day. Magic cup 180 Each 3 12/03/2015 Active drug not in computerIndication s:Prolonged seizure (HRC) Standard gloves for personal care needs for staff ie bathing #4 boxes with refills x one year. Size per jail staff to determine 4 Each 0 12/24/2015 Active omeprazole (PRILOSEC-OTC) 20 MG tablet Take 1 Tab by mouth daily. 90 Tab 3 12/28/2015 Active Rufinamide (BANZEL) 400 MG # # # Dispense BRAND ONLY : Banzel. No generic drug substitution # # #Take Two tablets ( 800 mg ) AM and three tablets three times per day (total 4400 mg per day) 0 01/26/2016 Active BANZEL 400 MG 11 01/12/2016 Active ONFI 10 MG TABS 5 01/20/2016 Active acetaminophen (TYLENOL) 500 MG tablet Take 1 Tab by mouth every 4 hours as needed. 100 Tab 11 01/26/2016 Active senna (SENNA) 8.8 MG/5ML syrupIndications:a dminister 5 ml orally two times daily if no BM for 48 hours. Take 5 mL by mouth two times a day. Indications: administer 5 ml orally two times daily if no BM for 48 hours. 0 Active carBAMazepine (TEGRETOL) 200 MG tablet Take 1 tablet at 8 am and 2 tablets at noon, 5 pm and 9 pm 6 02/10/2016 Active LORazepam (ATIVAN) 2 MG/ML concentrated solution Take 0.5 mg by mouth prn for generalized clonic tonic sz or 5 min of speech arrest sz or more than 3 tonic clonic sz in one day, ivette repeat after 30 min for continuing sz activity Indications: SEIZURES Indications: SEIZURE 0 02/10/2016 Active polyethylene glycol 3350 (GLYCOLAX) powder TAKE 17GM BY MOUTH DAILY 850 g 5 11/21/2016 Active omeprazole (PRILOSEC) 20 MG capsule Take 1 Cap by mouth daily. 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 Dysphagia 04/02/2015 Prolonged seizure 10/26/2014 Encephalomalacia 02/18/2014 Aspiration pneumonia 06/13/2013 Overview: He is on honey thickened liquids for diet ; Aspiration pneumonia Breakthrough seizure 06/13/2013 Overview: Breakthrough seizure Anorexia 02/12/2012 Hyperlipidemia 03/16/2008 Osteoporosis 04/13/2004 Overview: LW Onset: 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 Immunizations Name Administration Dates Next Due DT Ped 04/16/1985 Flu Vac Preserv Free (3+yrs) 11/01/2011, 12/07/2010,11/10/2009, 007,12/01/2003 Influenza IIV4 (Quadrivalent ) 0.5mL (62377) 10/13/2015,10/27/2014,10/03/2013, 013 PPSV23 (Pneumovax) 03/13/2008 TDAP (BOOSTRIX) 02/12/2012 Td 01/14/2004,06/21/1993 Family History Medical History Relation Name Comments Diabetes Father PRe DM High Cholesterol Father Amblyopia/Strabismus Negative Family History Cataract Negative Family History Glaucoma Negative Family History Macular Degeneration Negative Family History Retinal Detachment Negative Family History Relation Name Status Comments Father Alive Mother Alive Other Social History Tobacco Use Types Packs/Day Years Used Date Smoking Tobacco: Never Smokeless Tobacco: Never Tobacco Cessation:Counseling Given: No Alcohol Use Standard Drinks/Week Comments No 0 (1 standard drink = 0.6 oz pure alcohol) Alcoholic Drinks/day: Freq:Never; Sex and Gender Information Value Date Recorded Sex Assigned at Not on file Gender Identity Not on file Sexual Orientation Not on file Last Filed Vital Signs Vital Sign Reading Time Taken Comments Blood Pressure 102/62 04/21/2016 11:41 AM CDT Pulse 72 04/21/2016 11:41 AM CDT Temperature 36.6 ??C (97.9 ??F) 08/30/2015 3 :14 PM CDT Respiratory Rate 16 08/30/2015 3:14 PM CDT Oxygen Saturation 99% 04/21/2016 11: 41 AM CDT Inhaled Oxygen Concentration - - Weight 61 kg (134 lb 6.4 oz) 04/21/2016 11:41 AM CDT Height 172.7 cm (5' 7.99) 04/21/2016 1 1:41 AM CDT per previous visit Body Mass Index 20.44 04/21/2016 11:41 AM CDT Plan of Treatment Health Maintenance Due Date Last Done Comments Hep C Screening (Preventive Services) 1965 HepB (1) 1965 Medicare Annual Wellness Visit 1965 PSA Screening Discussion 1964 COVID-19 Vaccine (#1) 1964 HIV Screening (Preventive Services) 1980 Zoster/Shingles (1 of 2) 02/02/2014 FIT Colon Cancer Screening 05/25/2016 05/26/2015 (Co mpleted) Dexa 12/07/2016 12/07/2014, 09/06, 09/25/2012 Cholesterol 08/29/2019 08/28/2014, 0702/2013, 06/18/2012, Additional history exists DTaP/Tdap/Td (5 - Tdap) 02/11/2022 02/11/19 13, 01/14/2004, 06/21/1993, Additional history exists Influenza (#1) 2022 12/11/2018, 06/2017, 11/07/2016, Additional history exists Pneumococcal Aged Out 03/13/2008, 03/13/2008 No lo nger eligible based on patient's age to complete this topic HepA Aged Out No longer eligi ble based on patient's age to complete this topic Hib Aged Out No longer eligi ble based on patient's age to complete this topic IPV (Polio) Aged Out No longer eligi ble based on patient's age to complete this topic MCV4 Aged Out No longer eligi ble based on patient's age to complete this topic Advance Directives Latest Code Status on File Code Status Date Activated Date Inactivated Comments Full Code 08/29/2015 6:45 AM 08/30/2015 6:37 PM Code Status History Code Status Date Activated Date Inactivated Comments Do Not Attempt Resuscitation if Pulseless and Apneic, Do Not Intubate for Respiratory Deterioration 06/20/2015 6:24 PM 06/24/2015 7:54 PM Question Answer Comments See below for Life Sustainin g Treatment Orders IF pulse and breathing are present: See Below Intubation for primary respi ratory cause of deterioration? No BIPAP for respiratory deterioration? Unaddressed / Yes Vasopressors for hypotension? Unaddressed / Yes Cardioversion for unstable rhythm? Unaddressed / Yes Full Code 04/02/2015 9:48 PM 04/04/2015 8:37 PM Full Code 11/16/2014 5:08 AM 11/17/2014 6:22 PM Do Not Attempt Resuscitation if Pulseless and Apneic, Do Not Intubate for Respiratory Deterioration 10/26/2014 4:38 PM 10/27/2014 3:42 PM Question Answer Comments See below for Life Sustainin g Treatment Orders IF pulse and breathing are present: See Below Intubation for primary respi ratory cause of deterioration? No BIPAP for respiratory deterioration? Unaddressed / Yes Vasopressors for hypotension? Unaddressed / Yes Cardioversion for unstable rhythm? Unaddressed / Yes Care Teams Sand Wheeler Relationship Specialty Start Date End Date [facility], Provider PCP - General 04/24/17
--- OUTSIDE RECORDS SUMMARY | 2023-02-21 17:53 | XMS_ITS | Encounter Summary ---
Author Name Unknown Organization [facility] Address [address] [place] [address] Care Team Providers Care Wardrobe Stylist Name Role Phone Paras Dupree MD Unavailable [phone] Cheyenne Weiner RN Unavailable Zarina Manzo MD Primary Care Provider [phone] Zarina Manzo MD Unavailable Anjum Santiago RN Unavailable Aruna Villa RN Unavailable [phone] Darryl Kenny Primary Care Provider [phone] Abhijeet Boyle RN Unavailable Fatuma Lynn RN Unavailable [phone] Modesta Elliott MD Unavailable [phone] Paras Dupree MD Unavailable Paras Dupree MD Unavailable Encounter Details Date Type Department Care Team (Late st Contact Info) Description 10/23/2015 [facility] Medical Advice [facility] Neurology [address] [facility] [address] [place] [address] Paras Dupree MD [address] [facility] 200 [place] [address] [place]-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) Social History Tobacco Use Types Packs/Day Years Used Date Smoking Tobacco: Never Smokeless Tobacco: Never Alcohol Use Standard Drinks/Week Comments No 0 (1 standard drink = 0.6 oz pur e alcohol) Sex and Gender Information Value Date Recorded Sex Assigned at Male 12/09/2019 10:46 PM INSIDE CHANNEL ACCOUNT MANAGER Gender Identity Male 12/09/2019 10:46 PM INSIDE CHANNEL ACCOUNT MANAGER Sexual Orientation Straight 12/09/2019 10 :46 PM INSIDE CHANNEL ACCOUNT MANAGER documented as of this encounter Plan of Treatment Upcoming Encounters Date Type Department Care Team (Late st Contact Info) Description 06/22/2023 1:10 PM CDT Office Visit [facility] Neurology Clinic [address] [place] [phone] Paras Dupree MD [address] [address] documented as of this encounter Visit Diagnoses Diagnosis [place]-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 documented in this encounter Care Teams Wardrobe Stylist Relationship Specialty Start Date End Date Zarina Manzo MD PCP - General Family Practice 08/20/15 09/07/16 Darryl Kenny PCP - General Family Practice 09/08/16 Paras Dupree MD [address] [place] [address] Neurology 04/29/14 Cheyenne Weiner, PRACHI Nurse Coordinator Neurology 07/07/15 11/15/15 Zarina Manzo MD Referring Physician Family Practice 12/20/15 Anjum Santiago, RN Nurse Coordinator Neurology 02/18/16 02/15/18 Aruna Villa, RN Nurse Coordinator Neurology 04/24/16 09/11/16 Abhijeet Boyle, RN Specialty Golf Course Starter Neurology 08/29/17 01/10/18 Fatuma Lynn, PRACHI Specialty Golf Course Starter 08/31/17 05/29/18 Modesta Elliott MD [address] [place] [address] Physical Medicine and Rehabilitation 11/12/17 Paras Dupree MD [address] [id number] Assigned Neuroscience Provider 11/28/19 Paras Dupree MD [address] [id number] Neurology 10/04/22 documented as of this encounter
--- OUTSIDE RECORDS SUMMARY | 2023-02-21 17:53 | XMS_ITS | Encounter Summary ---
Author Name Unknown Organization [place] [facility] Address [address] [place] [address] Care Team Providers Care Gear Cutter Name Role Phone Paras Dupree MD Unavailable [phone] Zarina Manzo MD Primary Care Provider [phone] Zarina Manzo MD Unavailable Anjum Santiago RN Unavailable Aruna Villa RN Unavailable [phone] Darryl Kenny Primary Care Provider Abhijeet Boyle RN Unavailable Fatuma Lynn RN Unavailable [phone] Modesta Elliott MD Unavailable [phone] Paras Dupree MD Unavailable Paras Dupree MD Unavailable Encounter Details Date Type Department Care Team (Late st Contact Info) Description 12/15/2015 [facility] Medical Advice Initial Department [facility] Social History Tobacco Use Types Packs/Day Years Used Date Smoking Tobacco: Never Smokeless Tobacco: Never Alcohol Use Standard Drinks/Week Comments No 0 (1 standard drink = 0.6 oz pur e alcohol) Sex and Gender Information Value Date Recorded Sex Assigned at Male 12/09/2019 10:46 PM WATCH LEADER Gender Identity Male 12/09/2019 10:46 PM WATCH LEADER Sexual Orientation Straight 12/09/2019 10 :46 PM WATCH LEADER documented as of this encounter Plan of Treatment Upcoming Encounters Date Type Department Care Team (Late Contact Info) Description 06/22/2023 1:10 PM CDT Office Visit [facility] Neurology Clinic [address] 3rd [place] [phone] Paars Dupree MD [address] [facility] 200 [place] [address] documented as of this encounter Visit Diagnoses Not on filedocumented in this encounter Care Teams Gear Cutter Relationship Specialty Start Date End Date Zarina Manzo MD [address] [place] [address] PCP - General Family Practice 08/20/15 09/07/16 Darryl Kenny PCP - General Family Practice 09/08/16 Paras Dupree MD [address] [place] [address] Neurology 04/29/14 Zarina Manzo MD [address] [place] [address] Referring Physician Family Practice 12/20/15 Anjum Santiago, RN Nurse Coordinator Neurology 02/18/16 02/15/18 Aruna Villa, RN Nurse Coordinator Neurology 04/24/16 09/11/16 Abhijeet Boyle, RN Specialty Video Production Assistant Neurology 08/29/17 01/10/18 Fatuma Lynn, PRACHI Specialty Video Production Assistant 08/31/17 05/29/18 Modesta Elliott MD [address] [place] [address] Physical Medicine and Rehabilitation 11/12/17 Paras Dupree MD [address] [phone] Assigned Neuroscience Provider 11/28/19 Paras Dupree MD [address] [address] Neurology 10/04/22 documented as of this encounter
--- OUTSIDE RECORDS SUMMARY | 2023-02-21 17:53 | XMS_ITS | Encounter Summary ---
Author Name Unknown Organization [facility] Address [address] [place] [address] Care Team Providers Care Senior Wind Turbine Technician Name Role Phone Paras Dupree MD Unavailable [phone] Cheyenne Weiner RN Unavailable [phone] Zarina Manzo MD Primary Care Provider [phone] Zarina Manzo MD Unavailable Anjum Santiago RN Unavailable Aruna Villa RN Unavailable [phone] Darryl Kenny Primary Care Provider [phone] Abhijeet Boyle RN Unavailable Fatuma Lynn RN Unavailable [phone] Modesta Elliott MD Unavailable [phone] Paras Dupree MD Unavailable + [phone] Paras Dupree MD Unavailable + [phone] Encounter Details Date Type Department Care Team (Late st Contact Info) Description 10/14/2015 [facility] Social History Tobacco Use Types Packs/Day Years Used Date Smoking Tobacco: Never Smokeless Tobacco: Never Alcohol Use Standard Drinks/Week Comments No 0 (1 standard drink = 0.6 oz pur e alcohol) Sex and Gender Information Value Date Recorded Sex Assigned at Male 12/09/2019 10:46 PM LYE BOILER Gender Identity Male 12/09/2019 10:46 PM LYE BOILER Sexual Orientation Straight 12/09/2019 10 :46 PM LYE BOILER documented as of this encounter Plan of Treatment Upcoming Encounters Date Type Department Care Team (Late st Contact Info) Description 06/22/2023 1:10 PM CDT Office Visit [facility] Neurology Clinic [place] [address] [facility] [address]rd [place] [phone] Paras Dupree MD 57[address] [facility] [address] [place], [place] [address] documented as of this encounter Visit Diagnoses Not on filedocumented in this encounter Care Teams Senior Wind Turbine Technician Relationship Specialty Start Date End Date Zarina Manzo MD PCP - General Family Practice 08/20/15 09/07/16 Darryl Kenny PCP - General Family Practice 09/08/16 Paras Dupree MD [address] [place] [address] Neurology 04/29/14 Cheyenne Weiner, RN Nurse Coordinator Neurology 07/07/15 11/15/15 Zarina Manzo MD Referring Physician Family Practice 12/20/15 Anjum Santiago, RN Nurse Coordinator Neurology 02/18/16 02/15/18 Aruna Villa, RN Nurse Coordinator Neurology 04/24/16 09/11/16 Abhijeet Boyle, RN Specialty Automated Weaver Neurology 08/29/17 01/10/18 Fatuma Lynn, RN Specialty Automated Weaver 08/31/17 05/29/18 Modesta Elliott MD [address] [place] [address] Physical Medicine and Rehabilitation 11/12/17 Paras Dupree MD [address] [address] Assigned Neuroscience Provider 11/28/19 Paras Dupree MD [address] [address] Neurology 10/04/22 documented as of this encounter
--- OUTSIDE RECORDS SUMMARY | 2023-02-21 17:53 | XMS_ITS | Encounter Summary ---
Author Name Unknown Organization [facility] Address [address] [place] [address] Care Team Providers Care Department Helper Name Role Phone Paras Dupree MD Unavailable [phone] Cheyenne Weiner RN Unavailable Zarina Manzo MD Primary Care Provider [phone] Zarina Manzo MD Unavailable Anjum Santiago RN Unavailable Aruna Villa RN Unavailable [phone] Darryl Kenny Primary Care Provider [phone] Abhijeet Boyle RN Unavailable Fatuma Lynn RN Unavailable [phone] Modesta Elliott MD Unavailable [phone] Paras Dupree MD Unavailable Paras Dupree MD Unavailable Encounter Details Date Type Department Care Team (Late st Contact Info) Description 09/22/2015 [facility] Medical Advice [facility] Neurology 9[address] [facility] [address] [place] [address] Paras Dupree MD [address] [facility] 200 [place] [address] Social History Tobacco Use Types Packs/Day Years Used Date Smoking Tobacco: Never Smokeless Tobacco: Never Alcohol Use Standard Drinks/Week Comments No 0 (1 standard drink = 0.6 oz pur e alcohol) Sex and Gender Information Value Date Recorded Sex Assigned at Male 12/09/2019 10:46 PM ANIMAL LABORATORY TECHNICIAN Gender Identity Male 12/09/2019 10:46 PM ANIMAL LABORATORY TECHNICIAN Sexual Orientation Straight 12/09/2019 10 :46 PM ANIMAL LABORATORY TECHNICIAN documented as of this encounter Plan of Treatment Upcoming Encounters Date Type Department Care Team (Late st Contact Info) Description 06/22/2023 1:10 PM CDT Office Visit [facility] Neurology Clinic [address]rd [place] [phone] Paras Dupree MD [address] [id number] documented as of this encounter Visit Diagnoses Not on filedocumented in this encounter Care Teams Department Helper Relationship Specialty Start Date End Date Zarina Manzo MD PCP - General Family Practice 08/20/15 09/07/16 Darryl Kenny PCP - General Family Practice 09/08/16 Paras Dupree MD [address] [place] [address] Neurology 04/29/14 Cheyenne Weiner, RN Nurse Coordinator Neurology 07/07/15 11/15/15 Zarina Manzo MD Referring Physician Family Practice 12/20/15 Anjum Santiago, PRACHI Nurse Coordinator Neurology 02/18/16 02/15/18 Aruna Villa, RN Nurse Coordinator Neurology 04/24/16 09/11/16 Abhijeet Boyle, RN Specialty Sports Medicine Specialist Neurology 08/29/17 01/10/18 Fatuma Lynn, PRACHI Specialty Sports Medicine Specialist 08/31/17 05/29/18 Modesta Elliott MD [address] [place] [address] Physical Medicine and Rehabilitation 11/12/17 Paras Dupree MD [address] [address] Assigned Neuroscience Provider 11/28/19 Paras Dupree MD [address] [address] Neurology 10/04/22 documented as of this encounter
--- OUTSIDE RECORDS SUMMARY | 2023-02-21 17:53 | XMS_ITS | Encounter Summary ---
Author Name Unknown Organization [facility] Address [address] [place] [address] Care Team Providers Care Air Pollution Auditor Name Role Phone [facility] Primary Care Pr ovider Paras Dupree MD Unavailable [phone] Cheyenne Weiner RN Unavailable [phone] Zarina Manzo MD Primary Care Provider [phone] Zarina Manzo MD Unavailable Anjum Santiago RN Unavailable Aruna Villa RN Unavailable Darryl Kenny Primary Care Provider Abhijeet Boyle RN Unavailable Fatuma Lynn RN Unavailable [phone] Modesta Elliott MD Unavailable Paras Dupree MD Unavailable [phone] Paras Dupree MD Unavailable [phone] Reason for Visit * Reason Comments Medication Refill Encounter Details Date Type Department Care Team (Late st Contact Info) Description 02/11/2015 [facility]ill [facility] [address] [facility] [address] [place] [address] Paras Dupree MD [address] [facility] [address] [place] [address] Medication Refill Social History Tobacco Use Types Packs/Day Years Used Date Smoking Tobacco: Never Smokeless Tobacco: Never Alcohol Use Standard Drinks/Week Comments No 0 (1 standard drink = 0.6 oz pur e alcohol) Sex and Gender Information Value Date Recorded Sex Assigned at Male 12/09/2019 10:46 PM ELECTRONIC DRAFTER Gender Identity Male 12/09/2019 10:46 PM ELECTRONIC DRAFTER Sexual Orientation Straight 12/09/2019 10 :46 PM ELECTRONIC DRAFTER documented as of this encounter Plan of Treatment Upcoming Encounters Date Type Department Care Team (Late st Contact Info) Description 06/22/2023 1:10 PM CDT Office Visit [facility] Neurology [address] [place] [phone] Paras Dupree MD [address] [id number] documented as of this encounter Visit Diagnoses Diagnosis 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 documented in this encounter Care Teams Air Pollution Auditor Relationship Specialty Start Date End Date [facility] [id number] [place] [address] PCP - General 05/29/11 08/19/15 Zarina Manzo MD PCP - General Family Practice 08/20/15 09/07/16 Darryl Kenny PCP - General Family Practice 09/08/16 Paras Dupree MD [address] [place] [address] Neurology 04/29/14 Cheyenne Weiner, PRACHI Nurse Coordinator Neurology 07/07/15 11/15/15 Zarina Manzo MD Referring Physician Family Practice 12/20/15 Anjum Santiago, RN Nurse Coordinator Neurology 02/18/16 02/15/18 Aruna Villa, RN Nurse Coordinator Neurology 04/24/16 09/11/16 Abhijeet Boyle, RN Specialty Coverer Neurology 08/29/17 01/10/18 Fatuma Lynn, PRACHI Specialty Coverer 08/31/17 05/29/18 Modesta Elliott MD [address] [place] [address] Physical Medicine and Rehabilitation 11/12/17 Paras Dupree MD [address] [id number] Assigned Neuroscience Provider 11/28/19 Paras Dupree MD [address] [id number] Neurology 10/04/22 documented as of this encounter
--- NOTE | 2023-02-21 18:20 | ED.NURSE ---
Received call from lab that Hgb was critically low at 5.7. Call placed to Dr. Owens regarding Hgb level.
[2023-02-21 18:25] LABS: Basophils Absolute Auto 0.06 K/uL (0.00-0.30); Basophils Percent Auto 1.2 % (0.0-3.0); Hematocrit 20.4 % (37.0-53.0); Lymphocytes Absolute Auto 1.46 K/uL (0.90-2.90); Lymphocytes Percent Auto 29.7 % (20-44); Mean Corpuscular HGB Conc 28 gm/dL (32-36); Mean Corpuscular Hemoglobin 27 pg (26-34); Mean Corpuscular Volume 98 fL (80-100); Monocytes Percent Auto 13.4 % (0.0-11.0); Neutrophils Absolute Auto 2.74 K/uL (1.7-7.0); Neutrophils Percent Auto 55.7 % (42.0-72.0); Platelet Count* 454 K/uL (140-440); RDW Coefficient of Variation % 20.1 % (11.5-15.5); Red Blood Count 2.09 m/uL (4.30-5.90); White Blood Count* 4.92 K/uL (4.50-11.00)
[2023-02-21 18:34] LABS: Hemoglobin* 5.7 gm/dL (13.5-17.5); Slide Review Reflex Yes
[2023-02-21 18:46] LABS: Albumin* 3.8 g/dL (3.3-5.0); Chloride* 98 mmol/L (96-114); Sodium* 131 mmol/L (135-149)
[2023-02-21 18:47] LABS: INR 0.93 (0.91-1.10)
[2023-02-21 18:48] LABS: Creatinine* 0.4 mg/dL (0.5-1.5); Est. Creatinine Clearance* 185.91; Estimated Glomerular Filt Rate 126 ml/min; Partial Thromboplastin Time* 36 Seconds (23-33)
[2023-02-21 18:49] LABS: Alanine Aminotransferase* 17 U/L (4-50); Alkaline Phosphatase* 112 U/L (40-150); Anion Gap 6 mEq/L (7-15); Aspartate Amino Transferase* 22 U/L (12-35); Bilirubin Total* < 0.1 mg/dL (0.1-1.5); Blood Urea Nitrogen* 14 mg/dL (7-30); Carbon Dioxide* 27 mmol/L (20-32); Glucose* 103 mg/dL (60-115); Total Protein* 6.9 g/dL (6.0-8.3)
[2023-02-21 18:50] LABS: Calcium* 8.3 mg/dL (8.4-10.6)
[2023-02-21 19:12] LABS: Slide Review Acceptable Review (Acceptable)
--- NOTE | 2023-02-21 20:55 | ED.NURSE ---
Pt IV in R AC no longer patent, unable to infuse or flush. IV DC'd, catheter intact. New IV started in pt's R hand, blood transfusion continued.
--- NOTE | 2023-02-21 22:30 | ED.NURSE ---
After infusion of 2nd unit of blood was complete, pt had episode of some gagging with small amount of emesis. Per pt's caregiver (sister) it is normal for pt to have these episodes of gagging with emesis. Deck Steward used suction to clear some emesis from pt's mouth during this episode. This episode lasted approx 2-3 mins and then the pt appeared to recover back to baseline. MD notified of this event and notified that per pt's caregiver, this is an occurrence that happens semi-regularly. OK for pt to DC home.
== END 2023-02-21 22:49 | disposition home or self-care (01) ==
PROVIDERS: Emergency Provider Family Medicine; PCP Family Medicine
DX: D64.9 Anemia, unspecified (principal); K92.2 Gastrointestinal hemorrhage, unspecified
CPT/HCPCS: 36415; 36430; 80048; 80076; 85025; 85610; 85730; 86850; 86900; 86901; 86922; 94761; 99283; 99284; 99291; P9016